=== PATIENT | female | born 1955 | race Caucasian/White ===

== ENCOUNTER 2016-10-10 22:38 | Emergency (ER) | payer MEDICAID ==
[2016-10-10] MEDS ORDERED: Albuterol/Ipratropium 3.0-0.5 MG/3 ML Neb Soln ONE (23:03)
[2016-10-10 23:34] VITALS: BP 139/112
--- NOTE | 2016-10-10 23:59 | EDM.PDOC ---
ED HPI GENERAL MEDICAL PROBLEM - General Stated Complaint: CHEST PAIN Time Seen by Provider: 10/10/16 22:40 Source of Information: Reports: Patient, EMS History Limitations: Reports: Altered mental status - History of Present Illness INITIAL COMMENTS - FREE TEXT/NARRATIVE: 61 years old w f. called ems because she could not sleep.Pt has H/O Bipolar disorder with multiple complains. Her main complain was sob. No family is present. Onset: unknown/unsure Onset Date: 10/10/16 Onset Time: 07:00 Duration: Improving Location: Reports: chest Quality: Reports: Ache, Burning, Dull, Pressure, Same as previous episode Severity: mild Improves with: Reports: None Worsens with: Reports: None Frontal Headache Pain Score (Numeric/FACES): 2 - Related Data Allergies Allergy/AdvReac Type Severity Reaction Status Date / Time ciprofloxacin Allergy Cannot Verified 10/11/16 01:54 Remember metronidazole [From Flagyl] Allergy Itching Verified 10/11/16 01:54 quetiapine fumarate Allergy Dizziness Verified 10/11/16 01:54 [From Seroquel] Home Meds: Home Meds Albuterol Sulfate [Proair Hfa] 2 puff IH Q4HR PRN 08/12/13 [History] Lisdexamfetamine [Vyvanse] 70 mg PO DAILY 08/12/13 [History] rOPINIRole HCl [Requip] 1 mg PO TID 11/28/13 [History] Furosemide [Lasix] 80 mg PO DAILY 01/12/14 [History] Amitriptyline HCl 100 mg PO BEDTIME 04/03/14 [History] Bismuth Subsalicylate [Pepto-Bismol] 15 ml PO ASDIRECTED PRN 04/03/14 [History] Pantoprazole [ProTONIX] 40 mg PO DAILY 04/03/14 [History] Sennosides/Docusate Sodium [Senna S Tablet] 2 tab PO BID 04/03/14 [History] Zolpidem [Ambien] 10 mg PO BEDTIME 04/03/14 [History] Metolazone [Zaroxolyn] 2.5 mg PO DAILY 04/27/14 [History] Doxepin [SINEquan] 100 mg PO BEDTIME 10/11/14 [History] Ferrous Gluconate 324 mg PO DAILY 10/11/14 [History] Carvedilol 3.125 mg PO BID 07/04/16 [History] Polyethylene Glycol 3350 [MiraLAX] 17 gm PO DAILY #30 packet 07/05/16 [Rx] Past Medical History HEENT History: Reports: Impaired vision Other HEENT History: wear glasses Cardiovascular History: Reports: Angina, [place], Other (see below) Other Cardiovascular History: heart dse Respiratory History: Reports: COPD, Sleep apnea Gastrointestinal History: Reports: Diverticulosis Other Genitourinary History: CYST ON KIDNEY 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 Generalized weakness. Neurological History: Reports: Other (see below) Other Neuro History: Pt. was in a coma for 5 months, fibromyalgia, neuropathy Psychiatric History: Reports: Anxiety, Bipolar, Depression, Hallucinations, Psych Hospitalization(s), PTSD, Suicide attempt Other Psychiatric History: Insomnia. Endocrine/Metabolic History: Reports: Diabetes, type II Social & Family History - Family History Family Medical History: Unobtainable Oncologic: Reports: Liver - Tobacco Use Smoking Status *Q: Former Smoker Years of Tobacco use: 40 Packs/Tins Daily: 0.4 Used Tobacco, but Quit: Yes Month Tobacco Last Used: 10 years ago Second Hand Smoke Exposure: No - Caffeine Use Caffeine Use: Reports: Soda Caffeine Use Comment: unable to tolerate caffiene per patient - Alcohol Use Days Per Week of Alcohol Use: 0 - Recreational Drug Use Recreational Drug Use: No Drug Use in Last 12 Months: No - Living Situation & Occupation Living situation: Occupation: unemployed ED ROS GENERAL - Review of Systems Review Of Systems: Unable To Obtain (poor historian.) ED EXAM, GENERAL - Physical Exam Exam: See Below Exam Limited By: Physical impairment General Appearance: alert, WD/WN, obese Eye Exam: bilateral eye: normal inspection Ears: normal external exam, normal canal Ear Exam: bilateral ear: auricle normal Nose: normal inspection, normal mucosa, no blood Throat/Mouth: Normal inspection, Normal lips Head: atraumatic, normocephalic Neck: normal inspection, supple, non-tender Respiratory/Chest: wheezing (mild) Cardiovascular: normal peripheral pulses, regular rate, rhythm, no edema, no JVD Peripheral Pulses: 3+: femoral (L), femoral (R) GI/Abdominal: normal bowel sounds, no distention (Female) Exam: Deferred Rectal (Female) Exam: Deferred Back Exam: normal inspection, full range of motion Extremities: normal inspection, normal range of motion, non-tender Neurological: alert, oriented, CN II-XII intact, normal cognition Psychiatric: depressed mood Skin Exam: Warm, Dry, Intact, Normal color Lymphatic: no adenopathy Course - Vital Signs Text/Narrative:: 61 years old w f. called ems because she could not sleep.Pt has H/O Bipolar disorder with multiple complains. Her main complain was sob. No family is present. PE: Minor exp wheezes Impression: Asthma Tx: Duoneb Reexam: Improved Plan: D/C hopme with instructions Last Recorded V/S: Last Vital Signs Temp 37.1 C 10/10/16 22:40 Pulse 96 10/10/16 22:40 Resp 21 H 10/10/16 22:40 BP 139/112 H 10/10/16 22:40 Pulse Ox 94 L 10/10/16 22:40 - Orders/Labs/Meds Orders: Active Orders 24 hr Category Date Time Status RT Aerosol Therapy [RC] ASDIRECTED Care 10/10/16 22:50 Active Meds: Medications Discontinued Medications Generic Name Dose Route Start Last Admin Trade Name Bobo PRN Reason Stop Dose Admin Albuterol/Ipratropium 3 ml 10/11/16 07:00 Duoneb 3.0-0.5 Mg/3 Ml NEB QIDRT NIA Albuterol/Ipratropium 3 ml 10/11/16 22:59 10/10/16 23:15 Duoneb 3.0-0.5 Mg/3 Ml NEB 10/11/16 23:00 3 ml ONETIME ONE Administration Albuterol/Ipratropium Confirm 10/10/16 23:03 10/10/16 23:16 Duoneb 3.0-0.5 Mg/3 Ml Administered 10/10/16 23:04 Not Given Dose 3 ml .ROUTE .STK-MED ONE Departure - Departure Time of Disposition: 23:59 Disposition: Home, Self-Care 01 Condition: good Clinical Impression: Asthma Qualifiers: Asthma severity: unspecified severity Asthma complication type: uncomplicated Qualified Code(s): J45.909 - Unspecified asthma, uncomplicated Obesity Qualifiers: Obesity type: due to excess calories Obesity severity: morbid Qualified Code(s) : E66.01 - Morbid (severe) obesity due to excess calories Referrals: Jada Lowe NP [Primary Care Provider] - Forms: ED Department Discharge Additional Instructions: Please f/u with your Doctor, please come back if your symptoms get worse acutely. - My Orders Last 24 Hours: My Active Orders 10/10/16 22:50 RT Aerosol Therapy [RC] ASDIRECTED - Assessment/Plan Last 24 Hours: My Active Orders 10/10/16 22:50 RT Aerosol Therapy [RC] ASDIRECTED
[2016-10-11] MEDS ORDERED: Albuterol/Ipratropium 3.0-0.5 MG/3 ML Neb Soln NEB SCH (07:00)
[2016-10-11] MEDS ORDERED: Albuterol/Ipratropium 3.0-0.5 MG/3 ML Neb Soln NEB ONE (22:59)
== END 2016-10-11 00:25 | disposition home or self-care (01) ==
LOC: FB.ED 22:38
DX: J45.909 Unspecified asthma, uncomplicated (principal); E66.01 Morbid (severe) obesity due to excess calories; I25.2 Old myocardial infarction; M06.9 Rheumatoid arthritis, unspecified; F41.9 Anxiety disorder, unspecified; F32.9 Major depressive disorder, single episode, unspecified; E11.9 Type 2 diabetes mellitus without complications; Z79.899 Other long term (current) drug therapy; Z88.1 Allergy status to other antibiotic agents; Z88.8 Allergy status to other drugs, medicaments and biological substances; Z87.891 Personal history of nicotine dependence
CPT/HCPCS: 94640; 99282; J7620

== ENCOUNTER 2016-12-01 17:03 | Observation (INO) | payer MEDICAID ==
[~2016-12-01 17:03] MED LIST: Pregabalin 50 MG Cap PO SCH
[2016-12-01] MEDS ORDERED: LORazepam 1 MG Tab PO ONE (17:27)
--- NOTE | 2016-12-01 17:38 | EDM.PDOC ---
ED HPI GENERAL MEDICAL PROBLEM - General Chief Complaint: Behavioral/Psych Stated Complaint: SOB Time Seen by Provider: 12/01/16 17:25 Source of Information: Reports: Patient, EMS, Old Records History Limitations: Reports: No Limitations - History of Present Illness INITIAL COMMENTS - FREE TEXT/NARRATIVE: Onset 2 hrs ago of rapid heart rate and mild central chest pain. Has not taken her anxiety med, but has taken her BP meds. Here via EMS because she lives alone. No nausea, diaphoresis, but does report SOB. Is on Mucinex for a "lung infection". Says she only takes her Coreg in the morning, not twice a day, apparently never reads her labels. Onset: Today Onset Date: 12/01/16 Onset Time: 15:00 Duration: Hour(s):, Constant Location: Reports: Chest Quality: Reports: Ache Severity: Mild Improves with: Reports: None Worsens with: Reports: None Context: Reports: Other (Coughing a lot lately, not taking her Ativan. Has a hx of "tachycardia". 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) - Related Data Allergies Allergy/AdvReac Type Severity Reaction Status Date / Time ciprofloxacin Allergy Cannot Verified 12/01/16 17:14 Remember metronidazole [From Flagyl] Allergy Itching Verified 12/01/16 17:14 quetiapine fumarate Allergy Dizziness Verified 12/01/16 17:14 [From Seroquel] Home Meds: Home Meds Albuterol Sulfate [Proair Hfa] 2 puff IH Q4HR PRN 08/12/13 [History] Lisdexamfetamine [Vyvanse] 70 mg PO DAILY 08/12/13 [History] rOPINIRole HCl [Requip] 1 mg PO TID 11/28/13 [History] Furosemide [Lasix] 80 mg PO DAILY 01/12/14 [History] Amitriptyline HCl 100 mg PO BEDTIME 04/03/14 [History] Bismuth Subsalicylate [Pepto-Bismol] 15 ml PO ASDIRECTED PRN 04/03/14 [History] Pantoprazole [ProTONIX] 40 mg PO DAILY 04/03/14 [History] Sennosides/Docusate Sodium [Senna S Tablet] 2 tab PO BID 04/03/14 [History] Zolpidem [Ambien] 10 mg PO BEDTIME 04/03/14 [History] Metolazone [Zaroxolyn] 2.5 mg PO DAILY 04/27/14 [History] Doxepin [SINEquan] 100 mg PO BEDTIME 10/11/14 [History] Ferrous Gluconate 324 mg PO DAILY 10/11/14 [History] Carvedilol 3.125 mg PO BID 07/04/16 [History] Polyethylene Glycol 3350 [MiraLAX] 17 gm PO DAILY #30 packet 07/05/16 [Rx] Past Medical History HEENT History: Reports: Impaired Vision Other HEENT History: wear glasses Cardiovascular History: Reports: Angina, [place], Other (See Below) Other Cardiovascular History: heart dse Respiratory History: Reports: COPD, Pneumonia, Recurrent, Sleep Apnea Gastrointestinal History: Reports: Diverticulosis Other Genitourinary History: CYST ON 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 Generalized weakness. Neurological History: Reports: Neuropathy, Diabetic Other Neuro History: Pt. was in a coma for 5 months, fibromyalgia, neuropathy Psychiatric History: Reports: Anxiety, Bipolar, Depression, Hallucinations, Psych Hospitalization(s), PTSD, Suicide Attempt Other Psychiatric History: Insomnia. Endocrine/Metabolic History: Reports: Diabetes, Type II Social & Family History - Family History Family Medical History: Unobtainable Oncologic: Reports: Liver - Tobacco Use Smoking Status *Q: Never Smoker Years of Tobacco use: 40 Packs/Tins Daily: 0.4 Used Tobacco, but Quit: Yes Month Tobacco Last Used: 10 years ago Second Hand Smoke Exposure: No - Caffeine Use Caffeine Use: Reports: None Caffeine Use Comment: unable to tolerate caffiene per patient - Alcohol Use Days Per Week of Alcohol Use: 0 - Recreational Drug Use Recreational Drug Use: Yes Drug Use in Last 12 Months: No - Living Situation & Occupation Living situation: Occupation: Unemployed ED ROS GENERAL - Review of Systems Review Of Systems: See Below Constitutional: Reports: Fever (Not measured.) HEENT: Reports: Other (Has chronic sinusitis) Respiratory: Reports: Shortness of Breath, Cough. Denies: Pleuritic Chest Pain , Hemoptysis Cardiovascular: Reports: Chest Pain, Dyspnea on Exertion, Lightheadedness Endocrine: Reports: No Symptoms GI/Abdominal: Reports: Constipation (alternates diarrhea and constipation), Diarrhea : Reports: Incontinence (not new) Musculoskeletal: Reports: No Symptoms Skin: Reports: No Symptoms Neurological: Reports: No Symptoms Psychiatric: Reports: Anxiety Hematologic/Lymphatic: Reports: No Symptoms Immunologic: Reports: No Symptoms ED EXAM, GENERAL - Physical Exam Exam: See Below Exam Limited By: No Limitations General Appearance: Alert, WD/WN, No Apparent Distress, Obese Eye Exam: Bilateral Eye: EOMI, Normal Inspection, PERRL Ears: Normal External Exam, Normal Canal, Hearing Grossly Normal Ear Exam: Bilateral Ear: Auricle Normal, Canal Normal Nose: Normal Inspection, Normal Mucosa, No Blood Throat/Mouth: Normal Inspection, Normal Lips, Normal Teeth, Normal Oropharynx, Normal Voice, No Airway Compromise Head: Atraumatic, Normocephalic Neck: Normal Inspection, Supple Respiratory/Chest: No Respiratory Distress, Lungs Clear, Normal Breath Sounds, No Accessory Muscle Use, Other (cough wet sounding) Cardiovascular: Tachycardia, Other (regular) GI/Abdominal: Normal Bowel Sounds, Soft, Non-Tender, No Distention Back Exam: Normal Inspection Extremities: Normal Inspection, Normal Range of Motion, Non-Tender, No Pedal Edema Neurological: Alert, Oriented, CN II-XII Intact, No Motor/Sensory Deficits Psychiatric: Anxious Skin Exam: Warm, Dry, Intact, Normal Color, No Rash Lymphatic: No Adenopathy EKG INTERPRETATION EKG Date: 12/01/16 Time: 17:45 Rhythm: NSR Rate (beats/min): 119 [place]: normal P-wave: present QRS: normal ST-T: normal QT: normal Comparison: other: (Rate has increased by 13/min, otherwise no change.) Course - Vital Signs Text/Narrative:: Ativan 1 mg po, KCL 40 meq po, magnesium oxide 800 mg po, Dulcolax 10 mg supp AL , LR 1000 ml IV, Coreg 6.25 mg po Orthostats-unable to perform CT chest with IV contrast(PE study)-negative for PE Afraid to go home, will bring in as OBS patient for social work specialist and PT consults. Last Recorded V/S: Last Vital Signs Temp 36.9 C 12/01/16 18:51 Pulse 118 H 12/01/16 21:11 Resp 20 12/01/16 21:11 BP 152/77 H 12/01/16 21:32 Pulse Ox 100 12/01/16 21:11 - Orders/Labs/Meds Orders: Active Orders 24 hr Category Date Time Status EKG Documentation Completion [RC] ASDIRECTED Care 12/01/16 17:28 Active Orthostatic Vital Signs [RC] ASDIRECTED Care 12/01/16 18:53 Inactive Ang Chest [CT] Stat Exams 12/01/16 18:52 Taken Sodium Chloride 0.9% [Saline Flush] Med 12/01/16 19:10 Active 10 ml FLUSH ASDIRECTED PRN Saline Lock Insert [OM.PC] Routine Oth 12/01/16 19:10 Ordered EKG 12 Lead [EK] Routine Ther 12/01/16 17:28 Ordered Medication Orders Sodium Chloride (Saline Flush) 10 ml FLUSH ASDIRECTED PRN PRN Reason: Keep Vein Open Last Admin: 12/01/16 19:11 Dose: 10 ml Labs: Laboratory Tests 12/01/16 12/01/16 12/01/16 Range/Units 17:40 17:40 17:40 WBC 12.8 H (4.5-12.0) X10-3/uL RBC 5.05 (3.23-5.20) x10(6)uL Hgb 15.1 (11.5-15.5) g/dL Hct 45.9 (30.0-51.3) % MCV 90.8 (80-96) fL MCH 29.9 (27.7-33.6) pg MCHC 32.9 (32.2-35.4) g/dL RDW 14.2 (11.5-15.5) % Plt Count 460 H (125-369) X10(3)uL D-Dimer, Quantitative (100-400) ng/mL Sodium 138 (135-145) mmol/L Potassium 3.4 L (3.5-5.3) mmol/L Chloride 96 L (100-110) mmol/L Carbon Dioxide 28 (23-29) mmol/L BUN 12 D (5-20) mg/dL Creatinine 1.0 (0.6-1.3) mg/dL Est Cr Clr Drug Dosing 63.30 mL/min Estimated GFR (MDRD) 57 L (>60) BUN/Creatinine Ratio 12.0 (9-20) Glucose 147 H (80-116) mg/dL Calcium 11.0 H (8.6-10.2) mg/dL Magnesium (1.8-2.5) mg/dL Troponin I < 0.01 L (0.02-0.06) NG/ML 12/01/16 12/01/16 Range/Units 17:40 17:40 WBC (4.5-12.0) X10-3/uL RBC (3.23-5.20) x10(6)uL Hgb (11.5-15.5) g/dL Hct (30.0-51.3) % MCV (80-96) fL MCH (27.7-33.6) pg MCHC (32.2-35.4) g/dL RDW (11.5-15.5) % Plt Count (125-369) X10(3)uL D-Dimer, Quantitative 1140 H (100-400) ng/mL Sodium (135-145) mmol/L Potassium (3.5-5.3) mmol/L Chloride (100-110) mmol/L Carbon Dioxide (23-29) mmol/L BUN (5-20) mg/dL Creatinine (0.6-1.3) mg/dL Est Cr Clr Drug Dosing mL/min Estimated GFR (MDRD) (>60) BUN/Creatinine Ratio (9-20) Glucose (80-116) mg/dL Calcium (8.6-10.2) mg/dL Magnesium 1.7 L (1.8-2.5) mg/dL Troponin I (0.02-0.06) NG/ML Meds: Medications Generic Name Dose Route Start Last Admin Trade Name Freq PRN Reason Stop Dose Admin Sodium Chloride 10 ml 12/01/16 19:10 12/01/16 19:11 Saline Flush FLUSH 10 ml ASDIRECTED PRN Administration Keep Vein Open Discontinued Medications Generic Name Dose Route Start Last Admin Trade Name Freq PRN Reason Stop Dose Admin Bisacodyl 10 mg 12/01/16 18:38 12/01/16 18:45 Dulcolax RECTAL 12/01/16 18:39 10 mg ONETIME ONE Administration Carvedilol 6.25 mg 12/01/16 21:17 12/01/16 21:32 Coreg PO 12/01/16 21:18 6.25 mg ONETIME ONE Administration Lactated Ringer's 1,000 mls @ 1,000 mls/hr 12/01/16 18:52 12/01/16 19:28 Ringers, Lactated IV 12/01/16 19:51 1,000 mls/hr BOLUS ONE Administration Iopamidol 100 ml 12/01/16 18:57 12/01/16 20:30 Isovue-370 (76%) IV 12/01/16 18:58 80 ml . DIRECTED ONE Administration Lorazepam 1 mg 12/01/16 17:27 12/01/16 17:41 Ativan PO 12/01/16 17:28 1 mg ONETIME ONE Administration Magnesium Oxide 800 mg 12/01/16 18:37 12/01/16 18:44 Magnesium Oxide PO 12/01/16 18:38 800 mg ONETIME ONE Administration Potassium Chloride 40 meq 12/01/16 18:04 12/01/16 18:11 Klor-Con 10 PO 12/01/16 18:05 40 meq ONETIME ONE Administration Departure - Departure Time of Disposition: 22:38 Disposition: Refer to Observation Condition: good Clinical Impression: At risk for falls HTN (hypertension) Qualifiers: Hypertension type: essential hypertension Qualified Code(s): I10 - Essential ( primary) hypertension Morbid obesity Qualifiers: Obesity type: due to excess calories Qualified Code(s): E66.01 - Morbid (severe ) obesity due to excess calories Forms: ED Department Discharge - My Orders Last 24 Hours: My Active Orders 12/01/16 17:28 EKG Documentation Completion [RC] ASDIRECTED EKG 12 Lead [EK] Routine 12/01/16 18:52 Ang Chest [CT] Stat 12/01/16 18:53 Orthostatic Vital Signs [RC] ASDIRECTED 12/01/16 19:10 Sodium Chloride 0.9% [Saline Flush] 10 ml FLUSH ASDIRECTED PRN Saline Lock Insert [OM.PC] Routine - Assessment/Plan Last 24 Hours: My Active Orders 12/01/16 17:28 EKG Documentation Completion [RC] ASDIRECTED EKG 12 Lead [EK] Routine 12/01/16 18:52 Ang Chest [CT] Stat 12/01/16 18:53 Orthostatic Vital Signs [RC] ASDIRECTED 12/01/16 19:10 Sodium Chloride 0.9% [Saline Flush] 10 ml FLUSH ASDIRECTED PRN Saline Lock Insert [OM.PC] Routine
[2016-12-01] MEDS ORDERED: Potassium Chloride 10 MEQ Tab.ER PO ONE (18:04)
[2016-12-01] MEDS ORDERED: Magnesium Oxide 400 MG Tab PO ONE (18:37)
[2016-12-01] MEDS ORDERED: Bisacodyl 10 MG Supp RECTAL ONE (18:38)
[2016-12-01] MEDS ORDERED: Lactated Ringers 1,000 ML IV ONE (18:52)
[2016-12-01] MEDS ORDERED: Iopamidol 755 Mg/ML 100 ML Bottle IV ONE (18:57)
[2016-12-01] MEDS ORDERED: Sodium Chloride 0.9% 10 ML Syringe FLUSH PRN (19:10)
[2016-12-01] MEDS ORDERED: Carvedilol 6.25 MG Tab PO ONE (21:17)
[2016-12-01] MEDS ORDERED: Carvedilol 6.25 MG Tab ONE (21:31)
[2016-12-01] MEDS ORDERED: Acetaminophen 325 MG Tab PO PRN (22:40)
[2016-12-01] MEDS ORDERED: BISMUTH SUBSALICYLATE PO PRN (22:46)
[2016-12-01] MEDS ORDERED: Albuterol 8 GM Inhaler INH PRN (22:57)
[2016-12-02] MEDS ORDERED: Pregabalin 50 MG Cap PO SCH (00:17)
[2016-12-02] MEDS ORDERED: LORazepam 1 MG Tab PO PRN (00:18)
[2016-12-02] MEDS ORDERED: diphenhydrAMINE 25 MG Cap PO SCH (00:23)
[2016-12-02 02:17] VITALS: BP 150/90
[2016-12-02] MEDS ORDERED: Pantoprazole 40 MG Tab.CR PO SCH (09:00)
[2016-12-02] MEDS ORDERED: Polyethylene Glycol 3350 Powder 17 GM Packet PO SCH (09:00)
[2016-12-02] MEDS ORDERED: Metolazone 2.5 MG Tab PO SCH (09:00)
[2016-12-02] MEDS ORDERED: Acetaminophen/Codeine 300-30 MG Tab PO SCH (09:00)
[2016-12-02] MEDS ORDERED: Non-Formulary Medication 1 Each (Ropinirole Hcl [Requip] 1 MG) PO SCH (09:00)
[2016-12-02] MEDS ORDERED: Ferrous Gluconate 324 MG Tab PO SCH (09:00)
[2016-12-02] MEDS ORDERED: LISDEXAMFETAMINE 70 MG PO SCH (09:00)
[2016-12-02] MEDS ORDERED: Carvedilol 3.125 MG Tab PO SCH (09:00)
[2016-12-02] MEDS ORDERED: Enoxaparin 40 MG/0.4 ML Syringe SUBCUT SCH (09:00)
[2016-12-02] MEDS ORDERED: AMITRIPTYLINE HCL 100 MG PO SCH (21:00)
[2016-12-02] MEDS ORDERED: Zolpidem 10 MG Tab PO SCH (21:00)
== END 2016-12-02 01:05 | disposition left against medical advice (07) ==
LOC: FB.ED 17:03 → FB.MS 22:40
PROVIDERS: ADMIT Emergency Medicine; ATTEND Family Medicine
DX: I10 Essential (primary) hypertension (principal); E66.01 Morbid (severe) obesity due to excess calories; J44.9 Chronic obstructive pulmonary disease, unspecified; G47.30 Sleep apnea, unspecified; E11.40 Type 2 diabetes mellitus with diabetic neuropathy, unspecified; F41.9 Anxiety disorder, unspecified; F32.9 Major depressive disorder, single episode, unspecified; Z88.1 Allergy status to other antibiotic agents; Z88.8 Allergy status to other drugs, medicaments and biological substances; Z79.899 Other long term (current) drug therapy
CPT/HCPCS: 36415; 71275; 80048; 83735; 84484; 85027; 85379; 93005; 96360; 99285; A9270; G0378; J7050; J7120; Q9967

== ENCOUNTER 2017-01-05 15:53 | Emergency (ER) | payer MEDICAID ==
[2017-01-05] MEDS ORDERED: Ondansetron 8 MG Tab.DIS PO ONE (16:01)
--- NOTE | 2017-01-05 16:34 | EDM.PDOC ---
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 bloating. Onset: Unknown/Unsure Onset Date: 12/11/16 Onset Time: 07:00 Duration: Week(s):, Intermittent Location: Reports: Chest, Generalized whole body Pain Score (Numeric/FACES): 9 - Related Data Allergies Allergy/AdvReac Type Severity Reaction Status Date / Time ciprofloxacin Allergy Cannot Verified 01/07/17 18:56 Remember metronidazole [From Flagyl] Allergy Itching Verified 01/07/17 18:56 Home Meds: Home Meds rOPINIRole HCl [Requip] 1 mg PO TID 11/28/13 [History] Furosemide [Lasix] 80 mg PO DAILY PRN 01/12/14 [History] Pantoprazole [ProTONIX] 40 mg PO DAILY 04/03/14 [History] Sennosides/Docusate Sodium [Senna S Tablet] 1 tab PO DAILY 04/03/14 [History] Zolpidem [Ambien] 10 mg PO BEDTIME 04/03/14 [History] Doxepin [SINEquan] 100 mg PO BEDTIME 10/11/14 [History] Carvedilol 3.125 mg PO BID 07/04/16 [History] Acetaminophen with Codeine [Tylenol with Codeine #3 Tablet] 1 tab PO TID PRN [History] Cranberry Extract/Vit C [Azo Cranberry Softgel] 1 tab PO DAILY 01/05/17 [History ] Cyclobenzaprine [Flexeril] 10 mg PO TID 01/05/17 [History] Ferrous Sulfate 325 mg PO DAILY 01/05/17 [History] Folic Acid 1 mg PO DAILY 01/05/17 [History] Magnesium 250 mg PO DAILY 01/05/17 [History] Metoclopramide HCl 10 mg PO BID PRN 01/05/17 [History] Pregabalin [Lyrica] 50 mg PO TID 01/05/17 [History] QUEtiapine [SEROquel] 100 mg PO BEDTIME 01/05/17 [History] Spironolactone [Aldactone] 25 mg PO DAILY 01/05/17 [History] Cyanocobalamin (Vitamin B-12) [B-12] 1,000 mcg PO DAILY 01/07/17 [History] LORazepam 1 mg PO BID PRN 01/07/17 [History] Metoclopramide HCl 10 mg PO BID PRN 01/07/17 [History] atorvaSTATin [Lipitor] 20 mg PO BEDTIME 01/07/17 [History] Fluticasone Propionate [Flonase] 1 spray NASBOTH DAILY 01/08/17 [History] Sulfamethoxazole/Trimethoprim [IJD: Sulfamethoxazole/Trimethoprim DS] 1 tab PO BID #10 tablet 01/08/17 [Rx] Past Medical History HEENT History: Reports: Impaired Vision Other HEENT History: wear glasses Cardiovascular History: Reports: Angina, [place], Other (See Below) Other Cardiovascular History: heart dse Respiratory History: Reports: COPD, Pneumonia, Recurrent, Sleep Apnea Gastrointestinal History: Reports: Diverticulosis Other Genitourinary History: 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 Generalized weakness. Neurological History: Reports: Neuropathy, Diabetic Other Neuro History: Pt. was in a coma for 5 months, fibromyalgia, neuropathy Psychiatric History: Reports: Anxiety, Bipolar, Depression, Hallucinations, Psych Hospitalization(s), PTSD, Suicide Attempt Other Psychiatric History: Insomnia. Endocrine/Metabolic History: Reports: Diabetes, Type II Social & Family History - Family History Family Medical History: Unobtainable Oncologic: Reports: Liver - Tobacco Use Smoking Status *Q: Never Smoker Years of Tobacco use: 40 Packs/Tins Daily: 0.4 Used Tobacco, but Quit: Yes Month Tobacco Last Used: 10 years ago Second Hand Smoke Exposure: No - Caffeine Use Caffeine Use: Reports: None Caffeine Use Comment: unable to tolerate caffiene per patient - Alcohol Use Days Per Week of Alcohol Use: 0 - Recreational Drug Use Recreational Drug Use: Yes Drug Use in Last 12 Months: No - Living Situation & Occupation Living situation: Occupation: Unemployed ED ROS GENERAL - Review of Systems Review Of Systems: See Below Constitutional: Reports: Weakness HEENT: Reports: Other (H/A) Respiratory: Reports: Cough Cardiovascular: Reports: No Symptoms Endocrine: Reports: No Symptoms GI/Abdominal: Reports: No Symptoms ED EXAM, GENERAL - Physical Exam Exam: See Below Exam Limited By: Uncooperative General Appearance: Alert, WD/WN, Mild Distress Eye Exam: Bilateral Eye: Normal Inspection Ears: Normal External Exam Ear Exam: Bilateral Ear: Auricle Normal Nose: Normal Inspection, Normal Mucosa Throat/Mouth: Normal Inspection, Normal Lips Head: Atraumatic, Normocephalic Neck: Normal Inspection, Supple, Non-Tender Respiratory/Chest: Wheezing Cardiovascular: Normal Peripheral Pulses, Regular Rate, Rhythm, No Edema GI/Abdominal: Normal Bowel Sounds, Soft (Female) Exam: Deferred Rectal (Female) Exam: Deferred Back Exam: Normal Inspection, Full Range of Motion Extremities: Normal Inspection, Normal Range of Motion Neurological: Alert, Oriented, CN II-XII Intact, Normal Cognition, Normal Gait Psychiatric: Anxious Skin Exam: Warm, Dry, Intact, Normal Color, No Rash Lymphatic: No Adenopathy Course - Vital Signs Text/Narrative:: 61 y.o.w.f with multiple medical issues, well known in this ed due to here frequent ED visits, came to the ed by EMS due to nausea for 1 year, unable to eat for 3 days and abd. bloating. C/O migraine H/A PE: Morbid obese, refusing w/u initially, c/o nausea H/O pneumonia Imaging: Atelectasis Labs: NAD Impression: Obese, Migraine H/A, atelectasis Tx: Duineb, Imitrex, Zofran, NS Reexam: improved Plan: D/C home with instructions addendum: Pt refused blood work, was done last week. Changed her mind later on. Last Recorded V/S: Last Vital Signs Temp 36.7 C 01/05/17 18:47 Pulse 95 01/05/17 18:47 Resp 18 01/05/17 18:47 BP 145/86 H 01/05/17 18:47 Pulse Ox 96 01/05/17 18:47 - Orders/Labs/Meds Labs: Laboratory Tests 01/05/17 01/05/17 01/05/17 Range/Units 16:50 16:50 16:50 WBC 11.8 (4.5-12.0) X10-3/uL RBC 4.64 (3.23-5.20) x10(6)uL Hgb 13.8 (11.5-15.5) g/dL Hct 41.3 (30.0-51.3) % MCV 89.1 (80-96) fL MCH 29.6 (27.7-33.6) pg MCHC 33.3 (32.2-35.4) g/dL RDW 14.1 (11.5-15.5) % Plt Count 426 H (125-369) X10(3)uL MPV 7.8 (7.4-10.4) fL Neut % (Auto) 80.3 (46-82) % Lymph % (Auto) 14.5 (13-37) % [place] % (Auto) 3.6 L (4-12) % Eos % (Auto) 1 (1.0-5.0) % Baso % (Auto) 1 (0-2) % Neut # (Auto) 9.5 H (1.6-8.3) # Lymph # (Auto) 1.7 (0.6-5.0) # [place] # (Auto) 0.4 (0.0-1.3) # Eos # (Auto) 0.1 (0.0-0.8) # Baso # (Auto) 0.1 (0.0-0.2) # PT 10.6 (8.7-11.1) INR 1.05 (0.89-1.13) Sodium 133 L (135-145) mmol/L Potassium 3.6 (3.5-5.3) mmol/L Chloride 93 L (100-110) mmol/L Carbon Dioxide 28 (23-29) mmol/L BUN 17 (5-20) mg/dL Creatinine 1.1 (0.6-1.3) mg/dL Est Cr Clr Drug Dosing 57.55 mL/min Estimated GFR (MDRD) 51 L (>60) BUN/Creatinine Ratio 15.5 (9-20) Glucose 147 H (80-116) mg/dL Calcium 10.6 H (8.6-10.2) mg/dL B-Natriuretic Peptide (0-100) pg/mL Urine Color (YELLOW) Urine Appearance (CLEAR) Urine pH (5.0-6.5) Ur Specific [place] (1.010-1.025) Urine Protein (NEGATIVE) mg/dL Urine Glucose (UA) (NEGATIVE) mg/dL Urine Ketones (NEGATIVE) mg/dL Urine Occult Blood (NEGATIVE) Urine Nitrite (NEGATIVE) Urine Bilirubin (NEGATIVE) Urine Urobilinogen (NEGATIVE) mg/dL Ur Leukocyte Esterase (NEGATIVE) Urine RBC (0) Urine WBC (0) Ur Squamous Epith Cells (NS,R,O) Amorphous Sediment Urine Bacteria (NS) 01/05/17 01/05/17 Range/Units 16:50 17:50 WBC (4.5-12.0) X10-3/uL RBC (3.23-5.20) x10(6)uL Hgb (11.5-15.5) g/dL Hct (30.0-51.3) % MCV (80-96) fL MCH (27.7-33.6) pg MCHC (32.2-35.4) g/dL RDW (11.5-15.5) % Plt Count (125-369) X10(3)uL MPV (7.4-10.4) fL Neut % (Auto) (46-82) % Lymph % (Auto) (13-37) % [place] % (Auto) (4-12) % Eos % (Auto) (1.0-5.0) % Baso % (Auto) (0-2) % Neut # (Auto) (1.6-8.3) # Lymph # (Auto) (0.6-5.0) # [place] # (Auto) (0.0-1.3) # Eos # (Auto) (0.0-0.8) # Baso # (Auto) (0.0-0.2) # PT (8.7-11.1) INR (0.89-1.13) Sodium (135-145) mmol/L Potassium (3.5-5.3) mmol/L Chloride (100-110) mmol/L Carbon Dioxide (23-29) mmol/L BUN (5-20) mg/dL Creatinine (0.6-1.3) mg/dL Est Cr Clr Drug Dosing mL/min Estimated GFR (MDRD) (>60) BUN/Creatinine Ratio (9-20) Glucose (80-116) mg/dL Calcium (8.6-10.2) mg/dL B-Natriuretic Peptide 36 (0-100) pg/mL Urine Color Yellow (YELLOW) Urine Appearance Slightly cloudy (CLEAR) Urine pH 6.5 (5.0-6.5) Ur Specific [place] 1.015 (1.010-1.025) Urine Protein Negative (NEGATIVE) mg/dL Urine Glucose (UA) Normal (NEGATIVE) mg/dL Urine Ketones Negative (NEGATIVE) mg/dL Urine Occult Blood Trace (NEGATIVE) Urine Nitrite Negative (NEGATIVE) Urine Bilirubin Negative (NEGATIVE) Urine Urobilinogen Normal (NEGATIVE) mg/dL Ur Leukocyte Esterase Negative (NEGATIVE) Urine RBC 0-5 (0) Urine WBC 0-5 (0) Ur Squamous Epith Cells Moderate H (NS,R,O) Amorphous Sediment Moderate Urine Bacteria Few H (NS) Meds: Medications Discontinued Medications Generic Name Dose Route Start Last Admin Trade Name Freq PRN Reason Stop Dose Admin Albuterol/Ipratropium 3 ml 01/05/17 17:29 01/05/17 18:04 Duoneb 3.0-0.5 Mg/3 Ml NEB 01/05/17 17:30 3 ml ONETIME ONE Administration Ondansetron HCl 8 mg 01/05/17 16:01 01/05/17 16:34 Zofran Odt PO 01/05/17 16:02 8 mg ONETIME ONE Administration Sumatriptan Succinate 6 mg 01/05/17 17:31 01/05/17 18:00 Imitrex SUBCUT 01/05/17 17:32 6 mg ONETIME ONE Administration Departure - Departure Time of Disposition: 18:31 Disposition: Home, Self-Care 01 Condition: Good Clinical Impression: Hyponatremia, Nausea alone, Atelectasis of right lung Migraine Qualifiers: Migraine type: without aura Status migrainosus presence: without status migrainosus Intractability: not intractable Qualified Code(s): G43.009 - Migraine without aura, not intractable, without status migrainosus - Discharge Information Instructions: Shortness of Breath Referrals: PCP,Not In Area [Primary Care Provider] - Forms: ED Department Discharge Additional Instructions: Please use your inhalers as recommended, please use zofran for nausea, please follow up with your PMD, please come back to the ed if your symptoms get worse acutely.
[2017-01-05] MEDS ORDERED: Albuterol/Ipratropium 3.0-0.5 MG/3 ML Neb Soln NEB ONE (17:29)
[2017-01-05] MEDS ORDERED: SUMAtriptan 6 MG/0.5 ML SDV SUBCUT ONE (17:31)
[2017-01-05 18:48] VITALS: BP 145/86
--- NOTE | 2017-01-06 09:19 | CR ---
INDICATION: Coughing. CHEST: PA and lateral views of the chest 01/05/2017 were compared with 2016 and again revealed evidence of exogenous obesity. Allowing for relatively poor inspiration, the heart did not appear grossly enlarged, but may be slightly prominent or at the upper limits of normal in size. The aorta is tortuous with some calcification suggested in the arch of the aorta. Linear density is noted at the minor fissure, suggesting some thickening of the minor fissure, which may be on the basis of minimal pleuritis in that area. A minimal pneumonia in the right upper lobe could be present with pleuritis. However, overall the appearance is similar to the previous study and likely represents pulmonary fibrosis. No consolidating pneumonia or definite effusion was seen. The heart, although generous in size, is not grossly enlarged. The aorta is calcified in the arch area and somewhat tortuous. Dextroconcave scoliosis lower thoracic spine is noted. IMPRESSION: 1. No definite acute process, but cannot exclude some minimal fluid in the minor fissure or linear atelectasis in that area on the right. Also, it is difficult to exclude minimal patchy bronchopneumonia due to heavy markings which are partly on the basis of poor inspiration. No consolidating pneumonia, however. 2. ASHD. 3. Exogenous obesity 4. Scoliosis. Report was called to Dr. Ramirez at 1639 hours, 01/05/2017. [facility]
== END 2017-01-05 18:55 | disposition home or self-care (01) ==
LOC: FB.ED 15:53
DX: E87.1 Hypo-osmolality and hyponatremia (principal); R11.0 Nausea; J98.11 Atelectasis; G43.009 Migraine without aura, not intractable, without status migrainosus; I25.2 Old myocardial infarction; J44.9 Chronic obstructive pulmonary disease, unspecified; Z87.01 Personal history of pneumonia (recurrent); G47.30 Sleep apnea, unspecified; M79.7 Fibromyalgia; M06.9 Rheumatoid arthritis, unspecified; E11.40 Type 2 diabetes mellitus with diabetic neuropathy, unspecified; F41.9 Anxiety disorder, unspecified; F31.9 Bipolar disorder, unspecified; F43.10 Post-traumatic stress disorder, unspecified; Z91.5 Personal history of self-harm; Z79.899 Other long term (current) drug therapy; Z87.891 Personal history of nicotine dependence; I25.10 Atherosclerotic heart disease of native coronary artery without angina pectoris; E66.09 Other obesity due to excess calories; M41.9 Scoliosis, unspecified
CPT/HCPCS: 36415; 71020; 80048; 81001; 83880; 85025; 85610; 94640; 96372; 99285; A9270; J3030; J7620

== ENCOUNTER 2017-01-07 17:02 | Observation (INO) | payer MEDICAID, MEDICARE ==
[2017-01-07] MEDS ORDERED: Adenosine 6 MG/2 ML SDV IVPUSH ONE ×2 (17:14→17:54)
[2017-01-07] MEDS ORDERED: Sodium Chloride 0.9% 1,000 ML IV SCH (17:15)
[2017-01-07] MEDS ORDERED: Sodium Chloride 0.9% 1,000 ML IV ONE (17:25)
--- NOTE | 2017-01-07 17:25 | EDM.PDOC ---
ED HPI GENERAL MEDICAL PROBLEM - General Stated Complaint: TACHYCARDIA Time Seen by Provider: 01/07/17 17:02 Source of Information: Reports: Patient, EMS - History of Present Illness INITIAL COMMENTS - FREE TEXT/NARRATIVE: 61 y.o.w.f with a h/o SVT and C/p came by EMS to the ED because of palpitations all day long. No constitutional symptoms at this time. No other acute medical issues. Onset: Today, Sudden Onset Date: 01/07/17 Onset Time: 16:25 Duration: Minutes:, Intermittent Quality: Reports: Dull Severity: Mild Improves with: Reports: None Worsens with: Reports: None Associated Symptoms: Reports: No Other Symptoms - Related Data Allergies Allergy/AdvReac Type Severity Reaction Status Date / Time ciprofloxacin Allergy Cannot Verified 01/07/17 18:56 Remember metronidazole [From Flagyl] Allergy Itching Verified 01/07/17 18:56 quetiapine fumarate Allergy Dizziness Verified 01/07/17 18:56 [From Seroquel] Home Meds: Home Meds rOPINIRole HCl [Requip] 1 mg PO TID 11/28/13 [History] Furosemide [Lasix] 80 mg PO DAILY PRN 01/12/14 [History] Pantoprazole [ProTONIX] 40 mg PO DAILY 04/03/14 [History] Sennosides/Docusate Sodium [Senna S Tablet] 1 tab PO DAILY 04/03/14 [History] Zolpidem [Ambien] 10 mg PO BEDTIME 04/03/14 [History] Doxepin [SINEquan] 100 mg PO BEDTIME 10/11/14 [History] Carvedilol 3.125 mg PO BID 07/04/16 [History] Acetaminophen with Codeine [Tylenol with Codeine #3 Tablet] 1 tab PO TID PRN [History] Cranberry Extract/Vit C [Azo Cranberry Softgel] 1 tab PO DAILY 01/05/17 [History ] Cyclobenzaprine [Flexeril] 10 mg PO TID 01/05/17 [History] Ferrous Sulfate 325 mg PO DAILY 01/05/17 [History] Fluticasone Propionate [Flovent] 1 spray NASBOTH DAILY 01/05/17 [History] Folic Acid 1 mg PO DAILY 01/05/17 [History] Magnesium 250 mg PO DAILY 01/05/17 [History] Methylphenidate [Concerta] 54 mg PO DAILY 01/05/17 [History] Metoclopramide HCl 10 mg PO BID PRN 01/05/17 [History] Ondansetron [Zofran Odt] 8 mg PO Q6H PRN #20 tab.rapdis 01/05/17 [Rx] Pregabalin [Lyrica] 50 mg PO TID 01/05/17 [History] QUEtiapine [SEROquel] 100 mg PO BEDTIME 01/05/17 [History] Spironolactone [Aldactone] 25 mg PO DAILY 01/05/17 [History] diphenhydrAMINE [Benadryl] 50 mg PO BEDTIME 01/05/17 [History] Cyanocobalamin (Vitamin B-12) [B-12] 1,000 mcg PO DAILY 01/07/17 [History] LORazepam 1 mg PO BID PRN 01/07/17 [History] Metoclopramide HCl 10 mg PO BID PRN 01/07/17 [History] atorvaSTATin [Lipitor] 20 mg PO BEDTIME 01/07/17 [History] Past Medical History HEENT History: Reports: Impaired Vision Other HEENT History: wear glasses Cardiovascular History: Reports: Angina, [place], Other (See Below) Other Cardiovascular History: heart dse Respiratory History: Reports: COPD, Pneumonia, Recurrent, Sleep Apnea Gastrointestinal History: Reports: Diverticulosis Other Genitourinary History: 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 Generalized weakness. Neurological History: Reports: Neuropathy, Diabetic Other Neuro History: Pt. was in a coma for 5 months, fibromyalgia, neuropathy Psychiatric History: Reports: Anxiety, Bipolar, Depression, Hallucinations, Psych Hospitalization(s), PTSD, Suicide Attempt Other Psychiatric History: Insomnia. Endocrine/Metabolic History: Reports: Diabetes, Type II Social & Family History - Family History Family Medical History: Unobtainable Oncologic: Reports: Liver - Tobacco Use Smoking Status *Q: Never Smoker Years of Tobacco use: 40 Packs/Tins Daily: 0.4 Used Tobacco, but Quit: Yes Month Tobacco Last Used: 10 years ago Second Hand Smoke Exposure: No - Caffeine Use Caffeine Use: Reports: None Caffeine Use Comment: unable to tolerate caffiene per patient - Alcohol Use Days Per Week of Alcohol Use: 0 - Recreational Drug Use Recreational Drug Use: Yes Drug Use in Last 12 Months: No - Living Situation & Occupation Living situation: Occupation: Unemployed ED ROS GENERAL - Review of Systems Review Of Systems: See Below Constitutional: Reports: No Symptoms, Weakness HEENT: Reports: No Symptoms Respiratory: Reports: No Symptoms Cardiovascular: Reports: Palpitations Endocrine: Reports: No Symptoms GI/Abdominal: Reports: No Symptoms : Reports: No Symptoms Musculoskeletal: Reports: No Symptoms Skin: Reports: No Symptoms Neurological: Reports: No Symptoms Psychiatric: Reports: No Symptoms Hematologic/Lymphatic: Reports: No Symptoms Immunologic: Reports: No Symptoms ED EXAM, GENERAL - Physical Exam Exam: See Below Exam Limited By: No Limitations General Appearance: Alert, WD/WN, Mild Distress, Obese Eye Exam: Bilateral Eye: Normal Inspection Ears: Normal External Exam Ear Exam: Bilateral Ear: Auricle Normal Nose: Normal Inspection Throat/Mouth: Normal Inspection Head: Atraumatic, Normocephalic Neck: Normal Inspection, Supple, Non-Tender Respiratory/Chest: No Respiratory Distress, Lungs Clear, Normal Breath Sounds, Chest Non-Tender Cardiovascular: Tachycardia GI/Abdominal: Normal Bowel Sounds, Soft, Non-Tender, No Organomegaly (Female) Exam: Deferred Rectal (Female) Exam: Deferred Back Exam: Normal Inspection, Full Range of Motion Extremities: Normal Inspection, Normal Range of Motion, Non-Tender, No Pedal Edema Neurological: Alert, Oriented, CN II-XII Intact, Normal Cognition Psychiatric: Normal Affect, Normal Mood Skin Exam: Warm, Dry, Intact, Normal Color, No Rash Lymphatic: No Adenopathy EKG INTERPRETATION EKG Date: 01/07/17 Time: 17:20 Rhythm: Other (SVT) Rate (Beats/Min): 195 [place]: Normal P-Wave: Absent QRS: Normal ST-T: Normal QT: Normal Comparison: NA - No Prior EKG EKG Interpretation Comments: After the second dose of Adenosin was given, pt converted to sinus tach with a rate of [address]/T waves QTc was 420 Course - Vital Signs Text/Narrative:: 61 y.o.w.f with a h/o SVT and C/p came by EMS to the ED because of palpitations all day long. No constitutional symptoms at this time. No other acute medical issues. PE: Palpitations, SVT with a rate of 192 Labs: Cr 1.4 WBC 14.5 K 3.6 Na 140, Ca 10.9 Troponin 0.06 Imaging: CXR NAD 2 days ago. Impression: Hypercalcemia, renal insuff, Sinus Tach, Dehydration Tx: Adenosin 6 mg, no success, Adenosin 12 mg, pt converted to Sinus tach. Protronix was given for her epigastric pain Reexam: After the pt converted to Sinus tach (102), pt complained of epigastric pain. 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 Last Recorded V/S: Last Vital Signs Temp 37.4 C 01/07/17 17:05 Pulse 202 H 01/07/17 17:05 Resp 20 01/07/17 17:05 BP 135/86 01/07/17 17:05 Pulse Ox 98 01/07/17 17:05 - Orders/Labs/Meds Orders: Active Orders 24 hr Category Date Time Status EKG Documentation Completion [RC] ASDIRECTED Care 01/07/17 17:12 Active EKG Documentation Completion [RC] ASDIRECTED Care 01/07/17 18:03 Active UA W/MICROSCOPIC [URIN] Stat Lab 01/07/17 17:11 Uncollected Sodium Chloride 0.9% [Normal Saline] 1,000 ml Med 01/07/17 17:15 Active IV ASDIRECTED EKG 12 Lead [EK] Routine Ther 01/07/17 17:11 Ordered EKG 12 Lead [EK] Routine Ther 01/07/17 18:03 Ordered Medication Orders Sodium Chloride (Normal Saline) 1,000 mls @ 125 mls/hr IV ASDIRECTED NIA Lactated Ringer's (Ringers, Lactated) 1,000 mls @ 125 mls/hr IV ASDIRECTED NIA Last Admin: 01/07/17 18:25 Dose: 125 mls/hr Ondansetron HCl (Zofran) 4 mg IV Q4H PRN PRN Reason: Nausea/Vomiting Labs: Laboratory Tests 01/07/17 01/07/17 01/07/17 Range/Units 17:30 17:30 17:30 WBC 14.3 H (4.5-12.0) X10-3/uL RBC 5.09 (3.23-5.20) x10(6)uL Hgb 14.9 (11.5-15.5) g/dL Hct 46.2 (30.0-51.3) % MCV 90.7 (80-96) fL MCH 29.4 (27.7-33.6) pg MCHC 32.4 (32.2-35.4) g/dL RDW 14.7 (11.5-15.5) % Plt Count 513 H (125-369) X10(3)uL MPV 8.6 (7.4-10.4) fL Neut % (Auto) 68.4 (46-82) % Lymph % (Auto) 23.5 (13-37) % [place] % (Auto) 5.6 (4-12) % Eos % (Auto) 2 (1.0-5.0) % Baso % (Auto) 1 (0-2) % Neut # (Auto) 9.7 H (1.6-8.3) # Lymph # (Auto) 3.4 (0.6-5.0) # [place] # (Auto) 0.8 (0.0-1.3) # Eos # (Auto) 0.3 (0.0-0.8) # Baso # (Auto) 0.1 (0.0-0.2) # Sodium 139 (135-145) mmol/L Potassium 3.7 (3.5-5.3) mmol/L Chloride 101 D (100-110) mmol/L Carbon Dioxide 27 (23-29) mmol/L BUN 13 (5-20) mg/dL Creatinine 1.4 H (0.6-1.3) mg/dL Est Cr Clr Drug Dosing TNP Estimated GFR (MDRD) 38 L (>60) BUN/Creatinine Ratio 9.3 (9-20) Glucose 176 H (80-116) mg/dL Calcium 10.9 H (8.6-10.2) mg/dL Troponin I 0.06 (0.02-0.06) NG/ML B-Natriuretic Peptide (0-100) pg/mL TSH, Ultra Sensitive (0.4-5.5) nlU/mL 01/07/17 01/07/17 Range/Units 17:30 17:30 WBC (4.5-12.0) X10-3/uL RBC (3.23-5.20) x10(6)uL Hgb (11.5-15.5) g/dL Hct (30.0-51.3) % MCV (80-96) fL MCH (27.7-33.6) pg MCHC (32.2-35.4) g/dL RDW (11.5-15.5) % Plt Count (125-369) X10(3)uL MPV (7.4-10.4) fL Neut % (Auto) (46-82) % Lymph % (Auto) (13-37) % [place] % (Auto) (4-12) % Eos % (Auto) (1.0-5.0) % Baso % (Auto) (0-2) % Neut # (Auto) (1.6-8.3) # Lymph # (Auto) (0.6-5.0) # [place] # (Auto) (0.0-1.3) # Eos # (Auto) (0.0-0.8) # Baso # (Auto) (0.0-0.2) # Sodium (135-145) mmol/L Potassium (3.5-5.3) mmol/L Chloride (100-110) mmol/L Carbon Dioxide (23-29) mmol/L BUN (5-20) mg/dL Creatinine (0.6-1.3) mg/dL Est Cr Clr Drug Dosing Estimated GFR (MDRD) (>60) BUN/Creatinine Ratio (9-20) Glucose (80-116) mg/dL Calcium (8.6-10.2) mg/dL Troponin I (0.02-0.06) NG/ML B-Natriuretic Peptide 78 (0-100) pg/mL TSH, Ultra Sensitive 1.65 (0.4-5.5) nlU/mL Meds: Medications Generic Name Dose Route Start Last Admin Trade Name Freq PRN Reason Stop Dose Admin Sodium Chloride 1,000 mls @ 125 mls/hr 01/07/17 17:15 Normal Saline IV ASDIRECTED NIA Lactated Ringer's 1,000 mls @ 125 mls/hr 01/07/17 18:45 01/07/17 18:25 Ringers, Lactated IV 125 mls/hr ASDIRECTED NIA Administration Ondansetron HCl 4 mg 01/07/17 18:35 Zofran IV Q4H PRN Nausea/Vomiting Discontinued Medications Generic Name Dose Route Start Last Admin Trade Name Bobo PRN Reason Stop Dose Admin Adenosine 6 mg 01/07/17 17:14 01/07/17 17:50 Adenocard IVPUSH 01/07/17 17:15 6 mg NOW ONE Administration Adenosine Confirm 01/07/17 17:54 01/07/17 19:35 Adenocard Administered 01/07/17 17:55 Not Given Dose 6 mg .ROUTE .STK-MED ONE Adenosine 12 mg 01/07/17 17:54 01/07/17 17:55 Adenocard IVPUSH 01/07/17 17:55 12 mg NOW ONE Administration Sodium Chloride 1,000 mls @ 999 mls/hr 01/07/17 17:25 01/07/17 17:30 Normal Saline IV 01/07/17 18:25 999 mls/hr .BOLUS ONE Administration Pantoprazole Sodium 40 mg 01/07/17 18:43 01/07/17 19:36 Protonix Iv IVPUSH 01/07/17 18:44 40 mg ONETIME ONE Administration Departure - Departure Time of Disposition: 18:00 Disposition: Refer to Observation Condition: Fair Clinical Impression: Epigastric pain Chest pain Qualifiers: Chest pain type: unspecified Qualified Code(s): R07.9 - Chest pain, unspecified - My Orders Last 24 Hours: My Active Orders 01/07/17 17:11 UA W/MICROSCOPIC [URIN] Stat EKG 12 Lead [EK] Routine 01/07/17 17:12 EKG Documentation Completion [RC] ASDIRECTED 01/07/17 17:15 Sodium Chloride 0.9% [Normal Saline] 1,000 ml IV ASDIRECTED 01/07/17 18:03 EKG Documentation Completion [RC] ASDIRECTED EKG 12 Lead [EK] Routine - Assessment/Plan Last 24 Hours: My Active Orders 01/07/17 17:11 UA W/MICROSCOPIC [URIN] Stat EKG 12 Lead [EK] Routine 01/07/17 17:12 EKG Documentation Completion [RC] ASDIRECTED 01/07/17 17:15 Sodium Chloride 0.9% [Normal Saline] 1,000 ml IV ASDIRECTED 01/07/17 18:03 EKG Documentation Completion [RC] ASDIRECTED EKG 12 Lead [EK] Routine
[2017-01-07] MEDS ORDERED: Adenosine 6 MG/2 ML SDV ONE (17:54)
[2017-01-07] MEDS ORDERED: Ondansetron 4 MG/2 ML SDV IV PRN (18:35)
[2017-01-07] MEDS ORDERED: Pantoprazole 40 MG Vial IVPUSH ONE (18:43)
[2017-01-07] MEDS ORDERED: Lactated Ringers 1,000 ML IV SCH (18:45)
[2017-01-07] MEDS ORDERED: atorvaSTATin 20 MG Tab PO SCH (21:00)
[2017-01-07] MEDS ORDERED: Metoclopramide 10 MG Tab PO PRN ×2 (21:59)
[2017-01-07] MEDS ORDERED: LORazepam 1 MG Tab PO PRN (21:59)
[2017-01-07] MEDS ORDERED: Ondansetron 8 MG Tab.DIS PO PRN (21:59)
[2017-01-07] MEDS: Carvedilol 3.125 MG Tab PO SCH (23:25)
[2017-01-07] MEDS: rOPINIRole 1 MG Tab PO SCH (23:25)
[2017-01-08] MEDS: Acetaminophen/Codeine 300-30 MG Tab PO PRN ×2 (00:26→10:07)
[2017-01-08] MEDS ORDERED: Pregabalin 50 MG Cap PO ONE (01:05)
[2017-01-08] MEDS ORDERED: Zolpidem 10 MG Tab PO ONE (01:07)
[2017-01-08] MEDS ORDERED: QUEtiapine 100 MG Tab PO SCH ×2 (01:10→21:00)
[2017-01-08] MEDS ORDERED: Doxepin 25 MG Cap ONE (01:25)
[2017-01-08] MEDS ORDERED: Non-Formulary Medication 1 Each (Magnesium [Magnesium] 250 MG) PO SCH (09:00)
[2017-01-08] MEDS ORDERED: Fluticasone Propionate Nasal Spray 16 GM Bottle NASBOTH SCH (09:00)
[2017-01-08] MEDS ORDERED: Ferrous Sulfate 325 MG Tab PO SCH (09:00)
[2017-01-08] MEDS ORDERED: Pantoprazole 40 MG Tab.CR PO SCH (09:00)
[2017-01-08] MEDS ORDERED: Magnesium Oxide 400 MG Tab PO SCH (09:00)
[2017-01-08] MEDS ORDERED: Non-Formulary Medication 1 Each (Fluticasone Propionate [Flovent] 1 SPRAY) NASBOTH SCH (09:00)
[2017-01-08] MEDS ORDERED: Spironolactone 25 MG Tab PO SCH (09:00)
[2017-01-08] MEDS ORDERED: METHYLPHENIDATE 54 MG PO SCH (09:00)
[2017-01-08] MEDS ORDERED: Folic Acid 1 MG Tab PO SCH (09:00)
[2017-01-08] MEDS ORDERED: Cyanocobalamin (Vitamin B12) 1,000 MCG Tab PO SCH (09:00)
[2017-01-08] MEDS: Pregabalin 50 MG Cap PO SCH ×2 (10:06→14:37)
[2017-01-08] MEDS ORDERED: Sulfamethoxazole/Trimethoprim 800-160 MG Tab PO SCH (10:45)
[2017-01-08] MEDS: Carvedilol 3.125 MG Tab PO SCH (11:01)
[2017-01-08] MEDS: rOPINIRole 1 MG Tab PO SCH ×2 (11:03→14:37)
[2017-01-08 11:04] VITALS: BP 121/64
--- NOTE | 2017-01-08 12:18 | PCM.HP ---
H&P History of Present Illness - General Date of Service: 01/08/17 Admit Problem/Dx: Admission Diagnosis/Problem Admission Diagnosis/Problem Chest pain secondary to acute SVT. Source of Information: Patient History Limitations: Reports: No Limitations - History of Present Illness Initial Comments - Free Text/Narative: 61 female with a h/o SVT and chest pain came by EMS to the ED yesterday evening because of palpitations all day long. No other constitutional symptoms then or at this time. No precipitating factors that she is aware of. 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 no prior hx of CA or procedures. chronic medical conditions reviewed with her and denies any resent changes to medications, non adherence, or intolerance. it has been over a year since her last SVT episode. received adenosine in the ER with brought rate to within normal limits without complications and resolutions of chest pain discred as dull and intermittent during active RVR. shes had no events overnight and wishes to be discharged today. she has not been up and walking around however. she has tolerated her diet and resumed her home medications. she has a family engagement that she would like to attend today. home medications, doses, timing and indications reviewed with her in detail and accurate. no evidence of acute CA via serial EKGs or trop. labs otherwise unremarkable. generalized Pain Score (Numeric/FACES): 4 Lower back Pain Score (Numeric/FACES): 9 - Related Data Allergies/Adverse Reactions: Allergies Allergy/AdvReac Type Severity Reaction Status Date / Time ciprofloxacin Allergy Cannot Verified 02/02/17 18:39 Remember metronidazole [From Flagyl] Allergy Itching Verified 02/02/17 18:39 Home Medications: Home Meds rOPINIRole HCl [Requip] 1 mg PO TID 11/28/13 [History] Furosemide [Lasix] 80 mg PO DAILY PRN 01/12/14 [History] Pantoprazole [ProTONIX] 40 mg PO DAILY 04/03/14 [History] Sennosides/Docusate Sodium [Senna S Tablet] 1 tab PO DAILY 04/03/14 [History] Zolpidem [Ambien] 10 mg PO BEDTIME 04/03/14 [History] Doxepin [SINEquan] 100 mg PO BEDTIME 10/11/14 [History] Carvedilol 3.125 mg PO BID 07/04/16 [History] Acetaminophen with Codeine [Tylenol with Codeine #3 Tablet] 1 tab PO TID PRN [History] Cranberry Extract/Vit C [Azo Cranberry Softgel] 1 tab PO DAILY 01/05/17 [History ] Cyclobenzaprine [Flexeril] 10 mg PO TID 01/05/17 [History] Ferrous Sulfate 325 mg PO DAILY 01/05/17 [History] Folic Acid 1 mg PO DAILY 01/05/17 [History] Magnesium 250 mg PO DAILY 01/05/17 [History] Metoclopramide HCl 10 mg PO BID PRN 01/05/17 [History] Pregabalin [Lyrica] 50 mg PO TID 01/05/17 [History] QUEtiapine [SEROquel] 100 mg PO BEDTIME 01/05/17 [History] Spironolactone [Aldactone] 25 mg PO DAILY 01/05/17 [History] Cyanocobalamin (Vitamin B-12) [B-12] 1,000 mcg PO DAILY 01/07/17 [History] LORazepam 1 mg PO BID PRN 01/07/17 [History] atorvaSTATin [Lipitor] 20 mg PO BEDTIME 01/07/17 [History] Fluticasone Propionate [Flonase] 1 spray NASBOTH DAILY 01/08/17 [History] Acetaminophen/Codeine [Tylenol with Codeine No.3 300MG/30MG] 1 tab PO ASDIRECTED 02/02/17 [History] Caffeine [Awake] 1 tab PO ASDIRECTED 02/02/17 [History] Methylphenidate [Concerta] 1 tab PO DAILY 02/02/17 [History] Methylphenidate [Concerta] 1 tab PO DAILY 02/02/17 [History] Ondansetron [Zofran] 1 tab PO TID 02/02/17 [History] Past Medical History HEENT History: Reports: Impaired Vision Other HEENT History: wear glasses Cardiovascular History: Reports: Angina, High Cholesterol, Hypertension, CA, SOB on Exertion, Other (See Below) Other Cardiovascular History: heart dse Respiratory History: Reports: COPD, Pneumonia, Recurrent, Sleep Apnea Gastrointestinal History: Reports: Diverticulosis Other Genitourinary History: CYST ON KIDNEY [employer]OR [employer] History: Reports: 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, Other OB/BYN History: miscarriage x2 Musculoskeletal History: Reports: Back Pain, Chronic, Fibromyalgia, RA Other Musculoskeletal History: Sciatic nerve problem. Generalized weakness. Neurological History: Reports: Neuropathy, Diabetic, Neuropathy, Peripheral Other Neuro History: Pt. was in a coma for 5 months, fibromyalgia, neuropathy Psychiatric History: Reports: Anxiety, Bipolar, Depression, Hallucinations, Psych Hospitalization(s), PTSD, Suicide Attempt Other Psychiatric History: Insomnia. Endocrine/Metabolic History: Reports: Diabetes, Type II - Infectious Disease History Infectious Disease History: Reports: Chicken Pox, Mononucleosis - Past Surgical History GI Surgical History: Reports: Colonoscopy Social & Family History - Family History Family Medical History: Noncontributory Oncologic: Reports: Liver - Tobacco Use Smoking Status *Q: Former Smoker Years of Tobacco use: 25 Packs/Tins Daily: 0.5 Used Tobacco, but Quit: Yes Month Tobacco Last Used: Guillermo Tobacco Use Comment: quit 25 years ago Second Hand Smoke Exposure: No - Caffeine Use Caffeine Use: Reports: None Caffeine Use Comment: unable to tolerate caffiene per patient - Alcohol Use Days Per Week of Alcohol Use: 0 - Recreational Drug Use Recreational Drug Use: Yes Drug Use in Last 12 Months: No - Living Situation & Occupation Living situation: Occupation: Unemployed H&P Review of Systems - Review of Systems: Review Of Systems: ROS reveals no pertinent complaints other than HPI. Exam - Exam Exam: See Below - Vital Signs Vital Signs: Last Vital Signs Temp 97.7 F 01/08/17 11:07 Pulse 77 01/08/17 11:01 Resp 18 01/08/17 11:07 BP 121/64 01/08/17 11:07 Pulse Ox 91 L 01/08/17 11:07 Weight: 122.289 kg - Exam Quality Assessment: DVT Prophylaxis General: Alert, Cooperative. No: Mild Distress HEENT: PERRLA, Mucosa Moist & [place], Posterior Pharynx Clear Neck: Trachea Midline. No: Lymphadenopathy, JVD, Thyromegaly Lungs: Clear to Auscultation, Normal Respiratory Effort Cardiovascular: Regular Rate, Regular Rhythm, Normal S1, Normal S2. No: Systolic Murmur GI/Abdominal Exam: Normal Bowel Sounds, Soft, Non-Tender Back Exam: Normal Inspection Extremities: Normal Inspection Skin: Warm, Dry, Intact Neuro Extensive - Mental Status: Normal Mood/Affect, Normal Cognition - Patient Data Lab Results Last 24 hrs: Laboratory Results - last 24 hr Laboratory Tests 01/07/17 01/07/17 01/07/17 Range/Units 17:30 17:30 17:30 WBC 14.3 H (4.5-12.0) X10-3/uL RBC 5.09 (3.23-5.20) x10(6)uL Hgb 14.9 (11.5-15.5) g/dL Hct 46.2 (30.0-51.3) % MCV 90.7 (80-96) fL MCH 29.4 (27.7-33.6) pg MCHC 32.4 (32.2-35.4) g/dL RDW 14.7 (11.5-15.5) % Plt Count 513 H (125-369) X10(3)uL MPV 8.6 (7.4-10.4) fL Neut % (Auto) 68.4 (46-82) % Lymph % (Auto) 23.5 (13-37) % Sunflower % (Auto) 5.6 (4-12) % Eos % (Auto) 2 (1.0-5.0) % Baso % (Auto) 1 (0-2) % Neut # (Auto) 9.7 H (1.6-8.3) # Lymph # (Auto) 3.4 (0.6-5.0) # Sunflower # (Auto) 0.8 (0.0-1.3) # Eos # (Auto) 0.3 (0.0-0.8) # Baso # (Auto) 0.1 (0.0-0.2) # Sodium 139 (135-145) mmol/L Potassium 3.7 (3.5-5.3) mmol/L Chloride 101 D (100-110) mmol/L Carbon Dioxide 27 (23-29) mmol/L BUN 13 (5-20) mg/dL Creatinine 1.4 H (0.6-1.3) mg/dL Est Cr Clr Drug Dosing TNP Estimated GFR (MDRD) 38 L (>60) BUN/Creatinine Ratio 9.3 (9-20) Glucose 176 H (80-116) mg/dL Calcium 10.9 H (8.6-10.2) mg/dL Troponin I 0.06 (0.02-0.06) NG/ML B-Natriuretic Peptide (0-100) pg/mL TSH, Ultra Sensitive (0.4-5.5) nlU/mL Urine Color (YELLOW) Urine Appearance (CLEAR) Urine pH (5.0-6.5) Ur Specific [place] (1.010-1.025) Urine Protein (NEGATIVE) mg/dL Urine Glucose (UA) (NEGATIVE) mg/dL Urine Ketones (NEGATIVE) mg/dL Urine Occult Blood (NEGATIVE) Urine Nitrite (NEGATIVE) Urine Bilirubin (NEGATIVE) Urine Urobilinogen (NEGATIVE) mg/dL Ur Leukocyte Esterase (NEGATIVE) Urine RBC (0) Urine WBC (0) Ur Squamous Epith Cells (NS,R,O) Urine Bacteria (NS) 01/07/17 01/07/17 01/07/17 Range/Units 17:30 17:30 21:35 WBC (4.5-12.0) X10-3/uL RBC (3.23-5.20) x10(6)uL Hgb (11.5-15.5) g/dL Hct (30.0-51.3) % MCV (80-96) fL MCH (27.7-33.6) pg MCHC (32.2-35.4) g/dL RDW (11.5-15.5) % Plt Count (125-369) X10(3)uL MPV (7.4-10.4) fL Neut % (Auto) (46-82) % Lymph % (Auto) (13-37) % Sunflower % (Auto) (4-12) % Eos % (Auto) (1.0-5.0) % Baso % (Auto) (0-2) % Neut # (Auto) (1.6-8.3) # Lymph # (Auto) (0.6-5.0) # Sunflower # (Auto) (0.0-1.3) # Eos # (Auto) (0.0-0.8) # Baso # (Auto) (0.0-0.2) # Sodium (135-145) mmol/L Potassium (3.5-5.3) mmol/L Chloride (100-110) mmol/L Carbon Dioxide (23-29) mmol/L BUN (5-20) mg/dL Creatinine (0.6-1.3) mg/dL Est Cr Clr Drug Dosing Estimated GFR (MDRD) (>60) BUN/Creatinine Ratio (9-20) Glucose (80-116) mg/dL Calcium (8.6-10.2) mg/dL Troponin I (0.02-0.06) NG/ML B-Natriuretic Peptide 78 (0-100) pg/mL TSH, Ultra Sensitive 1.65 (0.4-5.5) nlU/mL Urine Color Yellow (YELLOW) Urine Appearance Slightly cloudy (CLEAR) Urine pH 6.0 (5.0-6.5) Ur Specific [place] 1.015 (1.010-1.025) Urine Protein Negative (NEGATIVE) mg/dL Urine Glucose (UA) Normal (NEGATIVE) mg/dL Urine Ketones Negative (NEGATIVE) mg/dL Urine Occult Blood Negative (NEGATIVE) Urine Nitrite Negative (NEGATIVE) Urine Bilirubin Small H (NEGATIVE) Urine Urobilinogen Normal (NEGATIVE) mg/dL Ur Leukocyte Esterase Moderate H (NEGATIVE) Urine RBC 5-10 (0) Urine WBC 20-30 H (0) Ur Squamous Epith Cells Many H (NS,R,O) Urine Bacteria Moderate H (NS) 01/08/17 Range/Units 02:08 WBC (4.5-12.0) X10-3/uL RBC (3.23-5.20) x10(6)uL Hgb (11.5-15.5) g/dL Hct (30.0-51.3) % MCV (80-96) fL MCH (27.7-33.6) pg MCHC (32.2-35.4) g/dL RDW (11.5-15.5) % Plt Count (125-369) X10(3)uL MPV (7.4-10.4) fL Neut % (Auto) (46-82) % Lymph % (Auto) (13-37) % Sunflower % (Auto) (4-12) % Eos % (Auto) (1.0-5.0) % Baso % (Auto) (0-2) % Neut # (Auto) (1.6-8.3) # Lymph # (Auto) (0.6-5.0) # Sunflower # (Auto) (0.0-1.3) # Eos # (Auto) (0.0-0.8) # Baso # (Auto) (0.0-0.2) # Sodium (135-145) mmol/L Potassium (3.5-5.3) mmol/L Chloride (100-110) mmol/L Carbon Dioxide (23-29) mmol/L BUN (5-20) mg/dL Creatinine (0.6-1.3) mg/dL Est Cr Clr Drug Dosing Estimated GFR (MDRD) (>60) BUN/Creatinine Ratio (9-20) Glucose (80-116) mg/dL Calcium (8.6-10.2) mg/dL Troponin I 0.17 H (0.02-0.06) NG/ML B-Natriuretic Peptide (0-100) pg/mL TSH, Ultra Sensitive (0.4-5.5) nlU/mL Urine Color (YELLOW) Urine Appearance (CLEAR) Urine pH (5.0-6.5) Ur Specific [place] (1.010-1.025) Urine Protein (NEGATIVE) mg/dL Urine Glucose (UA) (NEGATIVE) mg/dL Urine Ketones (NEGATIVE) mg/dL Urine Occult Blood (NEGATIVE) Urine Nitrite (NEGATIVE) Urine Bilirubin (NEGATIVE) Urine Urobilinogen (NEGATIVE) mg/dL Ur Leukocyte Esterase (NEGATIVE) Urine RBC (0) Urine WBC (0) Ur Squamous Epith Cells (NS,R,O) Urine Bacteria (NS) Result Diagrams: 01/07/17 17:30 01/07/17 17:30 Jay Results Last 24 hrs: urine culture pending due to acute uti. EKG INTERPRETATION Rhythm: NSR P-Wave: Present QRS: Normal ST-T: Normal QT: Normal Comparison: No Change *Q Meaningful Use (ADM) - VTE *Q VTE Criteria *Q: - Stroke *Q Stroke Criteria *Q: - AMI *Q AMI Criteria *Q: - Problem List (1) SVT (supraventricular tachycardia) SNOMED Code(s): 8093438 ICD Code: I47.1 - SUPRAVENTRICULAR TACHYCARDIA Status: Acute Priority: High (2) Chest pain SNOMED Code(s): 37536942 ICD Code: R07.9 - CHEST PAIN, UNSPECIFIED Status: Resolved Priority: High Qualifiers: Chest pain type: chest pain due to myocardial ischemia Ischemic chest pain type: stable angina pectoris Qualified Code(s): I20.8 - Other forms of angina pectoris (3) UTI (urinary tract infection) SNOMED Code(s): 44238343 ICD Code: N39.0 - URINARY TRACT INFECTION, SITE NOT SPECIFIED Status: Acute Priority: High Qualifiers: Urinary tract infection type: acute cystitis Hematuria presence: with hematuria Qualified Code(s): N30.01 - Acute cystitis with hematuria (4) Dehydration SNOMED Code(s): 57780523 ICD Code: E86.0 - DEHYDRATION Status: Acute Priority: High (5) Hyponatremia SNOMED Code(s): 65552758 ICD Code: E87.1 - HYPO-OSMOLALITY AND HYPONATREMIA Status: Acute (6) Atelectasis of right lung SNOMED Code(s): 25039310 ICD Code: J98.11 - ATELECTASIS Status: Chronic (7) Epigastric pain SNOMED Code(s): 18236850 ICD Code: R10.13 - EPIGASTRIC PAIN Status: Acute (8) Nausea alone SNOMED Code(s): 610699669 ICD Code: R11.0 - NAUSEA Status: Acute (9) HTN (hypertension) SNOMED Code(s): 13596453 ICD Code: I10 - ESSENTIAL (PRIMARY) HYPERTENSION Status: Chronic Qualifiers: Hypertension type: essential hypertension Qualified Code(s): I10 - Essential (primary) hypertension (10) Bipolar disorder SNOMED Code(s): 72854554 ICD Code: F31.9 - BIPOLAR DISORDER, UNSPECIFIED Status: Chronic (11) Anxiety SNOMED Code(s): 77280322 ICD Code: F41.9 - ANXIETY DISORDER, UNSPECIFIED Status: Chronic (12) Migraine SNOMED Code(s): 78452093 ICD Code: G43.909 - MIGRAINE, UNSP, NOT INTRACTABLE, WITHOUT STATUS MIGRAINOSUS Status: Chronic (13) Chronic pain SNOMED Code(s): 74080385 ICD Code: G89.29 - OTHER CHRONIC PAIN Status: Chronic (14) Polypharmacy SNOMED Code(s): 755997540 ICD Code: Z79.899 - OTHER USP (CURRENT) DRUG THERAPY Status: Chronic Priority: High (15) Morbid obesity SNOMED Code(s): 364258571, 03357585022849 ICD Code: E66.01 - MORBID (SEVERE) OBESITY DUE TO EXCESS CALORIES Status: Chronic (16) Asthma SNOMED Code(s): 662186896 ICD Code: J45.909 - UNSPECIFIED ASTHMA, UNCOMPLICATED Status: Chronic Qualifiers: Asthma severity: moderate persistent Asthma complication type: uncomplicated Qualified Code(s): J45.40 - Moderate persistent asthma, uncomplicated (17) Anxiety SNOMED Code(s): 31279691 ICD Code: F41.9 - ANXIETY DISORDER, UNSPECIFIED Status: Chronic Problem List Initiated/Reviewed/Updated: Yes Orders Last 24hrs: Active Orders 24 hr Category Date Time Status CULTURE URINE [RM] Routine Lab 01/07/17 21:30 Received Acetaminophen/Codeine [Tylenol with Codeine No.3 300MG/ Med 01/07/17 21:59 Active 30MG] 1 tab PO TID PRN Carvedilol [Coreg] Med 01/07/17 23:00 Active 3.125 mg PO BID Cyanocobalamin (Vitamin B12) [Vitamin B12] Med 01/08/17 09:00 Active 1,000 mcg PO DAILY Docusate Sodium/Sennosides [Senna Plus] Med 01/08/17 09:00 Active 1 tab PO DAILY Doxepin [SINEquan] Med 01/07/17 21:00 Active 100 mg PO BEDTIME Ferrous Sulfate Med 01/08/17 09:00 Active 325 mg PO DAILY Fluticasone Propionate [Flonase] Med 01/08/17 10:04 Active 0 gm NASBOTH DAILY Folic Acid Med 01/08/17 09:00 Active 1 mg PO DAILY LORazepam [Ativan] Med 01/07/17 21:59 Active 1 mg PO BID PRN Magnesium [Magnesium] Med 01/08/17 09:00 Active 250 mg PO DAILY Methylphenidate [Concerta] Med 01/08/17 09:00 Active 54 mg PO DAILY Metoclopramide [Reglan] Med 01/07/17 21:59 Active 10 mg PO BID PRN Ondansetron [Zofran ODT] Med 01/07/17 21:59 Active 8 mg PO Q6H PRN Pantoprazole [ProTONIX] Med 01/08/17 09:00 Active 40 mg PO DAILY@0600 Pregabalin [Lyrica] Med 01/08/17 09:00 Active 50 mg PO TID QUEtiapine [SEROquel] Med 01/08/17 01:10 Active 100 mg PO BEDTIME Spironolactone [Aldactone] Med 01/08/17 09:00 Active 25 mg PO DAILY Sulfamethoxazole/Trimethoprim [Septra DS] Med 01/08/17 10:45 Active 1 tab PO BID Zolpidem [Ambien] Med 01/08/17 21:00 Active 10 mg PO BEDTIME atorvaSTATin [Lipitor] Med 01/07/17 21:00 Active 20 mg PO BEDTIME diphenhydrAMINE [Benadryl] Med 01/08/17 21:00 Active 50 mg PO BEDTIME rOPINIRole [Requip] Med 01/07/17 23:00 Active 1 mg PO TID EKG 12 Lead [EK] Routine Ther 01/08/17 02:00 Ordered EKG 12 Lead [EK] Routine Ther 01/08/17 10:42 Ordered Medication Orders Acetaminophen/Codeine Phosphate (Tylenol With Codeine No.3 300mg/30mg) 1 tab PO TID PRN PRN Reason: Pain Last Admin: 01/08/17 10:07 Dose: 1 tab Admin: 01/08/17 00:26 Dose: 1 tab Atorvastatin Calcium (Lipitor) 20 mg PO BEDTIME [facility] Last Admin: 01/07/17 23:25 Dose: 20 mg Carvedilol (Coreg) 3.125 mg PO BID [facility] Last Admin: 01/08/17 11:01 Dose: 3.125 mg Admin: 01/07/17 23:25 Dose: 3.125 mg Cyanocobalamin (Vitamin B12) 1,000 mcg PO DAILY [facility] Last Admin: 01/08/17 11:03 Dose: 1,000 mcg Diphenhydramine HCl (Benadryl) 50 mg PO BEDTIME NIA Doxepin HCl (Sinequan) 100 mg PO BEDTIME [facility] Last Admin: 01/07/17 23:25 Dose: 100 mg Ferrous Sulfate (Ferrous Sulfate) 325 mg PO DAILY [facility] Last Admin: 01/08/17 11:02 Dose: 325 mg Fluticasone Propionate (Flonase) 0 gm NASBOTH DAILY [facility] Folic Acid (Folic Acid) 1 mg PO DAILY [facility] Last Admin: 01/08/17 11:02 Dose: 1 mg Sodium Chloride (Normal Saline) 1,000 mls @ 125 mls/hr IV ASDIRECTED [facility] Last Admin: 01/08/17 02:50 Dose: 125 mls/hr Lactated Ringer's (Ringers, Lactated) 1,000 mls @ 125 mls/hr IV ASDIRECTED [facility] Last Admin: 01/07/17 18:25 Dose: 125 mls/hr Lorazepam (Ativan) 1 mg PO BID PRN PRN Reason: Anxiety Last Admin: 01/08/17 10:07 Dose: 1 mg Metoclopramide HCl (Reglan) 10 mg PO BID PRN PRN Reason: Vomiting/NAUSEA Last Admin: 01/08/17 11:04 Dose: 10 mg Non-Formulary Medication (Magnesium [Magnesium]) 250 mg PO DAILY [facility] Last Admin: 01/08/17 11:18 Dose: 250 mg Non-Formulary Medication (Methylphenidate [Concerta]) 54 mg PO DAILY [facility] Last Admin: 01/08/17 11:02 Dose: Ondansetron HCl (Zofran) 4 mg IV Q4H PRN PRN Reason: Nausea/Vomiting Ondansetron HCl (Zofran Odt) 8 mg PO Q6H PRN PRN Reason: Nausea Last Admin: 01/08/17 00:27 Dose: 8 mg Pantoprazole Sodium (Protonix) 40 mg PO DAILY@0600 [facility] Last Admin: 01/08/17 11:02 Dose: 40 mg Pregabalin (Lyrica) 50 mg PO TID [facility] Last Admin: 01/08/17 10:06 Dose: 50 mg Quetiapine Fumarate (Seroquel) 100 mg PO BEDTIME [facility] Last Admin: 01/08/17 01:19 Dose: 100 mg Ropinirole HCl (Requip) 1 mg PO TID [facility] Last Admin: 01/08/17 11:03 Dose: 1 mg Admin: 01/07/17 23:25 Dose: 1 mg Senna/Docusate Sodium (Senna Plus) 1 tab PO DAILY [facility] Last Admin: 01/08/17 11:03 Dose: 1 tab Spironolactone (Aldactone) 25 mg PO DAILY [facility] Last Admin: 01/08/17 11:16 Dose: 25 mg Trimethoprim/Sulfamethoxazole (Septra Ds) 1 tab PO BID [facility] Last Admin: 01/08/17 11:04 Dose: 1 tab Zolpidem Tartrate (Ambien) 10 mg PO BEDTIME NIA Assessment/Plan Comment:: back on her cardiac meds. no resumption of chest pain. slight trend up in trops as expected but serial ekgs unremarkable. labs look good after rehydration. UTI asymptomatic. will get another trop to ensure not continuing to trend up and start her on home abx for UTI. confirmed outpt cardiology follow up and set up with PCP appointment for medication reviewed, lifestyle modification plan and coordination of cares. if trops look good, she gets up and around without symptoms, then with discharge her to home. she is comfortable with plan.
--- NOTE | 2017-01-08 12:31 | PCM.DCSUM1 ---
Discharge Summary - Hospital Course HPI Initial Comments: 61 y female presenting with recurrence of paroxsimal SVT and chest pain in setting of mild dehydration and UTI. treated in ER with adenosine and fluid correction. monitored on tele overnight and trops/serial ekg consistent with no onset or resolving CT. she otherwise has done well over night and wishes to be discharged to home. follow up care and medications have been coordinated and reviewed. - Discharge Data Discharge Date: 01/08/17 Discharge Disposition: Home, Self-Care 01 Condition: Stable - Patient Summary/Data Recommended Follow-up Testing/Procedures: Cardiology referral for echocardiogram, stress testing, EP for recurrent SVT. - Patient Instructions Diet: Heart Healthy Diet, No Alcoholic Beverages Activity: As Tolerated, Cough & Deep Breathe (Incentive Spirometer sent with her home with teaching on proper use and indication.) Showering/Bathing: May Shower Notify Provider of: Fever, Increased Pain, Nausea and/or Vomiting - Discharge Plan Home Medications: Home Meds rOPINIRole HCl [Requip] 1 mg PO TID 11/28/13 [History] Furosemide [Lasix] 80 mg PO DAILY PRN 01/12/14 [History] Pantoprazole [ProTONIX] 40 mg PO DAILY 04/03/14 [History] Sennosides/Docusate Sodium [Senna S Tablet] 1 tab PO DAILY 04/03/14 [History] Zolpidem [Ambien] 10 mg PO BEDTIME 04/03/14 [History] Doxepin [SINEquan] 100 mg PO BEDTIME 10/11/14 [History] Carvedilol 3.125 mg PO BID 07/04/16 [History] Acetaminophen with Codeine [Tylenol with Codeine #3 Tablet] 1 tab PO TID PRN [History] Cranberry Extract/Vit C [Azo Cranberry Softgel] 1 tab PO DAILY 01/05/17 [History ] Cyclobenzaprine [Flexeril] 10 mg PO TID 01/05/17 [History] Ferrous Sulfate 325 mg PO DAILY 01/05/17 [History] Folic Acid 1 mg PO DAILY 01/05/17 [History] Magnesium 250 mg PO DAILY 01/05/17 [History] Metoclopramide HCl 10 mg PO BID PRN 01/05/17 [History] Pregabalin [Lyrica] 50 mg PO TID 01/05/17 [History] QUEtiapine [SEROquel] 100 mg PO BEDTIME 01/05/17 [History] Spironolactone [Aldactone] 25 mg PO DAILY 01/05/17 [History] Cyanocobalamin (Vitamin B-12) [B-12] 1,000 mcg PO DAILY 01/07/17 [History] LORazepam 1 mg PO BID PRN 01/07/17 [History] atorvaSTATin [Lipitor] 20 mg PO BEDTIME 01/07/17 [History] Fluticasone Propionate [Flonase] 1 spray NASBOTH DAILY 01/08/17 [History] Acetaminophen/Codeine [Tylenol with Codeine No.3 300MG/30MG] 1 tab PO ASDIRECTED 02/02/17 [History] Caffeine [Awake] 1 tab PO ASDIRECTED 02/02/17 [History] Methylphenidate [Concerta] 1 tab PO DAILY 02/02/17 [History] Methylphenidate [Concerta] 1 tab PO DAILY 02/02/17 [History] Ondansetron [Zofran] 1 tab PO TID 02/02/17 [History] Patient Handouts: Paroxysmal Supraventricular Tachycardia, [id number], Urinary Tract Infection, Adult, [id number] Referrals: Sharon Rojas [facility] [Primary Care Provider] - (7-10 s/p SVT need for cardiology work-up. also repeat UA 2 wks. ) - Discharge Summary/Plan Comment DC Time >30 min.: Yes Discharge Summary/Plan Comment: - Problem List (1) SVT (supraventricular tachycardia) SNOMED Code(s): 3154615 ICD Code: I47.1 - SUPRAVENTRICULAR TACHYCARDIA Status: Acute Priority: High (2) Chest pain SNOMED Code(s): 29094364 ICD Code: R07.9 - CHEST PAIN, UNSPECIFIED Status: Resolved Priority: High Qualifiers: Chest pain type: chest pain due to myocardial ischemia Ischemic chest pain type: stable angina pectoris Qualified Code(s): I20.8 - Other forms of angina pectoris (3) UTI (urinary tract infection) SNOMED Code(s): 68479091 ICD Code: N39.0 - URINARY TRACT INFECTION, SITE NOT SPECIFIED Status: Acute Priority: High Qualifiers: Urinary tract infection type: acute cystitis Hematuria presence: with hematuria Qualified Code(s): N30.01 - Acute cystitis with hematuria (4) Dehydration SNOMED Code(s): 94783998 ICD Code: E86.0 - DEHYDRATION Status: Acute Priority: High (5) Hyponatremia SNOMED Code(s): 64655840 ICD Code: E87.1 - HYPO-OSMOLALITY AND HYPONATREMIA Status: Acute (6) Atelectasis of right lung SNOMED Code(s): 11685829 ICD Code: J98.11 - ATELECTASIS Status: Chronic (7) Epigastric pain SNOMED Code(s): 30689450 ICD Code: R10.13 - EPIGASTRIC PAIN Status: Acute (8) Nausea alone SNOMED Code(s): 180285898 ICD Code: R11.0 - NAUSEA Status: Acute (9) HTN (hypertension) SNOMED Code(s): 62884546 ICD Code: I10 - ESSENTIAL (PRIMARY) HYPERTENSION Status: Chronic Qualifiers: Hypertension type: essential hypertension Qualified Code(s): I10 - Essential (primary) hypertension (10) Bipolar disorder SNOMED Code(s): 48717861 ICD Code: F31.9 - BIPOLAR DISORDER, UNSPECIFIED Status: Chronic (11) Anxiety SNOMED Code(s): 50885487 ICD Code: F41.9 - ANXIETY DISORDER, UNSPECIFIED Status: Chronic (12) Migraine SNOMED Code(s): 04193789 ICD Code: G43.909 - MIGRAINE, UNSP, NOT INTRACTABLE, WITHOUT STATUS MIGRAINOSUS Status: Chronic (13) Chronic pain SNOMED Code(s): 51410517 ICD Code: G89.29 - OTHER CHRONIC PAIN Status: Chronic (14) Polypharmacy SNOMED Code(s): 901253483 ICD Code: Z79.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 tolerating ambulation without symptoms. will discharge to home with the above recommendations and follow up. meds reviewed along with indications and timing and repeat back correct. she knows to return if she experiences any recurrent or new symptoms. she is not to drive today. agrees. all questions answered and she agrees with above assessments and plan including abx for UTI. 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 - Review of Systems General: Reports: No Symptoms Pulmonary: Reports: No Symptoms Cardiovascular: Reports: No Symptoms Gastrointestinal: Reports: No Symptoms Genitourinary: Reports: No Symptoms Musculoskeletal: Reports: No Symptoms Neurological: Reports: No Symptoms Psychiatric: Reports: No Symptoms - Patient Data Vitals - Most Recent: Last Vital Signs Temp 97.7 F 01/08/17 11:07 Pulse 77 01/08/17 11:01 Resp 18 01/08/17 11:07 BP 121/64 01/08/17 11:07 Pulse Ox 91 L 01/08/17 11:07 Weight - Most Recent: 122.289 kg I&O - Last 24 hours: Intake & Output 01/07/17 01/08/17 01/08/17 22:59 06:59 14:59 Intake Total 1200 Output Total 250 Balance -250 1200 Lab Results - Last 24 hrs: Laboratory Results - last 24 hr 01/07/17 01/08/17 01/08/17 Range/Units 21:35 02:08 10:25 Troponin I 0.17 H 0.08 H (0.02-0.06) NG/ML Urine Color Yellow (YELLOW) Urine Appearance Slightly cloudy (CLEAR) Urine pH 6.0 (5.0-6.5) Ur Specific [place] 1.015 (1.010-1.025) Urine Protein Negative (NEGATIVE) mg/dL Urine Glucose (UA) Normal (NEGATIVE) mg/dL Urine Ketones Negative (NEGATIVE) mg/dL Urine Occult Blood Negative (NEGATIVE) Urine Nitrite Negative (NEGATIVE) Urine Bilirubin Small H (NEGATIVE) Urine Urobilinogen Normal (NEGATIVE) mg/dL Ur Leukocyte Esterase Moderate H (NEGATIVE) Urine RBC 5-10 (0) Urine WBC 20-30 H (0) Ur Squamous Epith Cells Many H (NS,R,O) Urine Bacteria Moderate H (NS) Med Orders - Current: Current Medications Acetaminophen/Codeine Phosphate (Tylenol With Codeine No.3 300mg/30mg) 1 tab PO TID PRN PRN Reason: Pain Last Admin: 01/08/17 10:07 Dose: 1 tab Atorvastatin Calcium (Lipitor) 20 mg PO BEDTIME [facility] Last Admin: 01/07/17 23:25 Dose: 20 mg Carvedilol (Coreg) 3.125 mg PO BID [facility] Last Admin: 01/08/17 11:01 Dose: 3.125 mg Cyanocobalamin (Vitamin B12) 1,000 mcg PO DAILY [facility] Last Admin: 01/08/17 11:03 Dose: 1,000 mcg Diphenhydramine HCl (Benadryl) 50 mg PO BEDTIME [facility] Doxepin HCl (Sinequan) 100 mg PO BEDTIME [facility] Last Admin: 01/07/17 23:25 Dose: 100 mg Ferrous Sulfate (Ferrous Sulfate) 325 mg PO DAILY [facility] Last Admin: 01/08/17 11:02 Dose: 325 mg Fluticasone Propionate (Flonase) 0 gm NASBOTH DAILY [facility] Folic Acid (Folic Acid) 1 mg PO DAILY [facility] Last Admin: 01/08/17 11:02 Dose: 1 mg Sodium Chloride (Normal Saline) 1,000 mls @ 125 mls/hr IV ASDIRECTED [facility] Last Admin: 01/08/17 02:50 Dose: 125 mls/hr Lactated Ringer's (Ringers, Lactated) 1,000 mls @ 125 mls/hr IV ASDIRECTED [facility] Last Admin: 01/07/17 18:25 Dose: 125 mls/hr Lorazepam (Ativan) 1 mg PO BID PRN PRN Reason: Anxiety Last Admin: 01/08/17 10:07 Dose: 1 mg Metoclopramide HCl (Reglan) 10 mg PO BID PRN PRN Reason: Vomiting/NAUSEA Last Admin: 01/08/17 11:04 Dose: 10 mg Non-Formulary Medication (Magnesium [Magnesium]) 250 mg PO DAILY [facility] Last Admin: 01/08/17 11:18 Dose: 250 mg Non-Formulary Medication (Methylphenidate [Concerta]) 54 mg PO DAILY [facility] Last Admin: 01/08/17 11:02 Dose: Not Given Ondansetron HCl (Zofran) 4 mg IV Q4H PRN PRN Reason: Nausea/Vomiting Ondansetron HCl (Zofran Odt) 8 mg PO Q6H PRN PRN Reason: Nausea Last Admin: 01/08/17 00:27 Dose: 8 mg Pantoprazole Sodium (Protonix) 40 mg PO DAILY@0600 [facility] Last Admin: 01/08/17 11:02 Dose: 40 mg Pregabalin (Lyrica) 50 mg PO TID [facility] Last Admin: 01/08/17 10:06 Dose: 50 mg Quetiapine Fumarate (Seroquel) 100 mg PO BEDTIME [facility] Last Admin: 01/08/17 01:19 Dose: 100 mg Ropinirole HCl (Requip) 1 mg PO TID [facility] Last Admin: 01/08/17 11:03 Dose: 1 mg Senna/Docusate Sodium (Senna Plus) 1 tab PO DAILY [facility] Last Admin: 01/08/17 11:03 Dose: 1 tab Spironolactone (Aldactone) 25 mg PO DAILY [facility] Last Admin: 01/08/17 11:16 Dose: 25 mg Trimethoprim/Sulfamethoxazole (Septra Ds) 1 tab PO BID [facility] Last Admin: 01/08/17 11:04 Dose: 1 tab Zolpidem Tartrate (Ambien) 10 mg PO BEDTIME [facility] Discontinued Medications Adenosine (Adenocard) 6 mg IVPUSH NOW ONE Stop: 01/07/17 17:15 Last Admin: 01/07/17 17:50 Dose: 6 mg Adenosine (Adenocard) Confirm Administered Dose 6 mg .ROUTE .STK-MED ONE Stop: 01/07/17 17:55 Last Admin: 01/07/17 19:35 Dose: Not Given Adenosine (Adenocard) 12 mg IVPUSH NOW ONE Stop: 01/07/17 17:55 Last Admin: 01/07/17 17:55 Dose: 12 mg Diphenhydramine HCl (Benadryl) 50 mg PO BEDTIME [facility] Doxepin HCl (Sinequan) 100 mg PO ONETIME ONE Stop: 01/08/17 01:04 Last Admin: 01/08/17 03:12 Dose: Not Given Doxepin HCl (Sinequan) Confirm Administered Dose 100 mg .ROUTE .STK-MED ONE Stop: 01/08/17 01:26 Last Admin: 01/08/17 03:12 Dose: Not Given Fluticasone Propionate (Flonase) 0 gm NASBOTH DAILY [facility] Last Admin: 01/08/17 11:18 Dose: Not Given Sodium Chloride (Normal Saline) 1,000 mls @ 999 mls/hr IV .BOLUS ONE Stop: 01/07/17 18:25 Last Admin: 01/07/17 17:30 Dose: 999 mls/hr Non-Formulary Medication (Fluticasone Propionate [Flovent]) 1 spray NASBOTH DAILY [facility] Pantoprazole Sodium (Protonix Iv) 40 mg IVPUSH ONETIME ONE Stop: 01/07/17 18:44 Last Admin: 01/07/17 19:36 Dose: 40 mg Pregabalin (Lyrica) 50 mg PO ONETIME ONE Stop: 01/08/17 01:06 Last Admin: 01/08/17 01:20 Dose: 50 mg Quetiapine Fumarate (Seroquel) 100 mg PO BEDTIME [facility] Zolpidem Tartrate (Ambien) 10 mg PO ONETIME ONE Stop: 01/08/17 01:08 Last Admin: 01/08/17 01:21 Dose: 10 mg - Exam Physical Findings Comments:: Quality Assessment: DVT Prophylaxis General: Alert, Cooperative. No: Mild Distress HEENT: PERRLA, Mucosa Moist & [place], Posterior Pharynx Clear Neck: Trachea Midline. No: Lymphadenopathy, JVD, Thyromegaly Lungs: Clear to Auscultation, Normal Respiratory Effort Cardiovascular: Regular Rate, Regular Rhythm, Normal S1, Normal S2. No: Systolic Murmur GI/Abdominal Exam: Normal Bowel Sounds, Soft, Non-Tender Back Exam: Normal Inspection Extremities: Normal Inspection Skin: Warm, Dry, Intact Neuro Extensive - Mental Status: Normal Mood/Affect, Normal Cognition, ambulating in halls without orthostatic symptoms sob or cp. *Q Meaningful Use (DIS) - VTE *Q VTE Criteria *Q: - Stroke *Q Stroke Criteria *Q: - AMI *Q AMI Criteria *Q:
[2017-01-08] MEDS ORDERED: Zolpidem 10 MG Tab PO SCH (21:00)
[2017-01-08] MEDS ORDERED: diphenhydrAMINE 50 MG Cap PO SCH (21:00)
[2017-01-08] MEDS ORDERED: DIPHENHYDRAMINE 25 MG PO SCH (21:00)
== END 2017-01-08 14:05 | disposition home or self-care (01) ==
LOC: FB.ED 17:02 → FB.MS 18:35
PROVIDERS: ADMIT Family Medicine; ATTEND Family Medicine
DX: I47.1 Supraventricular tachycardia (principal); R07.9 Chest pain, unspecified; N30.01 Acute cystitis with hematuria; I10 Essential (primary) hypertension; E78.00 Pure hypercholesterolemia, unspecified; J44.9 Chronic obstructive pulmonary disease, unspecified; G47.30 Sleep apnea, unspecified; E11.42 Type 2 diabetes mellitus with diabetic polyneuropathy; Z88.1 Allergy status to other antibiotic agents; Z88.8 Allergy status to other drugs, medicaments and biological substances; Z79.899 Other long term (current) drug therapy; F41.9 Anxiety disorder, unspecified; F32.9 Major depressive disorder, single episode, unspecified; Z98.890 Other specified postprocedural states; Z87.891 Personal history of nicotine dependence
CPT/HCPCS: 36415; 80048; 81001; 83880; 84443; 84484; 85025; 87086; 93005; 94150; 96361; 96374; 96375; 99285; A9270; C9113; G0378; J0153; J7040; J7120

== ENCOUNTER 2017-02-02 18:27 | Emergency (ER) | payer MEDICAID ==
--- NOTE | 2017-02-02 18:37 | EDM.PDOC ---
ED HPI GENERAL MEDICAL PROBLEM - General Chief Complaint: Cardiovascular Problem Stated Complaint: SOB CHESTPAIN Time Seen by Provider: 02/02/17 18:30 Source of Information: Reports: Patient, EMS, Old Records History Limitations: Reports: No Limitations - History of Present Illness INITIAL COMMENTS - FREE TEXT/NARRATIVE: 62 yo female presents with onset shortly before arrival of chest pain and mild SOB. Lives alone. Here via EMS. Vitals stable en route. Has a hx of CAD and says this feels like when she had an [place]. Onset of sx's today while sitting. Onset: Today Onset Date: 02/02/17 Onset Time: 17:50 Duration: Minutes: Location: Reports: Chest Quality: Reports: Dull Severity: Mild Improves with: Reports: None Worsens with: Reports: Other (pressing on chest) Context: Reports: Other (Hx of both anxiety and CAD) Associated Symptoms: Reports: Chest Pain, Nausea/Vomiting (no vomiting), Shortness of Breath (chronic). Denies: Fever/Chills Treatments CONSTRUCTION GRIP: Reports: Other (see below) (none) - Related Data Allergies Allergy/AdvReac Type Severity Reaction Status Date / Time ciprofloxacin Allergy Cannot Verified 02/02/17 18:39 Remember metronidazole [From Flagyl] Allergy Itching Verified 02/02/17 18:39 Home Meds: Home Meds rOPINIRole HCl [Requip] 1 mg PO TID 11/28/13 [History] Furosemide [Lasix] 80 mg PO DAILY PRN 01/12/14 [History] Pantoprazole [ProTONIX] 40 mg PO DAILY 04/03/14 [History] Sennosides/Docusate Sodium [Senna S Tablet] 1 tab PO DAILY 04/03/14 [History] Zolpidem [Ambien] 10 mg PO BEDTIME 04/03/14 [History] Doxepin [SINEquan] 100 mg PO BEDTIME 10/11/14 [History] Carvedilol 3.125 mg PO BID 07/04/16 [History] Acetaminophen with Codeine [Tylenol with Codeine #3 Tablet] 1 tab PO TID PRN [History] Cranberry Extract/Vit C [Azo Cranberry Softgel] 1 tab PO DAILY 01/05/17 [History ] Cyclobenzaprine [Flexeril] 10 mg PO TID 01/05/17 [History] Ferrous Sulfate 325 mg PO DAILY 01/05/17 [History] Folic Acid 1 mg PO DAILY 01/05/17 [History] Magnesium 250 mg PO DAILY 01/05/17 [History] Metoclopramide HCl 10 mg PO BID PRN 01/05/17 [History] Pregabalin [Lyrica] 50 mg PO TID 01/05/17 [History] QUEtiapine [SEROquel] 100 mg PO BEDTIME 01/05/17 [History] Spironolactone [Aldactone] 25 mg PO DAILY 01/05/17 [History] Cyanocobalamin (Vitamin B-12) [B-12] 1,000 mcg PO DAILY 01/07/17 [History] LORazepam 1 mg PO BID PRN 01/07/17 [History] atorvaSTATin [Lipitor] 20 mg PO BEDTIME 01/07/17 [History] Fluticasone Propionate [Flonase] 1 spray NASBOTH DAILY 01/08/17 [History] Acetaminophen/Codeine [Tylenol with Codeine No.3 300MG/30MG] 1 tab PO ASDIRECTED 02/02/17 [History] Caffeine [Awake] 1 tab PO ASDIRECTED 02/02/17 [History] Methylphenidate [Concerta] 1 tab PO DAILY 02/02/17 [History] Methylphenidate [Concerta] 1 tab PO DAILY 02/02/17 [History] Ondansetron [Zofran] 1 tab PO TID 02/02/17 [History] Past Medical History HEENT History: Reports: Impaired Vision Other HEENT History: wear glasses Cardiovascular History: Reports: Angina, High Cholesterol, Hypertension, [place], SOB on Exertion, Other (See Below) Other Cardiovascular History: heart dse Respiratory History: Reports: COPD, Pneumonia, Recurrent, Sleep Apnea Gastrointestinal History: Reports: Diverticulosis Other Genitourinary History: CYST ON KIDNEY 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 Generalized weakness. Neurological History: Reports: Neuropathy, Diabetic, Neuropathy, Peripheral Other Neuro History: Pt. was in a coma for 5 months, fibromyalgia, neuropathy Psychiatric History: Reports: Anxiety, Bipolar, Depression, Hallucinations, Psych Hospitalization(s), PTSD, Suicide Attempt Other Psychiatric History: Insomnia. Endocrine/Metabolic History: Reports: Diabetes, Type II - Infectious Disease History Infectious Disease History: Reports: Chicken Pox, Mononucleosis - Past Surgical History GI Surgical History: Reports: Colonoscopy Social & Family History - Family History Family Medical History: Noncontributory Oncologic: Reports: Liver - Tobacco Use Smoking Status *Q: Former Smoker Years of Tobacco use: 25 Packs/Tins Daily: 0.5 Used Tobacco, but Quit: Yes Month Tobacco Last Used: Jul Second Hand Smoke Exposure: No - Caffeine Use Caffeine Use: Reports: None Caffeine Use Comment: unable to tolerate caffiene per patient - Alcohol Use Days Per Week of Alcohol Use: 0 - Recreational Drug Use Recreational Drug Use: Yes Drug Use in Last 12 Months: No - Living Situation & Occupation Living situation: Occupation: Unemployed ED ROS GENERAL - Review of Systems Review Of Systems: See Below Constitutional: Denies: Fever, Chills, Malaise, Diaphoresis, Decreased Appetite HEENT: Reports: No Symptoms Respiratory: Reports: Shortness of Breath. Denies: Wheezing, Pleuritic Chest Pain, Cough, Sputum, Hemoptysis Cardiovascular: Reports: Chest Pain, Dyspnea on Exertion. Denies: Claudication , Orthopnea GI/Abdominal: Reports: Nausea. Denies: Abdominal Pain, Black Stool, Bloody Stool, Hematemesis, Hematochezia, Vomiting : Reports: No Symptoms Musculoskeletal: Reports: Other (anterior chest wall pain) Skin: Reports: No Symptoms Neurological: Reports: No Symptoms Psychiatric: Reports: Anxiety (chronic) Hematologic/Lymphatic: Reports: No Symptoms ED EXAM, GENERAL - Physical Exam Exam: See Below Exam Limited By: No Limitations General Appearance: Alert, WD/WN, No Apparent Distress, Obese Eye Exam: Bilateral Eye: EOMI, Normal Inspection, PERRL Ears: Normal External Exam, Normal Canal, Hearing Grossly Normal Ear Exam: Bilateral Ear: Auricle Normal, Canal Normal Nose: Normal Inspection, Normal Mucosa, No Blood Throat/Mouth: Normal Inspection, Normal Lips, Normal Teeth, Normal Oropharynx, Normal Voice, No Airway Compromise Head: Atraumatic, Normocephalic Neck: Normal Inspection, Supple, Non-Tender Respiratory/Chest: No Respiratory Distress, Lungs Clear, Normal Breath Sounds, No Accessory Muscle Use, Other (anterior chest wall tenderness.). No: Chest Non -Tender Cardiovascular: Regular Rate, Rhythm, No Edema GI/Abdominal: Normal Bowel Sounds, Soft, Non-Tender, No Distention Back Exam: Normal Inspection, Full Range of Motion. No: CVA Tenderness (R), CVA Tenderness (L) Extremities: Normal Inspection, Normal Range of Motion, Non-Tender, No Pedal Edema Neurological: Alert, Oriented, CN II-XII Intact, Normal Cognition Psychiatric: Normal Affect, Anxious Skin Exam: Warm, Dry, Intact, Normal Color, No Rash Lymphatic: No Adenopathy EKG INTERPRETATION EKG Date: 02/02/17 Time: 18:30 Rhythm: NSR Rate (Beats/Min): 99 [place]: Normal P-Wave: Present QRS: Normal ST-T: Normal QT: Normal Comparison: No Change Course - Vital Signs Text/Narrative:: ASA 324 mg po, acetaminophen 1000 mg po, lorazepam 0.5 mg po Last Recorded V/S: Last Vital Signs Temp 36.8 C 02/02/17 18:40 Pulse 101 H 02/02/17 18:40 Resp 24 H 02/02/17 19:22 BP 124/59 L 02/02/17 19:22 Pulse Ox 97 02/02/17 19:22 - Orders/Labs/Meds Orders: Active Orders 24 hr Category Date Time Status EKG Documentation Completion [RC] ASDIRECTED Care 02/02/17 18:32 Active EKG 12 Lead [EK] Routine Ther 02/02/17 18:32 Ordered Labs: Laboratory Tests 02/02/17 02/02/17 Range/Units 18:55 18:55 D-Dimer, Quantitative 384 (100-400) ng/mL Troponin I < 0.01 L (0.02-0.06) NG/ML Meds: Medications Discontinued Medications Generic Name Dose Route Start Last Admin Trade Name Freq PRN Reason Stop Dose Admin Acetaminophen 1,000 mg 02/02/17 18:43 02/02/17 18:57 Tylenol Extra Strength PO 02/02/17 18:44 1,000 mg ONETIME ONE Administration Aspirin 324 mg 02/02/17 18:43 02/02/17 18:56 Aspirin PO 02/02/17 18:44 324 mg ONETIME ONE Administration Lorazepam 0.5 mg 02/02/17 18:45 02/02/17 18:57 Ativan PO 02/02/17 18:46 0.5 mg ONETIME ONE Administration Departure - Departure Time of Disposition: 19:40 Disposition: Home, Self-Care 01 Condition: Good Clinical Impression: Chest wall pain, Anxiety - My Orders Last 24 Hours: My Active Orders 02/02/17 18:32 EKG Documentation Completion [RC] ASDIRECTED EKG 12 Lead [EK] Routine - Assessment/Plan Last 24 Hours: My Active Orders 02/02/17 18:32 EKG Documentation Completion [RC] ASDIRECTED EKG 12 Lead [EK] Routine
[2017-02-02] MEDS ORDERED: Acetaminophen 500 MG Tab PO ONE (18:43)
[2017-02-02] MEDS ORDERED: Aspirin 81 MG Tab.Chew PO ONE (18:43)
[2017-02-02] MEDS ORDERED: LORazepam 0.5 MG Tab PO ONE (18:45)
[2017-02-02 19:51] VITALS: BP 128/74
== END 2017-02-02 19:45 | disposition home or self-care (01) ==
LOC: FB.ED 18:27
DX: R07.89 Other chest pain (principal); F41.9 Anxiety disorder, unspecified; I25.2 Old myocardial infarction; I25.10 Atherosclerotic heart disease of native coronary artery without angina pectoris; E78.00 Pure hypercholesterolemia, unspecified; I10 Essential (primary) hypertension; J44.9 Chronic obstructive pulmonary disease, unspecified; G89.29 Other chronic pain; F31.9 Bipolar disorder, unspecified; E11.42 Type 2 diabetes mellitus with diabetic polyneuropathy; Z88.1 Allergy status to other antibiotic agents; Z79.899 Other long term (current) drug therapy; Z87.891 Personal history of nicotine dependence
CPT/HCPCS: 36415; 84484; 85379; 93005; 99283; A9270

== ENCOUNTER 2017-03-27 23:02 | Emergency (ER) | payer MEDICAID ==
[2017-03-28] MEDS ORDERED: Ondansetron 4 MG/2 ML SDV IVPUSH ONE (01:40)
[2017-03-28] MEDS ORDERED: HYDROmorphone 2 MG/ML SDV IVPUSH ONE (01:41)
[2017-03-28] MEDS ORDERED: Iopamidol 755 Mg/ML 100 ML Bottle IV ONE (01:51)
[2017-03-28] MEDS ORDERED: diphenhydrAMINE 50 MG Cap PO ONE (04:53)
[2017-03-28 06:45] VITALS: BP 154/82
--- NOTE | 2017-03-28 07:55 | EDM.PDOC ---
ED HPI GENERAL MEDICAL PROBLEM - General Chief Complaint: General Stated Complaint: FATIGUE Time Seen by Provider: 03/27/17 23:15 Source of Information: Reports: Patient History Limitations: Reports: No Limitations - History of Present Illness INITIAL COMMENTS - FREE TEXT/NARRATIVE: Patient is a 62 year old woman who has had a 5 year history of productive cough that is getting worse. She called the mental crisis line since she wants to drink and they told her to come into the ED, so she did. She has a history of drug and alcohol addictions and COPD. She also has bipolar disorder and she gets very upset and agitated at times. Her new physician has been decreasing her diuretic and she feels worse. All of these problems caused her to call the ambulance to bring her into the ED. 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: Acetaminophen, Other Medication(s) (Inhalers.), Oxygen - Related Data Allergies Allergy/AdvReac Type Severity Reaction Status Date / Time ciprofloxacin Allergy Cannot Verified 03/27/17 23:09 Remember metronidazole [From Flagyl] Allergy Itching Verified 03/27/17 23:09 Home Meds: Home Meds rOPINIRole HCl [Requip] 1 mg PO TID 11/28/13 [History] Furosemide [Lasix] 80 mg PO DAILY PRN 01/12/14 [History] Pantoprazole [ProTONIX] 40 mg PO DAILY 04/03/14 [History] Sennosides/Docusate Sodium [Senna S Tablet] 1 tab PO DAILY 04/03/14 [History] Zolpidem [Ambien] 10 mg PO BEDTIME 04/03/14 [History] Doxepin [SINEquan] 100 mg PO BEDTIME 10/11/14 [History] Carvedilol 3.125 mg PO BID 07/04/16 [History] Acetaminophen with Codeine [Tylenol with Codeine #3 Tablet] 1 tab PO TID PRN [History] Cranberry Extract/Vit C [Azo Cranberry Softgel] 1 tab PO DAILY 01/05/17 [History ] Cyclobenzaprine [Flexeril] 10 mg PO TID 01/05/17 [History] Ferrous Sulfate 325 mg PO DAILY 01/05/17 [History] Folic Acid 1 mg PO DAILY 01/05/17 [History] Magnesium 250 mg PO DAILY 01/05/17 [History] Metoclopramide HCl 10 mg PO BID PRN 01/05/17 [History] Pregabalin [Lyrica] 50 mg PO TID 01/05/17 [History] QUEtiapine [SEROquel] 100 mg PO BEDTIME 01/05/17 [History] Spironolactone [Aldactone] 25 mg PO DAILY 01/05/17 [History] Cyanocobalamin (Vitamin B-12) [B-12] 1,000 mcg PO DAILY 01/07/17 [History] LORazepam 1 mg PO BID PRN 01/07/17 [History] atorvaSTATin [Lipitor] 20 mg PO BEDTIME 01/07/17 [History] Fluticasone Propionate [Flonase] 1 spray NASBOTH DAILY 01/08/17 [History] Acetaminophen/Codeine [Tylenol with Codeine No.3 300MG/30MG] 1 tab PO ASDIRECTED 02/02/17 [History] Caffeine [Awake] 1 tab PO ASDIRECTED 02/02/17 [History] Methylphenidate [Concerta] 1 tab PO DAILY 02/02/17 [History] Methylphenidate [Concerta] 1 tab PO DAILY 02/02/17 [History] Ondansetron [Zofran] 1 tab PO TID 02/02/17 [History] Past Medical History HEENT History: Reports: Impaired Vision Other HEENT History: wear glasses Cardiovascular History: Reports: Angina, High Cholesterol, Hypertension, ID, SOB on Exertion, Other (See Below) Other Cardiovascular History: heart dse Respiratory History: Reports: COPD, Pneumonia, Recurrent, Sleep Apnea Gastrointestinal History: Reports: Diverticulosis Other Genitourinary History: CYST ON KIDNEY 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 Generalized weakness. Neurological History: Reports: Neuropathy, Diabetic, Neuropathy, Peripheral Other Neuro History: Pt. was in a coma for 5 months, fibromyalgia, neuropathy Psychiatric History: Reports: Anxiety, Bipolar, Depression, Hallucinations, Psych Hospitalization(s), PTSD, Suicide Attempt Other Psychiatric History: Insomnia. Endocrine/Metabolic History: Reports: Diabetes, Type II - Infectious Disease History Infectious Disease History: Reports: Chicken Pox, Mononucleosis - Past Surgical History GI Surgical History: Reports: Colonoscopy Social & Family History - Family History Family Medical History: Noncontributory Oncologic: Reports: Liver - Tobacco Use Smoking Status *Q: Never Smoker Years of Tobacco use: 25 Packs/Tins Daily: 0.5 Used Tobacco, but Quit: Yes Month Tobacco Last Used: Jul Second Hand Smoke Exposure: No - Caffeine Use Caffeine Use: Reports: None Caffeine Use Comment: unable to tolerate caffiene per patient - Alcohol Use Days Per Week of Alcohol Use: 0 - Recreational Drug Use Recreational Drug Use: No Drug Use in Last 12 Months: No - Living Situation & Occupation Living situation: Occupation: Unemployed ED ROS GENERAL - Review of Systems Review Of Systems: See Below Constitutional: Reports: Malaise, Weakness, Fatigue, Decreased Appetite, Weight Gain HEENT: Reports: No Symptoms Respiratory: Reports: Shortness of Breath, Cough, Sputum Cardiovascular: Reports: Chest Pain (Chronic for 5 years.) Endocrine: Reports: No Symptoms GI/Abdominal: Reports: No Symptoms : Reports: No Symptoms Musculoskeletal: Reports: Muscle Pain Skin: Reports: No Symptoms Neurological: Reports: No Symptoms Psychiatric: Reports: Agitation, Anxiety, Cravings, Depression, Mood Lability Hematologic/Lymphatic: Reports: No Symptoms Immunologic: Reports: No Symptoms ED EXAM, GENERAL - Physical Exam Exam: See Below Exam Limited By: No Limitations General Appearance: Alert, WD/WN, No Apparent Distress Eye Exam: Bilateral Eye: EOMI, Normal Fundi, Normal Inspection, PERRL Ears: Normal External Exam, Normal Canal, Hearing Grossly Normal, Normal TMs Ear Exam: Bilateral Ear: Auricle Normal, Canal Normal, TM normal Nose: Normal Inspection, Normal Mucosa, No Blood Throat/Mouth: Normal Inspection, Normal Lips, Normal Teeth, Normal Gums, Normal Oropharynx, Normal Voice, No Airway Compromise Head: Atraumatic, Normocephalic Neck: Normal Inspection, Supple, Non-Tender, Full Range of Motion Respiratory/Chest: No Accessory Muscle Use, Rhonchi Cardiovascular: Normal Peripheral Pulses, Regular Rate, Rhythm, No Edema, No Gallop, No JVD, No Murmur, No Rub GI/Abdominal: Normal Bowel Sounds, Soft, Non-Tender, No Organomegaly, No Distention, No Abnormal Bruit, No Mass Back Exam: Normal Inspection, Full Range of Motion, NT Extremities: Normal Inspection, Normal Range of Motion, Non-Tender, Normal Capillary Refill, No Pedal Edema Neurological: Alert, Oriented, CN II-XII Intact, Normal Cognition, Normal Gait, Normal Reflexes, No Motor/Sensory Deficits Psychiatric: Anxious, Depressed Mood, Flat Affect Skin Exam: Warm Lymphatic: No Adenopathy EKG INTERPRETATION EKG Date: 03/27/17 Rhythm: NSR Aspers: Normal P-Wave: Present QRS: Normal ST-T: Normal QT: Normal Course - Vital Signs Text/Narrative:: Patient was agitated at times during the hospitalization. Her WBC was elevated and her D-dimer was elevated likely from her bronchitis since the CT lung angiogram was negative for PE. No evidence of pneumonia. She did calm down and fell asleep and her oxygen saturation stayed above 90%. When all the labs were back and results were explained to her she wanted to go home with follow up early next week with her own PCP. Last Recorded V/S: Last Vital Signs Temp 36.3 C 03/28/17 06:40 Pulse 95 03/28/17 06:40 Resp 16 03/28/17 06:40 BP 154/82 H 03/28/17 06:40 Pulse Ox 94 L 03/28/17 06:40 - Orders/Labs/Meds Orders: Active Orders 24 hr Category Date Time Status EKG Documentation Completion [RC] ASDIRECTED Care 03/27/17 23:17 Active EKG Documentation Completion [RC] ASDIRECTED Care 03/28/17 06:00 Active Ang Chest [CT] Stat Exams 03/28/17 01:35 Taken CXR [Chest 1V Frontal] [CR] Stat Exams 03/27/17 23:16 Taken EKG 12 Lead [EK] Routine Ther 03/27/17 23:17 Ordered EKG 12 Lead [EK] Routine Ther 03/28/17 06:00 Ordered Labs: Laboratory Tests 03/27/17 03/27/17 03/27/17 Range/Units 00:00 00:00 00:00 WBC 14.9 H (4.5-12.0) X10-3/uL RBC 4.32 (3.23-5.20) x10(6)uL Hgb 12.5 (11.5-15.5) g/dL Hct 38.0 (30.0-51.3) % MCV 88.0 (80-96) fL MCH 29.0 (27.7-33.6) pg MCHC 32.9 (32.2-35.4) g/dL RDW 14.1 (11.5-15.5) % Plt Count 356 (125-369) X10(3)uL MPV 7.9 (7.4-10.4) fL Add Manual Diff Yes Neutrophils % (Manual) 78 (46-82) % Band Neutrophils % 3 (0-6) % Lymphocytes % (Manual) 13 (13-37) % Monocytes % (Manual) 5 (4-12) % Eosinophils % (Manual) 1 (0-5) % D-Dimer, Quantitative 1410 H (100-400) ng/mL Sodium 137 (135-145) mmol/L Potassium 4.2 (3.5-5.3) mmol/L Chloride 99 L (100-110) mmol/L Carbon Dioxide 27 (23-29) mmol/L BUN 15 (8-23) mg/dL Creatinine 0.8 (0.6-1.3) mg/dL Est Cr Clr Drug Dosing TNP Estimated GFR (MDRD) > 60 (>60) BUN/Creatinine Ratio 18.8 (9-20) Glucose 116 (80-116) mg/dL Calcium 10.0 (8.6-10.2) mg/dL Total Bilirubin 0.5 (0.1-1.3) mg/dL AST 12 D (5-27) IU/L ALT 11 L (14-26) IU/L Alkaline Phosphatase 68 (56-112) IU/L Troponin I (0.02-0.06) NG/ML B-Natriuretic Peptide (0-100) pg/mL Total Protein 8.0 (6.0-8.0) g/dL Albumin 3.7 (3.2-4.6) g/dL Globulin 4.3 g/dL Albumin/Globulin Ratio 0.9 03/27/17 03/27/17 03/28/17 Range/Units 00:00 00:00 06:00 WBC (4.5-12.0) X10-3/uL RBC (3.23-5.20) x10(6)uL Hgb (11.5-15.5) g/dL Hct (30.0-51.3) % MCV (80-96) fL MCH (27.7-33.6) pg MCHC (32.2-35.4) g/dL RDW (11.5-15.5) % Plt Count (125-369) X10(3)uL MPV (7.4-10.4) fL Add Manual Diff Neutrophils % (Manual) (46-82) % Band Neutrophils % (0-6) % Lymphocytes % (Manual) (13-37) % Monocytes % (Manual) (4-12) % Eosinophils % (Manual) (0-5) % D-Dimer, Quantitative (100-400) ng/mL Sodium (135-145) mmol/L Potassium (3.5-5.3) mmol/L Chloride (100-110) mmol/L Carbon Dioxide (23-29) mmol/L BUN (8-23) mg/dL Creatinine (0.6-1.3) mg/dL Est Cr Clr Drug Dosing Estimated GFR (MDRD) (>60) BUN/Creatinine Ratio (9-20) Glucose (80-116) mg/dL Calcium (8.6-10.2) mg/dL Total Bilirubin (0.1-1.3) mg/dL AST (5-27) IU/L ALT (14-26) IU/L Alkaline Phosphatase (56-112) IU/L Troponin I < 0.01 L < 0.01 L (0.02-0.06) NG/ML B-Natriuretic Peptide 16 (0-100) pg/mL Total Protein (6.0-8.0) g/dL Albumin (3.2-4.6) g/dL Globulin g/dL Albumin/Globulin Ratio Meds: Medications Discontinued Medications Generic Name Dose Route Start Last Admin Trade Name Freq PRN Reason Stop Dose Admin Diphenhydramine HCl 50 mg 03/28/17 04:53 03/28/17 04:57 Benadryl PO 03/28/17 04:54 50 mg ONETIME ONE Administration Hydromorphone HCl 1 mg 03/28/17 01:41 03/28/17 02:06 Dilaudid IVPUSH 03/28/17 01:42 1 mg ONETIME ONE Administration Iopamidol 100 ml 03/28/17 01:51 03/28/17 02:23 Isovue-370 (76%) IV 03/28/17 01:52 80 ml . DIRECTED ONE Administration Ondansetron HCl 4 mg 03/28/17 01:40 03/28/17 02:02 Zofran IVPUSH 03/28/17 01:41 4 mg ONETIME ONE Administration Departure - Departure Time of Disposition: 08:05 Disposition: Home, Self-Care 01 Condition: Good Clinical Impression: Chronic bronchitis with COPD (chronic obstructive pulmonary disease) - Discharge Information Referrals: Shannan Peng, EMERGENCY SERVICE RESTORER [Primary Care Provider] - - My Orders Last 24 Hours: My Active Orders 03/27/17 23:16 CXR [Chest 1V Frontal] [CR] Stat 03/27/17 23:17 EKG Documentation Completion [RC] ASDIRECTED EKG 12 Lead [EK] Routine 03/28/17 01:35 Ang Chest [CT] Stat 03/28/17 06:00 EKG Documentation Completion [RC] ASDIRECTED EKG 12 Lead [EK] Routine - Assessment/Plan Last 24 Hours: My Active Orders 03/27/17 23:16 CXR [Chest 1V Frontal] [CR] Stat 03/27/17 23:17 EKG Documentation Completion [RC] ASDIRECTED EKG 12 Lead [EK] Routine 03/28/17 01:35 Ang Chest [CT] Stat 03/28/17 06:00 EKG Documentation Completion [RC] ASDIRECTED EKG 12 Lead [EK] Routine
[2017-03-28] MEDS ORDERED: Azithromycin 250 MG Tab PO ONE (08:10)
--- NOTE | 2017-03-30 13:37 | CR ---
INDICATION: Chest pain. CHEST: Two AP portable upright views of the chest, 03/27/2017, were compared with 01/05/2017 and 08/08/2016, again revealing evidence of exogenous obesity. The aorta is tortuous with calcification in the arch. The heart did not appear grossly enlarged, but did appear somewhat prominent. A definite active infiltrate or effusion was not identified. Multiple densities are scattered about the chest, which likely represent artifact from clothing. IMPRESSION: Fairly stable appearance of the chest with the exception of clearing of a linear atelectatic area in the right lower lung field - no definite acute process is suggested - findings are as noted above. MTDD
== END 2017-03-28 08:30 | disposition home or self-care (01) ==
LOC: FB.ED 23:02
DX: J44.9 Chronic obstructive pulmonary disease, unspecified (principal); E78.00 Pure hypercholesterolemia, unspecified; I10 Essential (primary) hypertension; I25.2 Old myocardial infarction; E11.40 Type 2 diabetes mellitus with diabetic neuropathy, unspecified; F32.9 Major depressive disorder, single episode, unspecified; E11.9 Type 2 diabetes mellitus without complications; Z88.8 Allergy status to other drugs, medicaments and biological substances; Z88.1 Allergy status to other antibiotic agents; Z79.899 Other long term (current) drug therapy; Z87.01 Personal history of pneumonia (recurrent)
CPT/HCPCS: 36415; 71010; 71275; 80053; 83880; 84484; 85025; 85379; 93005; 99284; A9270; J1170; J2405; Q9967; 96374; 96375

== ENCOUNTER 2017-04-07 15:20 | Observation (INO) | payer MEDICAID ==
[2017-04-07] MEDS ORDERED: Ondansetron 8 MG Tab.DIS PO ONE (16:27)
--- NOTE | 2017-04-07 17:35 | EDM.PDOC ---
ED HPI GENERAL MEDICAL PROBLEM - General Chief Complaint: Cardiovascular Problem Stated Complaint: HIGH BP Time Seen by Provider: 04/07/17 15:20 Source of Information: Reports: Patient History Limitations: Reports: Physical Impairment (morbid obese) - History of Present Illness INITIAL COMMENTS - FREE TEXT/NARRATIVE: 62 y.o.w.f. 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 Pt could not specify the reason, why she came to the ed. Her HR was 115, her BP was 135/85 RR was 20 her pulse ox was 94% on RA. Pt is a poor historian, her "freind" went home immediately after she dropped her off. The patent was able to get onto the commode by herself, with minor help. No C/P No N/V/D Onset: Unknown/Unsure Onset Date: 03/26/17 Onset Time: 09:00 Duration: Week(s):, Getting Worse Location: Reports: Generalized Quality: Reports: Same as Previous Episode Severity: Moderate Improves with: Reports: Rest Worsens with: Reports: Movement Associated Symptoms: Reports: Weakness, Other (morbid obese due to inactivity) - Related Data Allergies Allergy/AdvReac Type Severity Reaction Status Date / Time ciprofloxacin Allergy Cannot Verified 04/07/17 15:44 Remember metronidazole [From Flagyl] Allergy Itching Verified 04/07/17 15:44 Home Meds: Home Meds rOPINIRole HCl [Requip] 1 mg PO TID 11/28/13 [History] Furosemide [Lasix] 80 mg PO DAILY PRN 01/12/14 [History] Sennosides/Docusate Sodium [Senna S Tablet] 1 tab PO DAILY 04/03/14 [History] Zolpidem [Ambien] 10 mg PO BEDTIME 04/03/14 [History] Doxepin [SINEquan] 100 mg PO BEDTIME 10/11/14 [History] Carvedilol 3.125 mg PO BID 07/04/16 [History] Cranberry Extract/Vit C [Azo Cranberry Softgel] 1 tab PO DAILY 01/05/17 [History ] Cyclobenzaprine [Flexeril] 10 mg PO TID 01/05/17 [History] Ferrous Sulfate 325 mg PO DAILY 01/05/17 [History] Folic Acid 1 mg PO DAILY 01/05/17 [History] Magnesium 250 mg PO DAILY 01/05/17 [History] Pregabalin [Lyrica] 50 mg PO TID 01/05/17 [History] QUEtiapine [SEROquel] 100 mg PO BEDTIME 01/05/17 [History] Spironolactone [Aldactone] 25 mg PO DAILY 01/05/17 [History] Cyanocobalamin (Vitamin B-12) [B-12] 1,000 mcg PO DAILY 01/07/17 [History] LORazepam 1 mg PO BID PRN 01/07/17 [History] atorvaSTATin [Lipitor] 20 mg PO BEDTIME 01/07/17 [History] Fluticasone Propionate [Flonase] 1 spray NASBOTH DAILY 01/08/17 [History] Acetaminophen/Codeine [Tylenol with Codeine No.3 300MG/30MG] 1 tab PO TID PRN [History] Methylphenidate [Concerta] 36 mg PO DAILY 02/02/17 [History] Methylphenidate [Concerta] 54 mg PO DAILY 02/02/17 [History] Ondansetron [Zofran] 1 tab PO TID 02/02/17 [History] Past Medical History HEENT History: Reports: Impaired Vision Other HEENT History: wear glasses Cardiovascular History: Reports: Angina, High Cholesterol, Hypertension, [place], SOB on Exertion, Other (See Below) Other Cardiovascular History: heart dse Respiratory History: Reports: COPD, Pneumonia, Recurrent, Sleep Apnea Gastrointestinal History: Reports: Diverticulosis Other Genitourinary History: 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 Generalized weakness. Neurological History: Reports: Neuropathy, Diabetic, Neuropathy, Peripheral Other Neuro History: Pt. was in a coma for 5 months, fibromyalgia, neuropathy Psychiatric History: Reports: Anxiety, Bipolar, Depression, Hallucinations, Psych Hospitalization(s), PTSD, Suicide Attempt Other Psychiatric History: Insomnia. Endocrine/Metabolic History: Reports: Diabetes, Type II - Infectious Disease History Infectious Disease History: Reports: Chicken Pox, Mononucleosis - Past Surgical History GI Surgical History: Reports: Colonoscopy Social & Family History - Family History Family Medical History: Noncontributory Oncologic: Reports: Liver - Tobacco Use Smoking Status *Q: Never Smoker Years of Tobacco use: 25 Packs/Tins Daily: 0.5 Used Tobacco, but Quit: Yes Month Tobacco Last Used: Jul Second Hand Smoke Exposure: No - Caffeine Use Caffeine Use: Reports: None Caffeine Use Comment: unable to tolerate caffiene per patient - Alcohol Use Days Per Week of Alcohol Use: 0 - Recreational Drug Use Recreational Drug Use: No Drug Use in Last 12 Months: No - Living Situation & Occupation Living situation: Occupation: Unemployed ED ROS GENERAL - Review of Systems Review Of Systems: See Below Constitutional: Reports: No Symptoms, Weight Gain HEENT: Reports: No Symptoms Respiratory: Reports: No Symptoms Cardiovascular: Reports: No Symptoms Endocrine: Reports: No Symptoms GI/Abdominal: Reports: No Symptoms : Reports: Incontinence Musculoskeletal: Reports: Other (weakness) Skin: Reports: No Symptoms Neurological: Reports: Weakness Psychiatric: Reports: Depression Hematologic/Lymphatic: Reports: No Symptoms Immunologic: Reports: No Symptoms ED EXAM, GENERAL - Physical Exam Exam: See Below Exam Limited By: Physical Impairment General Appearance: Alert, Obese (morbid obese) Eye Exam: Bilateral Eye: Normal Inspection Ears: Normal External Exam Ear Exam: Bilateral Ear: Auricle Normal Nose: Normal Inspection Throat/Mouth: Normal Inspection, Normal Lips Head: Atraumatic, Normocephalic Neck: Normal Inspection, Supple, Non-Tender Respiratory/Chest: No Respiratory Distress, Lungs Clear, Normal Breath Sounds ( poor insp effort) Cardiovascular: Normal Peripheral Pulses, Tachycardia (115) Peripheral Pulses: 1+: Radial (L), Radial (R) GI/Abdominal: Normal Bowel Sounds, Soft, Non-Tender, No Organomegaly, No Distention, No Abnormal Bruit, No Mass (Female) Exam: Deferred Rectal (Female) Exam: Deferred Back Exam: Normal Inspection, Full Range of Motion Extremities: Normal Inspection, Normal Range of Motion, Non-Tender, No Pedal Edema Neurological: Alert, Oriented, CN II-XII Intact, Abnormal Gait Psychiatric: Depressed Mood, Tearful Skin Exam: Warm, Dry, Intact, Normal Color, No Rash Lymphatic: No Adenopathy EKG INTERPRETATION EKG Date: 04/07/17 Time: 19:15 Rhythm: NSR Rate (Beats/Min): 109 [place]: Normal P-Wave: Present QRS: Normal ST-T: Normal QT: Normal Comparison: NA - No Prior EKG Course - Vital Signs Text/Narrative:: 62 y.o.w.f. 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 Pt could not specify the reason, why she came to the ed. Her HR was 115, her BP was 135/85 RR was 20 her pulse ox was 94% on RA. Pt is a poor historian, her "friend" went home immediately after she dropped her off. The patent was able to get onto the commode by herself, with minor help. No C/P No N/V/D PE: Morbid obese, not interested to help herself up to stand. needed help from 3 people. No focal weaknesses, lungs clear, heart RR, abd. soft no pedal edema. Imaging: Not indicated Labs: pending Imaging: depressed, morbid obese, sedentary live style, bedridden, incontinent. Tx: suporting help Reexam: pt was initially set for discharge. Pt was crying. 3 people were needed to bring her on her wheel chair, because she "let her go", not interest to help. Afte the nurse told her we may have to admit her, she got more active and brought herself into the bed, without help. Plan: Admit for observation - Orders/Labs/Meds Orders: Active Orders 24 hr Category Date Time Status Patient Status [ADT] Routine ADT 04/07/17 18:23 Active Blood Glucose Check, Bedside [RC] BIDMEALS Care 04/07/17 18:23 Active EKG Documentation Completion [RC] ASDIRECTED Care 04/07/17 18:33 Active Oxygen Therapy [RC] PRN Care 04/07/17 18:23 Active Up With Assistance [RC] ASDIRECTED Care 04/07/17 18:23 Active VTE/DVT Education [RC] Per Unit Routine Care 04/07/17 18:23 Active Vital Signs [RC] Q4H Care 04/07/17 18:23 Active Consistent Carbohydrate Diet [DIET] Diet 04/07/17 Breakfast Ordered B-TYPE NATRIURETIC PEPTIDE,BNP [CHEM] Stat Lab 04/07/17 19:05 Received BASIC METABOLIC PANEL,BMP [CHEM] Routine Lab 04/07/17 19:05 Received CBC W/O DIFF,HEMOGRAM [HEME] Routine Lab 04/07/17 19:05 Received CREATINE KINASE,CK [CHEM] Routine Lab 04/07/17 19:05 Received UA W/MICROSCOPIC [URIN] Routine Lab 04/07/17 18:23 Uncollected Docusate Sodium [Colace] Med 04/07/17 18:23 Active 100 mg PO BID PRN Ondansetron [Zofran ODT] Med 04/07/17 18:23 Active 4 mg PO Q4H PRN Resuscitation Status Routine Resus Stat 04/07/17 18:23 Ordered EKG 12 Lead [EK] Routine Ther 04/07/17 18:32 Ordered Medication Orders Acetaminophen/Codeine Phosphate (Tylenol With Codeine No.3 300mg/30mg) 1 tab PO TID PRN PRN Reason: Pain Atorvastatin Calcium (Lipitor) 20 mg PO BEDTIME NIA Carvedilol (Coreg) 3.125 mg PO BID NIA Cyanocobalamin (Vitamin B12) 1,000 mcg PO DAILY NIA Docusate Sodium (Colace) 100 mg PO BID PRN PRN Reason: Constipation Doxepin HCl (Sinequan) 100 mg PO BEDTIME NIA Ferrous Sulfate (Ferrous Sulfate) 325 mg PO DAILY NIA Fluticasone Propionate (Flonase) 0 gm NASBOTH DAILY NIA Folic Acid (Folic Acid) 1 mg PO DAILY NIA Furosemide (Lasix) 80 mg PO DAILY PRN PRN Reason: swelling Lorazepam (Ativan) 1 mg PO BID PRN PRN Reason: Anxiety Non-Formulary Medication (Cranberry Extract/Vit C [Azo Cranberry Softgel]) 1 tab PO DAILY NIA Non-Formulary Medication (Magnesium [Magnesium]) 250 mg PO DAILY NIA Non-Formulary Medication (Methylphenidate [Concerta]) 36 mg PO DAILY NIA Non-Formulary Medication (Methylphenidate [Concerta]) 54 mg PO DAILY NIA Non-Formulary Medication (Ondansetron [Zofran]) 1 tab PO TID NIA Non-Formulary Medication (Ropinirole Hcl [Requip]) 1 mg PO TID NIA Ondansetron HCl (Zofran Odt) 4 mg PO Q4H PRN PRN Reason: nausea, able to take PO Pregabalin (Lyrica) 50 mg PO TID [facility] Quetiapine Fumarate (Seroquel) 100 mg PO BEDTIME [facility] Senna/Docusate Sodium (Senna Plus) 1 tab PO DAILY [facility] Spironolactone (Aldactone) 25 mg PO DAILY [facility] Zolpidem Tartrate (Ambien) 10 mg PO BEDTIME [facility] Labs: Laboratory Tests 04/07/17 Range/Units 16:37 POC Glucose 129 H (80-116) mg/dL Meds: Medications Generic Name Dose Route Start Last Admin Trade Name Freq PRN Reason Stop Dose Admin Acetaminophen/Codeine Phosphate 1 tab 04/07/17 18:39 Tylenol With Codeine No.3 300mg/30mg PO TID PRN Pain Atorvastatin Calcium 20 mg 04/07/17 21:00 Lipitor PO BEDTIME [facility] Carvedilol 3.125 mg 04/07/17 21:00 Coreg PO BID [facility] Cyanocobalamin 1,000 mcg 04/08/17 09:00 Vitamin B12 PO DAILY [facility] Docusate Sodium 100 mg 04/07/17 18:23 Colace PO BID PRN Constipation Doxepin HCl 100 mg 04/07/17 21:00 Sinequan PO BEDTIME [facility] Ferrous Sulfate 325 mg 04/08/17 09:00 Ferrous Sulfate PO DAILY [facility] Fluticasone Propionate 0 gm 04/08/17 09:00 Flonase NASBOTH DAILY [facility] Folic Acid 1 mg 04/08/17 09:00 Folic Acid PO DAILY [facility] Furosemide 80 mg 04/07/17 18:39 Lasix PO DAILY PRN swelling Lorazepam 1 mg 04/07/17 18:39 Ativan PO BID PRN Anxiety Non-Formulary Medication 1 tab 04/08/17 09:00 Cranberry Extract/Vit C [Azo Cranberry Softgel] PO DAILY [facility] Non-Formulary Medication 250 mg 04/08/17 09:00 Magnesium [Magnesium] PO DAILY [facility] Non-Formulary Medication 36 mg 04/08/17 09:00 Methylphenidate [Concerta] PO DAILY [facility] Non-Formulary Medication 54 mg 04/08/17 09:00 Methylphenidate [Concerta] PO DAILY [facility] Non-Formulary Medication 1 tab 04/07/17 21:00 Ondansetron [Zofran] PO TID NIA Non-Formulary Medication 1 mg 04/07/17 21:00 Ropinirole Hcl [Requip] PO TID NIA Ondansetron HCl 4 mg 04/07/17 18:23 Zofran Odt PO Q4H PRN nausea, able to take PO Pregabalin 50 mg 04/07/17 21:00 Lyrica PO TID [facility] Quetiapine Fumarate 100 mg 04/07/17 21:00 Seroquel PO BEDTIME [facility] Senna/Docusate Sodium 1 tab 04/08/17 09:00 Senna Plus PO DAILY [facility] Spironolactone 25 mg 04/08/17 09:00 Aldactone PO DAILY [facility] Zolpidem Tartrate 10 mg 04/07/17 21:00 Ambien PO BEDTIME NIA Discontinued Medications Generic Name Dose Route Start Last Admin Trade Name Freq PRN Reason Stop Dose Admin Ondansetron HCl 8 mg 04/07/17 16:27 04/07/17 16:32 Zofran Odt PO 04/07/17 16:28 8 mg ONETIME ONE Administration Temazepam 7.5 mg 04/07/17 18:23 Restoril PO BEDTIME PRN Sleep Departure - Departure Time of Disposition: 18:35 Disposition: Refer to Observation Condition: Good Clinical Impression: Morbid obesity, Sedentary lifestyle, Sinus tachycardia, Dehydration, mild - My Orders Last 24 Hours: My Active Orders 04/07/17 18:23 Patient Status [ADT] Routine Blood Glucose Check, Bedside [RC] BIDMEALS Oxygen Therapy [RC] PRN Up With Assistance [RC] ASDIRECTED VTE/DVT Education [RC] Per Unit Routine Vital Signs [RC] Q4H UA W/MICROSCOPIC [URIN] Routine Docusate Sodium [Colace] 100 mg PO BID PRN Ondansetron [Zofran ODT] 4 mg PO Q4H PRN Resuscitation Status Routine 04/07/17 18:32 EKG 12 Lead [EK] Routine 04/07/17 18:33 EKG Documentation Completion [RC] ASDIRECTED 04/07/17 19:05 B-TYPE NATRIURETIC PEPTIDE,BNP [CHEM] Stat BASIC METABOLIC PANEL,BMP [CHEM] Routine CBC W/O DIFF,HEMOGRAM [HEME] Routine CREATINE KINASE,CK [CHEM] Routine 04/07/17 Breakfast Consistent Carbohydrate Diet [DIET] - Assessment/Plan Last 24 Hours: My Active Orders 04/07/17 18:23 Patient Status [ADT] Routine Blood Glucose Check, Bedside [RC] BIDMEALS Oxygen Therapy [RC] PRN Up With Assistance [RC] ASDIRECTED VTE/DVT Education [RC] Per Unit Routine Vital Signs [RC] Q4H UA W/MICROSCOPIC [URIN] Routine Docusate Sodium [Colace] 100 mg PO BID PRN Ondansetron [Zofran ODT] 4 mg PO Q4H PRN Resuscitation Status Routine 04/07/17 18:32 EKG 12 Lead [EK] Routine 04/07/17 18:33 EKG Documentation Completion [RC] ASDIRECTED 04/07/17 19:05 B-TYPE NATRIURETIC PEPTIDE,BNP [CHEM] Stat BASIC METABOLIC PANEL,BMP [CHEM] Routine CBC W/O DIFF,HEMOGRAM [HEME] Routine CREATINE KINASE,CK [CHEM] Routine 04/07/17 Breakfast Consistent Carbohydrate Diet [DIET]
[2017-04-07] MEDS ORDERED: Docusate Sodium 100 MG Cap PO PRN (18:23)
[2017-04-07] MEDS ORDERED: Ondansetron 4 MG Tab.DIS PO PRN (18:23)
[2017-04-07] MEDS ORDERED: Temazepam 7.5 MG Cap PO PRN (18:23)
[2017-04-07] MEDS ORDERED: Acetaminophen/Codeine 300-30 MG Tab PO PRN (18:39)
[2017-04-07] MEDS ORDERED: LORazepam 1 MG Tab PO PRN (18:39)
[2017-04-07] MEDS ORDERED: Furosemide 80 MG Tab PO PRN (18:39)
[2017-04-07] MEDS ORDERED: QUEtiapine 100 MG Tab PO SCH (21:00)
[2017-04-07] MEDS ORDERED: Non-Formulary Medication 1 Each (Ropinirole Hcl [Requip] 1 MG) PO SCH (21:00)
[2017-04-07] MEDS ORDERED: Zolpidem 10 MG Tab PO SCH (21:00)
[2017-04-07] MEDS ORDERED: atorvaSTATin 20 MG Tab PO SCH (21:00)
[2017-04-07] MEDS ORDERED: ONDANSETRON PO SCH (21:00)
[2017-04-07] MEDS ORDERED: Pneumococcal Polyvalent-23 Vaccine 0.5 ML SDV IM ONE (21:02)
[2017-04-07] MEDS ORDERED: FLU Vacc QS 2017-18 (36mos UP)/PF 60 MCG/0.5 ML Syringe IM ONE (21:15)
[2017-04-07] MEDS: Pregabalin 50 MG Cap PO SCH (21:57)
[2017-04-07] MEDS: Carvedilol 3.125 MG Tab PO SCH (21:59)
[2017-04-07] MEDS: rOPINIRole 1 MG Tab PO SCH (22:57)
[2017-04-07] MEDS: Ondansetron 8 MG Tab.DIS PO SCH (22:57)
--- NOTE | 2017-04-08 07:59 | PCM.HP ---
H&P History of Present Illness - General Date of Service: 04/08/17 Admit Problem/Dx: Admission Diagnosis/Problem Admission Diagnosis/Problem Weakness Source of Information: Patient History Limitations: Reports: No Limitations - History of Present Illness Initial Comments - Free Text/Narative: This is a 62-year-old female patient multiple medical problems came to the ER because she was feeling anxious and bad. She states she has poor living conditions and does not have help at home and wanted to be assisted living. She states she was having some heart palpitations and her blood pressures elevated. When she is at the ER she was unable to walk and she is very heavy. So I consented him so she was better for observation. She denies fevers, chills, dysuria, pyuria, hematuria, cough, wheezing. She states she feels depressed and anxious. No suicidal thoughts. She has problems sleeping. Generalized Pain Score (Numeric/FACES): 9 - Related Data Allergies/Adverse Reactions: Allergies Allergy/AdvReac Type Severity Reaction Status Date / Time ciprofloxacin Allergy Cannot Verified 04/07/17 15:44 Remember metronidazole [From Flagyl] Allergy Itching Verified 04/07/17 15:44 Home Medications: Home Meds rOPINIRole HCl [Requip] 1 mg PO TID 11/28/13 [History] Furosemide [Lasix] 80 mg PO DAILY PRN 01/12/14 [History] Sennosides/Docusate Sodium [Senna S Tablet] 1 tab PO DAILY 04/03/14 [History] Zolpidem [Ambien] 10 mg PO BEDTIME 04/03/14 [History] Doxepin [SINEquan] 100 mg PO BEDTIME 10/11/14 [History] Carvedilol 3.125 mg PO BID 07/04/16 [History] Cranberry Extract/Vit C [Azo Cranberry Softgel] 1 tab PO DAILY 01/05/17 [History ] Cyclobenzaprine [Flexeril] 10 mg PO TID 01/05/17 [History] Ferrous Sulfate 325 mg PO DAILY 01/05/17 [History] Folic Acid 1 mg PO DAILY 01/05/17 [History] Magnesium 250 mg PO DAILY 01/05/17 [History] Pregabalin [Lyrica] 50 mg PO TID 01/05/17 [History] QUEtiapine [SEROquel] 100 mg PO BEDTIME 01/05/17 [History] Spironolactone [Aldactone] 25 mg PO DAILY 01/05/17 [History] Cyanocobalamin (Vitamin B-12) [B-12] 1,000 mcg PO DAILY 01/07/17 [History] LORazepam 1 mg PO BID PRN 01/07/17 [History] atorvaSTATin [Lipitor] 20 mg PO BEDTIME 01/07/17 [History] Fluticasone Propionate [Flonase] 1 spray NASBOTH DAILY 01/08/17 [History] Acetaminophen/Codeine [Tylenol with Codeine No.3 300MG/30MG] 1 tab PO TID PRN [History] Methylphenidate [Concerta] 36 mg PO DAILY 02/02/17 [History] Methylphenidate [Concerta] 54 mg PO DAILY 02/02/17 [History] Ondansetron [Zofran] 1 tab PO TID 02/02/17 [History] Past Medical History HEENT History: Reports: Impaired Vision Other HEENT History: wear glasses Cardiovascular History: Reports: Angina, High Cholesterol, Hypertension, IA, SOB on Exertion, Other (See Below) Other Cardiovascular History: cardiovascular disease Respiratory History: Reports: COPD, Pneumonia, Recurrent, Sleep Apnea, Other ( See Below) Other Respiratory History: recently on ventilator --Klebisella pneumoniae Gastrointestinal History: Reports: Diverticulosis Other Genitourinary History: cyst on kidney 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: Reports: 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, Other OB/BYN History: miscarriage x2 Musculoskeletal History: Reports: Back Pain, Chronic, Fibromyalgia, RA Other Musculoskeletal History: sciatic nerve problem, generalized weakness, chronic pain Neurological History: Reports: Neuropathy, Diabetic, Neuropathy, Peripheral Other Neuro History: was in a coma for 5 months, fibromyalgia, neuropathy Psychiatric History: Reports: Anxiety, Bipolar, Depression, Hallucinations, Psych Hospitalization(s), PTSD, Suicide Attempt Other Psychiatric History: insomnia Endocrine/Metabolic History: Reports: Diabetes, Type II, Hypothyroidism, Other ( See Below) Other Endocrine/Metabolic History: borderline diabetic - Infectious Disease History Infectious Disease History: Reports: Chicken Pox, Mononucleosis - Past Surgical History GI Surgical History: Reports: Colonoscopy Social & Family History - Family History Family Medical History: Noncontributory Oncologic: Reports: Liver - Tobacco Use Smoking Status *Q: Never Smoker Years of Tobacco use: 25 Packs/Tins Daily: 0.5 Used Tobacco, but Quit: Yes Month Tobacco Last Used: Jul Second Hand Smoke Exposure: No - Caffeine Use Caffeine Use: Reports: None Caffeine Use Comment: unable to tolerate caffiene per patient - Alcohol Use Days Per Week of Alcohol Use: 0 - Recreational Drug Use Recreational Drug Use: No Drug Use in Last 12 Months: No Other Recreational Drug Type: Is a recovered drug addict, quit around 1994. - Living Situation & Occupation Living situation: Occupation: Unemployed H&P Review of Systems - Review of Systems: Review Of Systems: See Below General: Reports: No Symptoms HEENT: Reports: No Symptoms Pulmonary: Reports: No Symptoms Cardiovascular: Reports: Palpitations. 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 Denies: Hallucinations, Suicidal Ideation Neurological: Reports: Other (Neuropathy secondary to diabetes) Hematologic/Lymphatic: Reports: No Symptoms Immunologic: Reports: No Symptoms Exam - Exam Exam: See Below - Vital Signs Vital Signs: Last Vital Signs Temp 97.5 F 04/08/17 06:20 Pulse 75 04/08/17 06:20 Resp 16 04/08/17 06:20 BP 119/65 04/08/17 06:20 Pulse Ox 97 04/08/17 06:20 Weight: 261 lb 4.8 oz - Exam General: Alert, Oriented, Cooperative HEENT: Conjunctiva Clear, Hearing Intact, Posterior Pharynx Clear, TMs Clear Neck: Supple, Trachea Midline, 2 Lungs: Clear to Auscultation, Normal Respiratory Effort Cardiovascular: Regular Rate, Regular Rhythm. No: Systolic Murmur, Diastolic Murmur GI/Abdominal Exam: Normal Bowel Sounds, Soft, Non-Tender, No Organomegaly, No Distention, No Abnormal Bruit, No Mass Back Exam: Normal Inspection, Full Range of Motion Extremities: Normal Inspection, Normal Range of Motion, No Pedal Edema Skin: Warm, Dry, Intact Neurological: Normal Speech, Normal Tone Neuro Extensive - Mental Status: Alert, Oriented x3, Normal Mood/Affect, Normal Cognition Psychiatric: Alert, Normal Affect, Normal Mood - Patient Data Lab Results Last 24 hrs: Laboratory Results - last 24 hr 04/07/17 04/07/1717 Range/Units 19:05 19:05 19:05 WBC 16.6 H (4.5-12.0) X10-3/uL RBC 5.06 (3.23-5.20) x10(6)uL Hgb 14.2 (11.5-15.5) g/dL Hct 44.3 (30.0-51.3) % MCV 87.6 (80-96) fL MCH 28.1 (27.7-33.6) pg MCHC 32.0 L (32.2-35.4) g/dL RDW 14.4 (11.5-15.5) % Plt Count 516 H (125-369) X10(3)uL Sodium 137 (135-145) mmol/L Potassium 4.0 (3.5-5.3) mmol/L Chloride 96 L (100-110) mmol/L Carbon Dioxide 29 (23-29) mmol/L BUN 15 (8-23) mg/dL Creatinine 1.0 (0.6-1.3) mg/dL Est Cr Clr Drug Dosing TNP Estimated GFR (MDRD) 57 L (>60) BUN/Creatinine Ratio 15.0 (9-20) Glucose 148 H (80-116) mg/dL POC Glucose (80-116) mg/dL Calcium 10.7 H (8.6-10.2) mg/dL Creatine Kinase 23 L (60-160) IU/L B-Natriuretic Peptide 16 (0-100) pg/mL 04/08/17 Range/Units 06:12 WBC (4.5-12.0) X10-3/uL RBC (3.23-5.20) x10(6)uL Hgb (11.5-15.5) g/dL Hct (30.0-51.3) % MCV (80-96) fL MCH (27.7-33.6) pg MCHC (32.2-35.4) g/dL RDW (11.5-15.5) % Plt Count (125-369) X10(3)uL Sodium (135-145) mmol/L Potassium (3.5-5.3) mmol/L Chloride (100-110) mmol/L Carbon Dioxide (23-29) mmol/L BUN (8-23) mg/dL Creatinine (0.6-1.3) mg/dL Est Cr Clr Drug Dosing Estimated GFR (MDRD) (>60) BUN/Creatinine Ratio (9-20) Glucose (80-116) mg/dL POC Glucose 121 H (80-116) mg/dL Calcium (8.6-10.2) mg/dL Creatine Kinase (60-160) IU/L B-Natriuretic Peptide (0-100) pg/mL Result Diagrams: 04/07/17 19:05 04/07/17 19:05 *Q Meaningful Use (ADM) - VTE *Q VTE Criteria *Q: - Stroke *Q Stroke Criteria *Q: - AMI *Q AMI Criteria *Q: - Problem List (1) Weakness SNOMED Code(s): 37974796 ICD Code: R53.1 - WEAKNESS Status: Acute Current Visit: Yes (2) Depression SNOMED Code(s): 21390795 ICD Code: F32.9 - MAJOR DEPRESSIVE DISORDER, SINGLE EPISODE, UNSPECIFIED Status: Acute Current Visit: Yes (3) Sedentary lifestyle SNOMED Code(s): 266246067 ICD Code: Z91.89 - OTH PERSONAL RISK FACTORS, NOT ELSEWHERE CLASSIFIED Status: Acute Current Visit: Yes (4) Morbid obesity SNOMED Code(s): 516031791, 08961387811039 ICD Code: E66.01 - MORBID (SEVERE) OBESITY DUE TO EXCESS CALORIES Status: Chronic Current Visit: Yes Problem List Initiated/Reviewed/Updated: Yes Orders Last 24hrs: Active Orders 24 hr Category Date Time Status Consult to Physical Therapy [PT Evaluation and Cons 04/07/17 19:41 Active Treatment] [CONS] Routine OT Evaluation and Treatment [CONS] Routine Cons 04/07/17 19:41 Active Acetaminophen/Codeine [Tylenol with Codeine No.3 300MG/ Med 04/07/17 18:39 Active 30MG] 1 tab PO TID PRN Carvedilol [Coreg] Med 04/07/17 21:00 Active 3.125 mg PO BID Cranberry Extract/Vit C [Azo Cranberry Softgel] Med 04/08/17 09:00 Active 1 tab PO DAILY Cyanocobalamin (Vitamin B12) [Vitamin B12] Med 04/08/17 09:00 Active 1,000 mcg PO DAILY Docusate Sodium/Sennosides [Senna Plus] Med 04/08/17 09:00 Active 1 tab PO DAILY Doxepin [SINEquan] Med 04/07/17 23:00 Active 100 mg PO BEDTIME Ferrous Sulfate Med 04/08/17 09:00 Active 325 mg PO DAILY Fluticasone Propionate [Flonase] Med 04/08/17 09:00 Active 0 gm NASBOTH DAILY Folic Acid Med 04/08/17 09:00 Active 1 mg PO DAILY Furosemide [Lasix] Med 04/07/17 18:39 Active 80 mg PO DAILY PRN LORazepam [Ativan] Med 04/07/17 18:39 Active 1 mg PO BID PRN Magnesium Oxide Med 04/08/17 09:00 Active 400 mg PO DAILY Methylphenidate [Concerta] Med 04/08/17 09:00 Active 36 mg PO DAILY Methylphenidate [Concerta] Med 04/08/17 09:00 Active 54 mg PO DAILY Ondansetron [Zofran ODT] Med 04/07/17 22:30 Active 8 mg PO TID Pregabalin [Lyrica] Med 04/07/17 21:00 Active 50 mg PO TID QUEtiapine [SEROquel] Med 04/07/17 21:00 Active 100 mg PO BEDTIME Spironolactone [Aldactone] Med 04/08/17 09:00 Active 25 mg PO DAILY Zolpidem [Ambien] Med 04/07/17 21:00 Active 10 mg PO BEDTIME atorvaSTATin [Lipitor] Med 04/07/17 21:00 Active 20 mg PO BEDTIME rOPINIRole [Requip] Med 04/07/17 22:30 Active 1 mg PO TID Medication Orders Acetaminophen/Codeine Phosphate (Tylenol With Codeine No.3 300mg/30mg) 1 tab PO TID PRN PRN Reason: Pain Last Admin: 04/07/17 21:57 Dose: 1 tab Atorvastatin Calcium (Lipitor) 20 mg PO BEDTIME NIA Last Admin: 04/07/17 21:59 Dose: 20 mg Carvedilol (Coreg) 3.125 mg PO BID NIA Last Admin: 04/07/17 21:59 Dose: 3.125 mg Cyanocobalamin (Vitamin B12) 1,000 mcg PO DAILY NIA Docusate Sodium (Colace) 100 mg PO BID PRN PRN Reason: Constipation Last Admin: 04/07/17 21:59 Dose: 100 mg Doxepin HCl (Sinequan) 100 mg PO BEDTIME [facility] Last Admin: 04/07/17 23:52 Dose: 100 mg Ferrous Sulfate (Ferrous Sulfate) 325 mg PO DAILY [facility] Fluticasone Propionate (Flonase) 0 gm NASBOTH DAILY [facility] Folic Acid (Folic Acid) 1 mg PO DAILY [facility] Furosemide (Lasix) 80 mg PO DAILY PRN PRN Reason: swelling Last Admin: 04/07/17 21:57 Dose: 80 mg Lorazepam (Ativan) 1 mg PO BID PRN PRN Reason: Anxiety Last Admin: 04/07/17 22:04 Dose: 1 mg Magnesium Oxide (Magnesium Oxide) 400 mg PO DAILY [facility] Non-Formulary Medication (Cranberry Extract/Vit C [Azo Cranberry Softgel]) 1 tab PO DAILY [facility] Non-Formulary Medication (Methylphenidate [Concerta]) 36 mg PO DAILY [facility] Non-Formulary Medication (Methylphenidate [Concerta]) 54 mg PO DAILY [facility] Ondansetron HCl (Zofran Odt) 4 mg PO Q4H PRN PRN Reason: nausea, able to take PO Ondansetron HCl (Zofran Odt) 8 mg PO TID [facility] Last Admin: 04/07/17 22:57 Dose: 8 mg Pregabalin (Lyrica) 50 mg PO TID [facility] Last Admin: 04/07/17 21:57 Dose: 50 mg Quetiapine Fumarate (Seroquel) 100 mg PO BEDTIME [facility] Last Admin: 04/07/17 22:04 Dose: 100 mg Ropinirole HCl (Requip) 1 mg PO TID [facility] Last Admin: 04/07/17 22:57 Dose: 1 mg Senna/Docusate Sodium (Senna Plus) 1 tab PO DAILY [facility] Spironolactone (Aldactone) 25 mg PO DAILY [facility] Zolpidem Tartrate (Ambien) 10 mg PO BEDTIME [facility] Last Admin: 04/07/17 22:00 Dose: 10 mg Assessment/Plan Comment:: 1. Admit the patient for observation. 2. Patient is not able to walk. This can because of weakness or she's not cooperating. 3. Diabetic diet, regular medicines, 4. Meds and labs reviewed. 5. Social service consult.
--- NOTE | 2017-04-08 08:00 | PCM.SN ---
- Free Text/Narrative Note: Patient feels way better psychologically. She denies depression or sadness today. She wants to go home. She was able to walk to the bathroom and is back to her normal strength. She wants to find assisted living would like to hospice social worker. We'll discharge to home after social worker talks to her.
[2017-04-08 08:03] VITALS: BP 107/70
--- NOTE | 2017-04-08 08:04 | PCM.DCSUM1 ---
Discharge Summary - Hospital Course Free Text/Narrative:: Hospital course-her white count was slightly elevated but other that her labs are normal. Urine was pending because had not been drawn. Patient slept through the night and did well. By the morning she says she felt good. She wasn't depressed, sad. She states she did do some about her living conditions because your manners not wheelchair assessable. We will have a long term care social worker see her today and work on assisted living arrangements. Work on getting more services from [facility]. Brief History: This is a 62-year-old female patient multiple medical problems came to the ER because she was feeling anxious and bad. She states she has poor living conditions and does not have help at home and wanted to be assisted living. She states she was having some heart palpitations and her blood pressures elevated. When she is at the ER she was unable to walk and she is very heavy. So I consented him so she was better for observation. She denies fevers, chills, dysuria, pyuria, hematuria, cough, wheezing. She states she feels depressed and anxious. No suicidal thoughts. She has problems sleeping. - Discharge Data Discharge Date: 04/08/17 Discharge Disposition: Home, Self-Care 01 Condition: Good - Discharge Diagnosis/Problem(s) (1) Weakness SNOMED Code(s): 70625968 ICD Code: R53.1 - WEAKNESS Status: Acute Current Visit: Yes (2) Depression SNOMED Code(s): 94423357 ICD Code: F32.9 - MAJOR DEPRESSIVE DISORDER, SINGLE EPISODE, UNSPECIFIED Status: Acute Current Visit: Yes (3) Sedentary lifestyle SNOMED Code(s): 313353350 ICD Code: Z91.89 - OT PERSONAL RISK FACTORS, NOT ELSEWHERE CLASSIFIED Status: Acute Current Visit: Yes (4) Morbid obesity SNOMED Code(s): 666012279, 76567562337632 ICD Code: E66.01 - MORBID (SEVERE) OBESITY DUE TO EXCESS CALORIES Status: Chronic Current Visit: Yes - Patient Summary/Data Consults: Consultations 04/07/17 19:41 Consult to Physical Therapy [PT Evaluation and Treatment] [CONS] Routine Please Evaluate and Treat. PT Reason for Consult: Strengthening This query below is only for informational purposes and is not editable. Admission Diagnosis/Problem: Weakness OT Evaluation and Treatment [CONS] Routine Please Evaluate and Treat. OT Reason for Consult: Strengthening This query below is only for informational purposes and is not editable. Admission Diagnosis/Problem: Weakness - Patient Instructions Diet: Diabetic Diet Activity: As Tolerated Driving: May Drive Today Showering/Bathing: May Shower Other/Special Instructions: 1. Recheck with her primary provider in 7-10 days. - Discharge Plan Home Medications: Home Meds rOPINIRole HCl [Requip] 1 mg PO TID 11/28/13 [History] Furosemide [Lasix] 80 mg PO DAILY PRN 01/12/14 [History] Sennosides/Docusate Sodium [Senna S Tablet] 1 tab PO DAILY 04/03/14 [History] Zolpidem [Ambien] 10 mg PO BEDTIME 04/03/14 [History] Doxepin [SINEquan] 100 mg PO BEDTIME 10/11/14 [History] Carvedilol 3.125 mg PO BID 07/04/16 [History] Cranberry Extract/Vit C [Azo Cranberry Softgel] 1 tab PO DAILY 01/05/17 [History ] Cyclobenzaprine [Flexeril] 10 mg PO TID 01/05/17 [History] Ferrous Sulfate 325 mg PO DAILY 01/05/17 [History] Folic Acid 1 mg PO DAILY 01/05/17 [History] Magnesium 250 mg PO DAILY 01/05/17 [History] Pregabalin [Lyrica] 50 mg PO TID 01/05/17 [History] QUEtiapine [SEROquel] 100 mg PO BEDTIME 01/05/17 [History] Spironolactone [Aldactone] 25 mg PO DAILY 01/05/17 [History] Cyanocobalamin (Vitamin B-12) [B-12] 1,000 mcg PO DAILY 01/07/17 [History] LORazepam 1 mg PO BID PRN 01/07/17 [History] atorvaSTATin [Lipitor] 20 mg PO BEDTIME 01/07/17 [History] Fluticasone Propionate [Flonase] 1 spray NASBOTH DAILY 01/08/17 [History] Acetaminophen/Codeine [Tylenol with Codeine No.3 300MG/30MG] 1 tab PO TID PRN [History] Methylphenidate [Concerta] 36 mg PO DAILY 02/02/17 [History] Methylphenidate [Concerta] 54 mg PO DAILY 02/02/17 [History] Ondansetron [Zofran] 1 tab PO TID 02/02/17 [History] Forms: ED Department Discharge Referrals: Shannan Peng, [employer]ARM[employer] [Primary Care Provider] - - Discharge Summary/Plan Comment DC Time >30 min.: No - Patient Data Vitals - Most Recent: Last Vital Signs Temp 97.5 F 04/08/17 06:20 Pulse 75 04/08/17 06:20 Resp 16 04/08/17 06:20 BP 119/65 04/08/17 06:20 Pulse Ox 97 04/08/17 06:20 Weight - Most Recent: 261 lb 4.8 oz I&O - Last 24 hours: Intake & Output 04/07/17 04/08/17 04/08/17 22:59 06:59 14:59 Intake Total 250 250 Output Total 0 Balance 250 250 Lab Results - Last 24 hrs: Laboratory Results - last 24 hr 04/07/17 04/07/17 04/07/17 Range/Units 19:05 19:05 19:05 WBC 16.6 H (4.5-12.0) X10-3/uL RBC 5.06 (3.23-5.20) x10(6)uL Hgb 14.2 (11.5-15.5) g/dL Hct 44.3 (30.0-51.3) % MCV 87.6 (80-96) fL MCH 28.1 (27.7-33.6) pg MCHC 32.0 L (32.2-35.4) g/dL RDW 14.4 (11.5-15.5) % Plt Count 516 H (125-369) X10(3)uL Sodium 137 (135-145) mmol/L Potassium 4.0 (3.5-5.3) mmol/L Chloride 96 L (100-110) mmol/L Carbon Dioxide 29 (23-29) mmol/L BUN 15 (8-23) mg/dL Creatinine 1.0 (0.6-1.3) mg/dL Est Cr Clr Drug Dosing TNP Estimated GFR (MDRD) 57 L (>60) BUN/Creatinine Ratio 15.0 (9-20) Glucose 148 H (80-116) mg/dL POC Glucose (80-116) mg/dL Calcium 10.7 H (8.6-10.2) mg/dL Creatine Kinase 23 L (60-160) IU/L B-Natriuretic Peptide 16 (0-100) pg/mL 04/08/17 Range/Units 06:12 WBC (4.5-12.0) X10-3/uL RBC (3.23-5.20) x10(6)uL Hgb (11.5-15.5) g/dL Hct (30.0-51.3) % MCV (80-96) fL MCH (27.7-33.6) pg MCHC (32.2-35.4) g/dL RDW (11.5-15.5) % Plt Count (125-369) X10(3)uL Sodium (135-145) mmol/L Potassium (3.5-5.3) mmol/L Chloride (100-110) mmol/L Carbon Dioxide (23-29) mmol/L BUN (8-23) mg/dL Creatinine (0.6-1.3) mg/dL Est Cr Clr Drug Dosing Estimated GFR (MDRD) (>60) BUN/Creatinine Ratio (9-20) Glucose (80-116) mg/dL POC Glucose 121 H (80-116) mg/dL Calcium (8.6-10.2) mg/dL Creatine Kinase (60-160) IU/L B-Natriuretic Peptide (0-100) pg/mL Med Orders - Current: Current Medications Acetaminophen/Codeine Phosphate (Tylenol With Codeine No.3 300mg/30mg) 1 tab PO TID PRN PRN Reason: Pain Last Admin: 04/07/17 21:57 Dose: 1 tab Atorvastatin Calcium (Lipitor) 20 mg PO BEDTIME NIA Last Admin: 04/07/17 21:59 Dose: 20 mg Carvedilol (Coreg) 3.125 mg PO BID NIA Last Admin: 04/07/17 21:59 Dose: 3.125 mg Cyanocobalamin (Vitamin B12) 1,000 mcg PO DAILY [facility] Docusate Sodium (Colace) 100 mg PO BID PRN PRN Reason: Constipation Last Admin: 04/07/17 21:59 Dose: 100 mg Doxepin HCl (Sinequan) 100 mg PO BEDTIME NIA Last Admin: 04/07/17 23:52 Dose: 100 mg Ferrous Sulfate (Ferrous Sulfate) 325 mg PO DAILY [facility] Fluticasone Propionate (Flonase) 0 gm NASBOTH DAILY [facility] Folic Acid (Folic Acid) 1 mg PO DAILY [facility] Furosemide (Lasix) 80 mg PO DAILY PRN PRN Reason: swelling Last Admin: 04/07/17 21:57 Dose: 80 mg Lorazepam (Ativan) 1 mg PO BID PRN PRN Reason: Anxiety Last Admin: 04/07/17 22:04 Dose: 1 mg Magnesium Oxide (Magnesium Oxide) 400 mg PO DAILY [facility] Non-Formulary Medication (Cranberry Extract/Vit C [Azo Cranberry Softgel]) 1 tab PO DAILY [facility] Non-Formulary Medication (Methylphenidate [Concerta]) 36 mg PO DAILY [facility] Non-Formulary Medication (Methylphenidate [Concerta]) 54 mg PO DAILY [facility] Ondansetron HCl (Zofran Odt) 4 mg PO Q4H PRN PRN Reason: nausea, able to take PO Ondansetron HCl (Zofran Odt) 8 mg PO TID [facility] Last Admin: 04/07/17 22:57 Dose: 8 mg Pregabalin (Lyrica) 50 mg PO TID [facility] Last Admin: 04/07/17 21:57 Dose: 50 mg Quetiapine Fumarate (Seroquel) 100 mg PO BEDTIME [facility] Last Admin: 04/07/17 22:04 Dose: 100 mg Ropinirole HCl (Requip) 1 mg PO TID [facility] Last Admin: 04/07/17 22:57 Dose: 1 mg Senna/Docusate Sodium (Senna Plus) 1 tab PO DAILY [facility] Spironolactone (Aldactone) 25 mg PO DAILY [facility] Zolpidem Tartrate (Ambien) 10 mg PO BEDTIME [facility] Last Admin: 04/07/17 22:00 Dose: 10 mg Discontinued Medications Doxepin HCl (Sinequan) 100 mg PO BEDTIME [facility] Last Admin: 04/08/17 07:26 Dose: Not Given Doxepin HCl (Sinequan) 100 mg PO BEDTIME [facility] Non-Formulary Medication (Ondansetron [Zofran]) 1 tab PO TID [facility] Last Admin: 04/08/17 00:47 Dose: Not Given Non-Formulary Medication (Ropinirole Hcl [Requip]) 1 mg PO TID NIA Last Admin: 04/08/17 00:48 Dose: Not Given Ondansetron HCl (Zofran Odt) 8 mg PO ONETIME ONE Stop: 04/07/17 16:28 Last Admin: 04/07/17 16:32 Dose: 8 mg Pneumococcal Polyvalent Vaccine (Pneumovax 23) 0.5 ml IM .ONCE ONE Stop: 04/07/17 21:03 Temazepam (Restoril) 7.5 mg PO BEDTIME PRN PRN Reason: Sleep *Q Meaningful Use (DIS) - VTE *Q VTE Criteria *Q: - Stroke *Q Stroke Criteria *Q: - AMI *Q AMI Criteria *Q:
[2017-04-08] MEDS ORDERED: Ferrous Sulfate 325 MG Tab PO SCH (09:00)
[2017-04-08] MEDS ORDERED: METHYLPHENIDATE 54 MG PO SCH (09:00)
[2017-04-08] MEDS ORDERED: VIT C PO SCH (09:00)
[2017-04-08] MEDS ORDERED: Folic Acid 1 MG Tab PO SCH (09:00)
[2017-04-08] MEDS ORDERED: Cyanocobalamin (Vitamin B12) 1,000 MCG Tab PO SCH (09:00)
[2017-04-08] MEDS ORDERED: Spironolactone 25 MG Tab PO SCH (09:00)
[2017-04-08] MEDS ORDERED: Magnesium Oxide 400 MG Tab PO SCH (09:00)
[2017-04-08] MEDS ORDERED: Fluticasone Propionate Nasal Spray 16 GM Bottle NASBOTH SCH (09:00)
[2017-04-08] MEDS ORDERED: CRANBERRY EXTRACT PO SCH (09:00)
[2017-04-08] MEDS ORDERED: METHYLPHENIDATE 36 MG PO SCH (09:00)
[2017-04-08] MEDS: Carvedilol 3.125 MG Tab PO SCH (09:06)
[2017-04-08] MEDS: rOPINIRole 1 MG Tab PO SCH (09:07)
[2017-04-08] MEDS: Ondansetron 8 MG Tab.DIS PO SCH (09:07)
[2017-04-08] MEDS: Pregabalin 50 MG Cap PO SCH (09:10)
== END 2017-04-08 10:50 | disposition home or self-care (01) ==
LOC: FB.ED 15:20 → FB.MS 18:35
PROVIDERS: ADMIT Family Medicine; ATTEND Family Medicine
DX: R53.1 Weakness (principal); F32.9 Major depressive disorder, single episode, unspecified; E66.01 Morbid (severe) obesity due to excess calories; I10 Essential (primary) hypertension; E11.42 Type 2 diabetes mellitus with diabetic polyneuropathy; F41.9 Anxiety disorder, unspecified; E03.9 Hypothyroidism, unspecified; J44.9 Chronic obstructive pulmonary disease, unspecified; G47.30 Sleep apnea, unspecified; J18.9 Pneumonia, unspecified organism; E78.00 Pure hypercholesterolemia, unspecified; Z91.89 Other specified personal risk factors, not elsewhere classified; Z79.899 Other long term (current) drug therapy; Z88.1 Allergy status to other antibiotic agents; Z88.8 Allergy status to other drugs, medicaments and biological substances
CPT/HCPCS: 36415; 80048; 81001; 82550; 82962; 83880; 85027; 93005; 99285; A9270; G0378; 90732; G0009

== ENCOUNTER 2017-04-10 23:08 | Emergency (ER) | payer MEDICAID ==
[2017-04-11 02:29] VITALS: BP 146/88
--- NOTE | 2017-04-13 11:37 | CR ---
INDICATION: Chest pain. CHEST: An AP upright view of the chest was obtained 04/10/2017 and revealed poor inspiration, emphasizing markings and heart size. The AP position also emphasized the heart size. The heart may be slightly enlarged. The aorta is tortuous. Overlying EKG leads are noted. Multiple small densities are scattered overlying the shoulders and chest and are unchanged essentially from the previous examination. These likely represent skin lesions but should be correlated clinically. A definite active infiltrate or effusion was not identified. Allowing for the poor inspiration, no definite change is seen. IMPRESSION: 1. No definite acute process. Difficult to exclude infiltrate at the left lower lung field, however, due to the poor inspiration. 2. Probable ASHD but difficult to evaluate heart size. 3. Exogenous obesity. 4. Question multiple small skin lesions scattered about the upper chest and shoulders. MTDD
--- NOTE | 2017-04-16 08:02 | ER ---
DATE SEEN: 04/10/2017 TIME SEEN: 2325 hours. HISTORY OF PRESENT ILLNESS: This 62-year-old woman, who comes to the ER frequently, was just seen 2 days ago with complaints of chest discomfort, increased heart rate, weakness, and tiredness. The patient states she tries to take care of herself but has difficulty. "I tried to come to the hospital twice, but I missed my cab twice." She felt shaky and slightly dizzy. She has no neuropathy. Has multiplicity of complaints. She is 271 pounds. "Cannot get the fluid off her ankles." She has had chest pain on and off 3 hours today. Recently, was at the clinic, had blood work. She "had low white blood cells", type 2 diabetes, had "4 myocardial infarctions" but has never seen a track man. With this, it makes me skeptical of the discussion. The patient takes a diabetic pill. She has multiple allergies. FAMILY HISOTRY: Father has diabetes, coronary artery disease, hypertension. "My mother is okay." PAST HISTORY: On review of her chart, she has 24 diagnoses, of which more pertinent are: Morbid obesity, asthma, migraines, anxiety, bipolar disorder, hypertension, midepigastric abdominal discomfort, urinary tract infections, SVT, depression, chronic bronchitis with COPD, and chest wall pain. Diverticulitis, psychological conversion disorder, acute anxiety reaction to stress. CURRENT MEDICATIONS: 1. Meloxicam. 2. Magnesium. 3. Lorazepam. 4. Loperamide. 5. Lasix. 6. Folic acid. 7. Fluticasone/Flonase (allergic rhinitis new). 8. Ferrous sulfate. 9. Excedrin Migraine. 10.Doxepin. 11.Flexeril. 12.Cyanocobalamin/vitamin B12. 13.Carvedilol. 14.Codeine. 15.Ropinirole - restless legs. 16.Metformin - diabetes. 17.Atorvastatin - dyslipidemia. 18.Zolpidem - sleep disorder. 19.Tetrahydrozoline. 20.Spironolactone. 21.[place]-Colace. 22.Quetiapine. 23.Pregabalin. 24.Zofran. 25.Nystatin. 26.Methylphenidate (ADHD). REVIEW OF SYSTEMS: The patient denies headache presently, compromised vision, irregular heartbeat, fast heart rate, diaphoresis, nausea, vomiting, lightheadedness, or near syncope. No abdominal pain, pain in her legs, having gareth in bed for several days, or having traveled long distances. Denies frequency, urgency, or difficulty passing urine. Denies leg pain. She notes she is anxious and nervous about many things. PHYSICAL EXAMINATION: VITAL SIGNS: Nurse took several sets. On arrival, blood pressure 176/89 and on departure 146/88, 139/99; heart rate 103 and on departure was 97; respiratory rate 22, did not change; and oxygen saturation between 92% and 93%. The patient is 108.38 kg. BMI 38.5. GENERAL: The patient arrived by ambulance. She is anxious. HEENT: PERRLA intact. Pharynx without abnormality. No nystagmus. Hearing is appropriate. NECK: No bruits. LUNGS: Clear to auscultation. HEART: S1, S2. No murmur. ABDOMEN: The patient is markedly obese. No abdominal discomfort. Nontender. No guarding. No rebound. EXTREMITIES: Trace edema. No pain in legs. LABORATORY DATA: EKG: Sinus rhythm. She has decreased voltage. Lead I and lead II, trace ST depression. She has a trace elevation in aVR and V1, less than 1 mm. She has markedly decreased voltage. Sinus rhythm. Troponin x2 is less than 0.01. White count borderline elevated at 12,900, PMNs normal at 69, lymphs 21, monos 7, and platelets 47,000 (mild thrombocythemia). Electrolytes: Normal except for chloride 96, bicarb is 31 (with the elevated bicarb presenting, the kidneys can have increased loss of potassium), potassium is low normal at 3.7. Hemoglobin A1c is 6.1. Diabetes is quite good at 4.0 to 6.0. Glucose is trace elevated at 121. Total protein slightly elevated at 8.1. Trace elevated TSH of 3.25. Urine toxicology: Tricyclics positive, benzos positive. Surprised, methamphetamines were not positive. Her Concerta is taken but did not show up on the urine, nor did the Tylenol with Codeine show up on the urine drug toxicology. Her lorazepam showed up as a benzo positive. She is prescribed lorazepam. Tricyclics were positive; however, that could be positive with ibuprofen. DIAGNOSES: 1. Histor for myocardial infarction. 2. Morbid obesity. 3. Migraine history. 4. Urinary tract infection history. 5. Supraventricular tachycardia, chest pain. 6. Conversion disorder. 7. Anxiety attacks. 8. Chronic bronchitis with COPD. 9. Depression. 10. Restless leg syndrome. 11. Congestive heart failure. 12. Mild thrombocytopenia, question etiology. /[id number] ROSALIA/ALEXA VÁSQUEZ
== END 2017-04-11 02:50 | disposition home or self-care (01) ==
LOC: FB.ED 23:08
DX: I47.1 Supraventricular tachycardia (principal); R07.9 Chest pain, unspecified; I11.0 Hypertensive heart disease with heart failure; I50.9 Heart failure, unspecified; I25.10 Atherosclerotic heart disease of native coronary artery without angina pectoris; I25.2 Old myocardial infarction; E11.9 Type 2 diabetes mellitus without complications; E66.01 Morbid (severe) obesity due to excess calories; F41.0 Panic disorder [episodic paroxysmal anxiety]; F32.9 Major depressive disorder, single episode, unspecified; G25.81 Restless legs syndrome; D69.6 Thrombocytopenia, unspecified; J44.9 Chronic obstructive pulmonary disease, unspecified; Z87.440 Personal history of urinary (tract) infections; Z79.84 Long term (current) use of oral hypoglycemic drugs
CPT/HCPCS: 36415; 71010; 80053; 80305; 82150; 83036; 84443; 84484; 85025; 85610; 93005; 99285

== ENCOUNTER 2017-05-20 14:23 | Inpatient (IN) | payer MEDICAID ==
[2017-05-20] MEDS ORDERED: Lactated Ringers 1,000 ML IV ONE (14:51)
[2017-05-20] MEDS ORDERED: Bisacodyl 10 MG Supp RECTAL ONE (14:52)
[2017-05-20] MEDS ORDERED: Metoclopramide 10 MG/2 ML SDV IVPUSH ONE (14:56)
--- NOTE | 2017-05-20 14:58 | EDM.PDOC ---
ED HPI GENERAL MEDICAL PROBLEM - General Chief Complaint: Abdominal Pain Stated Complaint: STOMACH PAIN Time Seen by Provider: 05/20/17 14:45 Source of Information: Reports: Patient, Old Records History Limitations: Reports: No Limitations - History of Present Illness INITIAL COMMENTS - FREE TEXT/NARRATIVE: 62 yo female presents with constipation and abdominal pain. Is on day #8 of 10 presumably for diverticulitis which she has had in the past. Was started on this tx for one of the [employer]'s at the [facility]. They reportedly told her that if she was not getting better to go to the ER. Linda says he temp was 100F. She has not had a stool for several days and the last one was hard. No vomiting, but has had nausea. Abdominal Pain Score (Numeric/FACES): 8 - Related Data Allergies Allergy/AdvReac Type Severity Reaction Status Date / Time ciprofloxacin Allergy Cannot Verified 05/20/17 14:56 Remember metronidazole [From Flagyl] Allergy Itching Verified 05/20/17 14:56 Home Meds: Home Meds rOPINIRole HCl [Requip] 1 mg PO TID 11/28/13 [History] Furosemide [Lasix] 80 mg PO DAILY PRN 01/12/14 [History] Sennosides/Docusate Sodium [Senna S Tablet] 1 tab PO DAILY 04/03/14 [History] Zolpidem [Ambien] 10 mg PO BEDTIME 04/03/14 [History] Doxepin [SINEquan] 100 mg PO BEDTIME 10/11/14 [History] Carvedilol 3.125 mg PO BID 07/04/16 [History] Cyclobenzaprine [Flexeril] 10 mg PO TID PRN 01/05/17 [History] Ferrous Sulfate 325 mg PO DAILY 01/05/17 [History] Folic Acid 1 mg PO DAILY 01/05/17 [History] Magnesium 250 mg PO DAILY PRN 01/05/17 [History] Pregabalin [Lyrica] 50 mg PO TID 01/05/17 [History] QUEtiapine [SEROquel] 100 mg PO BEDTIME 01/05/17 [History] Spironolactone [Aldactone] 25 mg PO DAILY 01/05/17 [History] Cyanocobalamin (Vitamin B-12) [B-12] 1,000 mcg PO DAILY 01/07/17 [History] LORazepam 1 mg PO BID PRN 01/07/17 [History] atorvaSTATin [Lipitor] 20 mg PO DAILY 01/07/17 [History] Fluticasone Propionate [Flonase] 1 spray NASBOTH DAILY 01/08/17 [History] Acetaminophen/Codeine [Tylenol with Codeine No.3 300MG/30MG] 1 tab PO TID PRN [History] Methylphenidate [Concerta] 36 mg PO DAILY 02/02/17 [History] Methylphenidate [Concerta] 54 mg PO DAILY 02/02/17 [History] Ondansetron [Zofran] 1 tab PO TID 02/02/17 [History] Acetaminophen/Diphenhydramine [Tylenol Pm Ex-Strength Caplet] 1 each PO BID [History] Caffeine [Vivarin] 200 mg PO DAILY PRN 04/08/17 [History] Excedrin Migraine 1 tab PO ASDIRECTED PRN 04/08/17 [History] Loperamide [Imodium AD] 2 mg PO ASDIRECTED PRN 04/08/17 [History] Meloxicam 15 mg PO WITHBREAKFAST 04/08/17 [History] Nystatin 1 applic TOP DAILY 04/08/17 [History] Pantoprazole Sodium [Protonix] 40 mg PO DAILY 04/08/17 [History] Tetrahydrozoline HCl [Visine] 1 drop EYEBOTH DAILY 04/08/17 [History] metFORMIN [Glucophage] 500 mg PO BIDMEALS 04/08/17 [History] Past Medical History HEENT History: Reports: Impaired Vision Other HEENT History: wear glasses Cardiovascular History: Reports: Angina, High Cholesterol, Hypertension, CA, SOB on Exertion, Other (See Below) Other Cardiovascular History: cardiovascular disease Respiratory History: Reports: COPD, Pneumonia, Recurrent, Sleep Apnea, Other ( See Below) Other Respiratory History: recently on ventilator --Klebisella pneumoniae Gastrointestinal History: Reports: Diverticulosis Other Genitourinary History: cyst on kidney 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 NURSING ASSISTANT History: Reports: 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, Other OB/BYN History: miscarriage x2 Musculoskeletal History: Reports: Back Pain, Chronic, Fibromyalgia, RA Other Musculoskeletal History: sciatic nerve problem, generalized weakness, chronic pain Neurological History: Reports: Neuropathy, Diabetic, Neuropathy, Peripheral Other Neuro History: was in a coma for 5 months, fibromyalgia, neuropathy Psychiatric History: Reports: Anxiety, Bipolar, Depression, Hallucinations, Psych Hospitalization(s), PTSD, Suicide Attempt Other Psychiatric History: insomnia Endocrine/Metabolic History: Reports: Diabetes, Type II, Hypothyroidism, Other ( See Below) Other Endocrine/Metabolic History: borderline diabetic - Infectious Disease History Infectious Disease History: Reports: Chicken Pox, Mononucleosis - Past Surgical History GI Surgical History: Reports: Colonoscopy Social & Family History - Family History Family Medical History: Noncontributory Oncologic: Reports: Liver - Tobacco Use Smoking Status *Q: Never Smoker Years of Tobacco use: 25 Packs/Tins Daily: 0.5 Used Tobacco, but Quit: Yes Month Tobacco Last Used: Jul Second Hand Smoke Exposure: No - Caffeine Use Caffeine Use: Reports: None Caffeine Use Comment: unable to tolerate caffiene per patient - Alcohol Use Days Per Week of Alcohol Use: 0 - Recreational Drug Use Recreational Drug Use: No Drug Use in Last 12 Months: No Other Recreational Drug Type: Is a recovered drug addict, quit around 1994. - Living Situation & Occupation Living situation: Occupation: Unemployed ED ROS GENERAL - Review of Systems Review Of Systems: See Below Constitutional: Reports: No Symptoms HEENT: Reports: No Symptoms Respiratory: Reports: Cough Cardiovascular: Reports: No Symptoms Endocrine: Reports: No Symptoms GI/Abdominal: Reports: Abdominal Pain, Constipation, Distension, Nausea. Denies : Black Stool, Bloody Stool, Diarrhea, Flatus, Hematemesis, Hematochezia, Vomiting : Reports: No Symptoms Musculoskeletal: Reports: No Symptoms Skin: Reports: No Symptoms Neurological: Reports: No Symptoms Psychiatric: Reports: No Symptoms ED EXAM, GI/ABD - Physical Exam Exam: See Below Exam Limited By: No Limitations General Appearance: Alert, WD/WN, No Apparent Distress, Obese Eyes: Bilateral: Normal Appearance Ears: Normal External Exam, Normal Canal, Hearing Grossly Normal Nose: Normal Inspection, Normal Mucosa Throat/Mouth: Normal Inspection, Normal Lips, Normal Oropharynx, Normal Voice, No Airway Compromise Head: Atraumatic, Normocephalic Neck: Normal Inspection, Supple Respiratory/Chest: No Respiratory Distress, Lungs Clear, Normal Breath Sounds, No Accessory Muscle Use Cardiovascular: Regular Rate, Rhythm, No Edema GI/Abdominal Exam: Soft, Distended, Tender, Abnormal Bowel Sounds (decreased). No: No Distention Back Exam: Normal Inspection. No: CVA Tenderness (R), CVA Tenderness (L) Extremities: Normal Inspection, Normal Range of Motion, Non-Tender, No Pedal Edema Neurological: Alert, Oriented, CN II-XII Intact, Normal Cognition, No Motor/ Sensory Deficits Psychiatric: Normal Affect, Normal Mood Skin Exam: Warm, Dry, Intact, Normal Color, No Rash Lymphatic: No Adenopathy Course - Vital Signs Last Recorded V/S: Last Vital Signs Temp 37.1 C 05/20/17 14:59 Pulse 89 05/20/17 14:59 Resp 18 05/20/17 14:59 BP 153/75 H 05/20/17 14:59 Pulse Ox 93 L 05/20/17 14:59 - Orders/Labs/Meds Orders: Active Orders 24 hr Category Date Time Status Abdomen 2V AP Flat Upright [CR] Stat Exams 05/20/17 14:53 Taken Abdomen Pelvis w Cont [CT] Stat Exams 05/20/17 16:24 Taken UA W/MICROSCOPIC [URIN] Stat Lab 05/20/17 14:52 Uncollected Diatrizoate Lulu/Diatrizoate Na [Gastrografin 37%] Med 05/20/17 16:30 Active 30 ml PO . DIRECTED Piperacillin/Tazobactam [Zosyn] 4.5 gm Med 05/20/17 18:15 Ordered Sodium Chloride 0.9% [Normal Saline] 100 ml IV Q6H Sodium Chloride 0.9% [Saline Flush] Med 05/20/17 16:43 Active 10 ml FLUSH ASDIRECTED PRN Saline Lock Insert [OM.PC] Routine Oth 05/20/17 16:43 Ordered Medication Orders Diatrizoate Meglum/Diatrizoate Sod (Gastrografin 37%) 30 ml PO . DIRECTED NIA Last Admin: 05/20/17 17:19 Dose: 30 ml Sodium Chloride (Saline Flush) 10 ml FLUSH ASDIRECTED PRN PRN Reason: Keep Vein Open Last Admin: 05/20/17 16:44 Dose: 10 ml Labs: Laboratory Tests 05/20/17 05/20/17 Range/Units 15:15 15:15 WBC 16.4 H (4.5-12.0) X10-3/uL RBC 4.57 (3.23-5.20) x10(6)uL Hgb 12.5 (11.5-15.5) g/dL Hct 38.8 (30.0-51.3) % MCV 84.9 (80-96) fL MCH 27.5 L (27.7-33.6) pg MCHC 32.3 (32.2-35.4) g/dL RDW 14.6 (11.5-15.5) % Plt Count 511 H (125-369) X10(3)uL Sodium 134 L (135-145) mmol/L Potassium 4.3 (3.5-5.3) mmol/L Chloride 96 L (100-110) mmol/L Carbon Dioxide 29 (23-29) mmol/L BUN 16 (8-23) mg/dL Creatinine 0.9 (0.6-1.3) mg/dL Est Cr Clr Drug Dosing 71.88 mL/min Estimated GFR (MDRD) > 60 (>60) BUN/Creatinine Ratio 17.8 (9-20) Glucose 128 H (80-116) mg/dL Calcium 10.4 H (8.6-10.2) mg/dL C-Reactive Protein 4.9 H* (0.0-1.0) mg/dL Meds: Medications Generic Name Dose Route Start Last Admin Trade Name Freq PRN Reason Stop Dose Admin Diatrizoate Meglum/Diatrizoate Sod 30 ml 05/20/17 16:30 05/20/17 17:19 Gastrografin 37% PO 30 ml . DIRECTED NIA Administration Sodium Chloride 10 ml 05/20/17 16:43 05/20/17 16:44 Saline Flush FLUSH 10 ml ASDIRECTED PRN Administration Keep Vein Open Discontinued Medications Generic Name Dose Route Start Last Admin Trade Name Freq PRN Reason Stop Dose Admin Bisacodyl 10 mg 05/20/17 14:52 05/20/17 16:49 Dulcolax RECTAL 05/20/17 14:53 10 mg ONETIME ONE Administration Lactated Ringer's 1,000 mls @ 1,000 mls/hr 05/20/17 14:51 05/20/17 16:42 Ringers, Lactated IV 05/20/17 15:50 1,000 mls/hr BOLUS ONE Administration Iopamidol 150 ml 05/20/17 16:31 05/20/17 17:19 Isovue-370 (76%) IV 05/20/17 16:32 138 ml ONETIME ONE Administration Metoclopramide HCl 10 mg 05/20/17 14:56 05/20/17 16:48 Reglan IVPUSH 05/20/17 14:57 10 mg ONETIME ONE Administration - Radiology Interpretation Free Text/Narrative:: Flat/upright abdominal J-lcd-evp-specific gas pattern. CT abd/pelvis-sigmoid diverticulitis with possible 2.4 cm focus of extraluminal air. Surgical consult Dr. Dykes to see in ER, called @ 1804h CT Results Date: 05/20/17 Departure - Departure Time of Disposition: 18:20 Disposition: Admitted As Inpatient 68 Condition: Fair Clinical Impression: Diverticulitis of sigmoid colon - Discharge Information Referrals: PCP,None [Primary Care Provider] - Forms: ED Department Discharge - My Orders Last 24 Hours: My Active Orders 05/20/17 14:52 UA W/MICROSCOPIC [URIN] Stat 05/20/17 14:53 Abdomen 2V AP Flat Upright [CR] Stat 05/20/17 16:24 Abdomen Pelvis w Cont [CT] Stat 05/20/17 16:30 Diatrizoate Lulu/Diatrizoate Na [Gastrografin 37%] 30 ml PO . DIRECTED 05/20/17 16:43 Sodium Chloride 0.9% [Saline Flush] 10 ml FLUSH ASDIRECTED PRN Saline Lock Insert [OM.PC] Routine 05/20/17 18:15 Piperacillin/Tazobactam [Zosyn] 4.5 gm Sodium Chloride 0.9% [Normal Saline] 100 ml IV Q6H - Assessment/Plan Last 24 Hours: My Active Orders 05/20/17 14:52 UA W/MICROSCOPIC [URIN] Stat 05/20/17 14:53 Abdomen 2V AP Flat Upright [CR] Stat 05/20/17 16:24 Abdomen Pelvis w Cont [CT] Stat 05/20/17 16:30 Diatrizoate Lulu/Diatrizoate Na [Gastrografin 37%] 30 ml PO . DIRECTED 05/20/17 16:43 Sodium Chloride 0.9% [Saline Flush] 10 ml FLUSH ASDIRECTED PRN Saline Lock Insert [OM.PC] Routine 05/20/17 18:15 Piperacillin/Tazobactam [Zosyn] 4.5 gm Sodium Chloride 0.9% [Normal Saline] 100 ml IV Q6H
[2017-05-20] MEDS ORDERED: Diatrizoate Meglumine/Diatrizoate Sodium 37% 30 ML Bottle PO SCH (16:30)
[2017-05-20] MEDS ORDERED: Iopamidol 755 MG/ML 150 ML Bottle IV ONE (16:31)
[2017-05-20] MEDS ORDERED: Sodium Chloride 0.9% 10 ML Syringe FLUSH PRN (16:43)
[2017-05-20] MEDS ORDERED: HYDROmorphone 2 MG/ML SDV IVPUSH ONE (18:08)
[2017-05-20] MEDS ORDERED: Piperacillin/Tazobactam 4.5 GM in Sodium Chloride 0.9% 100 ML IV SCH ×2 (18:15→19:00)
[2017-05-20] MEDS ORDERED: Furosemide 80 MG Tab PO PRN (19:12)
[2017-05-20] MEDS: Sodium Chloride 0.9% 1,000 ML IV SCH (19:20)
[2017-05-20] MEDS: Piperacillin/Tazobactam 3.375 GM in Sodium Chloride 0.9% 50 ML IV SCH (20:55)
[2017-05-20] MEDS ORDERED: Doxepin 25 MG Cap PO SCH (21:05)
[2017-05-20] MEDS: Carvedilol 3.125 MG Tab PO SCH (22:04)
[2017-05-20] MEDS: Acetaminophen/Diphenhydramine 500-25 MG Tab PO SCH (22:04)
[2017-05-20] MEDS: rOPINIRole 1 MG Tab PO SCH (22:04)
[2017-05-20] MEDS: Zolpidem 10 MG Tab PO SCH (22:33)
[2017-05-20] MEDS: QUEtiapine 100 MG Tab PO SCH (22:33)
[2017-05-21] MEDS: Piperacillin/Tazobactam 3.375 GM in Sodium Chloride 0.9% 50 ML IV SCH ×4 (01:42→20:07)
[2017-05-21] MEDS: Sodium Chloride 0.9% 1,000 ML IV SCH ×3 (01:43→22:20)
[2017-05-21] MEDS: Cyclobenzaprine 10 MG Tab PO PRN (04:28)
[2017-05-21] MEDS: LORazepam 1 MG Tab PO PRN ×2 (04:28→18:30)
[2017-05-21] MEDS: Carvedilol 3.125 MG Tab PO SCH ×2 (08:35→20:08)
[2017-05-21] MEDS: rOPINIRole 1 MG Tab PO SCH ×3 (08:35→20:08)
[2017-05-21] MEDS: Spironolactone 25 MG Tab PO SCH (08:35)
[2017-05-21] MEDS: Acetaminophen/Diphenhydramine 500-25 MG Tab PO SCH ×2 (08:35→20:08)
[2017-05-21] MEDS: Acetaminophen/Codeine 300-30 MG Tab PO PRN ×2 (08:40→18:30)
--- NOTE | 2017-05-21 09:39 | CONS ---
DATE OF CONSULT: 05/20/2017 HISTORY OF PRESENT ILLNESS: This 62-year-old female was seen in the emergency room for evaluation of abdominal pain. History is hard to obtain from her, but as near as I can tell, she has been having approximately six weeks of lower abdominal pain. She was seen by a nurse practitioner at [facility] on April 10 for this and prescribed Augmentin. She tells me that she is still taking Augmentin, and she really has been using a pill intermittently over the last six weeks, including two pills in the last two days. She has had many previous episodes of diverticulitis, she tells me. She did have an attempted colonoscopy four years ago, but was unable to advance through a tortuous colon. She has never had any abdominal surgeries. PAST MEDICAL HISTORY: 1. Supraventricular tachycardia. 2. Obesity. 3. Hyperlipidemia. 4. Hypothyroidism. 5. Hypertension. 6. GERD. 7. Type 2 diabetes. 8. COPD. 9. Diverticulitis. 10.Generalized anxiety disorder. PAST SURGICAL HISTORY: Past surgeries include left oophorectomy. MEDICATIONS: Reviewed. ALLERGIES: Medical allergies are Cipro and Flagyl. REVIEW OF SYSTEMS: CONSTITUTIONAL: The patient denies fever, sweats, or chills. Appetite has been diminished. GENITOURINARY: She denies urinary symptoms. GASTROINTESTINAL: She has had problems with chronic constipation, but no blood in the stool. HEMATOLOGIC: She denies problems with bruising or bleeding. PHYSICAL EXAMINATION: GENERAL: Revealed a pleasant lady, who appears to be in very mild distress. VITAL SIGNS: Her vitals are reviewed, and she is afebrile. PULMONARY: Her lungs are clear. Respirations are unlabored. HEART: Regular rate and rhythm without murmur. GASTROINTESTINAL: Her abdomen is soft with focal left lower quadrant tenderness. I do not feel any masses or hernias. LABORATORY EVALUATION: Reveals a WBC elevated at 16.4. Blood sugar is elevated at 128. Electrolytes are within normal limits. DIAGNOSTIC STUDIES: CT scan is reviewed. This does show significant inflammation in the sigmoid colon. There is also a collection of extraluminal air, possibly indicating microperforation. ASSESSMENT: Diverticulitis. PLAN: Findings were reviewed with the patient, and she will be admitted for IV antibiotics. This will need to be followed closely, and if symptoms worsen, sigmoid colectomy with end colostomy would be necessary. White blood cell count will be re-checked in the morning. Sixty minutes were spent with the patient, including 30 minutes reviewing her records. /[id number] RAVINDRA/ALEXA
--- NOTE | 2017-05-21 09:46 | PCM.PN ---
- General Info Date of Service: 05/21/17 Functional Status: Reports: Pain Controlled, Tolerating Diet (liquids) - Review of Systems General: Reports: No Symptoms Pulmonary: Reports: No Symptoms Cardiovascular: Reports: No Symptoms Gastrointestinal: Reports: Abdominal Pain (in LLQ improved) Genitourinary: Reports: No Symptoms - Patient Data Vitals - Most Recent: Last Vital Signs Temp 97.7 F 05/21/17 01:45 Pulse 92 05/21/17 08:35 Resp 16 05/21/17 01:45 BP 136/78 05/21/17 08:35 Pulse Ox 92 L 05/21/17 01:45 Weight - Most Recent: 124.239 kg Lab Results Last 24 Hours: Laboratory Results - last 24 hr 05/21/17 Range/Units 06:53 WBC 9.9 (4.5-12.0) X10-3/uL RBC 4.00 (3.23-5.20) x10(6)uL Hgb 11.3 L (11.5-15.5) g/dL Hct 34.1 (30.0-51.3) % MCV 85.2 (80-96) fL MCH 28.2 (27.7-33.6) pg MCHC 33.1 (32.2-35.4) g/dL RDW 14.8 (11.5-15.5) % Plt Count 365 (125-369) X10(3)uL MPV 7.6 (7.4-10.4) fL Neut % (Auto) 68.6 (46-82) % Lymph % (Auto) 17.5 (13-37) % Dewey % (Auto) 7.8 (4-12) % Eos % (Auto) 6 H (1.0-5.0) % Baso % (Auto) 1 (0-2) % Neut # (Auto) 6.8 (1.6-8.3) # Lymph # (Auto) 1.7 (0.6-5.0) # Dewey # (Auto) 0.8 (0.0-1.3) # Eos # (Auto) 0.6 (0.0-0.8) # Baso # (Auto) 0.0 (0.0-0.2) # Med Orders - Current: Current Medications Acetaminophen/Codeine Phosphate (Tylenol With Codeine No.3 300mg/30mg) 1 tab PO TID PRN PRN Reason: Pain Last Admin: 05/21/17 08:40 Dose: 1 tab Acetaminophen/Diphenhydramine HCl (Tylenol Pm Extra Strength) 1 tab PO BID [facility] Last Admin: 05/21/17 08:35 Dose: 1 tab Carvedilol (Coreg) 3.125 mg PO BID [facility] Last Admin: 05/21/17 08:35 Dose: 3.125 mg Cyclobenzaprine HCl (Flexeril) 10 mg PO TID PRN PRN Reason: Spasms Last Admin: 05/21/17 04:28 Dose: 10 mg Diatrizoate Meglum/Diatrizoate Sod (Gastrografin 37%) 30 ml PO . DIRECTED [facility] Last Admin: 05/20/17 17:19 Dose: 30 ml Doxepin HCl (Sinequan) 100 mg PO BEDTIME [facility] Last Admin: 05/20/17 22:33 Dose: 100 mg Furosemide (Lasix) 80 mg PO DAILY PRN PRN Reason: swelling Piperacillin Sod/Tazobactam (Sod 3.375 gm/ Sodium Chloride) 50 mls @ 100 mls/ hr IV Q6H [facility] Last Admin: 05/21/17 08:33 Dose: 100 mls/hr Sodium Chloride (Normal Saline) 1,000 mls @ 125 mls/hr IV ASDIRECTED [facility] Last Admin: 05/21/17 01:43 Dose: 125 mls/hr Lorazepam (Ativan) 1 mg PO BID PRN PRN Reason: Anxiety Last Admin: 05/21/17 04:28 Dose: 1 mg Meloxicam (Mobic) 15 mg PO WITHBREAKFAST [facility] Last Admin: 05/21/17 08:35 Dose: 15 mg Quetiapine Fumarate (Seroquel) 100 mg PO BEDTIME [facility] Last Admin: 05/20/17 22:33 Dose: 100 mg Ropinirole HCl (Requip) 1 mg PO TID [facility] Last Admin: 05/21/17 08:35 Dose: 1 mg Sodium Chloride (Saline Flush) 10 ml FLUSH ASDIRECTED PRN PRN Reason: Keep Vein Open Last Admin: 05/20/17 16:44 Dose: 10 ml Spironolactone (Aldactone) 25 mg PO DAILY [facility] Last Admin: 05/21/17 08:35 Dose: 25 mg Zolpidem Tartrate (Ambien) 10 mg PO BEDTIME [facility] Last Admin: 05/20/17 22:33 Dose: 10 mg Discontinued Medications Bisacodyl (Dulcolax) 10 mg RECTAL ONETIME ONE Stop: 05/20/17 14:53 Last Admin: 05/20/17 16:49 Dose: 10 mg Doxepin HCl (Sinequan) 100 mg PO BEDTIME [facility] Last Admin: 05/21/17 00:43 Dose: Not Given Doxepin HCl (Sinequan) 100 mg PO BEDTIME [facility] Last Admin: 05/20/17 22:01 Dose: Not Given Hydromorphone HCl (Dilaudid) 0.5 mg IVPUSH ONETIME ONE Stop: 05/20/17 18:09 Last Admin: 05/20/17 18:19 Dose: 0.5 mg Lactated Ringer's (Ringers, Lactated) 1,000 mls @ 1,000 mls/hr IV BOLUS ONE Stop: 05/20/17 15:50 Last Admin: 05/20/17 16:42 Dose: 1,000 mls/hr Piperacillin Sod/Tazobactam (Sod 4.5 gm/ Sodium Chloride) 100 mls @ 200 mls/hr IV Q6H [facility] Last Admin: 05/21/17 00:44 Dose: Not Given Piperacillin Sod/Tazobactam (Sod 4.5 gm/ Sodium Chloride) 100 mls @ 200 mls/hr IV Q6H [facility] Last Admin: 05/20/17 19:18 Dose: 200 mls/hr Iopamidol (Isovue-370 (76%)) 150 ml IV ONETIME ONE Stop: 05/20/17 16:32 Last Admin: 05/20/17 17:19 Dose: 138 ml Metoclopramide HCl (Reglan) 10 mg IVPUSH ONETIME ONE Stop: 05/20/17 14:57 Last Admin: 05/20/17 16:48 Dose: 10 mg - Exam General: Alert, Oriented Lungs: Clear to Auscultation, Normal Respiratory Effort Cardiovascular: Regular Rate, Regular Rhythm GI/Abdominal Exam: Soft, Tender (in LLQ improved) - Problem List Review Problem List Initiated/Reviewed/Updated: Yes - My Orders Last 24 Hours: My Active Orders 05/20/17 19:12 Acetaminophen/Codeine [Tylenol with Codeine No.3 300MG/30MG] 1 tab PO TID PRN Cyclobenzaprine [Flexeril] 10 mg PO TID PRN Furosemide [Lasix] 80 mg PO DAILY PRN LORazepam [Ativan] 1 mg PO BID PRN 05/20/17 19:30 Sodium Chloride 0.9% [Normal Saline] 1,000 ml IV ASDIRECTED 05/20/17 20:00 Piperacillin/Tazobactam [Zosyn] 3.375 gm Sodium Chloride 0.9% [Normal Saline] 50 ml IV Q6H 05/20/17 21:00 Acetaminophen/Diphenhydramine [Tylenol PM Extra Strength] 1 tab PO BID Carvedilol [Coreg] 3.125 mg PO BID rOPINIRole [Requip] 1 mg PO TID 05/20/17 22:00 Doxepin [SINEquan] 100 mg PO BEDTIME 05/21/17 08:00 Meloxicam [Mobic] 15 mg PO WITHBREAKFAST 05/21/17 09:00 Spironolactone [Aldactone] 25 mg PO DAILY - Assessment Assessment:: Diverticulitis - Plan Plan:: Cont IV Antibiotics
[2017-05-21] MEDS: Promethazine 25 MG in Sodium Chloride 0.9% 50 ML IV PRN (11:11)
--- NOTE | 2017-05-21 15:14 | CR ---
INDICATION: Abdominal pain and distention. ABDOMEN: Seven images of the abdomen were obtained 05/20/2017 in supine and upright projections and compared with 08/08/2016 supine images. There is evidence of exogenous obesity. There are multiple small air-fluid levels in the right abdomen - flank, which appear to be in the colon and a few in the small bowel. Findings could be on the basis of a paralytic ileus such as secondary to appendicitis, diverticulitis , pancreatitis, or cholecystitis, and should be correlated clinically in that regard. A mechanically obstructive process is felt to be less likely. There is gas and stool in the area of the rectum. Follow-up studies may be warranted , depending upon clinical course. No definite mass lesions or significant organomegaly was identified. No non-vascular pathologic calcifications were seen. 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 IMPRESSION: 1. Findings are felt to be most compatible with a paralytic ileus or possibly gastroenteritis. Findings should be correlated clinically, however, and follow- up studies obtained as necessary, depending upon clinical course, as an early mechanically obstructive process is difficult to entirely exclude. 2. Rotoscoliosis lumbar spine. MTDD
[2017-05-21] MEDS ORDERED: Pregabalin 50 MG Cap PO ONE (18:06)
[2017-05-21] MEDS: DIPHENHYDRAMINE PO PRN (18:25)
[2017-05-21] MEDS: ACETAMINOPHEN PO PRN (18:25)
[2017-05-21] MEDS: Zolpidem 10 MG Tab PO SCH (20:07)
[2017-05-21] MEDS: QUEtiapine 100 MG Tab PO SCH (20:08)
[2017-05-21] MEDS: Pregabalin 50 MG Cap PO SCH (22:20)
[2017-05-22] MEDS: Piperacillin/Tazobactam 3.375 GM in Sodium Chloride 0.9% 50 ML IV SCH ×4 (02:17→22:00)
[2017-05-22] MEDS: Acetaminophen/Codeine 300-30 MG Tab PO PRN ×2 (02:33→12:14)
[2017-05-22] MEDS: LORazepam 1 MG Tab PO PRN (02:34)
[2017-05-22] MEDS: Sodium Chloride 0.9% 1,000 ML IV SCH ×2 (06:06→15:04)
[2017-05-22] MEDS: Carvedilol 3.125 MG Tab PO SCH ×2 (08:21→22:06)
[2017-05-22] MEDS: Spironolactone 25 MG Tab PO SCH (08:21)
[2017-05-22] MEDS: rOPINIRole 1 MG Tab PO SCH ×3 (08:21→22:04)
[2017-05-22] MEDS: Acetaminophen/Diphenhydramine 500-25 MG Tab PO SCH ×2 (08:23→22:05)
[2017-05-22] MEDS: Pregabalin 50 MG Cap PO SCH ×3 (08:25→22:15)
--- NOTE | 2017-05-22 12:54 | PCM.PN ---
- General Info Date of Service: 05/22/17 Functional Status: Reports: Pain Controlled, Tolerating Diet, Ambulating - Review of Systems General: Reports: No Symptoms. Denies: Fever, Chills Gastrointestinal: Reports: No Symptoms, Abdominal Pain (still in LLQ but improving), Diarrhea - Patient Data Vitals - Most Recent: Last Vital Signs Temp 98.0 F 05/22/17 08:00 Pulse 95 05/22/17 08:21 Resp 18 05/22/17 08:00 BP 127/75 05/22/17 08:21 Pulse Ox 93 L 05/22/17 10:44 Weight - Most Recent: 124.239 kg I&O - Last 24 Hours: Intake & Output 05/21/17 05/22/17 05/22/17 22:59 06:59 14:59 Intake Total 1946 980 Balance 1946 980 Med Orders - Current: Current Medications Acetaminophen/Codeine Phosphate (Tylenol With Codeine No.3 300mg/30mg) 1 tab PO TID PRN PRN Reason: Pain Last Admin: 05/22/17 12:14 Dose: 1 tab Acetaminophen/Diphenhydramine HCl (Tylenol Pm Extra Strength) 1 tab PO BID [facility] Last Admin: 05/22/17 08:23 Dose: 1 tab Carvedilol (Coreg) 3.125 mg PO BID [facility] Last Admin: 05/22/17 08:21 Dose: 3.125 mg Cyclobenzaprine HCl (Flexeril) 10 mg PO TID PRN PRN Reason: Spasms Last Admin: 05/21/17 04:28 Dose: 10 mg Doxepin HCl (Sinequan) 100 mg PO BEDTIME [facility] Last Admin: 05/21/17 20:08 Dose: 100 mg Furosemide (Lasix) 80 mg PO DAILY PRN PRN Reason: swelling Piperacillin Sod/Tazobactam (Sod 3.375 gm/ Sodium Chloride) 50 mls @ 100 mls/ hr IV Q6H [facility] Last Admin: 05/22/17 08:18 Dose: 100 mls/hr Sodium Chloride (Normal Saline) 1,000 mls @ 125 mls/hr IV ASDIRECTED [facility] Last Admin: 05/22/17 06:06 Dose: 125 mls/hr Promethazine HCl 25 mg/ Sodium (Chloride) 51 mls @ 200 mls/hr IV Q6H PRN PRN Reason: Nausea/Vomiting Last Admin: 05/21/17 11:11 Dose: 200 mls/hr Lorazepam (Ativan) 1 mg PO BID PRN PRN Reason: Anxiety Last Admin: 05/22/17 02:34 Dose: 1 mg Meloxicam (Mobic) 15 mg PO WITHBREAKFAST NIA Last Admin: 05/22/17 08:22 Dose: 15 mg Lagatrin Pm ( Acetaminophen/Diphenhydramine 500/50) *Pt Own Med* 2 each PO TID PRN PRN Reason: RESTLESS LEGS Last Admin: 05/21/17 18:25 Dose: 2 each Pregabalin (Lyrica) 50 mg PO TID [facility] Last Admin: 05/22/17 08:25 Dose: 50 mg Quetiapine Fumarate (Seroquel) 100 mg PO BEDTIME [facility] Last Admin: 05/21/17 20:08 Dose: 100 mg Ropinirole HCl (Requip) 1 mg PO TID [facility] Last Admin: 05/22/17 08:21 Dose: 1 mg Sodium Chloride (Saline Flush) 10 ml FLUSH ASDIRECTED PRN PRN Reason: Keep Vein Open Last Admin: 05/20/17 16:44 Dose: 10 ml Spironolactone (Aldactone) 25 mg PO DAILY [facility] Last Admin: 05/22/17 08:21 Dose: 25 mg Zolpidem Tartrate (Ambien) 10 mg PO BEDTIME [facility] Last Admin: 05/21/17 20:07 Dose: 10 mg Discontinued Medications Bisacodyl (Dulcolax) 10 mg RECTAL ONETIME ONE Stop: 05/20/17 14:53 Last Admin: 05/20/17 16:49 Dose: 10 mg Diatrizoate Meglum/Diatrizoate Sod (Gastrografin 37%) 30 ml PO . DIRECTED [facility] Last Admin: 05/20/17 17:19 Dose: 30 ml Doxepin HCl (Sinequan) 100 mg PO BEDTIME [facility] Last Admin: 05/21/17 00:43 Dose: Not Given Doxepin HCl (Sinequan) 100 mg PO BEDTIME [facility] Last Admin: 05/20/17 22:01 Dose: Not Given Hydromorphone HCl (Dilaudid) 0.5 mg IVPUSH ONETIME ONE Stop: 05/20/17 18:09 Last Admin: 05/20/17 18:19 Dose: 0.5 mg Lactated Ringer's (Ringers, Lactated) 1,000 mls @ 1,000 mls/hr IV BOLUS ONE Stop: 05/20/17 15:50 Last Admin: 05/20/17 16:42 Dose: 1,000 mls/hr Piperacillin Sod/Tazobactam (Sod 4.5 gm/ Sodium Chloride) 100 mls @ 200 mls/hr IV Q6H NIA Last Admin: 05/21/17 00:44 Dose: Not Given Piperacillin Sod/Tazobactam (Sod 4.5 gm/ Sodium Chloride) 100 mls @ 200 mls/hr IV Q6H NIA Last Admin: 05/20/17 19:18 Dose: 200 mls/hr Iopamidol (Isovue-370 (76%)) 150 ml IV ONETIME ONE Stop: 05/20/17 16:32 Last Admin: 05/20/17 17:19 Dose: 138 ml Metoclopramide HCl (Reglan) 10 mg IVPUSH ONETIME ONE Stop: 05/20/17 14:57 Last Admin: 05/20/17 16:48 Dose: 10 mg Pregabalin (Lyrica) 50 mg PO ONETIME ONE Stop: 05/21/17 18:07 Last Admin: 05/21/17 18:25 Dose: 50 mg - Exam General: Alert, Oriented GI/Abdominal Exam: Soft, Tender (less than yesterday). No: Guarding - Problem List Review Problem List Initiated/Reviewed/Updated: Yes - My Orders Last 24 Hours: My Active Orders 05/21/17 18:19 Patient's Own Medication [Ptom] 2 each PO TID PRN 05/21/17 21:00 Pregabalin [Lyrica] 50 mg PO TID 05/22/17 Dinner Full Liquid Diet [DIET] - Assessment Assessment:: Diverticulitis - Plan Plan:: Cont IV Antibiotics
[2017-05-22] MEDS: Cyclobenzaprine 10 MG Tab PO PRN (13:04)
[2017-05-22] MEDS: DIPHENHYDRAMINE PO PRN ×2 (15:38→22:09)
[2017-05-22] MEDS: Furosemide 40 MG Tab PO SCH ×2 (15:38→19:18)
[2017-05-22] MEDS: ACETAMINOPHEN PO PRN ×2 (15:38→22:09)
[2017-05-22] MEDS: Zolpidem 10 MG Tab PO SCH (22:01)
[2017-05-22] MEDS: QUEtiapine 100 MG Tab PO SCH (22:05)
[2017-05-23] MEDS: Piperacillin/Tazobactam 3.375 GM in Sodium Chloride 0.9% 50 ML IV SCH ×5 (02:53→19:44)
[2017-05-23] MEDS: Carvedilol 3.125 MG Tab PO SCH ×2 (08:13→21:52)
[2017-05-23] MEDS: Pregabalin 50 MG Cap PO SCH ×3 (08:13→21:51)
[2017-05-23] MEDS: Furosemide 40 MG Tab PO SCH ×2 (08:13→13:46)
[2017-05-23] MEDS: Spironolactone 25 MG Tab PO SCH (08:13)
[2017-05-23] MEDS: Acetaminophen/Diphenhydramine 500-25 MG Tab PO SCH ×2 (08:14→21:52)
[2017-05-23] MEDS: rOPINIRole 1 MG Tab PO SCH ×3 (08:14→21:51)
[2017-05-23] MEDS: Acetaminophen/Codeine 300-30 MG Tab PO PRN ×2 (08:17→15:04)
[2017-05-23] MEDS ORDERED: Ketorolac 30 MG/ML SDV IVPUSH PRN (08:57)
--- NOTE | 2017-05-23 09:00 | PCM.PN ---
- General Info Date of Service: 05/23/17 Functional Status: Reports: Tolerating Diet, Ambulating. Denies: Pain Controlled (States pain is worse today) - Review of Systems General: Reports: No Symptoms. Denies: Fever, Chills Pulmonary: Reports: Sputum Cardiovascular: Reports: No Symptoms Gastrointestinal: Reports: Abdominal Pain (crampy in LLQ with some diarrhea) - Patient Data Vitals - Most Recent: Last Vital Signs Temp 98.3 F 05/23/17 00:30 Pulse 83 05/23/17 08:13 Resp 20 05/23/17 00:30 BP 147/73 H 05/23/17 08:13 Pulse Ox 92 L 05/23/17 00:30 Weight - Most Recent: 124.239 kg I&O - Last 24 Hours: Intake & Output 05/22/17 05/23/17 05/23/17 22:59 06:59 14:59 Intake Total 238 245 Balance 238 245 Med Orders - Current: Current Medications Acetaminophen/Codeine Phosphate (Tylenol With Codeine No.3 300mg/30mg) 1 tab PO TID PRN PRN Reason: Pain Last Admin: 05/23/17 08:17 Dose: 1 tab Acetaminophen/Diphenhydramine HCl (Tylenol Pm Extra Strength) 1 tab PO BID [facility] Last Admin: 05/23/17 08:14 Dose: Not Given Carvedilol (Coreg) 3.125 mg PO BID [facility] Last Admin: 05/23/17 08:13 Dose: 3.125 mg Cyclobenzaprine HCl (Flexeril) 10 mg PO TID PRN PRN Reason: Spasms Last Admin: 05/22/17 13:04 Dose: 10 mg Doxepin HCl (Sinequan) 100 mg PO BEDTIME [facility] Last Admin: 05/22/17 22:03 Dose: 100 mg Furosemide (Lasix) 40 mg PO BIDDIURETIC [facility] Last Admin: 05/23/17 08:13 Dose: 40 mg Piperacillin Sod/Tazobactam (Sod 3.375 gm/ Sodium Chloride) 50 mls @ 100 mls/ hr IV Q6H [facility] Last Admin: 05/23/17 08:14 Dose: Not Given Sodium Chloride (Normal Saline) 1,000 mls @ 20 mls/hr IV ASDIRECTED [facility] Last Admin: 05/22/17 15:04 Dose: 20 mls/hr Promethazine HCl 25 mg/ Sodium (Chloride) 51 mls @ 200 mls/hr IV Q6H PRN PRN Reason: Nausea/Vomiting Last Admin: 05/21/17 11:11 Dose: 200 mls/hr Ketorolac Tromethamine (Toradol) 30 mg IVPUSH Q6H PRN PRN Reason: Pain (moderate 4-6) Stop: 05/28/17 08:57 Lorazepam (Ativan) 1 mg PO BID PRN PRN Reason: Anxiety Last Admin: 05/22/17 02:34 Dose: 1 mg Meloxicam (Mobic) 15 mg PO WITHBREAKFAST [facility] Last Admin: 05/23/17 08:13 Dose: 15 mg Lagatrin Pm ( Acetaminophen/Diphenhydramine 500/50) *Pt Own Med* 2 each PO TID PRN PRN Reason: RESTLESS LEGS Last Admin: 05/22/17 22:09 Dose: 2 each Pregabalin (Lyrica) 50 mg PO TID [facility] Last Admin: 05/23/17 08:13 Dose: 50 mg Quetiapine Fumarate (Seroquel) 100 mg PO BEDTIME [facility] Last Admin: 05/22/17 22:05 Dose: 100 mg Ropinirole HCl (Requip) 1 mg PO TID [facility] Last Admin: 05/23/17 08:14 Dose: 1 mg Sodium Chloride (Saline Flush) 10 ml FLUSH ASDIRECTED PRN PRN Reason: Keep Vein Open Last Admin: 05/20/17 16:44 Dose: 10 ml Spironolactone (Aldactone) 25 mg PO DAILY [facility] Last Admin: 05/23/17 08:13 Dose: 25 mg Zolpidem Tartrate (Ambien) 10 mg PO BEDTIME [facility] Last Admin: 05/22/17 22:01 Dose: 10 mg Discontinued Medications Bisacodyl (Dulcolax) 10 mg RECTAL ONETIME ONE Stop: 05/20/17 14:53 Last Admin: 05/20/17 16:49 Dose: 10 mg Diatrizoate Meglum/Diatrizoate Sod (Gastrografin 37%) 30 ml PO . DIRECTED [facility] Last Admin: 05/20/17 17:19 Dose: 30 ml Doxepin HCl (Sinequan) 100 mg PO BEDTIME [facility] Last Admin: 05/21/17 00:43 Dose: Not Given Doxepin HCl (Sinequan) 100 mg PO BEDTIME [facility] Last Admin: 05/20/17 22:01 Dose: Not Given Furosemide (Lasix) 80 mg PO DAILY PRN PRN Reason: swelling Furosemide (Lasix) 40 mg PO 1500,1900 NIA Stop: 05/22/17 19:01 Last Admin: 05/22/17 19:18 Dose: 40 mg Hydromorphone HCl (Dilaudid) 0.5 mg IVPUSH ONETIME ONE Stop: 05/20/17 18:09 Last Admin: 05/20/17 18:19 Dose: 0.5 mg Lactated Ringer's (Ringers, Lactated) 1,000 mls @ 1,000 mls/hr IV BOLUS ONE Stop: 05/20/17 15:50 Last Admin: 05/20/17 16:42 Dose: 1,000 mls/hr Piperacillin Sod/Tazobactam (Sod 4.5 gm/ Sodium Chloride) 100 mls @ 200 mls/hr IV Q6H NIA Last Admin: 05/21/17 00:44 Dose: Not Given Piperacillin Sod/Tazobactam (Sod 4.5 gm/ Sodium Chloride) 100 mls @ 200 mls/hr IV Q6H NIA Last Admin: 05/20/17 19:18 Dose: 200 mls/hr Iopamidol (Isovue-370 (76%)) 150 ml IV ONETIME ONE Stop: 05/20/17 16:32 Last Admin: 05/20/17 17:19 Dose: 138 ml Metoclopramide HCl (Reglan) 10 mg IVPUSH ONETIME ONE Stop: 05/20/17 14:57 Last Admin: 05/20/17 16:48 Dose: 10 mg Pregabalin (Lyrica) 50 mg PO ONETIME ONE Stop: 05/21/17 18:07 Last Admin: 05/21/17 18:25 Dose: 50 mg - Exam General: Alert, Oriented GI/Abdominal Exam: Soft, Tender (still mild in LLQ) - Problem List Review Problem List Initiated/Reviewed/Updated: Yes - My Orders Last 24 Hours: My Active Orders 05/22/17 Dinner Full Liquid Diet [DIET] 05/23/17 08:00 Furosemide [Lasix] 40 mg PO BIDDIURETIC 05/23/17 08:57 Ketorolac [Toradol] 30 mg IVPUSH Q6H PRN 05/24/17 07:00 BASIC METABOLIC PANEL,BMP [CHEM] Routine CBC WITH AUTO DIFF [HEME] Routine - Assessment Assessment:: Diverticulitis - Plan Plan:: Cont IV Antibiotics Recheck labs in am
[2017-05-23] MEDS: LORazepam 1 MG Tab PO PRN (13:48)
[2017-05-23] MEDS: DIPHENHYDRAMINE PO PRN (15:01)
[2017-05-23] MEDS: ACETAMINOPHEN PO PRN (15:01)
[2017-05-23] MEDS: Promethazine 25 MG in Sodium Chloride 0.9% 50 ML IV PRN (16:50)
[2017-05-23] MEDS: Zolpidem 10 MG Tab PO SCH (21:51)
[2017-05-23] MEDS: QUEtiapine 100 MG Tab PO SCH (21:51)
[2017-05-24] MEDS: Piperacillin/Tazobactam 3.375 GM in Sodium Chloride 0.9% 50 ML IV SCH ×2 (02:30→08:28)
[2017-05-24] MEDS: Furosemide 40 MG Tab PO SCH (08:13)
[2017-05-24] MEDS: Spironolactone 25 MG Tab PO SCH (08:14)
[2017-05-24] MEDS: Carvedilol 3.125 MG Tab PO SCH (08:14)
[2017-05-24] MEDS: DIPHENHYDRAMINE PO PRN (08:15)
[2017-05-24] MEDS: rOPINIRole 1 MG Tab PO SCH (08:15)
[2017-05-24] MEDS: ACETAMINOPHEN PO PRN (08:15)
[2017-05-24] MEDS: Acetaminophen/Diphenhydramine 500-25 MG Tab PO SCH (08:18)
[2017-05-24] MEDS: Acetaminophen/Codeine 300-30 MG Tab PO PRN (08:26)
[2017-05-24 08:27] VITALS: BP 126/74
[2017-05-24] MEDS: LORazepam 1 MG Tab PO PRN (08:27)
[2017-05-24] MEDS: Pregabalin 50 MG Cap PO SCH (08:36)
--- NOTE | 2017-05-24 10:28 | PCM.PN ---
- General Info Date of Service: 05/24/17 Functional Status: Reports: Pain Controlled, Tolerating Diet, Ambulating - Review of Systems General: Reports: No Symptoms. Denies: Fever, Chills Pulmonary: Reports: No Symptoms Cardiovascular: Reports: No Symptoms Gastrointestinal: Reports: No Symptoms, Abdominal Pain (cont to improve) Neurological: Reports: Headache - Patient Data Vitals - Most Recent: Last Vital Signs Temp 97.7 F 05/24/17 04:30 Pulse 82 05/24/17 08:14 Resp 20 05/24/17 04:30 BP 126/74 05/24/17 08:14 Pulse Ox 99 05/24/17 04:30 Weight - Most Recent: 124.239 kg I&O - Last 24 Hours: Intake & Output 05/23/17 05/24/17 05/24/17 22:59 06:59 14:59 Intake Total 211 144 50 Balance 211 144 50 Lab Results Last 24 Hours: Laboratory Results - last 24 hr 05/24/17 05/24/17 Range/Units 06:50 06:50 WBC 7.2 (4.5-12.0) X10-3/uL RBC 4.03 (3.23-5.20) x10(6)uL Hgb 11.2 L (11.5-15.5) g/dL Hct 34.5 (30.0-51.3) % MCV 85.6 (80-96) fL MCH 27.7 (27.7-33.6) pg MCHC 32.3 (32.2-35.4) g/dL RDW 14.8 (11.5-15.5) % Plt Count 363 (125-369) X10(3)uL MPV 7.8 (7.4-10.4) fL Neut % (Auto) 63.1 (46-82) % Lymph % (Auto) 24.0 (13-37) % [place] % (Auto) 6.9 (4-12) % Eos % (Auto) 5 (1.0-5.0) % Baso % (Auto) 1 (0-2) % Neut # (Auto) 4.6 (1.6-8.3) # Lymph # (Auto) 1.7 (0.6-5.0) # [place] # (Auto) 0.5 (0.0-1.3) # Eos # (Auto) 0.4 (0.0-0.8) # Baso # (Auto) 0.0 (0.0-0.2) # Sodium 140 (135-145) mmol/L Potassium 4.2 (3.5-5.3) mmol/L Chloride 102 D (100-110) mmol/L Carbon Dioxide 28 (23-29) mmol/L BUN 8 (8-23) mg/dL Creatinine 0.9 (0.6-1.3) mg/dL Est Cr Clr Drug Dosing 69.47 mL/min Estimated GFR (MDRD) > 60 (>60) BUN/Creatinine Ratio 8.9 L (9-20) Glucose 104 (80-116) mg/dL Calcium 9.8 (8.6-10.2) mg/dL Med Orders - Current: Current Medications Acetaminophen/Codeine Phosphate (Tylenol With Codeine No.3 300mg/30mg) 1 tab PO TID PRN PRN Reason: Pain Last Admin: 05/24/17 08:26 Dose: 1 tab Acetaminophen/Diphenhydramine HCl (Tylenol Pm Extra Strength) 1 tab PO BID [facility] Last Admin: 05/24/17 08:18 Dose: Not Given Carvedilol (Coreg) 3.125 mg PO BID [facility] Last Admin: 05/24/17 08:14 Dose: 3.125 mg Cyclobenzaprine HCl (Flexeril) 10 mg PO TID PRN PRN Reason: Spasms Last Admin: 05/22/17 13:04 Dose: 10 mg Doxepin HCl (Sinequan) 100 mg PO BEDTIME [facility] Last Admin: 05/23/17 21:51 Dose: 100 mg Furosemide (Lasix) 40 mg PO BIDDIURETIC [facility] Last Admin: 05/24/17 08:13 Dose: 40 mg Piperacillin Sod/Tazobactam (Sod 3.375 gm/ Sodium Chloride) 50 mls @ 100 mls/ hr IV Q6H [facility] Last Admin: 05/24/17 08:28 Dose: 100 mls/hr Sodium Chloride (Normal Saline) 1,000 mls @ 20 mls/hr IV ASDIRECTED [facility] Last Admin: 05/22/17 15:04 Dose: 20 mls/hr Promethazine HCl 25 mg/ Sodium (Chloride) 51 mls @ 200 mls/hr IV Q6H PRN PRN Reason: Nausea/Vomiting Last Admin: 05/23/17 16:50 Dose: 200 mls/hr Ketorolac Tromethamine (Toradol) 30 mg IVPUSH Q6H PRN PRN Reason: Pain (moderate 4-6) Stop: 05/28/17 08:57 Last Admin: 05/23/17 09:58 Dose: 30 mg Lorazepam (Ativan) 1 mg PO BID PRN PRN Reason: Anxiety Last Admin: 05/24/17 08:27 Dose: 1 mg Lagatrin Pm ( Acetaminophen/Diphenhydramine 500/50) *Pt Own Med* 2 each PO TID PRN PRN Reason: RESTLESS LEGS Last Admin: 05/24/17 08:15 Dose: 2 each Pregabalin (Lyrica) 50 mg PO TID [facility] Last Admin: 05/24/17 08:36 Dose: 50 mg Quetiapine Fumarate (Seroquel) 100 mg PO BEDTIME [facility] Last Admin: 05/23/17 21:51 Dose: 100 mg Ropinirole HCl (Requip) 1 mg PO TID [facility] Last Admin: 05/24/17 08:15 Dose: 1 mg Sodium Chloride (Saline Flush) 10 ml FLUSH ASDIRECTED PRN PRN Reason: Keep Vein Open Last Admin: 05/20/17 16:44 Dose: 10 ml Spironolactone (Aldactone) 25 mg PO DAILY [facility] Last Admin: 05/24/17 08:14 Dose: 25 mg Zolpidem Tartrate (Ambien) 10 mg PO BEDTIME [facility] Last Admin: 05/23/17 21:51 Dose: 10 mg Discontinued Medications Bisacodyl (Dulcolax) 10 mg RECTAL ONETIME ONE Stop: 05/20/17 14:53 Last Admin: 05/20/17 16:49 Dose: 10 mg Diatrizoate Meglum/Diatrizoate Sod (Gastrografin 37%) 30 ml PO . DIRECTED [facility] Last Admin: 05/20/17 17:19 Dose: 30 ml Doxepin HCl (Sinequan) 100 mg PO BEDTIME [facility] Last Admin: 05/21/17 00:43 Dose: Not Given Doxepin HCl (Sinequan) 100 mg PO BEDTIME [facility] Last Admin: 05/20/17 22:01 Dose: Not Given Furosemide (Lasix) 80 mg PO DAILY PRN PRN Reason: swelling Furosemide (Lasix) 40 mg PO 1500,1900 [facility] Stop: 05/22/17 19:01 Last Admin: 05/22/17 19:18 Dose: 40 mg Hydromorphone HCl (Dilaudid) 0.5 mg IVPUSH ONETIME ONE Stop: 05/20/17 18:09 Last Admin: 05/20/17 18:19 Dose: 0.5 mg Lactated Ringer's (Ringers, Lactated) 1,000 mls @ 1,000 mls/hr IV BOLUS ONE Stop: 05/20/17 15:50 Last Admin: 05/20/17 16:42 Dose: 1,000 mls/hr Piperacillin Sod/Tazobactam (Sod 4.5 gm/ Sodium Chloride) 100 mls @ 200 mls/hr IV Q6H [facility] Last Admin: 05/21/17 00:44 Dose: Not Given Piperacillin Sod/Tazobactam (Sod 4.5 gm/ Sodium Chloride) 100 mls @ 200 mls/hr IV Q6H [facility] Last Admin: 05/20/17 19:18 Dose: 200 mls/hr Iopamidol (Isovue-370 (76%)) 150 ml IV ONETIME ONE Stop: 05/20/17 16:32 Last Admin: 05/20/17 17:19 Dose: 138 ml Meloxicam (Mobic) 15 mg PO WITHBREAKFAST [facility] Last Admin: 05/23/17 08:13 Dose: 15 mg Metoclopramide HCl (Reglan) 10 mg IVPUSH ONETIME ONE Stop: 05/20/17 14:57 Last Admin: 05/20/17 16:48 Dose: 10 mg Pregabalin (Lyrica) 50 mg PO ONETIME ONE Stop: 05/21/17 18:07 Last Admin: 05/21/17 18:25 Dose: 50 mg - Exam General: Alert, Oriented Lungs: Clear to Auscultation GI/Abdominal Exam: Soft, Tender (very minimal LLQ tenderness) - Problem List Review Problem List Initiated/Reviewed/Updated: Yes - Assessment Assessment:: Diverticulitis, improved - Plan Plan:: Cont IV Antibiotics Recheck labs in am dischearge to home on Bactrim and Clindamycin
--- NOTE | 2017-05-24 10:34 | PCM.DCSUM1 ---
Discharge Summary - Hospital Course Free Text/Narrative:: Admitted 05/22 with LLQ abd apin elevated WBC and CT showing diverticulitis with abscess/microperforation - Discharge Data Discharge Date: 05/24/17 Discharge Disposition: Home, Self-Care 01 Condition: Good - Patient Instructions Diet: Usual Diet as Tolerated Activity: As Tolerated - Discharge Plan Home Medications: Home Meds rOPINIRole HCl [Requip] 1 mg PO TID 11/28/13 [History] Furosemide [Lasix] 80 mg PO DAILY PRN 01/12/14 [History] Sennosides/Docusate Sodium [Senna S Tablet] 1 tab PO DAILY 04/03/14 [History] Zolpidem [Ambien] 10 mg PO BEDTIME 04/03/14 [History] Doxepin [SINEquan] 100 mg PO BEDTIME 10/11/14 [History] Carvedilol 3.125 mg PO BID 07/04/16 [History] Cyclobenzaprine [Flexeril] 10 mg PO TID PRN 01/05/17 [History] Ferrous Sulfate 325 mg PO DAILY 01/05/17 [History] Folic Acid 1 mg PO DAILY 01/05/17 [History] Magnesium 250 mg PO DAILY PRN 01/05/17 [History] Pregabalin [Lyrica] 50 mg PO TID 01/05/17 [History] QUEtiapine [SEROquel] 100 mg PO BEDTIME 01/05/17 [History] Spironolactone [Aldactone] 25 mg PO DAILY 01/05/17 [History] Cyanocobalamin (Vitamin B-12) [B-12] 1,000 mcg PO DAILY 01/07/17 [History] LORazepam 1 mg PO BID PRN 01/07/17 [History] atorvaSTATin [Lipitor] 20 mg PO DAILY 01/07/17 [History] Fluticasone Propionate [Flonase] 1 spray NASBOTH DAILY 01/08/17 [History] Acetaminophen/Codeine [Tylenol with Codeine No.3 300MG/30MG] 1 tab PO TID PRN [History] Methylphenidate [Concerta] 36 mg PO DAILY 02/02/17 [History] Methylphenidate [Concerta] 54 mg PO DAILY 02/02/17 [History] Ondansetron [Zofran] 1 tab PO TID 02/02/17 [History] Acetaminophen/Diphenhydramine [Tylenol Pm Ex-Strength Caplet] 1 each PO BID [History] Caffeine [Vivarin] 200 mg PO DAILY PRN 04/08/17 [History] Excedrin Migraine 1 tab PO ASDIRECTED PRN 04/08/17 [History] Loperamide [Imodium AD] 2 mg PO ASDIRECTED PRN 04/08/17 [History] Meloxicam 15 mg PO WITHBREAKFAST 04/08/17 [History] Nystatin 1 applic TOP DAILY 04/08/17 [History] Pantoprazole Sodium [Protonix] 40 mg PO DAILY 04/08/17 [History] Tetrahydrozoline HCl [Visine] 1 drop EYEBOTH DAILY 04/08/17 [History] metFORMIN [Glucophage] 500 mg PO BIDMEALS 04/08/17 [History] Legatrinpm 2 tab PO TID PRN 05/21/17 [History] Forms: ED Department Discharge Referrals: PCP,None [Primary Care Provider] - - Discharge Summary/Plan Comment DC Time >30 min.: No - Patient Data Vitals - Most Recent: Last Vital Signs Temp 97.7 F 05/24/17 04:30 Pulse 82 05/24/17 08:14 Resp 20 05/24/17 04:30 BP 126/74 05/24/17 08:14 Pulse Ox 99 05/24/17 04:30 Weight - Most Recent: 124.239 kg I&O - Last 24 hours: Intake & Output 05/23/17 05/24/17 05/24/17 22:59 06:59 14:59 Intake Total 211 144 50 Balance 211 144 50 Lab Results - Last 24 hrs: Laboratory Results - last 24 hr 05/24/17 05/24/17 Range/Units 06:50 06:50 WBC 7.2 (4.5-12.0) X10-3/uL RBC 4.03 (3.23-5.20) x10(6)uL Hgb 11.2 L (11.5-15.5) g/dL Hct 34.5 (30.0-51.3) % MCV 85.6 (80-96) fL MCH 27.7 (27.7-33.6) pg MCHC 32.3 (32.2-35.4) g/dL RDW 14.8 (11.5-15.5) % Plt Count 363 (125-369) X10(3)uL MPV 7.8 (7.4-10.4) fL Neut % (Auto) 63.1 (46-82) % Lymph % (Auto) 24.0 (13-37) % [place] % (Auto) 6.9 (4-12) % Eos % (Auto) 5 (1.0-5.0) % Baso % (Auto) 1 (0-2) % Neut # (Auto) 4.6 (1.6-8.3) # Lymph # (Auto) 1.7 (0.6-5.0) # [place] # (Auto) 0.5 (0.0-1.3) # Eos # (Auto) 0.4 (0.0-0.8) # Baso # (Auto) 0.0 (0.0-0.2) # Sodium 140 (135-145) mmol/L Potassium 4.2 (3.5-5.3) mmol/L Chloride 102 D (100-110) mmol/L Carbon Dioxide 28 (23-29) mmol/L BUN 8 (8-23) mg/dL Creatinine 0.9 (0.6-1.3) mg/dL Est Cr Clr Drug Dosing 69.47 mL/min Estimated GFR (MDRD) > 60 (>60) BUN/Creatinine Ratio 8.9 L (9-20) Glucose 104 (80-116) mg/dL Calcium 9.8 (8.6-10.2) mg/dL Med Orders - Current: Current Medications Acetaminophen/Codeine Phosphate (Tylenol With Codeine No.3 300mg/30mg) 1 tab PO TID PRN PRN Reason: Pain Last Admin: 05/24/17 08:26 Dose: 1 tab Acetaminophen/Diphenhydramine HCl (Tylenol Pm Extra Strength) 1 tab PO BID NIA Last Admin: 05/24/17 08:18 Dose: Not Given Carvedilol (Coreg) 3.125 mg PO BID [facility] Last Admin: 05/24/17 08:14 Dose: 3.125 mg Cyclobenzaprine HCl (Flexeril) 10 mg PO TID PRN PRN Reason: Spasms Last Admin: 05/22/17 13:04 Dose: 10 mg Doxepin HCl (Sinequan) 100 mg PO BEDTIME [facility] Last Admin: 05/23/17 21:51 Dose: 100 mg Furosemide (Lasix) 40 mg PO BIDDIURETIC [facility] Last Admin: 05/24/17 08:13 Dose: 40 mg Piperacillin Sod/Tazobactam (Sod 3.375 gm/ Sodium Chloride) 50 mls @ 100 mls/ hr IV Q6H NIA Last Admin: 05/24/17 08:28 Dose: 100 mls/hr Sodium Chloride (Normal Saline) 1,000 mls @ 20 mls/hr IV ASDIRECTED [facility] Last Admin: 05/22/17 15:04 Dose: 20 mls/hr Promethazine HCl 25 mg/ Sodium (Chloride) 51 mls @ 200 mls/hr IV Q6H PRN PRN Reason: Nausea/Vomiting Last Admin: 05/23/17 16:50 Dose: 200 mls/hr Ketorolac Tromethamine (Toradol) 30 mg IVPUSH Q6H PRN PRN Reason: Pain (moderate 4-6) Stop: 05/28/17 08:57 Last Admin: 05/23/17 09:58 Dose: 30 mg Lorazepam (Ativan) 1 mg PO BID PRN PRN Reason: Anxiety Last Admin: 05/24/17 08:27 Dose: 1 mg Lagatrin Pm ( Acetaminophen/Diphenhydramine 500/50) *Pt Own Med* 2 each PO TID PRN PRN Reason: RESTLESS LEGS Last Admin: 05/24/17 08:15 Dose: 2 each Pregabalin (Lyrica) 50 mg PO TID [facility] Last Admin: 05/24/17 08:36 Dose: 50 mg Quetiapine Fumarate (Seroquel) 100 mg PO BEDTIME [facility] Last Admin: 05/23/17 21:51 Dose: 100 mg Ropinirole HCl (Requip) 1 mg PO TID [facility] Last Admin: 05/24/17 08:15 Dose: 1 mg Sodium Chloride (Saline Flush) 10 ml FLUSH ASDIRECTED PRN PRN Reason: Keep Vein Open Last Admin: 05/20/17 16:44 Dose: 10 ml Spironolactone (Aldactone) 25 mg PO DAILY [facility] Last Admin: 05/24/17 08:14 Dose: 25 mg Zolpidem Tartrate (Ambien) 10 mg PO BEDTIME [facility] Last Admin: 05/23/17 21:51 Dose: 10 mg Discontinued Medications Bisacodyl (Dulcolax) 10 mg RECTAL ONETIME ONE Stop: 05/20/17 14:53 Last Admin: 05/20/17 16:49 Dose: 10 mg Diatrizoate Meglum/Diatrizoate Sod (Gastrografin 37%) 30 ml PO . DIRECTED [facility] Last Admin: 05/20/17 17:19 Dose: 30 ml Doxepin HCl (Sinequan) 100 mg PO BEDTIME [facility] Last Admin: 05/21/17 00:43 Dose: Not Given Doxepin HCl (Sinequan) 100 mg PO BEDTIME [facility] Last Admin: 05/20/17 22:01 Dose: Not Given Furosemide (Lasix) 80 mg PO DAILY PRN PRN Reason: swelling Furosemide (Lasix) 40 mg PO 1500,1900 NIA Stop: 05/22/17 19:01 Last Admin: 05/22/17 19:18 Dose: 40 mg Hydromorphone HCl (Dilaudid) 0.5 mg IVPUSH ONETIME ONE Stop: 05/20/17 18:09 Last Admin: 05/20/17 18:19 Dose: 0.5 mg Lactated Ringer's (Ringers, Lactated) 1,000 mls @ 1,000 mls/hr IV BOLUS ONE Stop: 05/20/17 15:50 Last Admin: 05/20/17 16:42 Dose: 1,000 mls/hr Piperacillin Sod/Tazobactam (Sod 4.5 gm/ Sodium Chloride) 100 mls @ 200 mls/hr IV Q6H [facility] Last Admin: 05/21/17 00:44 Dose: Not Given Piperacillin Sod/Tazobactam (Sod 4.5 gm/ Sodium Chloride) 100 mls @ 200 mls/hr IV Q6H [facility] Last Admin: 05/20/17 19:18 Dose: 200 mls/hr Iopamidol (Isovue-370 (76%)) 150 ml IV ONETIME ONE Stop: 05/20/17 16:32 Last Admin: 05/20/17 17:19 Dose: 138 ml Meloxicam (Mobic) 15 mg PO WITHBREAKFAST [facility] Last Admin: 05/23/17 08:13 Dose: 15 mg Metoclopramide HCl (Reglan) 10 mg IVPUSH ONETIME ONE Stop: 05/20/17 14:57 Last Admin: 05/20/17 16:48 Dose: 10 mg Pregabalin (Lyrica) 50 mg PO ONETIME ONE Stop: 05/21/17 18:07 Last Admin: 05/21/17 18:25 Dose: 50 mg *Q Meaningful Use (DIS) - VTE *Q VTE Criteria *Q: - Stroke *Q Stroke Criteria *Q: - AMI *Q AMI Criteria *Q:
== END 2017-05-24 11:20 | disposition home or self-care (01) | DRG 392 ==
LOC: FB.ED 14:23 → FB.MS 19:09
PROVIDERS: ADMIT Surgery; ATTEND Surgery
DX: K57.32 Diverticulitis of large intestine without perforation or abscess without bleeding (principal); I25.10 Atherosclerotic heart disease of native coronary artery without angina pectoris; I10 Essential (primary) hypertension; Z87.891 Personal history of nicotine dependence; I25.2 Old myocardial infarction; J44.9 Chronic obstructive pulmonary disease, unspecified; G47.30 Sleep apnea, unspecified; M06.9 Rheumatoid arthritis, unspecified; M79.7 Fibromyalgia; G89.29 Other chronic pain; N28.9 Disorder of kidney and ureter, unspecified; F32.9 Major depressive disorder, single episode, unspecified; F41.9 Anxiety disorder, unspecified; Z88.1 Allergy status to other antibiotic agents; Z79.899 Other long term (current) drug therapy; E11.42 Type 2 diabetes mellitus with diabetic polyneuropathy; Z79.84 Long term (current) use of oral hypoglycemic drugs; E03.9 Hypothyroidism, unspecified; E66.9 Obesity, unspecified; E78.5 Hyperlipidemia, unspecified; K21.9 Gastro-esophageal reflux disease without esophagitis
CPT/HCPCS: 36415; 74020; 74177; 80048; 81001; 85025; 85027; 86140; 94150; 96361; 96374; 96375; 99285; A9270-GY; J1170; J1885; J2543; J2550; J2765; J7030; J7040; J7050; J7120; Q9967

== ENCOUNTER 2017-05-25 23:38 | Emergency (ER) | payer MEDICAID ==
[2017-05-25] MEDS ORDERED: Aspirin 81 MG Tab.Chew PO ONE (23:45)
--- NOTE | 2017-05-26 01:03 | EDM.PDOC ---
ED HPI GENERAL MEDICAL PROBLEM - General Stated Complaint: CHEST PAIN Time Seen by Provider: 05/26/17 00:01 Source of Information: Reports: Patient History Limitations: Reports: No Limitations - History of Present Illness INITIAL COMMENTS - FREE TEXT/NARRATIVE: c/o SVT pt with SVT last night for a few minutes that went away on its own, pt with SVT ~15 min and called EMS who gave adenosine, she converted to sinus tach, no CP, no SOB h/o SVT states she fell twice today, has been weak, was at [facility] where she lives altho she says that she is supposed to be in [place] has remained in here at 115, EKG shows no acute ST changes and unchanged form previous was in hospital 05/20 to 05/24 for acute diverticulitis with microperforation, CPR 5.0 now and unchanged from 4.9 5d ago, CBC wnl, no abd pain med list includes Strattera altho pt not sure she is taking it, denies caffeine , than vaguely says she takes a caffeine pill on occasion, then denies have a caffeine pill at home altho it is on her med list pt agrees to admit for telemetry, r/o NV and review of her meds - Related Data Allergies Allergy/AdvReac Type Severity Reaction Status Date / Time ciprofloxacin Allergy Cannot Verified 05/20/17 14:56 Remember metronidazole [From Flagyl] Allergy Itching Verified 05/20/17 14:56 Home Meds: Home Meds rOPINIRole HCl [Requip] 1 mg PO TID 11/28/13 [History] Furosemide [Lasix] 80 mg PO DAILY PRN 01/12/14 [History] Sennosides/Docusate Sodium [Senna S Tablet] 1 tab PO DAILY 04/03/14 [History] Zolpidem [Ambien] 10 mg PO BEDTIME 04/03/14 [History] Doxepin [SINEquan] 100 mg PO BEDTIME 10/11/14 [History] Carvedilol 3.125 mg PO BID 07/04/16 [History] Cyclobenzaprine [Flexeril] 10 mg PO TID PRN 01/05/17 [History] Ferrous Sulfate 325 mg PO DAILY 01/05/17 [History] Folic Acid 1 mg PO DAILY 01/05/17 [History] Magnesium 250 mg PO DAILY PRN 01/05/17 [History] Pregabalin [Lyrica] 50 mg PO TID 01/05/17 [History] QUEtiapine [SEROquel] 100 mg PO BEDTIME 01/05/17 [History] Spironolactone [Aldactone] 25 mg PO DAILY 01/05/17 [History] Cyanocobalamin (Vitamin B-12) [B-12] 1,000 mcg PO DAILY 01/07/17 [History] LORazepam 1 mg PO BID PRN 01/07/17 [History] atorvaSTATin [Lipitor] 20 mg PO DAILY 01/07/17 [History] Fluticasone Propionate [Flonase] 1 spray NASBOTH DAILY 01/08/17 [History] Acetaminophen/Codeine [Tylenol with Codeine No.3 300MG/30MG] 1 tab PO TID PRN [History] Methylphenidate [Concerta] 36 mg PO DAILY 02/02/17 [History] Methylphenidate [Concerta] 54 mg PO DAILY 02/02/17 [History] Ondansetron [Zofran] 1 tab PO TID 02/02/17 [History] Acetaminophen/Diphenhydramine [Tylenol Pm Ex-Strength Caplet] 1 each PO BID [History] Caffeine [Vivarin] 200 mg PO DAILY PRN 04/08/17 [History] Excedrin Migraine 1 tab PO ASDIRECTED PRN 04/08/17 [History] Loperamide [Imodium AD] 2 mg PO ASDIRECTED PRN 04/08/17 [History] Meloxicam 15 mg PO WITHBREAKFAST 04/08/17 [History] Nystatin 1 applic TOP DAILY 04/08/17 [History] Pantoprazole Sodium [Protonix] 40 mg PO DAILY 04/08/17 [History] Tetrahydrozoline HCl [Visine] 1 drop EYEBOTH DAILY 04/08/17 [History] metFORMIN [Glucophage] 500 mg PO BIDMEALS 04/08/17 [History] Legatrinpm 2 tab PO TID PRN 05/21/17 [History] Past Medical History HEENT History: Reports: Impaired Vision Other HEENT History: wear glasses Cardiovascular History: Reports: Angina, High Cholesterol, Hypertension, NV, SOB on Exertion, Other (See Below) Other Cardiovascular History: cardiovascular disease Respiratory History: Reports: COPD, Pneumonia, Recurrent, Sleep Apnea, Other ( See Below) Other Respiratory History: recently on ventilator --Klebisella pneumoniae Gastrointestinal History: Reports: Diverticulosis Other Genitourinary History: cyst on kidney [employer] History: Reports: 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, Other OB/BYN History: miscarriage x2 Musculoskeletal History: Reports: Back Pain, Chronic, Fibromyalgia, RA Other Musculoskeletal History: sciatic nerve problem, generalized weakness, chronic pain Neurological History: Reports: Neuropathy, Diabetic, Neuropathy, Peripheral Other Neuro History: was in a coma for 5 months, fibromyalgia, neuropathy Psychiatric History: Reports: Anxiety, Bipolar, Depression, Hallucinations, Psych Hospitalization(s), PTSD, Suicide Attempt Other Psychiatric History: insomnia Endocrine/Metabolic History: Reports: Diabetes, Type II, Hypothyroidism, Other ( See Below) Other Endocrine/Metabolic History: borderline diabetic - Infectious Disease History Infectious Disease History: Reports: Chicken Pox, Mononucleosis - Past Surgical History GI Surgical History: Reports: Colonoscopy Social & Family History - Family History Family Medical History: Noncontributory Oncologic: Reports: Liver - Tobacco Use Smoking Status *Q: Former Smoker Years of Tobacco use: 25 Packs/Tins Daily: 0.5 Used Tobacco, but Quit: Yes Month Tobacco Last Used: 10 Second Hand Smoke Exposure: No - Caffeine Use Caffeine Use: Reports: None Caffeine Use Comment: unable to tolerate caffiene per patient - Alcohol Use Days Per Week of Alcohol Use: 0 - Recreational Drug Use Recreational Drug Use: No Drug Use in Last 12 Months: No Other Recreational Drug Type: Is a recovered drug addict, quit around 1994. - Living Situation & Occupation Living situation: Occupation: Unemployed ED ROS GENERAL - Review of Systems Review Of Systems: See Below Constitutional: Reports: No Symptoms HEENT: Reports: No Symptoms Respiratory: Reports: No Symptoms. Denies: Shortness of Breath Cardiovascular: Reports: Palpitations. Denies: Chest Pain Endocrine: Reports: No Symptoms GI/Abdominal: Reports: No Symptoms. Denies: Abdominal Pain, Constipation, Diarrhea : Reports: No Symptoms Musculoskeletal: Reports: No Symptoms Skin: Reports: No Symptoms Neurological: Reports: No Symptoms Psychiatric: Reports: No Symptoms Hematologic/Lymphatic: Reports: No Symptoms Immunologic: Reports: No Symptoms ED EXAM, GENERAL - Physical Exam Exam: See Below Exam Limited By: No Limitations General Appearance: Alert, WD/WN, No Apparent Distress, Other (alert, conversant , nontoxic) Eye Exam: Bilateral Eye: Normal Inspection Nose: Normal Inspection, Normal Mucosa, No Blood Throat/Mouth: Normal Inspection, Normal Voice, No Airway Compromise Head: Atraumatic, Normocephalic Neck: Normal Inspection, Supple, Non-Tender, Full Range of Motion Respiratory/Chest: No Respiratory Distress, Lungs Clear, Normal Breath Sounds, No Accessory Muscle Use, Chest Non-Tender Cardiovascular: No Edema, No Gallop, No JVD, No Rub, Tachycardia, Other (2/6 MARIA GUADALUPE at [facility], quiet precordium) GI/Abdominal: Normal Bowel Sounds, Soft, Non-Tender, No Distention, No Mass Back Exam: Normal Inspection, Full Range of Motion, NT Extremities: Normal Inspection, Normal Range of Motion, Non-Tender, No Pedal Edema Neurological: Alert, Oriented, CN II-XII Intact, Normal Cognition, No Motor/ Sensory Deficits Psychiatric: Normal Affect, Normal Mood Skin Exam: Warm, Dry, Intact, Normal Color, No Rash Lymphatic: No Adenopathy Course - Orders/Labs/Meds Orders: Active Orders 24 hr Category Date Time Status EKG Documentation Completion [RC] ASDIRECTED Care 05/26/17 00:06 Active EKG 12 Lead [EK] Routine Ther 05/26/17 00:04 Ordered Labs: Laboratory Tests 05/25/17 05/25/17 05/25/17 Range/Units 23:55 23:55 23:55 WBC 9.8 (4.5-12.0) X10-3/uL RBC 4.17 (3.23-5.20) x10(6)uL Hgb 11.3 L (11.5-15.5) g/dL Hct 35.6 (30.0-51.3) % MCV 85.2 (80-96) fL MCH 27.1 L (27.7-33.6) pg MCHC 31.7 L (32.2-35.4) g/dL RDW 15.0 (11.5-15.5) % Plt Count 463 H (125-369) X10(3)uL MPV 8.0 (7.4-10.4) fL Neut % (Auto) 72.4 (46-82) % Lymph % (Auto) 18.8 (13-37) % [place] % (Auto) 6.2 (4-12) % Eos % (Auto) 2 (1.0-5.0) % Baso % (Auto) 1 (0-2) % Neut # (Auto) 7.1 (1.6-8.3) # Lymph # (Auto) 1.8 (0.6-5.0) # [place] # (Auto) 0.6 (0.0-1.3) # Eos # (Auto) 0.2 (0.0-0.8) # Baso # (Auto) 0.1 (0.0-0.2) # Sodium 139 (135-145) mmol/L Potassium 3.6 (3.5-5.3) mmol/L Chloride 102 (100-110) mmol/L Carbon Dioxide 28 (23-29) mmol/L BUN 10 (8-23) mg/dL Creatinine 1.1 (0.6-1.3) mg/dL Est Cr Clr Drug Dosing TNP Estimated GFR (MDRD) 51 L (>60) BUN/Creatinine Ratio 9.1 (9-20) Glucose 173 H (80-116) mg/dL Calcium 9.8 (8.6-10.2) mg/dL Magnesium 1.8 (1.8-2.5) mg/dL Total Bilirubin 0.3 (0.1-1.3) mg/dL AST 14 (5-27) IU/L ALT 13 L (14-26) IU/L Alkaline Phosphatase 60 (56-112) IU/L Troponin I < 0.01 L (0.02-0.06) NG/ML C-Reactive Protein 5.0 H* (0.0-1.0) mg/dL Total Protein 7.5 (6.0-8.0) g/dL Albumin 3.2 (3.2-4.6) g/dL Globulin 4.3 g/dL Albumin/Globulin Ratio 0.7 Departure - Departure Time of Disposition: 01:05 Disposition: Refer to Observation Condition: Good Clinical Impression: SVT (supraventricular tachycardia), Sinus tachycardia Referrals: PCP,None [Primary Care Provider] - - My Orders Last 24 Hours: My Active Orders 05/26/17 00:04 EKG 12 Lead [EK] Routine 05/26/17 00:06 EKG Documentation Completion [RC] ASDIRECTED - Assessment/Plan Last 24 Hours: My Active Orders 05/26/17 00:04 EKG 12 Lead [EK] Routine 05/26/17 00:06 EKG Documentation Completion [RC] ASDIRECTED
[2017-05-26 01:04] VITALS: BP 122/57
== END 2017-05-26 02:15 | disposition admitted as inpatient to this hospital (09) ==
LOC: FB.ED 23:38 → UNDOADMOB 05-26 01:06 → FB.MS 05-26 01:06 → FB.ED 05-26 02:15
DX: I47.1 Supraventricular tachycardia (principal); I10 Essential (primary) hypertension; E78.00 Pure hypercholesterolemia, unspecified; I25.2 Old myocardial infarction; E11.42 Type 2 diabetes mellitus with diabetic polyneuropathy; F31.9 Bipolar disorder, unspecified; E03.9 Hypothyroidism, unspecified; Z87.891 Personal history of nicotine dependence; Z79.84 Long term (current) use of oral hypoglycemic drugs; Z79.899 Other long term (current) drug therapy; Z88.1 Allergy status to other antibiotic agents
CPT/HCPCS: 36415; 80053; 83735; 84484; 85025; 86140; 93005; 99285; A9270

== ENCOUNTER 2017-06-12 19:46 | Emergency (ER) | payer MEDICAID ==
--- NOTE | 2017-06-12 20:09 | EDM.PDOC ---
ED HPI GENERAL MEDICAL PROBLEM - General Chief Complaint: Abdominal Pain Stated Complaint: ABD PAIN Time Seen by Provider: 06/12/17 19:56 Source of Information: Reports: Patient, Family - History of Present Illness INITIAL COMMENTS - FREE TEXT/NARRATIVE: 62 years old morbid obese w f came to the ed with her caregiver due to left lower abd. pain, same as before. Pt had a CT abd. 05/20/2017 which showed diverticulitis of her sigmoid. Pt was on Abx and pain meds of which she ran out 3 days ago. No trauma, dysuria. No F/C/N/V or any other acute medical issues. BP 123/91 pulse 95 RR 18 Pulse ox 98 temp 36.4 Onset: Today Onset Date: 06/12/17 Onset Time: 05:00 Duration: Hour(s): Location: Reports: Abdomen Quality: Reports: Ache, Dull, Same as Previous Episode Improves with: Reports: Rest Worsens with: Reports: Movement Context: Reports: Other (no bm fro 2 weeks) Associated Symptoms: Reports: No Other Symptoms Left Lower Abdomen Pain Score (Numeric/FACES): 9 - Related Data Allergies Allergy/AdvReac Type Severity Reaction Status Date / Time ciprofloxacin Allergy Cannot Verified 06/12/17 19:55 Remember metronidazole [From Flagyl] Allergy Itching Verified 06/12/17 19:55 Home Meds: Home Meds rOPINIRole HCl [Requip] 1 mg PO TID 11/28/13 [History] Furosemide [Lasix] 80 mg PO DAILY PRN 01/12/14 [History] Sennosides/Docusate Sodium [Senna S Tablet] 1 tab PO DAILY 04/03/14 [History] Zolpidem [Ambien] 10 mg PO BEDTIME 04/03/14 [History] Doxepin [SINEquan] 100 mg PO BEDTIME 10/11/14 [History] Carvedilol 3.125 mg PO BID 07/04/16 [History] Cyclobenzaprine [Flexeril] 10 mg PO TID PRN 01/05/17 [History] Ferrous Sulfate 325 mg PO DAILY 01/05/17 [History] Folic Acid 1 mg PO DAILY 01/05/17 [History] Magnesium 250 mg PO DAILY PRN 01/05/17 [History] Pregabalin [Lyrica] 50 mg PO TID 01/05/17 [History] QUEtiapine [SEROquel] 100 mg PO BEDTIME 01/05/17 [History] Spironolactone [Aldactone] 25 mg PO DAILY 01/05/17 [History] Cyanocobalamin (Vitamin B-12) [B-12] 1,000 mcg PO DAILY 01/07/17 [History] LORazepam 1 mg PO BID PRN 01/07/17 [History] atorvaSTATin [Lipitor] 20 mg PO DAILY 01/07/17 [History] Fluticasone Propionate [Flonase] 1 spray NASBOTH DAILY 01/08/17 [History] Acetaminophen/Codeine [Tylenol with Codeine No.3 300MG/30MG] 1 tab PO TID PRN [History] Methylphenidate [Concerta] 36 mg PO DAILY 02/02/17 [History] Methylphenidate [Concerta] 54 mg PO DAILY 02/02/17 [History] Ondansetron [Zofran] 1 tab PO TID 02/02/17 [History] Acetaminophen/Diphenhydramine [Tylenol Pm Ex-Strength Caplet] 1 each PO BID [History] Caffeine [Vivarin] 200 mg PO DAILY PRN 04/08/17 [History] Excedrin Migraine 1 tab PO ASDIRECTED PRN 04/08/17 [History] Loperamide [Imodium AD] 2 mg PO ASDIRECTED PRN 04/08/17 [History] Meloxicam 15 mg PO WITHBREAKFAST 04/08/17 [History] Nystatin 1 applic TOP DAILY 04/08/17 [History] Pantoprazole Sodium [Protonix] 40 mg PO DAILY 04/08/17 [History] Tetrahydrozoline HCl [Visine] 1 drop EYEBOTH DAILY 04/08/17 [History] metFORMIN [Glucophage] 500 mg PO BIDMEALS 04/08/17 [History] Legatrinpm 2 tab PO TID PRN 05/21/17 [History] Past Medical History HEENT History: Reports: Impaired Vision Other HEENT History: wear glasses Cardiovascular History: Reports: Angina, High Cholesterol, Hypertension, [place], SOB on Exertion, Other (See Below) Other Cardiovascular History: cardiovascular disease Respiratory History: Reports: COPD, Pneumonia, Recurrent, Sleep Apnea, Other ( See Below) Other Respiratory History: recently on ventilator --Klebisella pneumoniae Gastrointestinal History: Reports: Diverticulosis Other Genitourinary History: cyst on kidney 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: Reports: 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, Other OB/BYN History: miscarriage x2 Musculoskeletal History: Reports: Back Pain, Chronic, Fibromyalgia, RA Other Musculoskeletal History: sciatic nerve problem, generalized weakness, chronic pain Neurological History: Reports: Neuropathy, Diabetic, Neuropathy, Peripheral Other Neuro History: was in a coma for 5 months, fibromyalgia, neuropathy Psychiatric History: Reports: Anxiety, Bipolar, Depression, Hallucinations, Psych Hospitalization(s), PTSD, Suicide Attempt Other Psychiatric History: insomnia Endocrine/Metabolic History: Reports: Diabetes, Type II, Hypothyroidism, Other ( See Below) Other Endocrine/Metabolic History: borderline diabetic - Infectious Disease History Infectious Disease History: Reports: Chicken Pox, Mononucleosis - Past Surgical History GI Surgical History: Reports: Colonoscopy Social & Family History - Family History Family Medical History: Noncontributory Oncologic: Reports: Liver - Tobacco Use Smoking Status *Q: Former Smoker Years of Tobacco use: 25 Packs/Tins Daily: 0.5 Used Tobacco, but Quit: Yes Month Tobacco Last Used: 10 Second Hand Smoke Exposure: No - Caffeine Use Caffeine Use: Reports: None Caffeine Use Comment: unable to tolerate caffiene per patient - Alcohol Use Days Per Week of Alcohol Use: 0 - Recreational Drug Use Recreational Drug Use: No Drug Use in Last 12 Months: No Other Recreational Drug Type: Is a recovered drug addict, quit around 1994. - Living Situation & Occupation Living situation: Occupation: Unemployed ED ROS GENERAL - Review of Systems Review Of Systems: See Below Constitutional: Reports: No Symptoms HEENT: Reports: No Symptoms Respiratory: Reports: No Symptoms Cardiovascular: Reports: No Symptoms Endocrine: Reports: No Symptoms GI/Abdominal: Reports: Abdominal Pain : Reports: No Symptoms Musculoskeletal: Reports: No Symptoms Skin: Reports: No Symptoms Neurological: Reports: No Symptoms Psychiatric: Reports: No Symptoms Hematologic/Lymphatic: Reports: No Symptoms Immunologic: Reports: No Symptoms ED EXAM, GI/ABD - Physical Exam Exam: See Below Exam Limited By: No Limitations General Appearance: Obese (morbid) Eyes: Bilateral: Normal Appearance Ears: Normal External Exam Nose: Normal Inspection Throat/Mouth: Normal Inspection Head: Atraumatic, Normocephalic Neck: Normal Inspection, Supple, Non-Tender Respiratory/Chest: No Respiratory Distress, Lungs Clear, Normal Breath Sounds Cardiovascular: Normal Peripheral Pulses GI/Abdominal Exam: Normal Bowel Sounds, Soft, Non-Tender, No Organomegaly (Female) Exam: Deferred Rectal (Female) Exam: Deferred Back Exam: Normal Inspection, Full Range of Motion Extremities: Normal Inspection, Normal Range of Motion, Non-Tender Neurological: Alert, Oriented, CN II-XII Intact, Normal Cognition, Normal Gait, No Motor/Sensory Deficits Psychiatric: Normal Affect, Normal Mood Skin Exam: Warm, Dry, Intact, Normal Color, No Rash Lymphatic: No Adenopathy Course - Vital Signs Text/Narrative:: 62 years old morbid obese w f came to the ed with her caregiver due to left lower abd. pain, same as before. Pt had a CT abd. 05/20/2017 which showed diverticulitis of her sigmoid. Pt was on Abx and pain meds of which she ran out 3 days ago. Pt was asked to get a colonoscopy or surgery. Pt did not follow up. No trauma, dysuria. No F/C/N/V or any other acute medical issues. BP 123/91 pulse 95 RR 18 Pulse ox 98 temp 36.4 PE: Morbid obese WF NAD, C/O LLQ abd. discomfort Imaging: CT abd. done on 05/20/2017: Diverticulitis Abd. Flat/upright doen today : NAD Impression: H/O sigmoid diverticulitis, morbid obesity Reexam: Improved Plan: D/C with instructions Last Recorded V/S: Last Vital Signs Temp 36.4 C 06/12/17 19:56 Pulse 89 06/12/17 21:35 Resp 16 06/12/17 19:56 BP 142/71 H 06/12/17 21:35 Pulse Ox 95 06/12/17 21:35 - Orders/Labs/Meds Orders: Active Orders 24 hr Category Date Time Status Roach Catheter Insertion [Insert Urinary Catheter] [OM. Care 06/12/17 20:45 Ordered PC] Q24H Urinary Catheter Assessment [RC] QSHIFT Care 06/12/17 20:37 Active Abdomen 2V AP Flat Upright [CR] Stat Exams 06/12/17 21:05 Taken Labs: Laboratory Tests 06/12/17 Range/Units 20:32 Urine Color Yellow (YELLOW) Urine Appearance Clear (CLEAR) Urine pH 5.0 (5.0-6.5) Ur Specific [place] 1.020 (1.010-1.025) Urine Protein Negative (NEGATIVE) mg/dL Urine Glucose (UA) Normal (NEGATIVE) mg/dL Urine Ketones Negative (NEGATIVE) mg/dL Urine Occult Blood Negative (NEGATIVE) Urine Nitrite Negative (NEGATIVE) Urine Bilirubin Negative (NEGATIVE) Urine Urobilinogen Normal (NEGATIVE) mg/dL Ur Leukocyte Esterase Small H (NEGATIVE) Urine RBC 0-5 (0) Urine WBC 0-5 (0) Ur Squamous Epith Cells Not seen (NS,R,O) Urine Bacteria Not seen (NS) Hyaline Casts (NS) Departure - Departure Time of Disposition: 21:35 Disposition: Home, Self-Care 01 Condition: Good Clinical Impression: Abdominal pain decreased with position change - Discharge Information Referrals: PCP,None [Primary Care Provider] - Jose Francisco Dykes MD [Physician] - Forms: ED Department Discharge Additional Instructions: Please f/u with Dr. Dykes this Thursday, cont your meds, came back if your symptoms get worse acutely - My Orders Last 24 Hours: My Active Orders 06/12/17 20:37 Urinary Catheter Assessment [RC] QSHIFT 06/12/17 20:45 Roach Catheter Insertion [Insert Urinary Catheter] [OM.PC] Q24H 06/12/17 21:05 Abdomen 2V AP Flat Upright [CR] Stat - Assessment/Plan Last 24 Hours: My Active Orders 06/12/17 20:37 Urinary Catheter Assessment [RC] QSHIFT 06/12/17 20:45 Roach Catheter Insertion [Insert Urinary Catheter] [OM.PC] Q24H 06/12/17 21:05 Abdomen 2V AP Flat Upright [CR] Stat
[2017-06-12 21:36] VITALS: BP 142/71
--- NOTE | 2017-06-15 11:14 | CR ---
INDICATION: No BM x2 weeks. ABDOMEN: Four images of the abdomen were obtained 06/12/2017 in supine and upright projections and compared with 05/20/2017, revealing a nonspecific pattern of gas and feces. Relatively minimal stool is noted in the colon with no colonic distention or small bowel distention identified. No evidence of free air was identified. A moderate dextroconvex rotoscoliosis is now seen, appearing to be somewhat increased in prominence compared with the previous study. No definite organomegaly, mass lesions, or nonvascular pathologic calcifications were identified. There appears to be some minimal aortic calcification. IMPRESSION: 1. No findings to suggest distention of the bowel/obstruction could be identified. 2. Increasing severity of dextroconvex rotoscoliosis of the lumbar spine. 3. Exogenous obesity. MTDD
== END 2017-06-12 21:37 | disposition home or self-care (01) ==
LOC: FB.ED 19:46
DX: R10.32 Left lower quadrant pain (principal); E66.01 Morbid (severe) obesity due to excess calories; Z87.891 Personal history of nicotine dependence; I10 Essential (primary) hypertension; E78.00 Pure hypercholesterolemia, unspecified; J44.9 Chronic obstructive pulmonary disease, unspecified; Z79.899 Other long term (current) drug therapy; Z79.84 Long term (current) use of oral hypoglycemic drugs; Z88.1 Allergy status to other antibiotic agents; Z88.8 Allergy status to other drugs, medicaments and biological substances
CPT/HCPCS: 51702; 74020; 81001; 99284

== ENCOUNTER 2017-06-24 10:21 | Inpatient (IN) | payer MEDICAID ==
--- NOTE | 2017-06-24 12:01 | EDM.PDOC ---
ED HPI GENERAL MEDICAL PROBLEM - General Chief Complaint: Abdominal Pain Stated Complaint: STOMACH PAIN Time Seen by Provider: 06/24/17 10:56 Source of Information: Reports: Patient History Limitations: Reports: No Limitations - History of Present Illness INITIAL COMMENTS - FREE TEXT/NARRATIVE: c/o LLQ pain x 2y pt has had ongoing abd pain, 1m ago hospitalized for 5d with acute diverticulitis with inc'd WBC and CPK 5.0 (which previously was wnl) still having pain, more severe this AM, says "it just won't stop," and "I can't take it anymore," does not appear in distress had several loss BMs this AM, says she usually is constipated ate only a few slices of cheese this AM which made the pain worse no n/v no f/c/d has seen Dr Dykes several times including when she was in the hospital 1m ago, pt reports that Dr Dykes has discussed the possibility of surgry she has a f/u apt with Dr Dykes in 2d but says she could not wait that long PMH includes snxiety, chronic pain, bipolar and conversion DO Left Lower Abdominal Pain Score (Numeric/FACES): 8 - Related Data Allergies Allergy/AdvReac Type Severity Reaction Status Date / Time ciprofloxacin Allergy Cannot Verified 06/24/17 11:01 Remember metronidazole [From Flagyl] Allergy Itching Verified 06/24/17 11:01 Home Meds: Home Meds rOPINIRole HCl [Requip] 1 mg PO TID 11/28/13 [History] Furosemide [Lasix] 80 mg PO DAILY PRN 01/12/14 [History] Sennosides/Docusate Sodium [Senna S Tablet] 1 tab PO DAILY 04/03/14 [History] Zolpidem [Ambien] 10 mg PO BEDTIME 04/03/14 [History] Doxepin [SINEquan] 100 mg PO BEDTIME 10/11/14 [History] Carvedilol 3.125 mg PO BID 07/04/16 [History] Cyclobenzaprine [Flexeril] 10 mg PO TID PRN 01/05/17 [History] Ferrous Sulfate 325 mg PO DAILY 01/05/17 [History] Folic Acid 1 mg PO DAILY 01/05/17 [History] Pregabalin [Lyrica] 50 mg PO TID 01/05/17 [History] QUEtiapine [SEROquel] 100 mg PO BEDTIME 01/05/17 [History] Spironolactone [Aldactone] 25 mg PO DAILY 01/05/17 [History] LORazepam 1 mg PO BID PRN 01/07/17 [History] Fluticasone Propionate [Flonase] 1 spray NASBOTH DAILY 01/08/17 [History] Acetaminophen/Codeine [Tylenol with Codeine No.3 300MG/30MG] 1 tab PO TID PRN [History] Ondansetron [Zofran] 1 tab PO TID 02/02/17 [History] Excedrin Migraine 1 tab PO ASDIRECTED PRN 04/08/17 [History] Loperamide [Imodium AD] 2 mg PO ASDIRECTED PRN 04/08/17 [History] Pantoprazole Sodium [Protonix] 40 mg PO DAILY 04/08/17 [History] Tetrahydrozoline HCl [Visine] 1 drop EYEBOTH DAILY 04/08/17 [History] metFORMIN [Glucophage] 500 mg PO BIDMEALS 04/08/17 [History] Legatrinpm 2 tab PO TID PRN 05/21/17 [History] Albuterol Sulfate [Proair Hfa] 06/24/17 [History] Budesonide/Formoterol Fumarate [Symbicort 160-4.5 Mcg Inhaler] 06/24/17 [ History] Lisdexamfetamine [Vyvanse] 1 mg PO DAILY 06/24/17 [History] Metoclopramide HCl [Reglan] 10 mg PO Q6HR PRN 06/24/17 [History] Polyethylene Glycol 3350 [Miralax] 1 cap PO DAILY 06/24/17 [History] atorvaSTATin Calcium [Atorvastatin Calcium] 20 mg PO DAILY 06/24/17 [History] diphenhydrAMINE [Benadryl] 50 mg PO BEDTIME 06/24/17 [History] Past Medical History HEENT History: Reports: Impaired Vision Other HEENT History: wear glasses Cardiovascular History: Reports: Angina, High Cholesterol, Hypertension, [place], SOB on Exertion, Other (See Below) Other Cardiovascular History: cardiovascular disease Respiratory History: Reports: COPD, Pneumonia, Recurrent, Sleep Apnea, Other ( See Below) Other Respiratory History: recently on ventilator --Klebisella pneumoniae Gastrointestinal History: Reports: Diverticulosis Other Genitourinary History: cyst on kidney WHALE TRAINER History: Reports: 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, Other OB/BYN History: miscarriage x2 Musculoskeletal History: Reports: Back Pain, Chronic, Fibromyalgia, RA Other Musculoskeletal History: sciatic nerve problem, generalized weakness, chronic pain Neurological History: Reports: Neuropathy, Diabetic, Neuropathy, Peripheral Other Neuro History: was in a coma for 5 months, fibromyalgia, neuropathy Psychiatric History: Reports: Anxiety, Bipolar, Depression, Hallucinations, Psych Hospitalization(s), PTSD, Suicide Attempt Other Psychiatric History: insomnia Endocrine/Metabolic History: Reports: Diabetes, Type II, Hypothyroidism, Other ( See Below) Other Endocrine/Metabolic History: borderline diabetic - Infectious Disease History Infectious Disease History: Reports: Chicken Pox, Mononucleosis - Past Surgical History GI Surgical History: Reports: Colonoscopy Social & Family History - Family History Family Medical History: Noncontributory Oncologic: Reports: Liver - Tobacco Use Smoking Status *Q: Former Smoker Years of Tobacco use: 25 Packs/Tins Daily: 0.5 Used Tobacco, but Quit: Yes Month Tobacco Last Used: 120 months Second Hand Smoke Exposure: No - Caffeine Use Caffeine Use: Reports: None Caffeine Use Comment: unable to tolerate caffiene per patient - Alcohol Use Days Per Week of Alcohol Use: 0 - Recreational Drug Use Recreational Drug Use: No Drug Use in Last 12 Months: No Other Recreational Drug Type: Is a recovered drug addict, quit around 1994. - Living Situation & Occupation Living situation: Occupation: Unemployed ED ROS GENERAL - Review of Systems Review Of Systems: See Below Constitutional: Reports: No Symptoms HEENT: Reports: No Symptoms Respiratory: Reports: No Symptoms Cardiovascular: Reports: No Symptoms Endocrine: Reports: No Symptoms GI/Abdominal: Reports: Abdominal Pain, Diarrhea : Reports: No Symptoms Musculoskeletal: Reports: No Symptoms Skin: Reports: No Symptoms Neurological: Reports: No Symptoms Psychiatric: Reports: No Symptoms Hematologic/Lymphatic: Reports: No Symptoms Immunologic: Reports: No Symptoms ED EXAM, GI/ABD - Physical Exam Exam: See Below Exam Limited By: No Limitations General Appearance: Alert, WD/WN, No Apparent Distress, Other (sitting in w/c) Ears: Normal External Exam, Normal Canal, Hearing Grossly Normal Throat/Mouth: Normal Inspection, Normal Lips, Normal Teeth, Normal Gums, Normal Oropharynx, Normal Voice, No Airway Compromise Head: Atraumatic, Normocephalic Neck: Normal Inspection, Supple, Non-Tender, Full Range of Motion Respiratory/Chest: No Respiratory Distress, Lungs Clear, Normal Breath Sounds, No Accessory Muscle Use, Chest Non-Tender Cardiovascular: Regular Rate, Rhythm, No Edema, No Gallop, No Murmur, No Rub GI/Abdominal Exam: Normal Bowel Sounds, Soft, No Distention, Other (1+ nonlocalized tender at LLQ and lower 1/2 of L colon) Back Exam: Normal Inspection, Full Range of Motion, NT Extremities: Normal Inspection, Normal Range of Motion, Non-Tender Neurological: Alert, Oriented, CN II-XII Intact, Normal Cognition, No Motor/ Sensory Deficits Psychiatric: Normal Affect Skin Exam: Warm Lymphatic: No Adenopathy Course - Vital Signs Last Recorded V/S: Last Vital Signs Temp 36.3 C 06/24/17 15:03 Pulse 84 06/24/17 15:03 Resp 16 06/24/17 15:03 BP 152/80 H 06/24/17 15:03 Pulse Ox 92 L 06/24/17 15:03 - Orders/Labs/Meds Orders: Active Orders 24 hr Category Date Time Status Abdomen Pelvis w Cont [CT] Stat Exams 06/24/17 12:13 Taken Diatrizoate Lulu/Diatrizoate Na [Gastrografin 37%] Med 06/24/17 14:45 Active 30 ml PO . DIRECTED Medication Orders Diatrizoate Meglum/Diatrizoate Sod (Gastrografin 37%) 30 ml PO . DIRECTED NIA Last Admin: 06/24/17 14:34 Dose: 30 ml Labs: Laboratory Tests 06/24/17 06/24/17 06/24/17 Range/Units 11:43 11:43 11:43 WBC 12.1 H (4.5-12.0) X10-3/uL RBC 4.52 (3.23-5.20) x10(6)uL Hgb 12.3 (11.5-15.5) g/dL Hct 38.0 (30.0-51.3) % MCV 84.1 (80-96) fL MCH 27.3 L (27.7-33.6) pg MCHC 32.4 (32.2-35.4) g/dL RDW 15.9 H (11.5-15.5) % Plt Count 384 H (125-369) X10(3)uL MPV 8.0 (7.4-10.4) fL Neut % (Auto) 66.6 (46-82) % Lymph % (Auto) 20.6 (13-37) % [place] % (Auto) 7.2 (4-12) % Eos % (Auto) 5 (1.0-5.0) % Baso % (Auto) 1 (0-2) % Neut # (Auto) 8.0 (1.6-8.3) # Lymph # (Auto) 2.5 (0.6-5.0) # [place] # (Auto) 0.9 (0.0-1.3) # Eos # (Auto) 0.6 (0.0-0.8) # Baso # (Auto) 0.1 (0.0-0.2) # Sodium 136 (135-145) mmol/L Potassium 4.4 (3.5-5.3) mmol/L Chloride 98 L (100-110) mmol/L Carbon Dioxide 30 (21-32) mmol/L BUN 18 (7-18) mg/dL Creatinine 1.3 H (0.55-1.02) mg/dL Est Cr Clr Drug Dosing TNP Estimated GFR (MDRD) 42 L (>60) BUN/Creatinine Ratio 13.8 (9-20) Glucose 110 (80-116) mg/dL Calcium 10.5 H (8.6-10.2) mg/dL C-Reactive Protein 3.1 H* (0.5-0.9) mg/dL Meds: Medications Generic Name Dose Route Start Last Admin Trade Name Freq PRN Reason Stop Dose Admin Diatrizoate Meglum/Diatrizoate Sod 30 ml 06/24/17 14:45 06/24/17 14:34 Gastrografin 37% PO 30 ml . DIRECTED NIA Administration Discontinued Medications Generic Name Dose Route Start Last Admin Trade Name Freq PRN Reason Stop Dose Admin Sodium Chloride 1,000 mls @ 999 mls/hr 06/24/17 12:12 06/24/17 12:47 Normal Saline IV 06/24/17 13:12 999 mls/hr .BOLUS ONE Administration Iopamidol 100 ml 06/24/17 14:03 06/24/17 14:33 Isovue-370 (76%) IV 06/24/17 14:04 100 ml . DIRECTED ONE Administration Morphine Sulfate 4 mg 06/24/17 12:14 06/24/17 12:56 Morphine IVPUSH 06/24/17 12:15 4 mg ONETIME ONE Administration Ondansetron HCl 4 mg 06/24/17 12:14 06/24/17 12:59 Zofran IVPUSH 06/24/17 12:15 4 mg ONETIME ONE Administration - Re-Assessments/Exams Free Text/Narrative Re-Assessment/Exam: 06/24/17 15:23 CT abd/pelvis with PO and IV contrast continues to show significant inflammation of sigmoid colon that is unchanged from 1m ago, no evidence of free air or pericolonic fluid collection, does have a cyctic midpelvis mass of 40 x 40 mm unchanged in 1m and inc'd from 27 x 28 mm three yrs ago. d/w pt who repeatedly said that she wanted to have surgery done, d/w Dr Ledbetter who agreed to admit and will consult Dr Dykes, pt agrees WBC 12k, CRP 3.1, both remain elevated from baseline Departure - Departure Time of Disposition: 15:26 Disposition: Admitted As Inpatient 68 Condition: Good Clinical Impression: Acute diverticulitis - Discharge Information Referrals: Shannan Peng, BREAKFAST SERVER [Primary Care Provider] - Forms: ED Department Discharge - My Orders Last 24 Hours: My Active Orders 06/24/17 12:13 Abdomen Pelvis w Cont [CT] Stat 06/24/17 14:45 Diatrizoate Lulu/Diatrizoate Na [Gastrografin 37%] 30 ml PO . DIRECTED - Assessment/Plan Last 24 Hours: My Active Orders 06/24/17 12:13 Abdomen Pelvis w Cont [CT] Stat 06/24/17 14:45 Diatrizoate Lulu/Diatrizoate Na [Gastrografin 37%] 30 ml PO . DIRECTED
[2017-06-24] MEDS ORDERED: Sodium Chloride 0.9% 1,000 ML IV ONE (12:12)
[2017-06-24] MEDS ORDERED: Morphine 4 MG/ML Syringe IVPUSH ONE (12:14)
[2017-06-24] MEDS ORDERED: Ondansetron 4 MG/2 ML SDV IVPUSH ONE (12:14)
[2017-06-24] MEDS ORDERED: Iopamidol 755 Mg/ML 100 ML Bottle IV ONE (14:03)
[2017-06-24] MEDS ORDERED: Diatrizoate Meglumine/Diatrizoate Sodium 37% 30 ML Bottle PO SCH (14:45)
[2017-06-24] MEDS ORDERED: Loperamide 2 MG Tab PO PRN (15:55)
--- NOTE | 2017-06-24 16:06 | CT ---
INDICATION: Recurrent left lower quadrant pain with increased white blood count and CRP. Question abscess, question inflammation of sigmoid. CT ABDOMEN AND PELVIS WITH CONTRAST: Spiral 2.5-mm axial sections were obtained through the abdomen and pelvis with oral and IV contrast, (including 75 mL Isovue-370 at 1.1 mL per second), with sagittal and coronal reconstructions, 06/24/2017, and compared with 05/20/2017. Total Exam DLP = 1699.28 mGy-cm. At the middle lobe there is an area of what appears to be atelectasis in the middle lobe. However, this is identical to the previous study and may represent some fibrotic strands. Also noted were some fibrotic appearing linear densities at the right lower lobe , and minimally at the left lower lobe, these being present previously in all locations. A definite active infiltrate or effusion was not seen. The gallbladder had a slightly distended appearance, but was otherwise unremarkable, likely due to NPO status. The liver, spleen, and adrenal glands appeared normal. The pancreas is again noted to be somewhat fatty replaced. The common bile duct did not appear to be enlarged. The kidneys appear similar to the previous study also, with a tiny probable cyst near the upper pole posterolateral cortex of the left kidney, mostly exophytic, and with no evidence of obstructive uropathy or definite solid mass lesions. There is suggested some minimal renal cortical scarring especially on the right. Calcifications are noted in the abdominal aorta. The heart did not appear enlarged. There is some anterior pericardial thickening again noted and unchanged, of questionable significance. No definite retroperitoneal mass was identified. Minimal retroperitoneal lymphadenopathy is nonspecific. The appendix is normal in appearance, seen on axial images #119 through #139. There is again noted a cystic mass in the central right pelvis, measuring 40 x 44 mm, which is slightly increased in size compared with the previous study where it measured approximately 39 x 41 mm. The etiology is indeterminate. This may represent an ovarian cystic mass. In this age group it should perhaps be viewed with some suspicion. Sigmoid diverticulosis is again noted with evidence of diverticulitis, including some pericolonic fat stranding, suggesting a mild degree of peritonitis. However, no free air or definite abscess formation was identified. The appearance is overall similar to the previous examination, and except for slight increase in pericolonic fat stranding. This is a minimal change. No obstruction of the bowel was seen. The urinary bladder had a normal appearance. No other organomegaly, mass lesions, or free fluid collections were identified in the abdomen or pelvis. IMPRESSION: 1. Diverticulitis sigmoid, apparently chronic or recurrent, with localized pericolonic peritonitis. No free air seen. 2. Again slightly increased size of what may represent a right ovarian cyst. It could represent other than a benign cystic mass, as it has slightly increased in size again. 3. Tiny probable cyst at the upper pole of the left kidney, appears unchanged from the most recent comparison study, and little if any change is also seen compared with 08/12/2013 examination. 4. Areas of probable fibrotic change in the lung bases. CT PELVIS: Examination of the pelvis was obtained by CT, as noted above. Evidence of sigmoid diverticulitis is again noted. A cystic mass is noted in the right mid pelvis just to the right of midline, likely representing ovarian cystic mass. Etiology indeterminate. Only slightly increased in size compared with the most recent study, however it is more significantly increased in size compared with the 08/12/2013 study where it measured 27 x 28 mm, now measuring 40 x 44 mm. Further workup may be warranted, depending upon clinical correlation. Report was called to Dr. Ambrose at 1508 hours, 06/24/2017. [facility]
[2017-06-24] MEDS ORDERED: Albuterol 8 GM Inhaler INH PRN (16:45)
--- NOTE | 2017-06-24 17:01 | PCM.HP ---
H&P History of Present Illness - General Date of Service: 06/24/17 Admit Problem/Dx: Admission Diagnosis/Problem Admission Diagnosis/Problem Acute diverticulitis of intestine Source of Information: Patient History Limitations: Reports: No Limitations - History of Present Illness Initial Comments - Free Text/Narative: This is a 62-year-old female patient comes to the ER with left lower quadrant abdominal pain, fevers and chills. She states that abdominal pain is been going on for some time. She was hospitalized a month ago for [address] scan was done of the abdomen in the ER that showed diverticulitis. Also showed an ovarian cyst. Patient states she is in quite a bit of pain. She states she sees Dr. Dykes and they talked about doing surgery on her. She states she couldn't take the pain. She was admitted today. She is she is constipated. She has no rectal bleeding. No nausea or vomiting. She has some dysuria. Left Lower Abdominal Pain Score (Numeric/FACES): 8 - Related Data Allergies/Adverse Reactions: Allergies Allergy/AdvReac Type Severity Reaction Status Date / Time ciprofloxacin Allergy Cannot Verified 06/24/17 11:01 Remember metronidazole [From Flagyl] Allergy Itching Verified 06/24/17 11:01 Home Medications: Home Meds rOPINIRole HCl [Requip] 1 mg PO TID 11/28/13 [History] Furosemide [Lasix] 80 mg PO DAILY 01/12/14 [History] Sennosides/Docusate Sodium [Senna S Tablet] 1 tab PO DAILY 04/03/14 [History] Zolpidem [Ambien] 10 mg PO BEDTIME 04/03/14 [History] Doxepin [SINEquan] 100 mg PO BEDTIME 10/11/14 [History] Carvedilol 3.125 mg PO BID 07/04/16 [History] Cyclobenzaprine [Flexeril] 10 mg PO TID PRN 01/05/17 [History] Ferrous Sulfate 325 mg PO DAILY 01/05/17 [History] Folic Acid 1 mg PO DAILY 01/05/17 [History] Pregabalin [Lyrica] 50 mg PO TID 01/05/17 [History] QUEtiapine [SEROquel] 100 mg PO BEDTIME 01/05/17 [History] Spironolactone [Aldactone] 25 mg PO DAILY 01/05/17 [History] LORazepam 1 mg PO BID PRN 01/07/17 [History] Fluticasone Propionate [Flonase] 1 spray NASBOTH DAILY 01/08/17 [History] Acetaminophen/Codeine [Tylenol with Codeine No.3 300MG/30MG] 1 tab PO TID PRN [History] Ondansetron [Zofran] 1 tab PO TID 02/02/17 [History] Excedrin Migraine 1 tab PO ASDIRECTED PRN 04/08/17 [History] Loperamide [Imodium AD] 2 mg PO ASDIRECTED PRN 04/08/17 [History] Pantoprazole Sodium [Protonix] 40 mg PO DAILY 04/08/17 [History] Tetrahydrozoline HCl [Visine] 1 drop EYEBOTH DAILY 04/08/17 [History] metFORMIN [Glucophage] 500 mg PO BIDMEALS 04/08/17 [History] Legatrinpm 2 tab PO TID PRN 05/21/17 [History] Albuterol Sulfate [Proair Hfa] 2 puff IH Q6H PRN 06/24/17 [History] Asenapine Maleate [Saphris] 10 mg PO BEDTIME 06/24/17 [History] Budesonide/Formoterol Fumarate [Symbicort 160-4.5 Mcg Inhaler] 2 puff IH BID [History] Metoclopramide HCl [Reglan] 10 mg PO Q6HR PRN 06/24/17 [History] Polyethylene Glycol 3350 [Miralax] 1 cap PO DAILY 06/24/17 [History] atorvaSTATin Calcium [Atorvastatin Calcium] 20 mg PO DAILY 06/24/17 [History] diphenhydrAMINE [Benadryl] 50 mg PO BEDTIME 06/24/17 [History] Past Medical History HEENT History: Reports: Impaired Vision Other HEENT History: wear glasses Cardiovascular History: Reports: Angina, High Cholesterol, Hypertension, [place], SOB on Exertion, Other (See Below) Other Cardiovascular History: cardiovascular disease Respiratory History: Reports: COPD, Pneumonia, Recurrent, Sleep Apnea, Other ( See Below) Other Respiratory History: recently on ventilator --Klebisella pneumoniae Gastrointestinal History: Reports: Diverticulosis Other Genitourinary History: cyst on kidney [employer] History: Reports: 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, Other OB/BYN History: miscarriage x2 Musculoskeletal History: Reports: Back Pain, Chronic, Fibromyalgia, RA Other Musculoskeletal History: sciatic nerve problem, generalized weakness, chronic pain Neurological History: Reports: Neuropathy, Diabetic, Neuropathy, Peripheral Other Neuro History: was in a coma for 5 months, fibromyalgia, neuropathy Psychiatric History: Reports: Anxiety, Bipolar, Depression, Hallucinations, Psych Hospitalization(s), PTSD, Suicide Attempt Other Psychiatric History: insomnia Endocrine/Metabolic History: Reports: Diabetes, Type II, Hypothyroidism, Other ( See Below) Other Endocrine/Metabolic History: borderline diabetic - Infectious Disease History Infectious Disease History: Reports: Chicken Pox, Mononucleosis - Past Surgical History GI Surgical History: Reports: Colonoscopy Social & Family History - Family History Family Medical History: Noncontributory Oncologic: Reports: Liver - Tobacco Use Smoking Status *Q: Former Smoker Years of Tobacco use: 25 Packs/Tins Daily: 0.5 Used Tobacco, but Quit: Yes Month Tobacco Last Used: unknown Second Hand Smoke Exposure: No - Caffeine Use Caffeine Use: Reports: None Caffeine Use Comment: unable to tolerate caffiene per patient - Alcohol Use Days Per Week of Alcohol Use: 0 - Recreational Drug Use Recreational Drug Use: No Drug Use in Last 12 Months: No Other Recreational Drug Type: cocaine use in the - Living Situation & Occupation Living situation: Occupation: Unemployed H&P Review of Systems - Review of Systems: Review Of Systems: See Below General: Reports: Fever, Chills, Weakness HEENT: Reports: No Symptoms Pulmonary: Reports: No Symptoms Cardiovascular: Reports: No Symptoms Gastrointestinal: Reports: Abdominal Pain, Constipation. Denies: Bloody Stool, Nausea, Vomiting Genitourinary: Reports: Dysuria. Denies: Frequency, Burning, Pain Musculoskeletal: Reports: No Symptoms Skin: Reports: No Symptoms Psychiatric: Reports: No Symptoms Neurological: Reports: No Symptoms Hematologic/Lymphatic: Reports: No Symptoms Immunologic: Reports: No Symptoms Exam - Exam Exam: See Below - Vital Signs Vital Signs: Last Vital Signs Temp 97.4 F 06/24/17 15:03 Pulse 84 06/24/17 15:03 Resp 16 06/24/17 15:03 BP 152/80 H 06/24/17 15:03 Pulse Ox 92 L 06/24/17 15:03 Weight: 271 lb 6 oz - Exam General: Alert, Oriented, Cooperative HEENT: Hearing Intact, Mucosa Moist & [place], Posterior Pharynx Clear, TMs Clear Neck: Supple, Trachea Midline. No: Carotid Bruit, JVD Lungs: Clear to Auscultation, Normal Respiratory Effort. No: Crackles, Rales, Rhonchi Cardiovascular: Regular Rate, Regular Rhythm. No: Systolic Murmur, Diastolic Murmur GI/Abdominal Exam: Soft, No Distention, Tender (Right lower quadrant. No rebound or guarding.), Other (Hyperactive also) Back Exam: Normal Inspection, Full Range of Motion Extremities: Normal Inspection, Non-Tender, No Pedal Edema Skin: Warm, Dry, Intact Neurological: Normal Speech, Normal Tone Neuro Extensive - Mental Status: Alert, Oriented x3, Normal Mood/Affect, Normal Cognition Psychiatric: Alert, Normal Affect, Normal Mood - Patient Data Result Diagrams: 06/24/17 11:43 06/24/17 11:43 *Q Meaningful Use (ADM) - VTE *Q VTE Criteria *Q: - Stroke *Q Stroke Criteria *Q: - AMI *Q AMI Criteria *Q: - Problem List (1) Acute diverticulitis SNOMED Code(s): 088651615 ICD Code: K57.92 - DVTRCLI OF INTEST, PART UNSP, W/O PERF OR ABSCESS W/O BLEED Status: Acute Current Visit: Yes (2) Sedentary lifestyle SNOMED Code(s): 612798847 ICD Code: Z91.89 - OTH PERSONAL RISK FACTORS, NOT ELSEWHERE CLASSIFIED Status: Acute Current Visit: No (3) Weakness SNOMED Code(s): 66412175 ICD Code: R53.1 - WEAKNESS Status: Acute Current Visit: No (4) Bipolar disorder SNOMED Code(s): 61860521 ICD Code: F31.9 - BIPOLAR DISORDER, UNSPECIFIED Status: Chronic Current Visit: No (5) Morbid obesity SNOMED Code(s): 010271229 ICD Code: E66.01 - MORBID (SEVERE) OBESITY DUE TO EXCESS CALORIES Status: Chronic Current Visit: No (6) Palliative care status SNOMED Code(s): 250315973 ICD Code: Z51.5 - ENCOUNTER FOR PALLIATIVE CARE Status: Acute Current Visit: Yes Problem List Initiated/Reviewed/Updated: Yes Orders Last 24hrs: Active Orders 24 hr Category Date Time Status Albuterol [Ventolin HFA] Med 06/24/17 16:45 Ordered DOSE gm RTE Q6H Budesonide/Formoterol Fumarate [Symbicort 160-4.5 Mcg Med 06/24/17 21:00 Ordered Inhaler] 2 puff IH BID Carvedilol [Coreg] Med 06/24/17 21:00 Active 3.125 mg PO BID Docusate Sodium/Sennosides [Senna Plus] Med 06/25/17 09:00 Active 1 tab PO DAILY Doxepin [SINEquan] Med 06/24/17 21:00 Active 100 mg PO BEDTIME Ferrous Sulfate Med 06/25/17 09:00 Active 325 mg PO DAILY Fluticasone Propionate [Flonase] Med 06/25/17 09:00 Active 0 gm NASBOTH DAILY Folic Acid Med 06/25/17 09:00 Active 1 mg PO DAILY Furosemide [Lasix] Med 06/24/17 15:55 Ordered 80 mg PO DAILY PRN LORazepam [Ativan] Med 06/24/17 15:55 Active 1 mg PO BID PRN Legatrinpm Med 06/24/17 15:55 Ordered 2 tab PO TID PRN Lisdexamfetamine [Vyvanse] Med 06/25/17 09:00 Ordered 1 mg PO DAILY Loperamide [Imodium AD] Med 06/24/17 15:55 Ordered 2 mg PO ASDIRECTED PRN Ondansetron [Zofran] Med 06/24/17 21:00 Ordered 1 tab PO TID Pantoprazole [ProTONIX] Med 06/25/17 06:00 Active 40 mg PO DAILY@0600 Polyethylene Glycol 3350 [MiraLAX] Med 06/25/17 09:00 Active 17 gm PO DAILY Pregabalin [Lyrica] Med 06/24/17 21:00 Active 50 mg PO TID QUEtiapine [SEROquel] Med 06/24/17 21:00 Active 100 mg PO BEDTIME Spironolactone [Aldactone] Med 06/25/17 09:00 Active 25 mg PO DAILY Tetrahydrozoline HCl [Visine] Med 06/25/17 09:00 Ordered 1 drop EYEBOTH DAILY Zolpidem [Ambien] Med 06/24/17 21:00 Active 10 mg PO BEDTIME atorvaSTATin [Lipitor] Med 06/25/17 09:00 Active 20 mg PO DAILY diphenhydrAMINE [Benadryl] Med 06/24/17 21:00 Active 50 mg PO BEDTIME metFORMIN [Glucophage] Med 06/24/17 18:00 Hold 500 mg PO BIDMEALS rOPINIRole [Requip] Med 06/24/17 21:00 Active 1 mg PO TID Medication Orders Albuterol (Ventolin Hfa) gm Q6H [facility] Atorvastatin Calcium (Lipitor) 20 mg PO DAILY [facility] Carvedilol (Coreg) 3.125 mg PO BID [facility] Diatrizoate Meglum/Diatrizoate Sod (Gastrografin 37%) 30 ml PO . DIRECTED [facility] Last Admin: 06/24/17 14:34 Dose: 30 ml Diphenhydramine HCl (Benadryl) 50 mg PO BEDTIME [facility] Doxepin HCl (Sinequan) 100 mg PO BEDTIME [facility] Ferrous Sulfate (Ferrous Sulfate) 325 mg PO DAILY [facility] Fluticasone Propionate (Flonase) 0 gm NASBOTH DAILY [facility] Folic Acid (Folic Acid) 1 mg PO DAILY [facility] Furosemide (Lasix) 80 mg PO DAILY PRN PRN Reason: swelling Loperamide HCl (Imodium Ad) 2 mg PO ASDIRECTED PRN PRN Reason: Diarrhea Lorazepam (Ativan) 1 mg PO BID PRN PRN Reason: Anxiety Metformin HCl (Glucophage) 500 mg PO BIDMEALS [facility] Non-Formulary Medication (Legatrinpm) 2 tab PO TID PRN PRN Reason: Pain Non-Formulary Medication (Lisdexamfetamine [Vyvanse]) 1 mg PO DAILY [facility] Non-Formulary Medication (Ondansetron [Zofran]) 1 tab PO TID [facility] Non-Formulary Medication (Tetrahydrozoline Hcl [Visine]) 1 drop EYEBOTH DAILY [facility] Non-Formulary Medication (Budesonide/Formoterol Fumarate [Symbicort 160-4.5 Mcg Inhaler]) 2 puff IH BID [facility] Pantoprazole Sodium (Protonix) 40 mg PO DAILY@0600 [facility] Polyethylene Glycol (Miralax) 17 gm PO DAILY [facility] Pregabalin (Lyrica) 50 mg PO TID [facility] Quetiapine Fumarate (Seroquel) 100 mg PO BEDTIME [facility] Ropinirole HCl (Requip) 1 mg PO TID [facility] Senna/Docusate Sodium (Senna Plus) 1 tab PO DAILY [facility] Spironolactone (Aldactone) 25 mg PO DAILY [facility] Zolpidem Tartrate (Ambien) 10 mg PO BEDTIME [facility] Assessment/Plan Comment:: 1. Admit the patient for inpatient. Neck sign 2. IV antibiotics with Unasyn. She is allergic to Cipro and Flagyl. 3. Patient requests to be DO NOT RESUSCITATE. 4. Full liquid diet 5. Up with assist. 6. Restart regular medicines as appropriate. 7. Pain control 8. The VTE prophylaxis. 9. Consult Dr. Dykes
[2017-06-24] MEDS: Sodium Chloride 0.9% 1,000 ML IV SCH (18:00)
[2017-06-24] MEDS: Piperacillin/Tazobactam 3.375 GM in Sodium Chloride 0.9% 50 ML IV SCH ×2 (18:02→23:50)
[2017-06-24] MEDS: Morphine 2 MG/ML Syringe IVPUSH PRN (19:48)
[2017-06-24] MEDS ORDERED: rOPINIRole 1 MG Tab PO SCH (21:00)
[2017-06-24] MEDS ORDERED: ASENAPINE 10 MG PO SCH (21:00)
[2017-06-24] MEDS ORDERED: Acetaminophen/Diphenhydramine 500-25 MG Tab PO PRN ×2 (21:00)
[2017-06-24] MEDS ORDERED: ONDANSETRON PO SCH (21:00)
[2017-06-24] MEDS: Carvedilol 3.125 MG Tab PO SCH (21:11)
[2017-06-24] MEDS: diphenhydrAMINE 50 MG Cap PO SCH (21:11)
[2017-06-24] MEDS: Zolpidem 10 MG Tab PO SCH (21:11)
[2017-06-24] MEDS: Formoterol/Mometasone 200-5 MCG 8.8 GM Inhaler IH SCH (21:12)
[2017-06-24] MEDS: QUEtiapine 100 MG Tab PO SCH (21:13)
[2017-06-24] MEDS: Polyethylene Glycol 3350 Powder 17 GM Packet PO SCH (21:13)
[2017-06-24] MEDS: LORazepam 1 MG Tab PO PRN (21:17)
[2017-06-24] MEDS: Pregabalin 50 MG Cap PO SCH (21:17)
[2017-06-25] MEDS: Sodium Chloride 0.9% 1,000 ML IV SCH (03:09)
[2017-06-25] MEDS ORDERED: Pantoprazole 40 MG Tab.CR PO PRN (06:00)
[2017-06-25] MEDS: Piperacillin/Tazobactam 3.375 GM in Sodium Chloride 0.9% 50 ML IV SCH ×3 (06:17→18:30)
[2017-06-25] MEDS ORDERED: Cyclobenzaprine 10 MG Tab PO PRN (08:16)
--- NOTE | 2017-06-25 08:16 | PCM.PN ---
- General Info Date of Service: 06/25/17 Admission Dx/Problem (Free Text): Patient states she is about the same. Pains about the same. She has more of an appetite today. She denies nausea vomiting, fevers or chills, diarrhea. Pain still left lower quadrant. Morphine is helping. - Patient Data Vitals - Most Recent: Last Vital Signs Temp 97.5 F 06/25/17 04:31 Pulse 73 06/25/17 04:31 Resp 16 06/25/17 04:31 BP 108/65 06/25/17 04:31 Pulse Ox 91 L 06/25/17 04:31 Weight - Most Recent: 271 lb 6 oz I&O - Last 24 Hours: Intake & Output 06/24/17 06/25/17 06/25/17 22:59 06:59 14:59 Intake Total 475 1106 Output Total 200 0 Balance 275 1106 Lab Results Last 24 Hours: Laboratory Results - last 24 hr 06/24/17 06/25/17 06/25/17 Range/Units 21:00 06:30 06:30 WBC 8.7 (4.5-12.0) X10-3/uL RBC 3.87 (3.23-5.20) x10(6)uL Hgb 10.7 L (11.5-15.5) g/dL Hct 32.7 (30.0-51.3) % MCV 84.5 (80-96) fL MCH 27.8 (27.7-33.6) pg MCHC 32.9 (32.2-35.4) g/dL RDW 16.1 H (11.5-15.5) % Plt Count 332 (125-369) X10(3)uL MPV 7.9 (7.4-10.4) fL Neut % (Auto) 65.1 (46-82) % Lymph % (Auto) 20.0 (13-37) % Hall % (Auto) 8.3 (4-12) % Eos % (Auto) 6 H (1.0-5.0) % Baso % (Auto) 1 (0-2) % Neut # (Auto) 5.6 (1.6-8.3) # Lymph # (Auto) 1.7 (0.6-5.0) # Hall # (Auto) 0.7 (0.0-1.3) # Eos # (Auto) 0.5 (0.0-0.8) # Baso # (Auto) 0.1 (0.0-0.2) # Sodium 141 (135-145) mmol/L Potassium 4.2 (3.5-5.3) mmol/L Chloride 105 D (100-110) mmol/L Carbon Dioxide 33 H (21-32) mmol/L BUN 12 (7-18) mg/dL Creatinine 0.9 (0.55-1.02) mg/dL Est Cr Clr Drug Dosing 69.47 mL/min Estimated GFR (MDRD) > 60 (>60) BUN/Creatinine Ratio 13.3 (9-20) Glucose 105 (80-116) mg/dL Calcium 9.4 (8.6-10.2) mg/dL Total Bilirubin 0.3 (0.1-1.3) mg/dL AST 12 (5-25) IU/L ALT 17 (12-36) U/L Alkaline Phosphatase 73 (56-112) IU/L Total Protein 6.5 (6.0-8.0) g/dL Albumin 2.6 L (3.2-4.6) g/dL Globulin 3.9 g/dL Albumin/Globulin Ratio 0.7 Urine Color Yellow (YELLOW) Urine Appearance Clear (CLEAR) Urine pH 5.0 (5.0-6.5) Ur Specific [place] 1.005 L (1.010-1.025) Urine Protein Negative (NEGATIVE) mg/dL Urine Glucose (UA) Normal (NEGATIVE) mg/dL Urine Ketones Negative (NEGATIVE) mg/dL Urine Occult Blood Negative (NEGATIVE) Urine Nitrite Negative (NEGATIVE) Urine Bilirubin Negative (NEGATIVE) Urine Urobilinogen Normal (NEGATIVE) mg/dL Ur Leukocyte Esterase Negative (NEGATIVE) Urine RBC 0-5 (0) Urine WBC 0-5 (0) Ur Squamous Epith Cells Occasional (NS,R,O) Urine Bacteria Rare H (NS) Med Orders - Current: Current Medications Acetaminophen/Diphenhydramine HCl (Tylenol Pm Extra Strength) 1 tab PO BEDTIME PRN PRN Reason: LEG CRAMPS Albuterol (Ventolin Hfa) 0 gm INH Q6H PRN PRN Reason: SHORTNESS OF BREATH Artificial Tears (Liquitears 1.4% Ophth Soln) 0 ml EYEBOTH DAILY PRN PRN Reason: DRY EYES Atorvastatin Calcium (Lipitor) 20 mg PO DAILY [facility] Carvedilol (Coreg) 3.125 mg PO BID [facility] Last Admin: 06/24/17 21:11 Dose: 3.125 mg Diatrizoate Meglum/Diatrizoate Sod (Gastrografin 37%) 30 ml PO . DIRECTED [facility] Last Admin: 06/24/17 14:34 Dose: 30 ml Diphenhydramine HCl (Benadryl) 50 mg PO BEDTIME [facility] Last Admin: 06/24/17 21:11 Dose: 50 mg Doxepin HCl (Sinequan) 100 mg PO BEDTIME [facility] Last Admin: 06/24/17 21:14 Dose: 100 mg Ferrous Sulfate (Ferrous Sulfate) 325 mg PO DAILY [facility] Fluticasone Propionate (Flonase) 0 gm NASBOTH DAILY [facility] Folic Acid (Folic Acid) 1 mg PO DAILY [facility] Furosemide (Lasix) 80 mg PO DAILY [facility] Piperacillin Sod/Tazobactam (Sod 3.375 gm/ Sodium Chloride) 50 mls @ 100 mls/ hr IV Q6H [facility] Last Admin: 06/25/17 06:17 Dose: 100 mls/hr Sodium Chloride (Normal Saline) 1,000 mls @ 125 mls/hr IV ASDIRECTED [facility] Last Admin: 06/25/17 03:09 Dose: 125 mls/hr Loperamide HCl (Imodium Ad) 2 mg PO ASDIRECTED PRN PRN Reason: Diarrhea Lorazepam (Ativan) 1 mg PO BID PRN PRN Reason: Anxiety Last Admin: 06/24/17 21:17 Dose: 1 mg Metformin HCl (Glucophage) 500 mg PO BIDMEALS [facility] Metoclopramide HCl (Reglan) 10 mg PO DAILY [facility] Mometasone Furoate/Formoterol Fumar (Dulera 200-5 Mcg) 2 puff IH BID [facility] Last Admin: 06/24/17 21:12 Dose: 2 puff Morphine Sulfate (Morphine) 2 mg IVPUSH Q2H PRN PRN Reason: Pain Last Admin: 06/24/17 19:48 Dose: 2 mg Asenapine (Saphris) (10mg) 1 each PO BEDTIME [facility] Last Admin: 06/24/17 21:13 Dose: 1 each Pantoprazole Sodium (Protonix) 40 mg PO DAILY PRN PRN Reason: REFLUX Polyethylene Glycol (Miralax) 17 gm PO BID [facility] Last Admin: 06/24/17 21:13 Dose: 17 gm Pregabalin (Lyrica) 50 mg PO TID [facility] Last Admin: 06/24/17 21:17 Dose: 50 mg Quetiapine Fumarate (Seroquel) 100 mg PO BEDTIME [facility] Last Admin: 06/24/17 21:13 Dose: 100 mg Senna/Docusate Sodium (Senna Plus) 2 tab PO DAILY [facility] Spironolactone (Aldactone) 25 mg PO DAILY [facility] Zolpidem Tartrate (Ambien) 10 mg PO BEDTIME [facility] Last Admin: 06/24/17 21:11 Dose: 10 mg Discontinued Medications Acetaminophen/Diphenhydramine HCl (Tylenol Pm Extra Strength) 1 tab PO BID PRN PRN Reason: LEG CRAMPS Sodium Chloride (Normal Saline) 1,000 mls @ 999 mls/hr IV .BOLUS ONE Stop: 06/24/17 13:12 Last Admin: 06/24/17 12:47 Dose: 999 mls/hr Iopamidol (Isovue-370 (76%)) 100 ml IV . DIRECTED ONE Stop: 06/24/17 14:04 Last Admin: 06/24/17 14:33 Dose: 100 ml Morphine Sulfate (Morphine) 4 mg IVPUSH ONETIME ONE Stop: 06/24/17 12:15 Last Admin: 06/24/17 12:56 Dose: 4 mg Ondansetron HCl (Zofran) 4 mg IVPUSH ONETIME ONE Stop: 06/24/17 12:15 Last Admin: 06/24/17 12:59 Dose: 4 mg Ropinirole HCl (Requip) 1 mg PO TID [facility] - Exam General: Alert, Oriented Lungs: Clear to Auscultation, Normal Respiratory Effort Cardiovascular: Regular Rate, Regular Rhythm, No Murmurs GI/Abdominal Exam: Soft, Tender (Lower quadrant). No: Guarding, Rigid, Rebound - Problem List & Annotations (1) Acute diverticulitis SNOMED Code(s): 622254510 Code(s): K57.92 - DVTRCLI OF INTEST, PART UNSP, W/O PERF OR ABSCESS W/O BLEED Status: Acute Current Visit: Yes (2) Sedentary lifestyle SNOMED Code(s): 432295684 Code(s): Z91.89 - OTH PERSONAL RISK FACTORS, NOT ELSEWHERE CLASSIFIED Status: Acute Current Visit: No (3) Weakness SNOMED Code(s): 39011637 Code(s): R53.1 - WEAKNESS Status: Acute Current Visit: No (4) Bipolar disorder SNOMED Code(s): 77396820 Code(s): F31.9 - BIPOLAR DISORDER, UNSPECIFIED Status: Chronic Current Visit: No (5) Morbid obesity SNOMED Code(s): 308045079 Code(s): E66.01 - MORBID (SEVERE) OBESITY DUE TO EXCESS CALORIES Status: Chronic Current Visit: No (6) Palliative care status SNOMED Code(s): 135551493 Code(s): Z51.5 - ENCOUNTER FOR PALLIATIVE CARE Status: Acute Current Visit: Yes - Problem List Review Problem List Initiated/Reviewed/Updated: Yes - My Orders Last 24 Hours: My Active Orders 06/24/17 17:01 Resuscitation Status Routine 06/24/17 17:02 Activity as Tolerated [RC] .Routine 06/24/17 17:05 Notify Provider Consults [RC] ASDIRECTED Consult to Physician [CONS] Routine 06/24/17 17:15 Sodium Chloride 0.9% [Normal Saline] 1,000 ml IV ASDIRECTED 06/24/17 18:00 Piperacillin/Tazobactam [Zosyn] 3.375 gm Sodium Chloride 0.9% [Normal Saline] 50 ml IV Q6H 06/24/17 18:18 Morphine 2 mg IVPUSH Q2H PRN 06/24/17 21:00 Acetaminophen/Diphenhydramine [Tylenol PM Extra Strength] 1 tab PO BEDTIME PRN Non-Formulary Medication [NF Drug] 1 each PO BEDTIME 06/24/17 Dinner Full Liquid Diet [DIET] 06/25/17 09:00 Furosemide [Lasix] 80 mg PO DAILY Metoclopramide [Reglan] 10 mg PO DAILY - Plan Plan:: 1. Dr. Dykes contacted me and stated he is in [place] and asked if Dr. Ray with see this patient. I sent a message to Dr. Ray to be kind to see this patient. Dr. Carlton said she may need a colectomy for diverticulitis. 2. Advance diet 3. Accu-Cheks twice a day 4. continue current care.
[2017-06-25] MEDS ORDERED: Acetaminophen/Aspirin/Caffeine 250-250-65 MG Tab PO PRN (08:31)
[2017-06-25] MEDS: Spironolactone 25 MG Tab PO SCH (08:49)
[2017-06-25] MEDS: Furosemide 80 MG Tab PO SCH (08:49)
[2017-06-25] MEDS: Folic Acid 1 MG Tab PO SCH (08:49)
[2017-06-25] MEDS: Ferrous Sulfate 325 MG Tab PO SCH (08:49)
[2017-06-25] MEDS: atorvaSTATin 20 MG Tab PO SCH (08:49)
[2017-06-25] MEDS: Metoclopramide 10 MG Tab PO SCH (08:49)
[2017-06-25] MEDS: LORazepam 1 MG Tab PO PRN ×2 (08:50→20:43)
[2017-06-25] MEDS: Acetaminophen/Codeine 300-30 MG Tab PO PRN (08:50)
[2017-06-25] MEDS: Pregabalin 50 MG Cap PO SCH ×3 (08:50→20:48)
[2017-06-25] MEDS: Fluticasone Propionate Nasal Spray 16 GM Bottle NASBOTH SCH (08:51)
[2017-06-25] MEDS: Carvedilol 3.125 MG Tab PO SCH ×2 (08:51→20:34)
[2017-06-25] MEDS: Polyethylene Glycol 3350 Powder 17 GM Packet PO SCH ×2 (08:51→20:41)
[2017-06-25] MEDS: Formoterol/Mometasone 200-5 MCG 8.8 GM Inhaler IH SCH ×2 (08:51→20:40)
[2017-06-25] MEDS ORDERED: LISDEXAMFETAMINE PO SCH (09:00)
[2017-06-25] MEDS ORDERED: Polyvinyl Alcohol 1.4% Ophth Soln 15 ML Bottle EYEBOTH PRN (09:00)
[2017-06-25] MEDS ORDERED: LISDEXAMFETAMINE 70 MG PO SCH (09:00)
[2017-06-25] MEDS ORDERED: Polyethylene Glycol 3350 Powder 17 GM Packet PO SCH (09:00)
[2017-06-25] MEDS ORDERED: Metoclopramide 10 MG Tab PO SCH (09:00)
[2017-06-25] MEDS: Morphine 2 MG/ML Syringe IVPUSH PRN (09:43)
--- NOTE | 2017-06-25 10:02 | PCM.CONS ---
H&P History of Present Illness - General Date of Service: 06/25/17 Admit Problem/Dx: Patient states she is about the same. Pains about the same. She has more of an appetite today. She denies nausea vomiting, fevers or chills, diarrhea. Pain still left lower quadrant. Morphine is helping. Source of Information: Patient - History of Present Illness Initial Comments - Free Text/Narative: Pt admitted with llq abd pain. This has been a long standing issue with her for the past 2 yrs. Apparently had multiple admissions and multiple course of antibiotics. The pain has apparently persisted. Has been follow by Dr Dykes and is apparently in the process of setting up surgery for a resection. She also notes some issues with "constipation" has a bowel movements once a week. These are loose according to her. Left Lower Abdominal Pain Score (Numeric/FACES): 7 - Related Data Allergies/Adverse Reactions: Allergies Allergy/AdvReac Type Severity Reaction Status Date / Time ciprofloxacin Allergy Cannot Verified 06/24/17 11:01 Remember metronidazole [From Flagyl] Allergy Itching Verified 06/24/17 11:01 Home Medications: Home Meds Furosemide [Lasix] 80 mg PO DAILY 01/12/14 [History] Sennosides/Docusate Sodium [Senna S Tablet] 2 tab PO DAILY 04/03/14 [History] Zolpidem [Ambien] 10 mg PO BEDTIME 04/03/14 [History] Doxepin [SINEquan] 100 mg PO BEDTIME 10/11/14 [History] Carvedilol 3.125 mg PO BID 07/04/16 [History] Cyclobenzaprine [Flexeril] 10 mg PO TID PRN 01/05/17 [History] Ferrous Sulfate 325 mg PO DAILY 01/05/17 [History] Folic Acid 1 mg PO DAILY 01/05/17 [History] Pregabalin [Lyrica] 50 mg PO TID 01/05/17 [History] QUEtiapine [SEROquel] 100 mg PO BEDTIME 01/05/17 [History] Spironolactone [Aldactone] 25 mg PO DAILY 01/05/17 [History] LORazepam 1 mg PO BID PRN 01/07/17 [History] Fluticasone Propionate [Flonase] 1 spray NASBOTH DAILY 01/08/17 [History] Acetaminophen/Codeine [Tylenol with Codeine No.3 300MG/30MG] 1 tab PO TID PRN [History] Excedrin Migraine 1 tab PO DAILY PRN 04/08/17 [History] Loperamide [Imodium AD] 2 mg PO ASDIRECTED PRN 04/08/17 [History] Pantoprazole Sodium [Protonix] 40 mg PO DAILY PRN 04/08/17 [History] Tetrahydrozoline HCl [Visine] 1 drop EYEBOTH DAILY PRN 04/08/17 [History] metFORMIN [Glucophage] 500 mg PO BIDMEALS 04/08/17 [History] Legatrinpm 1 tab PO BID PRN 05/21/17 [History] Albuterol Sulfate [Proair Hfa] 2 puff IH Q6H PRN 06/24/17 [History] Asenapine Maleate [Saphris] 10 mg PO BEDTIME 06/24/17 [History] Budesonide/Formoterol Fumarate [Symbicort 160-4.5 Mcg Inhaler] 2 puff IH BID [History] Lisdexamfetamine [Vyvanse] 70 mg PO DAILY 06/24/17 [History] Metoclopramide HCl [Reglan] 10 mg PO DAILY 06/24/17 [History] Polyethylene Glycol 3350 [MiraLAX] 17 gm PO BID 06/24/17 [History] atorvaSTATin Calcium [Atorvastatin Calcium] 20 mg PO DAILY 06/24/17 [History] diphenhydrAMINE [Benadryl] 50 mg PO BEDTIME 06/24/17 [History] Past Medical History HEENT History: Reports: Impaired Vision Other HEENT History: wear glasses Cardiovascular History: Reports: Angina, High Cholesterol, Hypertension, [place], SOB on Exertion, Other (See Below) Other Cardiovascular History: cardiovascular disease Respiratory History: Reports: COPD, Pneumonia, Recurrent, Sleep Apnea, Other ( See Below) Other Respiratory History: recently on ventilator --Klebisella pneumoniae Gastrointestinal History: Reports: Diverticulosis Other Gastrointestinal History: IBS proceeded the diverticulosis Other Genitourinary History: cyst on kidney [employer]UDENT [employer] History: Reports: 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, Other OB/BYN History: miscarriage x2 Musculoskeletal History: Reports: Back Pain, Chronic, Fibromyalgia, RA Other Musculoskeletal History: sciatic nerve problem, generalized weakness, chronic pain Neurological History: Reports: Neuropathy, Diabetic, Neuropathy, Peripheral Other Neuro History: was in a coma for 5 months, fibromyalgia, neuropathy Psychiatric History: Reports: Anxiety, Bipolar, Depression, Hallucinations, Psych Hospitalization(s), PTSD, Suicide Attempt Other Psychiatric History: insomnia Endocrine/Metabolic History: Reports: Diabetes, Type II, Hypothyroidism, Other ( See Below) Other Endocrine/Metabolic History: borderline diabetic Dermatologic History: Reports: Other (See Below) Other Dermatologic History: occasional yeast infections under breast and adria area - Infectious Disease History Infectious Disease History: Reports: Chicken Pox, Mononucleosis - Past Surgical History GI Surgical History: Reports: Colonoscopy Social & Family History - Family History Family Medical History: Noncontributory Oncologic: Reports: Liver - Tobacco Use Smoking Status *Q: Former Smoker Years of Tobacco use: 25 Packs/Tins Daily: 0.5 Used Tobacco, but Quit: Yes Month Tobacco Last Used: unknown Second Hand Smoke Exposure: No - Caffeine Use Caffeine Use: Reports: None Caffeine Use Comment: unable to tolerate caffiene per patient - Alcohol Use Days Per Week of Alcohol Use: 0 - Recreational Drug Use Recreational Drug Use: No Drug Use in Last 12 Months: No Other Recreational Drug Type: cocaine use in the - Living Situation & Occupation Living situation: Occupation: Unemployed H&P Review of Systems - Review of Systems: Review Of Systems: See Below General: Denies: Fever Pulmonary: Reports: No Symptoms Cardiovascular: Reports: No Symptoms Gastrointestinal: Reports: Abdominal Pain, Other (stooling ) Exam - Exam Exam: See Below - Vital Signs Vital Signs: Last Vital Signs Temp 36.4 C 06/25/17 04:31 Pulse 73 06/25/17 04:31 Resp 16 06/25/17 04:31 BP 108/65 06/25/17 04:31 Pulse Ox 91 L 06/25/17 04:31 Weight: 123.094 kg - Exam General: Alert. No: Mild Distress Lungs: Clear to Auscultation, Normal Respiratory Effort Cardiovascular: Regular Rate, Regular Rhythm GI/Abdominal Exam: Normal Bowel Sounds, Tender (mild tenderness llq no rebound or guarding. ) - Patient Data Lab Results Last 24 hrs: Laboratory Results - last 24 hr 06/24/17 06/25/17 06/25/17 Range/Units 21:00 06:30 06:30 WBC 8.7 (4.5-12.0) X10-3/uL RBC 3.87 (3.23-5.20) x10(6)uL Hgb 10.7 L (11.5-15.5) g/dL Hct 32.7 (30.0-51.3) % MCV 84.5 (80-96) fL MCH 27.8 (27.7-33.6) pg MCHC 32.9 (32.2-35.4) g/dL RDW 16.1 H (11.5-15.5) % Plt Count 332 (125-369) X10(3)uL MPV 7.9 (7.4-10.4) fL Neut % (Auto) 65.1 (46-82) % Lymph % (Auto) 20.0 (13-37) % [place] % (Auto) 8.3 (4-12) % Eos % (Auto) 6 H (1.0-5.0) % Baso % (Auto) 1 (0-2) % Neut # (Auto) 5.6 (1.6-8.3) # Lymph # (Auto) 1.7 (0.6-5.0) # [place] # (Auto) 0.7 (0.0-1.3) # Eos # (Auto) 0.5 (0.0-0.8) # Baso # (Auto) 0.1 (0.0-0.2) # Sodium 141 (135-145) mmol/L Potassium 4.2 (3.5-5.3) mmol/L Chloride 105 D (100-110) mmol/L Carbon Dioxide 33 H (21-32) mmol/L BUN 12 (7-18) mg/dL Creatinine 0.9 (0.55-1.02) mg/dL Est Cr Clr Drug Dosing 69.47 mL/min Estimated GFR (MDRD) > 60 (>60) BUN/Creatinine Ratio 13.3 (9-20) Glucose 105 (80-116) mg/dL Calcium 9.4 (8.6-10.2) mg/dL Total Bilirubin 0.3 (0.1-1.3) mg/dL AST 12 (5-25) IU/L ALT 17 (12-36) U/L Alkaline Phosphatase 73 (56-112) IU/L Total Protein 6.5 (6.0-8.0) g/dL Albumin 2.6 L (3.2-4.6) g/dL Globulin 3.9 g/dL Albumin/Globulin Ratio 0.7 Urine Color Yellow (YELLOW) Urine Appearance Clear (CLEAR) Urine pH 5.0 (5.0-6.5) Ur Specific [place] 1.005 L (1.010-1.025) Urine Protein Negative (NEGATIVE) mg/dL Urine Glucose (UA) Normal (NEGATIVE) mg/dL Urine Ketones Negative (NEGATIVE) mg/dL Urine Occult Blood Negative (NEGATIVE) Urine Nitrite Negative (NEGATIVE) Urine Bilirubin Negative (NEGATIVE) Urine Urobilinogen Normal (NEGATIVE) mg/dL Ur Leukocyte Esterase Negative (NEGATIVE) Urine RBC 0-5 (0) Urine WBC 0-5 (0) Ur Squamous Epith Cells Occasional (NS,R,O) Urine Bacteria Rare H (NS) Result Diagrams: 06/25/17 06:30 06/25/17 06:30 Consult PN Assessment/Plan Procedures: Procedures AIRWAY INHALATION TREATMENT (01/05/17) ASSAY OF ACETAMINOPHEN (06/17/13) ASSAY OF AMYLASE (04/10/17) ASSAY OF CK (CPK) (04/07/17) ASSAY OF ETHANOL (01/12/14) ASSAY OF MAGNESIUM (05/25/17) ASSAY OF NATRIURETIC PEPTIDE (04/07/17) ASSAY OF SALICYLATE (06/17/13) ASSAY OF TROPONIN QUANT (05/25/17) ASSAY THYROID STIM HORMONE (04/10/17) BLOOD GASES ANY COMBINATION (03/23/15) C-REACTIVE PROTEIN (05/25/17) CHEST X-RAY 1 VIEW FRONTAL (04/10/17) CHEST X-RAY 2VW FRONTAL&LATL (01/05/17) CHORIONIC GONADOTROPIN ASSAY (01/12/14) COMPLETE CBC AUTOMATED (04/07/17) COMPLETE CBC W/AUTO DIFF WBC (05/25/17) COMPREHEN METABOLIC PANEL (05/25/17) CONTRAST X-RAY EXAM OF COLON (02/05/15) CREATINE MB FRACTION (11/28/13) CRITICAL CARE ADDL 30 MIN (03/23/15) CRITICAL CARE FIRST HOUR (03/23/15) CT ABD & PELV W/CONTRAST (02/20/15) CT ANGIOGRAPHY CHEST (03/27/17) CT HEAD/BRAIN W/O DYE (01/27/14) DIAGNOSTIC COLONOSCOPY (04/04/14) DRUG TEST PRSMV DIR OPT OBS (04/10/17) EGD DIAGNOSTIC BRUSH WASH (04/04/14) ELECTROCARDIOGRAM TRACING (05/25/17) EMERGENCY DEPT VISIT (06/12/17) EMERGENCY DEPT VISIT (05/25/17) EMERGENCY DEPT VISIT (03/27/17) EMERGENCY DEPT VISIT (02/02/17) EMERGENCY DEPT VISIT (01/07/17) EMERGENCY DEPT VISIT (10/10/16) EMERGENCY DEPT VISIT (08/08/16) EMERGENCY DEPT VISIT (07/29/16) EMERGENCY DEPT VISIT (07/04/16) EMERGENCY DEPT VISIT (01/10/16) EMERGENCY DEPT VISIT (09/17/15) EMERGENCY DEPT VISIT (02/21/15) EMERGENCY DEPT VISIT (02/20/15) EMERGENCY DEPT VISIT (06/02/14) EMERGENCY DEPT VISIT (05/30/14) EMERGENCY DEPT VISIT (04/27/14) EMERGENCY DEPT VISIT (03/12/14) EMERGENCY DEPT VISIT (01/25/14) EMERGENCY DEPT VISIT (01/23/14) EMERGENCY DEPT VISIT (11/28/13) EMERGENCY DEPT VISIT (10/19/13) EMERGENCY DEPT VISIT (06/17/13) FIBRIN DEGRADATION QUANT (03/27/17) GLUCOSE BLOOD TEST (04/07/17) GLYCOSYLATED HEMOGLOBIN TEST (04/10/17) HEPATIC FUNCTION PANEL (08/08/16) HYDRATE IV INFUSION ADD-ON (01/07/17) HYDRATION IV INFUSION INIT (12/01/16) METABOLIC PANEL TOTAL CA (04/07/17) PROTHROMBIN TIME (04/10/17) RBC SED RATE NONAUTOMATED (09/17/15) ROUTINE VENIPUNCTURE (05/25/17) THER/PROPH/DIAG INJ IV PUSH (01/07/17) THER/PROPH/DIAG INJ SC/IM (01/05/17) TRANSVAGINAL US NON-OB (12/13/13) TX/PRO/DX INJ NEW DRUG ADDON (01/07/17) TX/PRO/DX INJ SAME DRUG FILM REPLACEMENT ORDERER (03/23/15) URINALYSIS AUTO W/SCOPE (06/12/17) URINE CULTURE/COLONY COUNT (01/07/17) US EXAM PELVIC COMPLETE (12/13/13) VITAL CAPACITY TEST (01/07/17) WITHDRAWAL OF ARTERIAL BLOOD (03/23/15) X-RAY EXAM HIP UNI 2-3 VIEWS (07/29/16) X-RAY EXAM OF ABDOMEN (06/12/17) X-RAY EXAM OF ABDOMEN (08/08/16) X-RAY EXAM OF PELVIS (01/27/14) (1) Acute diverticulitis SNOMED Code(s): 208993402 Code(s): K57.92 - DVTRCLI OF INTEST, PART UNSP, W/O PERF OR ABSCESS W/O BLEED Current Visit: Yes Problem List Initiated/Reviewed/Updated: Yes My Orders Last 24 Hours: She has a non surgical abd and appears to have acute on chronic diverticulitis. Plan: Pt quite adamant about surgery being the only option she is interested in. Does not appear to require any intervention now. would continue antibiotics and have her follow up with Dr Dykes.
[2017-06-25] MEDS: LEGATRIN PM PO PRN (15:50)
[2017-06-25] MEDS: Acetaminophen/HYDROcodone 325-5 MG Tab PO SCH ×2 (15:50→20:32)
[2017-06-25] MEDS: rOPINIRole 1 MG Tab PO SCH ×2 (15:51→20:42)
[2017-06-25] MEDS: Sodium Chloride 0.9% 10 ML Syringe FLUSH PRN (18:30)
[2017-06-25] MEDS: Zolpidem 10 MG Tab PO SCH (20:32)
[2017-06-25] MEDS: diphenhydrAMINE 50 MG Cap PO SCH (20:34)
[2017-06-25] MEDS: ASENAPINE 10 MG SL SCH (20:41)
[2017-06-25] MEDS: QUEtiapine 100 MG Tab PO SCH (20:42)
[2017-06-25] MEDS ORDERED: ASENAPINE MALEATE 10 MG PO SCH (21:00)
[2017-06-26] MEDS: Acetaminophen/HYDROcodone 325-5 MG Tab PO SCH ×6 (00:37→20:06)
[2017-06-26] MEDS: Piperacillin/Tazobactam 3.375 GM in Sodium Chloride 0.9% 50 ML IV SCH ×4 (00:39→18:18)
[2017-06-26] MEDS: Carvedilol 3.125 MG Tab PO SCH ×2 (08:01→20:09)
[2017-06-26] MEDS: Spironolactone 25 MG Tab PO SCH (08:01)
[2017-06-26] MEDS: Formoterol/Mometasone 200-5 MCG 8.8 GM Inhaler IH SCH ×2 (08:02→20:09)
[2017-06-26] MEDS: Ferrous Sulfate 325 MG Tab PO SCH (08:02)
[2017-06-26] MEDS: Fluticasone Propionate Nasal Spray 16 GM Bottle NASBOTH SCH (08:03)
[2017-06-26] MEDS: Folic Acid 1 MG Tab PO SCH (08:03)
[2017-06-26] MEDS: Furosemide 80 MG Tab PO SCH (08:04)
[2017-06-26] MEDS: atorvaSTATin 20 MG Tab PO SCH (08:04)
[2017-06-26] MEDS: Metoclopramide 10 MG Tab PO SCH (08:07)
[2017-06-26] MEDS: Polyethylene Glycol 3350 Powder 17 GM Packet PO SCH ×2 (08:07→20:11)
[2017-06-26] MEDS: rOPINIRole 1 MG Tab PO SCH ×3 (08:07→20:07)
[2017-06-26] MEDS: Pregabalin 50 MG Cap PO SCH ×3 (08:16→20:23)
[2017-06-26] MEDS ORDERED: Loperamide 2 MG Cap PO PRN (08:22)
[2017-06-26] MEDS: Acetaminophen/Codeine 300-30 MG Tab PO PRN (10:21)
[2017-06-26] MEDS ORDERED: Sodium Chloride 0.9% 1,000 ML IV SCH (11:45)
[2017-06-26] MEDS: LEGATRIN PM PO PRN ×2 (11:56→20:17)
[2017-06-26] MEDS: Sodium Chloride 0.9% 10 ML Syringe FLUSH PRN ×2 (11:58→22:09)
--- NOTE | 2017-06-26 13:32 | PN ---
DATE SEEN: 06/26/2017 HISTORY OF PRESENT ILLNESS: Linda Cat is a 62-year-old female, admitted to the hospital. ALLERGIES: To ciprofloxacin and metronidazole. She presented with acute diverticulitis, confirmed by CT scan of 06/24/2017. Seen by Dr. Ray. Surgery not indicated. Consultation through Dr. Ledbetter, nonsurgical issue, upcoming plan with Dr. Dykes. Compliance is an issue of concern. I went over the host of issues, implications, and concerns in present therapy. LABORATORY STUDIES: White count on admission 12,100, repeat 8700, hemoglobin 12.3, down to 10.7, we will recheck. PHYSICAL EXAMINATION: VITAL SIGNS: Stable. Temperature 37.3 Fahrenheit, pulse 83, blood pressure 120/70, respirations 16, and O2 saturations 94%. GENERAL: Appears comfortable. NECK: Benign. Thyroid small. ABDOMEN: Benign. Diffusely tender. ASSESSMENT: Acute diverticulitis. PLAN: We will continue present antibiotic therapy, close observation, IV fluids, pain control on board. /[id number] 1201 /ALEXA
[2017-06-26] MEDS: metFORMIN 500 MG Tab PO SCH (18:18)
[2017-06-26] MEDS: diphenhydrAMINE 50 MG Cap PO SCH (20:08)
[2017-06-26] MEDS: ASENAPINE 10 MG SL SCH (20:11)
[2017-06-26] MEDS: QUEtiapine 100 MG Tab PO SCH (20:19)
[2017-06-26] MEDS: Zolpidem 10 MG Tab PO SCH (21:31)
[2017-06-27] MEDS: Acetaminophen/HYDROcodone 325-5 MG Tab PO SCH ×6 (00:42→20:05)
[2017-06-27] MEDS: Piperacillin/Tazobactam 3.375 GM in Sodium Chloride 0.9% 50 ML IV SCH ×2 (00:47→05:33)
[2017-06-27] MEDS: metFORMIN 500 MG Tab PO SCH ×2 (08:53→17:44)
[2017-06-27] MEDS: Spironolactone 25 MG Tab PO SCH (08:53)
[2017-06-27] MEDS: Carvedilol 3.125 MG Tab PO SCH ×2 (08:54→20:08)
[2017-06-27] MEDS: Fluticasone Propionate Nasal Spray 16 GM Bottle NASBOTH SCH (08:55)
[2017-06-27] MEDS: Formoterol/Mometasone 200-5 MCG 8.8 GM Inhaler IH SCH ×2 (08:55→20:08)
[2017-06-27] MEDS: Ferrous Sulfate 325 MG Tab PO SCH (08:55)
[2017-06-27] MEDS: Folic Acid 1 MG Tab PO SCH (08:56)
[2017-06-27] MEDS: atorvaSTATin 20 MG Tab PO SCH (08:57)
[2017-06-27] MEDS: Furosemide 80 MG Tab PO SCH (08:57)
[2017-06-27] MEDS: Polyethylene Glycol 3350 Powder 17 GM Packet PO SCH ×2 (08:58→20:05)
[2017-06-27] MEDS: Metoclopramide 10 MG Tab PO SCH (08:59)
[2017-06-27] MEDS: rOPINIRole 1 MG Tab PO SCH ×3 (08:59→20:07)
[2017-06-27] MEDS: Pregabalin 50 MG Cap PO SCH ×3 (09:03→20:05)
[2017-06-27] MEDS: Amoxicillin/Clavulanate K 500-125 MG Tab PO SCH ×2 (11:33→20:07)
[2017-06-27] MEDS ORDERED: Glycerin Adult 2.1 GM Supp RECTAL ONE (15:27)
[2017-06-27] MEDS: LORazepam 1 MG Tab PO PRN (17:44)
[2017-06-27] MEDS: Zolpidem 10 MG Tab PO SCH (20:05)
[2017-06-27] MEDS: ASENAPINE 10 MG SL SCH (20:05)
[2017-06-27] MEDS: QUEtiapine 100 MG Tab PO SCH (20:06)
[2017-06-27] MEDS: diphenhydrAMINE 50 MG Cap PO SCH (20:08)
[2017-06-27] MEDS: LEGATRIN PM PO PRN (20:09)
[2017-06-28] MEDS: Acetaminophen/HYDROcodone 325-5 MG Tab PO SCH ×6 (00:49→19:45)
[2017-06-28] MEDS: metFORMIN 500 MG Tab PO SCH ×2 (08:36→17:44)
[2017-06-28] MEDS: Carvedilol 3.125 MG Tab PO SCH ×2 (08:37→21:37)
[2017-06-28] MEDS: rOPINIRole 1 MG Tab PO SCH ×3 (08:38→21:37)
[2017-06-28] MEDS: Amoxicillin/Clavulanate K 500-125 MG Tab PO SCH ×2 (08:38→21:37)
[2017-06-28] MEDS: Metoclopramide 10 MG Tab PO SCH (08:39)
[2017-06-28] MEDS: Spironolactone 25 MG Tab PO SCH (08:39)
[2017-06-28] MEDS: Furosemide 80 MG Tab PO SCH (08:39)
[2017-06-28] MEDS: Formoterol/Mometasone 200-5 MCG 8.8 GM Inhaler IH SCH ×2 (08:40→21:37)
[2017-06-28] MEDS: Ferrous Sulfate 325 MG Tab PO SCH (08:40)
[2017-06-28] MEDS: Fluticasone Propionate Nasal Spray 16 GM Bottle NASBOTH SCH (08:40)
[2017-06-28] MEDS: Polyethylene Glycol 3350 Powder 17 GM Packet PO SCH ×2 (08:41→21:36)
[2017-06-28] MEDS: Folic Acid 1 MG Tab PO SCH (08:41)
[2017-06-28] MEDS: atorvaSTATin 20 MG Tab PO SCH (08:41)
[2017-06-28] MEDS: Pregabalin 50 MG Cap PO SCH ×3 (08:49→21:36)
[2017-06-28] MEDS: LORazepam 1 MG Tab PO PRN (17:47)
[2017-06-28] MEDS: diphenhydrAMINE 50 MG Cap PO SCH (21:37)
[2017-06-28] MEDS: Zolpidem 10 MG Tab PO SCH (21:37)
[2017-06-28] MEDS: ASENAPINE 10 MG SL SCH (21:37)
[2017-06-28] MEDS: QUEtiapine 100 MG Tab PO SCH (21:37)
[2017-06-29] MEDS: Acetaminophen/HYDROcodone 325-5 MG Tab PO SCH ×4 (00:03→12:11)
[2017-06-29] MEDS: Carvedilol 3.125 MG Tab PO SCH (09:17)
[2017-06-29] MEDS: Amoxicillin/Clavulanate K 500-125 MG Tab PO SCH (09:17)
[2017-06-29] MEDS: Formoterol/Mometasone 200-5 MCG 8.8 GM Inhaler IH SCH (09:17)
[2017-06-29] MEDS: Spironolactone 25 MG Tab PO SCH (09:17)
[2017-06-29] MEDS: metFORMIN 500 MG Tab PO SCH (09:17)
[2017-06-29] MEDS: Folic Acid 1 MG Tab PO SCH (09:18)
[2017-06-29] MEDS: Fluticasone Propionate Nasal Spray 16 GM Bottle NASBOTH SCH (09:18)
[2017-06-29] MEDS: atorvaSTATin 20 MG Tab PO SCH (09:18)
[2017-06-29] MEDS: Furosemide 80 MG Tab PO SCH (09:18)
[2017-06-29] MEDS: Ferrous Sulfate 325 MG Tab PO SCH (09:18)
[2017-06-29] MEDS: Metoclopramide 10 MG Tab PO SCH (09:19)
[2017-06-29] MEDS: Polyethylene Glycol 3350 Powder 17 GM Packet PO SCH (09:19)
[2017-06-29 09:20] VITALS: BP 151/98
[2017-06-29] MEDS: rOPINIRole 1 MG Tab PO SCH ×2 (09:20→14:15)
[2017-06-29] MEDS: Pregabalin 50 MG Cap PO SCH ×2 (09:22→14:14)
--- NOTE | 2017-06-29 10:53 | CR ---
INDICATION: Abdominal pain, question obstruction. ABDOMEN: Supine and upright views of the abdomen 06/29/2017, were compared with 06/12/2017. The upright views were limited in that the right hemidiaphragm was not fully included. No free air was seen as visualized, however. The pattern of gas and feces was essentially nonspecific. Minimal air-fluid levels on the right are of questionable significance, with no significant distention of the bowel in that area. A process such as early gastroenteritis or minimal paralytic ileus is difficult to entirely exclude. However, more likely this finding represents fluid intake. No definite mass lesions or organomegaly could be identified. No definite pathologic calcification was identified. 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 IMPRESSION: For the most part, nonspecific abdomen. There are some very minimal air-fluid levels in the right flank of questionable significance. However, no distention of the bowel or gross free air was identified. The upright view was slightly limited in that the right hemidiaphragm was not fully included. ADDENDUM: at 1145 An upright view of the abdomen was obtained, including the diaphragm leaves and revealed no evidence of free air under the hemidiaphragm leaves. MTDD
--- NOTE | 2017-06-30 09:32 | PN ---
DATE SEEN: 06/27/2017 SUBJECTIVE: Linda Cat is a 62-year-old female, seen today for a routine visit. She had a pretty good night. Loss of keys last night created some conflict. Feeling better. Pain is evolving, stools has been comfortable. PHYSICAL EXAMINATION: VITAL SIGNS: Stable. Temperature 36.8, pulse 76, blood pressure 124/77, 16 is the respiration, O2 saturations 94%. CHEST: Clear. HEART: Regular. ABDOMEN: Benign. LABORATORY STUDIES: CBC planned for today. ASSESSMENT: Acute diverticulitis. PLAN: Medications, care, and treatment appropriate. She was switched from IV to oral antibiotics. Intervention and care, close observation. Proceed accordingly. /[id number] CRYSTAL/ALEXA
--- NOTE | 2017-06-30 09:52 | PN ---
DATE SEEN: 06/28/2017 SUBJECTIVE: Linda Cat is a 62-year-old female, admitted with acute diverticulitis. Clinical response appears to be appropriate. She has had some reluctance stools. Some diarrhea when she came in, reduced appetite, little intake. Glycerin suppository provided moderate benefit. Post stool, she had an acute left lower quadrant pain. I will request ultrasound. OBJECTIVE: VITAL SIGNS: Stable. CHEST: Clear. HEART: Regular. ABDOMEN: Benign. ASSESSMENT: Peculiar left lower quadrant pain. PLAN: Does have known diverticular disease, CT on 06/24/2017 revealed chronic and recurrent DVT, no free air or abscess. Right ovarian cyst has been stable. With moderate activity, limited intake, and close observation, we will see how the day goes. /[id number] [id number] CRYSTAL/ALEXA
--- NOTE | 2017-08-10 06:31 | DISCH ---
DISCHARGE DATE: 06/29/2017 HOSPITAL COURSE: Linda Cat is a 62-year-old female, admitted with complicated abdominal pain, clinical concern of acute diverticulitis; recurrent and repetitive in nature. DIAGNOSTIC STUDIES: CT scan 06/24/2017 revealed diverticulosis with localized pericolic peritonitis, complicated right ovarian cyst, some benign kidney cysts and a sense of reduced well-being. Assisted increased in size. She was placed on appropriate antibiotics and medical treatment, was seen by Dr. Ray on 06/25/2017. Multiple admissions, recurrent antibiotics, conversation with surgery with Dr. Dykes felt not to be appropriate at this time. Dr. Dykes similarly consulted. She responded to therapy, appetite improved, stools became less problematic and she was in reasonable spirits upon discharge. Cystic mass was stable. Discharged for followup with Dr. Dykes, timing appropriate treatment. MEDICATIONS: Please see med recon list. SURGICAL PROCEDURE: Dr. Ray and Dr. Dykes. Addendum 30 minutes discharge care provided. /[id number] /ALEXA
== END 2017-06-29 15:45 | disposition home or self-care (01) | DRG 392 ==
LOC: FB.ED 10:21 → FB.MS 15:28
PROVIDERS: ADMIT Family Medicine; ATTEND Family Medicine
DX: K57.32 Diverticulitis of large intestine without perforation or abscess without bleeding (principal); Z68.41 Body mass index [BMI] 40.0-44.9, adult; N83.201 Unspecified ovarian cyst, right side; I10 Essential (primary) hypertension; Z91.89 Other specified personal risk factors, not elsewhere classified; J44.9 Chronic obstructive pulmonary disease, unspecified; F31.9 Bipolar disorder, unspecified; G89.29 Other chronic pain; F41.9 Anxiety disorder, unspecified; I25.2 Old myocardial infarction; M54.9 Dorsalgia, unspecified; M79.7 Fibromyalgia; M06.9 Rheumatoid arthritis, unspecified; E11.42 Type 2 diabetes mellitus with diabetic polyneuropathy; Z79.84 Long term (current) use of oral hypoglycemic drugs; R53.1 Weakness; F43.10 Post-traumatic stress disorder, unspecified; K59.00 Constipation, unspecified; G47.30 Sleep apnea, unspecified; E78.00 Pure hypercholesterolemia, unspecified; H54.7 Unspecified visual loss; Z87.01 Personal history of pneumonia (recurrent); Z87.891 Personal history of nicotine dependence; E66.01 Morbid (severe) obesity due to excess calories; Z66 Do not resuscitate; Z51.5 Encounter for palliative care; Z91.5 Personal history of self-harm; F14.11 Cocaine abuse, in remission; Z88.1 Allergy status to other antibiotic agents; Z88.8 Allergy status to other drugs, medicaments and biological substances
CPT/HCPCS: 36415; 74020; 74177; 80048; 80053; 81001; 82962; 85025; 86140; 96361; 96374; 96375; 99285; A9270-GY; J2270; J2405; J2543; J7040; J7050; Q9967

== ENCOUNTER 2017-06-30 20:53 | Emergency (ER) | payer MEDICAID ==
--- NOTE | 2017-06-30 21:32 | EDM.PDOCBH ---
ED HPI GENERAL MEDICAL PROBLEM - General Chief Complaint: Behavioral/Psych Stated Complaint: OVERDOSE Time Seen by Provider: 06/30/17 21:00 Source of Information: Reports: Patient, EMS, EMS Notes Reviewed, Old Records History Limitations: Reports: No Limitations - History of Present Illness INITIAL COMMENTS - FREE TEXT/NARRATIVE: Linda reports taking an unknown quantity of Doxepin 100 mg caps and Carvediol 3.125 at 6:00 pm because she wants "to see her mother in pending sale to [facility]"; "I don't want to live". She was recently discharged from [facility] for chronic diverticulitis yesterday, surgical consult per Dr Ray. She has not discussed further managment with PCP since discharge, and wants surgery. Currently, pain is present but improved. She has a PMH of BPAD w depression, anxiety, and suicidal in the past. Lower Abdominal Pain Score (Numeric/FACES): 7 - Related Data Allergies Allergy/AdvReac Type Severity Reaction Status Date / Time ciprofloxacin Allergy Cannot Verified 07/01/17 02:09 Remember metronidazole [From Flagyl] Allergy Itching Verified 07/01/17 02:09 Home Meds: Home Meds Furosemide [Lasix] 80 mg PO DAILY 01/12/14 [History] Sennosides/Docusate Sodium [Senna S Tablet] 2 tab PO DAILY 04/03/14 [History] Zolpidem [Ambien] 10 mg PO BEDTIME 04/03/14 [History] Doxepin [SINEquan] 100 mg PO BEDTIME 10/11/14 [History] Carvedilol 3.125 mg PO BID 07/04/16 [History] Cyclobenzaprine [Flexeril] 10 mg PO TID PRN 01/05/17 [History] Ferrous Sulfate 325 mg PO DAILY 01/05/17 [History] Folic Acid 1 mg PO DAILY 01/05/17 [History] Pregabalin [Lyrica] 50 mg PO TID 01/05/17 [History] QUEtiapine [SEROquel] 100 mg PO BEDTIME 01/05/17 [History] Spironolactone [Aldactone] 25 mg PO DAILY 01/05/17 [History] LORazepam 1 mg PO BID PRN 01/07/17 [History] Fluticasone Propionate [Flonase] 1 spray NASBOTH DAILY 01/08/17 [History] Acetaminophen/Codeine [Tylenol with Codeine No.3 300MG/30MG] 1 tab PO TID PRN [History] Excedrin Migraine 1 tab PO DAILY PRN 04/08/17 [History] Loperamide [Imodium AD] 2 mg PO ASDIRECTED PRN 04/08/17 [History] Pantoprazole Sodium [Protonix] 40 mg PO DAILY PRN 04/08/17 [History] Tetrahydrozoline HCl [Visine] 1 drop EYEBOTH DAILY PRN 04/08/17 [History] metFORMIN [Glucophage] 500 mg PO BIDMEALS 04/08/17 [History] Legatrinpm 1 tab PO BID PRN 05/21/17 [History] Albuterol Sulfate [Proair Hfa] 2 puff IH Q6H PRN 06/24/17 [History] Asenapine Maleate [Saphris] 10 mg PO BEDTIME 06/24/17 [History] Budesonide/Formoterol Fumarate [Symbicort 160-4.5 Mcg Inhaler] 2 puff IH BID [History] Lisdexamfetamine [Vyvanse] 70 mg PO DAILY 06/24/17 [History] Metoclopramide HCl [Reglan] 10 mg PO DAILY 06/24/17 [History] Polyethylene Glycol 3350 [MiraLAX] 17 gm PO BID 06/24/17 [History] atorvaSTATin Calcium [Atorvastatin Calcium] 20 mg PO DAILY 06/24/17 [History] diphenhydrAMINE [Benadryl] 50 mg PO BEDTIME 06/24/17 [History] Meloxicam 15 mg PO DAILY 06/25/17 [History] Acetaminophen/HYDROcodone [Reno 325-5 MG] 1 tab PO Q4H tablet 06/29/17 [Rx] Amoxicillin/Clavulanate K [Augmentin 500-125 MG] 1 tab PO BID #20 tablet [Rx] Polyethylene Glycol 3350 [MiraLAX] 17 gm PO BID packet 06/29/17 [Rx] Past Medical History HEENT History: Reports: Impaired Vision Other HEENT History: wear glasses Cardiovascular History: Reports: Angina, High Cholesterol, Hypertension, GA, SOB on Exertion, Other (See Below) Other Cardiovascular History: cardiovascular disease Respiratory History: Reports: COPD, Pneumonia, Recurrent, Sleep Apnea, Other ( See Below) Other Respiratory History: recently on ventilator --Klebisella pneumoniae Gastrointestinal History: Reports: Diverticulosis Other Gastrointestinal History: IBS proceeded the diverticulosis Other Genitourinary History: cyst on kidney 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 History: Reports: 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, Other OB/BYN History: miscarriage x2 Musculoskeletal History: Reports: Back Pain, Chronic, Fibromyalgia, RA Other Musculoskeletal History: sciatic nerve problem, generalized weakness, chronic pain Neurological History: Reports: Neuropathy, Diabetic, Neuropathy, Peripheral Other Neuro History: was in a coma for 5 months, fibromyalgia, neuropathy Psychiatric History: Reports: Anxiety, Bipolar, Depression, Hallucinations, Psych Hospitalization(s), PTSD, Suicide Attempt Other Psychiatric History: insomnia Endocrine/Metabolic History: Reports: Diabetes, Type II, Hypothyroidism, Other ( See Below) Other Endocrine/Metabolic History: borderline diabetic Dermatologic History: Reports: Other (See Below) Other Dermatologic History: occasional yeast infections under breast and adria area - Infectious Disease History Infectious Disease History: Reports: Chicken Pox, Mononucleosis - Past Surgical History GI Surgical History: Reports: Colonoscopy Social & Family History - Family History Family Medical History: Noncontributory Oncologic: Reports: Liver - Tobacco Use Smoking Status *Q: Former Smoker Years of Tobacco use: 25 Packs/Tins Daily: 0.5 Used Tobacco, but Quit: Yes Month Tobacco Last Used: unknown Second Hand Smoke Exposure: No - Caffeine Use Caffeine Use: Reports: None Caffeine Use Comment: unable to tolerate caffiene per patient - Alcohol Use Days Per Week of Alcohol Use: 0 - Recreational Drug Use Recreational Drug Use: No Drug Use in Last 12 Months: No Other Recreational Drug Type: cocaine use in the - Living Situation & Occupation Living situation: Occupation: Unemployed ED ROS GENERAL - Review of Systems Review Of Systems: See Below Constitutional: Reports: Malaise, Fatigue HEENT: Reports: No Symptoms Respiratory: Reports: No Symptoms Cardiovascular: Reports: No Symptoms Endocrine: Reports: Fatigue GI/Abdominal: Reports: Abdominal Pain, Decreased Appetite : Reports: No Symptoms Musculoskeletal: Reports: Back Pain Skin: Reports: No Symptoms Neurological: Reports: Numbness, Pre-Existing Deficit, Tingling Psychiatric: Reports: Anxiety, Depression, Mood Lability, Suicidal Ideation Hematologic/Lymphatic: Reports: No Symptoms Immunologic: Reports: No Symptoms ED EXAM, BEHAVIORAL HEALTH - Physical Exam Exam: See Below Exam Limited By: No Limitations General Appearance: Alert, WD/WN, Lethargic Eye Exam: Bilateral Eye: EOMI, Normal Inspection, PERRL Ears: Normal External Exam, Normal TMs Nose: Normal Inspection Throat/Mouth: Normal Inspection, Normal Oropharynx Head: Normocephalic Neck: Normal Inspection, Supple, Non-Tender Respiratory/Chest: No Respiratory Distress, Lungs Clear, Normal Breath Sounds, No Accessory Muscle Use Cardiovascular: Normal Peripheral Pulses, Regular Rate, Rhythm, No Murmur GI/Abdominal: Normal Bowel Sounds, Soft, No Organomegaly, No Distention, No Mass , Tender (mild LLQ) (Female) Exam: Deferred Rectal (Female) Exam: Deferred Back Exam: Normal Inspection Extremities: Normal Inspection Neurological: Alert, CN II-XII Intact, Normal Reflexes, No Motor/Sensory Deficits, Oriented x 3 Psychiatric: Depressed Mood, Flat Affect, Inattentive, Poor Eye Contact, Suicidal Thoughts, Other (lethargic) Skin Exam: Warm, Dry, Intact, Normal color COURSE, BEHAVIORAL HEALTH COMP - Course Vital Signs: Last Vital Signs Temp 36.4 C 07/01/17 11:52 Pulse 83 07/01/17 11:52 Resp 16 07/01/17 11:52 BP 110/61 07/01/17 11:52 Pulse Ox 98 07/01/17 11:52 Following assessment at the [facility] ED, I contact Poison Control regarding managment suggestions. Her baseline ekg noted QTc interval .497, and follow up QTc interval .496 at midnight. There was some initial hypotension managed with NS fluid bolus successfully, and no bradycardia. Screening labwork was satisfactory, drug screen satisfactory for ASA and Acetominophen. She received 2L of NS, sips of clear liquids, and drifted from lethargy to some agitation during ED stay. A Telemedicine Psych Consult is anticipated in the am, management turned over to Dr Heard at change of shift. Orders, Labs, Meds: Laboratory Tests 06/30/17 06/30/17 07/01/17 Range/Units 21:50 21:50 05:45 WBC 11.2 (4.5-12.0) X10-3/uL RBC 4.47 (3.23-5.20) x10(6)uL Hgb 12.2 (11.5-15.5) g/dL Hct 37.3 (30.0-51.3) % MCV 83.4 (80-96) fL MCH 27.2 L (27.7-33.6) pg MCHC 32.6 (32.2-35.4) g/dL RDW 15.9 H (11.5-15.5) % Plt Count 375 H (125-369) X10(3)uL MPV 8.0 (7.4-10.4) fL Neut % (Auto) 68.9 (46-82) % Lymph % (Auto) 18.6 (13-37) % Eaton % (Auto) 8.5 (4-12) % Eos % (Auto) 3 (1.0-5.0) % Baso % (Auto) 1 (0-2) % Neut # (Auto) 7.6 (1.6-8.3) # Lymph # (Auto) 2.1 (0.6-5.0) # Eaton # (Auto) 1.0 (0.0-1.3) # Eos # (Auto) 0.4 (0.0-0.8) # Baso # (Auto) 0.1 (0.0-0.2) # Sodium 141 (135-145) mmol/L Potassium 4.2 (3.5-5.3) mmol/L Chloride 104 (100-110) mmol/L Carbon Dioxide 29 (21-32) mmol/L BUN 11 (7-18) mg/dL Creatinine 1.3 H (0.55-1.02) mg/dL Est Cr Clr Drug Dosing TNP Estimated GFR (MDRD) 42 L (>60) BUN/Creatinine Ratio 8.5 L (9-20) Glucose 104 (80-116) mg/dL Calcium 11.0 H (8.6-10.2) mg/dL Salicylates 1.8 L (2.8-20.0) mg/dL Urine Opiates Screen (NEGATIVE) Ur Oxycodone Screen (NEGATIVE) Ur Propoxyphene Screen (NEGATIVE) Acetaminophen < 2 L (10-30) ug/mL Ur Barbituates Screen (NEGATIVE) Ur Tricyclics Screen (NEGATIVE) Ur Phencyclidine Scrn (NEGATIVE) Ur Amphetamine Screen (NEGATIVE) Urine MDMA Screen (NEGATIVE) U Benzodiazepines Scrn (NEGATIVE) U Cocaine Metab Screen (NEGATIVE) U Marijuana (THC) Screen (NEGATIVE) 07/01/17 Range/Units 06:10 WBC (4.5-12.0) X10-3/uL RBC (3.23-5.20) x10(6)uL Hgb (11.5-15.5) g/dL Hct (30.0-51.3) % MCV (80-96) fL MCH (27.7-33.6) pg MCHC (32.2-35.4) g/dL RDW (11.5-15.5) % Plt Count (125-369) X10(3)uL MPV (7.4-10.4) fL Neut % (Auto) (46-82) % Lymph % (Auto) (13-37) % Eaton % (Auto) (4-12) % Eos % (Auto) (1.0-5.0) % Baso % (Auto) (0-2) % Neut # (Auto) (1.6-8.3) # Lymph # (Auto) (0.6-5.0) # Eaton # (Auto) (0.0-1.3) # Eos # (Auto) (0.0-0.8) # Baso # (Auto) (0.0-0.2) # Sodium (135-145) mmol/L Potassium (3.5-5.3) mmol/L Chloride (100-110) mmol/L Carbon Dioxide (21-32) mmol/L BUN (7-18) mg/dL Creatinine (0.55-1.02) mg/dL Est Cr Clr Drug Dosing Estimated GFR (MDRD) (>60) BUN/Creatinine Ratio (9-20) Glucose (80-116) mg/dL Calcium (8.6-10.2) mg/dL Salicylates (2.8-20.0) mg/dL Urine Opiates Screen Positive H (NEGATIVE) Ur Oxycodone Screen Negative (NEGATIVE) Ur Propoxyphene Screen Negative (NEGATIVE) Acetaminophen (10-30) ug/mL Ur Barbituates Screen Negative (NEGATIVE) Ur Tricyclics Screen Positive H (NEGATIVE) Ur Phencyclidine Scrn Negative (NEGATIVE) Ur Amphetamine Screen Positive H (NEGATIVE) Urine MDMA Screen Negative (NEGATIVE) U Benzodiazepines Scrn Positive H (NEGATIVE) U Cocaine Metab Screen Negative (NEGATIVE) U Marijuana (THC) Screen Negative (NEGATIVE) Medications Discontinued Medications Generic Name Dose Route Start Last Admin Trade Name Sundayq PRN Reason Stop Dose Admin Sodium Chloride 2,000 mls @ 999 mls/hr 06/30/17 21:45 06/30/17 22:53 Normal Saline IV 250 mls/hr ASDIRECTED NIA Administration Sodium Chloride 2,000 mls @ 250 mls/hr 06/30/17 23:00 07/01/17 03:00 Normal Saline IV 250 mls/hr ASDIRECTED NIA Administration Sodium Chloride 10 ml 06/30/17 21:34 07/01/17 06:29 Saline Flush FLUSH 10 ml ASDIRECTED PRN Administration Keep Vein Open Departure - Departure Time of Disposition: 10:00 Disposition: Home, Self-Care 01 Condition: Fair Clinical Impression: Depressive disorder, Diverticulitis - Discharge Information Instructions: Drug Overdose Referrals: PCP,Unknown [Primary Care Provider] - Forms: ED Department Discharge Additional Instructions: FOLLOW UP WITH OUR MD 1 WEEK KEEP YOUR APPOINTMENTS WITH DR SANCHEZ - [facility] FOLLOW UP WITH YOUR DOCTOR NEXT WEEK AT CLINIC KEEP YOUR SURGERY CONSULTATION APPOINTMENT IN [place] TOMORROW NO CHANGE IN MEDICATION MELATONIN 3 MG FOR SLEEP_ CAN BE BOUGHT OVER THE COUNTER - Problem List & Annotations (1) Depressive disorder SNOMED Code(s): 31181375 Code(s): F32.9 - MAJOR DEPRESSIVE DISORDER, SINGLE EPISODE, UNSPECIFIED Status: Acute Annotation/Comment:: Following consult with [facility] psychologist, patient was discharged home per ED provider. (2) Diverticulitis SNOMED Code(s): 611188016 Code(s): K57.92 - DVTRCLI OF INTEST, PART UNSP, W/O PERF OR ABSCESS W/O BLEED Status: Acute Annotation/Comment:: Patient was discharged to follow up with surgical consult in [place], [place] later today. - Problem List Review Problem List Initiated/Reviewed/Updated: Yes - Assessment/Plan Plan: Follow up with PCP and consultants as required.
[2017-06-30] MEDS: Sodium Chloride 0.9% 2,000 ML IV SCH ×2 (21:51→22:53)
[2017-06-30] MEDS: Sodium Chloride 0.9% 10 ML Syringe FLUSH PRN (21:52)
[2017-06-30] MEDS ORDERED: Sodium Chloride 0.9% 2,000 ML IV SCH (23:00)
[2017-07-01 05:59] LABS: ACETAMINOPHEN < 2 ug/mL (10-30)
[2017-07-01] MEDS: Sodium Chloride 0.9% 10 ML Syringe FLUSH PRN (06:29)
[2017-07-01 12:28] VITALS: BP 110/61
--- NOTE | 2017-07-02 12:47 | ER ---
DATE SEEN: 06/30/2017 HISTORY OF PRESENT ILLNESS: This 62-year-old, woman, who has had chronic intermittent abdominal discomfort, diverticulosis, diverticulitis, is going to see a surgeon tomorrow because she has chronic severe pain in the lower abdomen that she is unable to manage. Also, has a left ovarian cyst which she is planning to have taken out; was hospitalized 06/24/2017 to 06/29/2017 for abdominal pain and had been hopitalized for a previous episode of this diverticulitis approximately a month ago. She has other significant illnesses of angina, dyslipidemia, hypertension, dyspnea on exertion, COPD, pneumonias in the past, sleep apnea, cyst on her kidney, endometriosis, previous pregnancies, sciatic nerve, peripheral neuropathy secondary to diabetes, fibromyalgia, anxiety, bipolar with depression, hallucinations, previous psychiatric hospitalizations, PTSD, suicide attempts, insomnia, and has been followed by Dr. Murcia every three months, psychiatrist in [facility] in [place]. She has twice a week "[employer]" workers who come in and help her with housekeeping and errands when she needs to get out of the house and they perform other minor chores and also a psychiatric worker, Terence, who sees her every other week, but he has not been there for 2 weeks since he has been sick. On evaluation of the patient's psychiatric status: SIGECAPS, national mnemonic for depression, is negative for the first letter SIG; she feels slightly sad, but is not suicidal. E: Energy level is low, but she deals with that. She says, "Sometimes I deal with my energy by fidgeting and that increases my energy." C: Concentration is "hard" on different occasions. A: Anxiety is moderate. She has diarrhea with her diverticulosis. P: Psychomotor energy is decreased. S: Sad but not suicidal, not homicidal, nor does she have delusions, although as noted on the chart, she has had those in the past. No hallucinations. The patient was seen by Dr. Santillan over the evening. Arrangements to have [place] consultation this morning. The patient's care was transferred to [place] at this point, early in the morning, and on consultation with [facility]. I read their note. I disagree with one of the Oks[facility] comments. I not that she is not suicidal. But; they pointed out that, they thought she was suicidal on her summary that was submitted to us. Her PHQ-9 score on the basis of the depression was 9 on a PHQ-9. She did not feel she would be better off or hurting herself. They gave her a high score of feeling tired and feeling down, depressed, and hopeless,and helpless. I noted from my history She does not feel she was hopeless, nor did she she feel she had decreased interest in doing things. PHYSICAL EXAMINATION: GENERAL: Overweight woman who is anxious to go home. LUNGS: Clear to auscultation. HEART: S1, S2. No murmur. ABDOMEN: Soft, increased abdominal girth. EXTREMITIES: Without edema. Deep tendon reflexes hypoactive in upper and lower extremities. ASSESSMENT: The patient is depressed, bipolar. She did not overdose. She did not take carvedilol. She is on doxepin and the doxepin made her sleepy, but she is feeling that she wants to go home. She wanted to attend to her surgical consultation which would be tomorrow in [place] regarding diverticulitis and also left ovarian cysts. Other diagnosis, diabetic peripheral neuropathy, rheumatoid arthritis, diabetes, coronary artery disease, fibromyalgia, intermittent episodes of tachycardia, does not have a pacemaker. No history of atrial fibrillation. No anemia. Platelet count is slightly elevated, minimally - mild thrombocythemia, 375,000. She has chronic kidney disease, stage 3. GFR 42. Creatinine 1.3. BUN 11. Urine was positive for opiates, tricyclics, amphetamine, benzodiazepines, which is consistent with her medication list. The patient will be following up with the doctor in a week and will be seeing a surgeon tomorrow. She is to retun to ED if she feels markedly depressed or feels suicidal. /[id number] LS/MODL ADDENDUM: TIME SEEN: The patient was seen at 1030 hours. /[id number] LS/MODL [id number]
== END 2017-07-01 12:15 | disposition home or self-care (01) ==
LOC: FB.ED 20:53
DX: F32.9 Major depressive disorder, single episode, unspecified (principal); E11.40 Type 2 diabetes mellitus with diabetic neuropathy, unspecified; I25.10 Atherosclerotic heart disease of native coronary artery without angina pectoris; D69.6 Thrombocytopenia, unspecified
CPT/HCPCS: 36415; 80048; 80305; 85025; 93005; 99283; G0480; J7040; J7050

== ENCOUNTER 2017-07-23 15:16 | Emergency (ER) | payer MEDICAID ==
[2017-07-23] MEDS ORDERED: Sodium Chloride 0.9% 1,000 ML IV ONE (16:38)
--- NOTE | 2017-07-23 16:47 | EDM.PDOC ---
ED HPI GENERAL MEDICAL PROBLEM - General Chief Complaint: Abdominal Pain Stated Complaint: WEAK Time Seen by Provider: 07/23/17 16:00 Source of Information: Reports: Patient History Limitations: Reports: No Limitations - History of Present Illness INITIAL COMMENTS - FREE TEXT/NARRATIVE: c/o LLQ abd pain x 4y multiple and various complaints that do not appear to be physiologic had a barium enema scheduled yesterday, however she had not done the prep, which apparently is the reason that she comes in today says she is dehydrated when that does appear to be the case had CT of abd/pelvis 1m ago that shoed sigmoid diverticulitis that was chronic or recurrent with localized pericolonic peritonitis seen by Flor in hospital as consult 1m ago who said that pt was insisting on surgery although he had dx acute on chronic diverticulitis that was nonsurgical pt later saw Dr Dykes who referred her to a [place] surgeon who apparently is planning on doing surgery lives alone L lower abdominal pain radiating into back Pain Score (Numeric/FACES): 9 - Related Data Allergies Allergy/AdvReac Type Severity Reaction Status Date / Time ciprofloxacin Allergy Cannot Verified 07/23/17 15:46 Remember metronidazole [From Flagyl] Allergy Itching Verified 07/23/17 15:46 Home Meds: Home Meds Furosemide [Lasix] 80 mg PO DAILY 01/12/14 [History] Sennosides/Docusate Sodium [Senna S Tablet] 2 tab PO DAILY 04/03/14 [History] Zolpidem [Ambien] 10 mg PO BEDTIME 04/03/14 [History] Doxepin [SINEquan] 100 mg PO BEDTIME 10/11/14 [History] Carvedilol 3.125 mg PO BID 07/04/16 [History] Cyclobenzaprine [Flexeril] 10 mg PO TID PRN 01/05/17 [History] Ferrous Sulfate 325 mg PO DAILY 01/05/17 [History] Folic Acid 1 mg PO DAILY 01/05/17 [History] Pregabalin [Lyrica] 50 mg PO TID 01/05/17 [History] QUEtiapine [SEROquel] 100 mg PO BEDTIME 01/05/17 [History] Spironolactone [Aldactone] 25 mg PO DAILY 01/05/17 [History] LORazepam 1 mg PO BID PRN 01/07/17 [History] Fluticasone Propionate [Flonase] 1 spray NASBOTH DAILY 01/08/17 [History] Acetaminophen/Codeine [Tylenol with Codeine No.3 300MG/30MG] 1 tab PO TID PRN [History] Excedrin Migraine 1 tab PO DAILY PRN 04/08/17 [History] Loperamide [Imodium AD] 2 mg PO ASDIRECTED PRN 04/08/17 [History] Pantoprazole Sodium [Protonix] 40 mg PO DAILY PRN 04/08/17 [History] Tetrahydrozoline HCl [Visine] 1 drop EYEBOTH DAILY PRN 04/08/17 [History] metFORMIN [Glucophage] 500 mg PO BIDMEALS 04/08/17 [History] Legatrinpm 1 tab PO BID PRN 05/21/17 [History] Albuterol Sulfate [Proair Hfa] 2 puff IH Q6H PRN 06/24/17 [History] Asenapine Maleate [Saphris] 10 mg PO BEDTIME 06/24/17 [History] Budesonide/Formoterol Fumarate [Symbicort 160-4.5 Mcg Inhaler] 2 puff IH BID [History] Lisdexamfetamine [Vyvanse] 70 mg PO DAILY 06/24/17 [History] atorvaSTATin Calcium [Atorvastatin Calcium] 20 mg PO DAILY 06/24/17 [History] diphenhydrAMINE [Benadryl] 50 mg PO BEDTIME 06/24/17 [History] Meloxicam 15 mg PO DAILY 06/25/17 [History] Polyethylene Glycol 3350 [MiraLAX] 17 gm PO BID packet 06/29/17 [Rx] Doxycycline [Vibra-Tabs] 100 mg PO BID #14 tablet 07/23/17 [Rx] Sulfamethoxazole/Trimethoprim [Bactrim Ds Tablet] 1 each PO BID #14 tablet 07/23 [Rx] Past Medical History HEENT History: Reports: Impaired Vision Other HEENT History: wear glasses Cardiovascular History: Reports: Angina, High Cholesterol, Hypertension, [place], SOB on Exertion, Other (See Below) Other Cardiovascular History: cardiovascular disease Respiratory History: Reports: COPD, Pneumonia, Recurrent, Sleep Apnea, Other ( See Below) Other Respiratory History: recently on ventilator --Klebisella pneumoniae Gastrointestinal History: Reports: Diverticulosis Other Gastrointestinal History: IBS proceeded the diverticulosis Other Genitourinary History: cyst on kidney 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: Reports: 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, Other OB/BYN History: miscarriage x2 Musculoskeletal History: Reports: Back Pain, Chronic, Fibromyalgia, RA Other Musculoskeletal History: sciatic nerve problem, generalized weakness, chronic pain Neurological History: Reports: Neuropathy, Diabetic, Neuropathy, Peripheral Other Neuro History: was in a coma for 5 months, fibromyalgia, neuropathy Psychiatric History: Reports: Anxiety, Bipolar, Depression, Hallucinations, Psych Hospitalization(s), PTSD, Suicide Attempt Other Psychiatric History: insomnia Endocrine/Metabolic History: Reports: Diabetes, Type II, Hypothyroidism, Other ( See Below) Other Endocrine/Metabolic History: borderline diabetic Dermatologic History: Reports: Other (See Below) Other Dermatologic History: occasional yeast infections under breast and adria area - Infectious Disease History Infectious Disease History: Reports: Chicken Pox, Mononucleosis - Past Surgical History GI Surgical History: Reports: Colonoscopy Social & Family History - Family History Family Medical History: Noncontributory Oncologic: Reports: Liver - Tobacco Use Smoking Status *Q: Former Smoker Years of Tobacco use: 25 Packs/Tins Daily: 0.5 Used Tobacco, but Quit: Yes Month Tobacco Last Used: unknown Second Hand Smoke Exposure: No - Caffeine Use Caffeine Use: Reports: None Caffeine Use Comment: unable to tolerate caffiene per patient - Alcohol Use Days Per Week of Alcohol Use: 0 - Recreational Drug Use Recreational Drug Use: No Drug Use in Last 12 Months: No Other Recreational Drug Type: cocaine use in the - Living Situation & Occupation Living situation: Occupation: Unemployed ED ROS GENERAL - Review of Systems Review Of Systems: See Below Constitutional: Reports: Weakness HEENT: Reports: No Symptoms Respiratory: Reports: No Symptoms Cardiovascular: Reports: No Symptoms Endocrine: Reports: No Symptoms GI/Abdominal: Reports: Abdominal Pain : Reports: No Symptoms Musculoskeletal: Reports: No Symptoms Skin: Reports: No Symptoms Neurological: Reports: No Symptoms Psychiatric: Reports: No Symptoms Hematologic/Lymphatic: Reports: No Symptoms Immunologic: Reports: No Symptoms ED EXAM, GI/ABD - Physical Exam Exam: See Below Exam Limited By: No Limitations Nose: Normal Inspection, Normal Mucosa, No Blood Throat/Mouth: Normal Inspection, Normal Lips, Normal Teeth, Normal Gums, Normal Oropharynx, Normal Voice, No Airway Compromise Head: Atraumatic, Normocephalic Neck: Normal Inspection, Supple, Non-Tender, Full Range of Motion Respiratory/Chest: No Respiratory Distress, Lungs Clear, Normal Breath Sounds Cardiovascular: Regular Rate, Rhythm, No Edema, Other (2/6 MARIA GUADALUPE at LSB) GI/Abdominal Exam: Normal Bowel Sounds, Soft, Non-Tender, No Distention, No Mass , Other (obese, no PT, NT at LLQ, NT at L flank) Back Exam: Normal Inspection, Full Range of Motion, NT Extremities: Normal Inspection, Normal Range of Motion, Non-Tender, No Pedal Edema Neurological: Alert, Oriented, CN II-XII Intact, Normal Cognition, No Motor/ Sensory Deficits Psychiatric: Normal Affect, Normal Mood Skin Exam: Warm, Dry, Intact, Normal Color, No Rash Lymphatic: No Adenopathy Course - Vital Signs Last Recorded V/S: Last Vital Signs Temp 37.0 C 07/23/17 15:39 Pulse 100 07/23/17 15:39 Resp 18 07/23/17 15:39 BP 123/76 07/23/17 15:39 Pulse Ox 100 07/23/17 15:39 - Orders/Labs/Meds Orders: Active Orders 24 hr Category Date Time Status Doxycycline [Vibra-Tabs] Med 07/23/17 18:36 Once 100 mg PO ONETIME ONE Ketorolac [Toradol] Med 07/23/17 18:36 Once 15 mg IVPUSH ONETIME ONE Sodium Chloride 0.9% [Saline Flush] Med 07/23/17 17:52 Active 10 ml FLUSH ASDIRECTED PRN Sulfamethoxazole/Trimethoprim [Septra DS] Med 07/23/17 18:37 Once 1 tab PO ONETIME ONE Saline Lock Insert [OM.PC] Routine Oth 07/23/17 17:52 Ordered Medication Orders Sodium Chloride (Saline Flush) 10 ml FLUSH ASDIRECTED PRN PRN Reason: Keep Vein Open Labs: Laboratory Tests 07/23/17 07/23/17 07/23/17 Range/Units 15:55 15:55 15:55 WBC 13.6 H (4.5-12.0) X10-3/uL RBC 4.59 (3.23-5.20) x10(6)uL Hgb 12.6 (11.5-15.5) g/dL Hct 38.6 (30.0-51.3) % MCV 84.0 (80-96) fL MCH 27.4 L (27.7-33.6) pg MCHC 32.7 (32.2-35.4) g/dL RDW 15.8 H (11.5-15.5) % Plt Count 411 H (125-369) X10(3)uL MPV 8.3 (7.4-10.4) fL Neut % (Auto) 79.5 (46-82) % Lymph % (Auto) 12.0 L (13-37) % Ogle % (Auto) 4.7 (4-12) % Eos % (Auto) 3 (1.0-5.0) % Baso % (Auto) 1 (0-2) % Neut # (Auto) 10.9 H (1.6-8.3) # Lymph # (Auto) 1.6 (0.6-5.0) # Ogle # (Auto) 0.6 (0.0-1.3) # Eos # (Auto) 0.4 (0.0-0.8) # Baso # (Auto) 0.1 (0.0-0.2) # ESR 53 H (0-20) mm/hr Sodium 139 (135-145) mmol/L Potassium 4.5 (3.5-5.3) mmol/L Chloride 101 (100-110) mmol/L Carbon Dioxide 26 (21-32) mmol/L BUN 13 (7-18) mg/dL Creatinine 0.9 (0.55-1.02) mg/dL Est Cr Clr Drug Dosing 69.47 mL/min Estimated GFR (MDRD) > 60 (>60) BUN/Creatinine Ratio 14.4 (9-20) Glucose 107 (80-116) mg/dL Calcium 10.2 (8.6-10.2) mg/dL Total Bilirubin 0.3 (0.1-1.3) mg/dL AST 12 (5-25) IU/L ALT 18 (12-36) U/L Alkaline Phosphatase 74 (56-112) IU/L C-Reactive Protein 1.8 H (0.5-0.9) mg/dL Total Protein 7.6 (6.0-8.0) g/dL Albumin 3.3 (3.2-4.6) g/dL Globulin 4.3 g/dL Albumin/Globulin Ratio 0.8 Amylase 20 L (25-115) U/L Urine Color (YELLOW) Urine Appearance (CLEAR) Urine pH (5.0-6.5) Ur Specific [place] (1.010-1.025) Urine Protein (NEGATIVE) mg/dL Urine Glucose (UA) (NEGATIVE) mg/dL Urine Ketones (NEGATIVE) mg/dL Urine Occult Blood (NEGATIVE) Urine Nitrite (NEGATIVE) Urine Bilirubin (NEGATIVE) Urine Urobilinogen (NEGATIVE) mg/dL Ur Leukocyte Esterase (NEGATIVE) Urine RBC (0) Urine WBC (0) Ur Squamous Epith Cells (NS,R,O) Amorphous Sediment Urine Bacteria (NS) 07/23/17 Range/Units 17:10 WBC (4.5-12.0) X10-3/uL RBC (3.23-5.20) x10(6)uL Hgb (11.5-15.5) g/dL Hct (30.0-51.3) % MCV (80-96) fL MCH (27.7-33.6) pg MCHC (32.2-35.4) g/dL RDW (11.5-15.5) % Plt Count (125-369) X10(3)uL MPV (7.4-10.4) fL Neut % (Auto) (46-82) % Lymph % (Auto) (13-37) % Ogle % (Auto) (4-12) % Eos % (Auto) (1.0-5.0) % Baso % (Auto) (0-2) % Neut # (Auto) (1.6-8.3) # Lymph # (Auto) (0.6-5.0) # Ogle # (Auto) (0.0-1.3) # Eos # (Auto) (0.0-0.8) # Baso # (Auto) (0.0-0.2) # ESR (0-20) mm/hr Sodium (135-145) mmol/L Potassium (3.5-5.3) mmol/L Chloride (100-110) mmol/L Carbon Dioxide (21-32) mmol/L BUN (7-18) mg/dL Creatinine (0.55-1.02) mg/dL Est Cr Clr Drug Dosing mL/min Estimated GFR (MDRD) (>60) BUN/Creatinine Ratio (9-20) Glucose (80-116) mg/dL Calcium (8.6-10.2) mg/dL Total Bilirubin (0.1-1.3) mg/dL AST (5-25) IU/L ALT (12-36) U/L Alkaline Phosphatase (56-112) IU/L C-Reactive Protein (0.5-0.9) mg/dL Total Protein (6.0-8.0) g/dL Albumin (3.2-4.6) g/dL Globulin g/dL Albumin/Globulin Ratio Amylase (25-115) U/L Urine Color Yellow (YELLOW) Urine Appearance Clear (CLEAR) Urine pH 7.0 H (5.0-6.5) Ur Specific [place] 1.010 (1.010-1.025) Urine Protein Negative (NEGATIVE) mg/dL Urine Glucose (UA) Normal (NEGATIVE) mg/dL Urine Ketones Negative (NEGATIVE) mg/dL Urine Occult Blood Negative (NEGATIVE) Urine Nitrite Negative (NEGATIVE) Urine Bilirubin Negative (NEGATIVE) Urine Urobilinogen Normal (NEGATIVE) mg/dL Ur Leukocyte Esterase Small H (NEGATIVE) Urine RBC 0-5 (0) Urine WBC 0-5 (0) Ur Squamous Epith Cells Moderate H (NS,R,O) Amorphous Sediment Moderate Urine Bacteria Moderate H (NS) Meds: Medications Generic Name Dose Route Start Last Admin Trade Name Freq PRN Reason Stop Dose Admin Sodium Chloride 10 ml 07/23/17 17:52 Saline Flush FLUSH ASDIRECTED PRN Keep Vein Open Discontinued Medications Generic Name Dose Route Start Last Admin Trade Name Freq PRN Reason Stop Dose Admin Sodium Chloride 1,000 mls @ 999 mls/hr 07/23/17 16:38 07/23/17 17:46 Normal Saline IV 07/23/17 17:38 999 mls/hr .BOLUS ONE Administration - Re-Assessments/Exams Free Text/Narrative Re-Assessment/Exam: 07/23/17 18:38 labs reviewed with pt, not showing evidence of dehydration on u/a, pt with inc' d CRP & WBC & ESR c/w ongoing low-grade chronic diverticulitis will tx with antbx, pt in agreement as per iSTOP, pt picked up 60 tabs of Tyl #3 9d ago Departure - Departure Time of Disposition: 18:38 Disposition: Home, Self-Care 01 Condition: Good Clinical Impression: Diverticulitis - Discharge Information Prescriptions: Doxycycline [Vibra-Tabs] 100 mg PO BID #14 tablet Sulfamethoxazole/Trimethoprim [Bactrim Ds Tablet] 1 each PO BID #14 tablet Referrals: Shannan Peng, BILINGUAL SPEECH THERAPIST [Primary Care Provider] - Forms: ED Department Discharge Additional Instructions: For infection, take doxycyline 100 mg 1 capsule 2 times a day for 7 days. For infection, take Bactrim DS 1 tab 2 times a day for 7 days. Maintain fluids. For pain, continue your current meds including the Tylenol #3 as prescribed. See your surgeon as scheduled. - My Orders Last 24 Hours: My Active Orders 07/23/17 17:52 Sodium Chloride 0.9% [Saline Flush] 10 ml FLUSH ASDIRECTED PRN Saline Lock Insert [OM.PC] Routine 07/23/17 18:36 Doxycycline [Vibra-Tabs] 100 mg PO ONETIME ONE Ketorolac [Toradol] 15 mg IVPUSH ONETIME ONE 07/23/17 18:37 Sulfamethoxazole/Trimethoprim [Septra DS] 1 tab PO ONETIME ONE - Assessment/Plan Last 24 Hours: My Active Orders 07/23/17 17:52 Sodium Chloride 0.9% [Saline Flush] 10 ml FLUSH ASDIRECTED PRN Saline Lock Insert [OM.PC] Routine 07/23/17 18:36 Doxycycline [Vibra-Tabs] 100 mg PO ONETIME ONE Ketorolac [Toradol] 15 mg IVPUSH ONETIME ONE 07/23/17 18:37 Sulfamethoxazole/Trimethoprim [Septra DS] 1 tab PO ONETIME ONE
[2017-07-23] MEDS ORDERED: Sodium Chloride 0.9% 10 ML Syringe FLUSH PRN (17:52)
[2017-07-23] MEDS ORDERED: Doxycycline 100 MG Tab PO ONE (18:36)
[2017-07-23] MEDS ORDERED: Ketorolac 30 MG/ML SDV IVPUSH ONE (18:36)
[2017-07-23] MEDS ORDERED: Sulfamethoxazole/Trimethoprim 800-160 MG Tab PO ONE (18:37)
[2017-07-23] MEDS ORDERED: Doxycycline 100 MG Tab ONE (18:43)
[2017-07-23 19:09] VITALS: BP 142/80
== END 2017-07-23 19:15 | disposition home or self-care (01) ==
LOC: FB.ED 15:16
DX: K57.92 Diverticulitis of intestine, part unspecified, without perforation or abscess without bleeding (principal); I10 Essential (primary) hypertension; E11.40 Type 2 diabetes mellitus with diabetic neuropathy, unspecified; E78.00 Pure hypercholesterolemia, unspecified; E03.9 Hypothyroidism, unspecified; J44.9 Chronic obstructive pulmonary disease, unspecified; Z79.899 Other long term (current) drug therapy; Z79.84 Long term (current) use of oral hypoglycemic drugs; Z87.891 Personal history of nicotine dependence; Z88.1 Allergy status to other antibiotic agents
CPT/HCPCS: 36415; 80053; 81001; 82150; 85025; 85651; 86140; 96361; 96374; 99283; A9270; J1885; J7040; J7050; J7030

== ENCOUNTER 2017-07-28 08:35 | Emergency (ER) | payer MEDICAID ==
[2017-07-28] MEDS ORDERED: Lactated Ringers 1,000 ML IV ONE (08:40)
[2017-07-28] MEDS ORDERED: Acetaminophen 500 MG Tab PO ONE (08:45)
--- NOTE | 2017-07-28 08:51 | EDM.PDOC ---
ED HPI GENERAL MEDICAL PROBLEM - General Chief Complaint: General Stated Complaint: FALLS Time Seen by Provider: 07/28/17 08:35 Source of Information: Reports: Patient, EMS, Old Records, RN History Limitations: Reports: No Limitations - History of Present Illness INITIAL COMMENTS - FREE TEXT/NARRATIVE: 62 yo female presents from her home via EMS unable to get up off the floor. Lives alone. Has been crawling around on her floor since sometime ? yesterday. Has a pHx of chronic lung dz(quit smoking about 10 yrs ago), AODM, and psych dz. Has not taken any of her regular medicines today or yesterday. Apparently doing some hallucinating today, thought a irrigation specialist was hanging around her place watching TV. Linda was unaware of having a fever. Does report coughing and dysuria. Was seen in the ER here on 07/23/17 and placed on doxycycline and Bactrim for diverticulitis. Her pulse oximeter was normal at 100% on 07/23/17. Onset: Unknown/Unsure Duration: Day(s):, Constant Location: Reports: Generalized Quality: Reports: Burning (knees/elbows from crawling around on floor.) Severity: Mild Improves with: Reports: None Worsens with: Reports: None Context: Reports: Other (fell at home without injury, but then unable to get herself up again. 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 (see below) (none) back Pain Score (Numeric/FACES): 6 - Related Data Allergies Allergy/AdvReac Type Severity Reaction Status Date / Time ciprofloxacin Allergy Cannot Verified 07/28/17 11:08 Remember metronidazole [From Flagyl] Allergy Itching Verified 07/28/17 11:08 Home Meds: Home Meds Sennosides/Docusate Sodium [Senna S Tablet] 1 tab PO DAILY 04/03/14 [History] Zolpidem [Ambien] 10 mg PO BEDTIME 04/03/14 [History] Doxepin [SINEquan] 100 mg PO BEDTIME 10/11/14 [History] Carvedilol 3.125 mg PO BID 07/04/16 [History] Cyclobenzaprine [Flexeril] 10 mg PO TID PRN 01/05/17 [History] Ferrous Sulfate 325 mg PO DAILY 01/05/17 [History] Folic Acid 1 mg PO DAILY 01/05/17 [History] Pregabalin [Lyrica] 50 mg PO TID 01/05/17 [History] QUEtiapine [SEROquel] 100 mg PO BEDTIME 01/05/17 [History] Spironolactone [Aldactone] 25 mg PO DAILY 01/05/17 [History] LORazepam 1 mg PO BID 01/07/17 [History] Fluticasone Propionate [Flonase] 1 spray NASBOTH DAILY 01/08/17 [History] Acetaminophen/Codeine [Tylenol with Codeine No.3 300MG/30MG] 1 tab PO DAILY [History] Excedrin Migraine 1 tab PO DAILY PRN 04/08/17 [History] Loperamide [Imodium AD] 2 mg PO ASDIRECTED PRN 04/08/17 [History] Pantoprazole Sodium [Protonix] 40 mg PO DAILY 04/08/17 [History] Tetrahydrozoline HCl [Visine] 1 drop EYEBOTH DAILY PRN 04/08/17 [History] metFORMIN [Glucophage] 500 mg PO DAILY 04/08/17 [History] Legatrinpm 2 tab PO DAILY 05/21/17 [History] Albuterol Sulfate [Proair Hfa] 2 puff IH Q6H PRN 06/24/17 [History] Asenapine Maleate [Saphris] 10 mg PO BID 06/24/17 [History] Budesonide/Formoterol Fumarate [Symbicort 160-4.5 Mcg Inhaler] 2 puff IH BID [History] Lisdexamfetamine [Vyvanse] 70 mg PO DAILY 06/24/17 [History] atorvaSTATin Calcium [Atorvastatin Calcium] 20 mg PO DAILY 06/24/17 [History] diphenhydrAMINE [Benadryl] 50 mg PO DAILY PRN 06/24/17 [History] Meloxicam 15 mg PO DAILY 06/25/17 [History] Doxycycline [Vibra-Tabs] 100 mg PO BID #14 tablet 07/23/17 [Rx] Sulfamethoxazole/Trimethoprim [Bactrim Ds Tablet] 1 each PO BID #14 tablet 07/23 [Rx] Furosemide [Lasix] 40 mg PO BID@08,14 07/28/17 [History] Polyethylene Glycol 3350 [MiraLAX] 17 gm PO DAILY 07/28/17 [History] Past Medical History HEENT History: Reports: Impaired Vision Other HEENT History: wear glasses Cardiovascular History: Reports: Angina, High Cholesterol, Hypertension, ND, SOB on Exertion, Other (See Below) Other Cardiovascular History: cardiovascular disease Respiratory History: Reports: COPD, Pneumonia, Recurrent, Sleep Apnea, Other ( See Below) Other Respiratory History: recently on ventilator --Klebisella pneumoniae Gastrointestinal History: Reports: Diverticulosis Other Gastrointestinal History: IBS proceeded the diverticulosis Other Genitourinary History: cyst on kidney 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: 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, Other OB/BYN History: miscarriage x2 Musculoskeletal History: Reports: Back Pain, Chronic, Fibromyalgia, RA Other Musculoskeletal History: sciatic nerve problem, generalized weakness, chronic pain Neurological History: Reports: Neuropathy, Diabetic, Neuropathy, Peripheral Other Neuro History: was in a coma for 5 months, fibromyalgia, neuropathy Psychiatric History: Reports: Anxiety, Bipolar, Depression, Hallucinations, Psych Hospitalization(s), PTSD, Suicide Attempt Other Psychiatric History: insomnia Endocrine/Metabolic History: Reports: Diabetes, Type II, Hypothyroidism, Other ( See Below) Other Endocrine/Metabolic History: borderline diabetic Dermatologic History: Reports: Other (See Below) Other Dermatologic History: occasional yeast infections under breast and adria area - Infectious Disease History Infectious Disease History: Reports: Chicken Pox, Mononucleosis - Past Surgical History GI Surgical History: Reports: Colonoscopy Social & Family History - Family History Family Medical History: Noncontributory Oncologic: Reports: Liver - Tobacco Use Smoking Status *Q: Former Smoker Years of Tobacco use: 25 Packs/Tins Daily: 0.5 Used Tobacco, but Quit: Yes Month Tobacco Last Used: unknown Second Hand Smoke Exposure: No - Caffeine Use Caffeine Use: Reports: None Caffeine Use Comment: unable to tolerate caffiene per patient - Alcohol Use Days Per Week of Alcohol Use: 0 - Recreational Drug Use Recreational Drug Use: No Drug Use in Last 12 Months: No Recreational Drug Type: Reports: Amphetamines (Speed), Cocaine, LSD (Acid), Marijuana/Hashish Other Recreational Drug Type: cocaine use in the - Living Situation & Occupation Living situation: Occupation: Unemployed ED ROS GENERAL - Review of Systems Review Of Systems: See Below Constitutional: Reports: Weakness HEENT: Reports: No Symptoms Respiratory: Reports: Cough Cardiovascular: Reports: No Symptoms GI/Abdominal: Reports: No Symptoms : Reports: Dysuria Musculoskeletal: Reports: No Symptoms Skin: Reports: Erythema, Wound (abrasions ) Neurological: Reports: Confusion, Numbness (neuropathy, chronic) Psychiatric: Reports: Hallucinations (visual, thought a irrigation specialist was hanging around her home watching [employer] TV stations.) ED EXAM, GENERAL - Physical Exam Exam: See Below Exam Limited By: No Limitations General Appearance: Alert, WD/WN, Mild Distress, Obese Eye Exam: Bilateral Eye: Normal Inspection Ears: Normal External Exam, Normal Canal, Hearing Grossly Normal, Normal TMs Ear Exam: Bilateral Ear: Auricle Normal, Canal Normal, TM normal Nose: Normal Inspection, No Blood. No: Nasal Tenderness, Nasal Deformity, Nasal Swelling, Nasal Drainage, Clear Rhinorrhea Throat/Mouth: Normal Lips, Normal Oropharynx, Normal Voice, No Airway Compromise , Other (dry oral mucosa) Head: Atraumatic, Normocephalic Neck: Normal Inspection, Supple, Non-Tender Respiratory/Chest: No Respiratory Distress, No Accessory Muscle Use, Rhonchi ( on right). No: Wheezing Cardiovascular: Regular Rate, Rhythm, No Edema GI/Abdominal: Normal Bowel Sounds, Soft, Non-Tender, No Distention Back Exam: Normal Inspection Extremities: Redness (on knees and elbows) Neurological: Alert, Oriented, CN II-XII Intact, Normal Cognition, No Motor/ Sensory Deficits Psychiatric: Normal Affect, Normal Mood Skin Exam: Warm, Erythema, Increased Warmth, Wound/Incision (abrasions of elbows /knees with ? early cellulitis) Lymphatic: No Adenopathy EKG INTERPRETATION EKG Date: 07/28/17 Time: 11:30 Rhythm: NSR Rate (Beats/Min): 86 Scammon: Normal P-Wave: Present QRS: Normal ST-T: Normal QT: Normal Comparison: NA - No Prior EKG EKG Interpretation Comments: Minimal change from 07/01/17. Course - Vital Signs Text/Narrative:: LR 1000 ml IV, Acetaminophen 1000 mg po, ASA 324 mg po, NS IV @ 100/h, oxygen per NC @ 3 liters/min. Last Recorded V/S: Last Vital Signs Temp 37.5 C 07/28/17 09:20 Pulse 75 07/28/17 10:54 Resp 18 07/28/17 10:54 BP 95/54 L 07/28/17 10:54 Pulse Ox 94 L 07/28/17 10:54 - Orders/Labs/Meds Orders: Active Orders 24 hr Category Date Time Status Vaccines to be Administered [RC] PER UNIT ROUTINE Care 07/28/17 08:58 Active Consult to De Icer Element Winder [CONS] Routine Cons 07/28/17 08:40 Active Ang Chest [CT] Stat Exams 07/28/17 10:40 Taken Sodium Chloride 0.9% [Normal Saline] 1,000 ml Med 07/28/17 10:30 Active IV ASDIRECTED Sodium Chloride 0.9% [Saline Flush] Med 07/28/17 09:47 Active 10 ml FLUSH ASDIRECTED PRN Peripheral IV Insertion Adult [OM.PC] Routine Oth 07/28/17 08:40 Ordered EKG 12 Lead [EK] Routine Ther 07/28/17 11:23 Ordered Medication Orders Sodium Chloride (Normal Saline) 1,000 mls @ 100 mls/hr IV ASDIRECTED NIA Last Admin: 07/28/17 10:36 Dose: 100 mls/hr Sodium Chloride (Saline Flush) 10 ml FLUSH ASDIRECTED PRN PRN Reason: Keep Vein Open Last Admin: 07/28/17 09:10 Dose: 10 ml Labs: Laboratory Tests 07/28/17 07/28/17 07/28/17 Range/Units 08:55 08:55 08:55 WBC 9.5 (4.5-12.0) X10-3/uL RBC 4.86 (3.23-5.20) x10(6)uL Hgb 13.0 (11.5-15.5) g/dL Hct 40.7 (30.0-51.3) % MCV 83.8 (80-96) fL MCH 26.7 L (27.7-33.6) pg MCHC 31.8 L (32.2-35.4) g/dL RDW 15.9 H (11.5-15.5) % Plt Count 378 H (125-369) X10(3)uL D-Dimer, Quantitative 1930 H (100-400) ng/mL Sodium 138 (135-145) mmol/L Potassium 4.8 (3.5-5.3) mmol/L Chloride 99 L (100-110) mmol/L Carbon Dioxide 30 (21-32) mmol/L BUN 20 H (7-18) mg/dL Creatinine 1.0 (0.55-1.02) mg/dL Est Cr Clr Drug Dosing TNP Estimated GFR (MDRD) 57 L (>60) BUN/Creatinine Ratio 20.0 (9-20) Glucose 105 (80-116) mg/dL Calcium 10.3 H (8.6-10.2) mg/dL Troponin I (<0.017-0.056) ng/mL NT-Pro-B Natriuret Pep (<=125) pg/mL Urine Color (YELLOW) Urine Appearance (CLEAR) Urine pH (5.0-6.5) Ur Specific [place] (1.010-1.025) Urine Protein (NEGATIVE) mg/dL Urine Glucose (UA) (NEGATIVE) mg/dL Urine Ketones (NEGATIVE) mg/dL Urine Occult Blood (NEGATIVE) Urine Nitrite (NEGATIVE) Urine Bilirubin (NEGATIVE) Urine Urobilinogen (NEGATIVE) mg/dL Ur Leukocyte Esterase (NEGATIVE) Urine RBC (0) Urine WBC (0) Ur Squamous Epith Cells (NS,R,O) Urine Bacteria (NS) 07/28/17 07/28/17 07/28/17 Range/Units 08:55 08:55 09:55 WBC (4.5-12.0) X10-3/uL RBC (3.23-5.20) x10(6)uL Hgb (11.5-15.5) g/dL Hct (30.0-51.3) % MCV (80-96) fL MCH (27.7-33.6) pg MCHC (32.2-35.4) g/dL RDW (11.5-15.5) % Plt Count (125-369) X10(3)uL D-Dimer, Quantitative (100-400) ng/mL Sodium (135-145) mmol/L Potassium (3.5-5.3) mmol/L Chloride (100-110) mmol/L Carbon Dioxide (21-32) mmol/L BUN (7-18) mg/dL Creatinine (0.55-1.02) mg/dL Est Cr Clr Drug Dosing Estimated GFR (MDRD) (>60) BUN/Creatinine Ratio (9-20) Glucose (80-116) mg/dL Calcium (8.6-10.2) mg/dL Troponin I 2.048 H* (<0.017-0.056) ng/mL NT-Pro-B Natriuret Pep 1012 H* (<=125) pg/mL Urine Color Yellow (YELLOW) Urine Appearance Slightly cloudy (CLEAR) Urine pH 5.0 (5.0-6.5) Ur Specific [place] 1.030 H (1.010-1.025) Urine Protein Negative (NEGATIVE) mg/dL Urine Glucose (UA) Normal (NEGATIVE) mg/dL Urine Ketones 15 H (NEGATIVE) mg/dL Urine Occult Blood Negative (NEGATIVE) Urine Nitrite Negative (NEGATIVE) Urine Bilirubin Small H (NEGATIVE) Urine Urobilinogen Normal (NEGATIVE) mg/dL Ur Leukocyte Esterase Negative (NEGATIVE) Urine RBC 0-5 (0) Urine WBC 5-10 (0) Ur Squamous Epith Cells Occasional (NS,R,O) Urine Bacteria Moderate H (NS) Meds: Medications Generic Name Dose Route Start Last Admin Trade Name Freq PRN Reason Stop Dose Admin Sodium Chloride 1,000 mls @ 100 mls/hr 07/28/17 10:30 07/28/17 10:36 Normal Saline IV 100 mls/hr ASDIRECTED NIA Administration Sodium Chloride 10 ml 07/28/17 09:47 07/28/17 09:10 Saline Flush FLUSH 10 ml ASDIRECTED PRN Administration Keep Vein Open Discontinued Medications Generic Name Dose Route Start Last Admin Trade Name Freq PRN Reason Stop Dose Admin Acetaminophen 1,000 mg 07/28/17 08:45 07/28/17 09:00 Tylenol Extra Strength PO 07/28/17 08:46 1,000 mg ONETIME ONE Administration Aspirin 324 mg 07/28/17 11:25 07/28/17 11:29 Aspirin PO 07/28/17 11:26 324 mg ONETIME ONE Administration Diphtheria/Tetanus/Acell Pertussis 0.5 ml 07/28/17 08:57 07/28/17 09:22 Adacel IM 07/28/17 08:58 0.5 ml .ONCE ONE Administration Lactated Ringer's 1,000 mls @ 1,000 mls/hr 07/28/17 08:40 07/28/17 09:15 Ringers, Lactated IV 07/28/17 09:39 1,000 mls/hr BOLUS ONE Administration Iopamidol 100 ml 07/28/17 11:10 07/28/17 11:41 Isovue-370 (76%) IV 07/28/17 11:11 80 ml ONETIME ONE Administration - Radiology Interpretation Free Text/Narrative:: CT chest with PE protocol-no PE, some early pneumonitis CT Results Date: 07/28/17 Departure - Departure Time of Disposition: 13:00 Disposition: DC/Tfer to Acute Hospital 02 Condition: Fair Clinical Impression: Pneumonia, Elevated troponin, Elevated d-dimer, Elevated brain natriuretic peptide (BNP) level, Multiple abrasions Cellulitis Qualifiers: Site of cellulitis: extremity Site of cellulitis of extremity: upper extremity Laterality: left Qualified Code(s): L03.114 - Cellulitis of left upper limb - Discharge Information Referrals: Hilda Vanessa, HOSIERY MATER [Primary Care Provider] - Forms: ED Department Discharge - My Orders Last 24 Hours: My Active Orders 07/28/17 08:40 Consult to De Icer Element Winder [CONS] Routine Peripheral IV Insertion Adult [OM.PC] Routine 07/28/17 08:58 Vaccines to be Administered [RC] PER UNIT ROUTINE 07/28/17 09:47 Sodium Chloride 0.9% [Saline Flush] 10 ml FLUSH ASDIRECTED PRN 07/28/17 10:30 Sodium Chloride 0.9% [Normal Saline] 1,000 ml IV ASDIRECTED 07/28/17 10:40 Ang Chest [CT] Stat 07/28/17 11:23 EKG 12 Lead [EK] Routine - Assessment/Plan Last 24 Hours: My Active Orders 07/28/17 08:40 Consult to De Icer Element Winder [CONS] Routine Peripheral IV Insertion Adult [OM.PC] Routine 07/28/17 08:58 Vaccines to be Administered [RC] PER UNIT ROUTINE 07/28/17 09:47 Sodium Chloride 0.9% [Saline Flush] 10 ml FLUSH ASDIRECTED PRN 07/28/17 10:30 Sodium Chloride 0.9% [Normal Saline] 1,000 ml IV ASDIRECTED 07/28/17 10:40 Ang Chest [CT] Stat 07/28/17 11:23 EKG 12 Lead [EK] Routine
[2017-07-28] MEDS ORDERED: Diphtheria,Pertussis(Acell),Tetanus Vaccine 0.5 ML SDV IM ONE (08:57)
[2017-07-28] MEDS ORDERED: Sodium Chloride 0.9% 10 ML Syringe FLUSH PRN (09:47)
[2017-07-28] MEDS ORDERED: Sodium Chloride 0.9% 1,000 ML IV SCH (10:30)
--- NOTE | 2017-07-28 10:37 | CR ---
INDICATION: Hypoxia, fever. CHEST: An AP upright view of the chest was obtained 07/28/2017 and compared with 04/10/2017 and 03/27/2017, again revealing evidence of exogenous obesity. The heart size is difficult to evaluate with a poor inspiration in this positioning. The heart may be slightly enlarged. Pulmonary vasculature appears somewhat prominent in the upper lung young, raising question of CHF. A definite consolidating pneumonia or effusion was not identified. There is an appearance of slightly increased density over the left lung, which may be on the basis of positioning. Thickening of the minor fissure suggests a small right pleural effusion. It is difficult to exclude infiltrate at the left lower lung field, due to the heavy markings in that area and poor penetration. PA and lateral views of the chest may be helpful when clinically possible. IMPRESSION: Findings suggest possibility of mild CHF. PA and lateral views recommended when clinically possible for further evaluation. MTDD
[2017-07-28] MEDS ORDERED: Iopamidol 755 Mg/ML 100 ML Bottle IV ONE (11:10)
[2017-07-28] MEDS ORDERED: Aspirin 81 MG Tab.Chew PO ONE (11:25)
--- NOTE | 2017-07-28 13:45 | CT ---
INDICATION: High D-dimer, hypoxia, question PE. COMPUTERIZED TOMOGRAPHY/ANGIOGRAPHY OF THE CHEST FOR PULMONARY ARTERIES: Spiral 1.25 mm axial sections were obtained through the chest with 80 mL Isovue 370 at 2 mL/second with sagittal and coronal reconstructions 07/28/2017 and were compared with previous examination of 03/28/2017. Total exam DLP = 898.97 mGy-cm. Subpleural fibrotic appearing changes and some pleural fibrotic changes are again noted. Probable fibrotic changes are noted in the middle lobe and right lower lobe. Minimal probable fibrotic changes are noted at the left lower lobe. In these areas of heavy markings, it is difficult to entirely exclude areas of patchy active bronchopneumonia and possibly atelectasis. No gross consolidating pneumonia or significant sized effusion could be identified, although some pleural reaction is suggested in some of the areas of subpleural and parenchymal density. No mediastinal masses were identified. Mediastinal lymphadenopathy is mild with one lymph node increased in size anterior to the trachea just above the angelo on the right and measuring approximately 10 mm. This may be on the basis of inflammatory disease but is nonspecific. The heart did not appear to be grossly enlarged. There is some thickening of the pericardium, which may represent either fluid or fibrosis or possibly pericarditis actively present. This should be correlated clinically. IMPRESSION: 1. No evidence of PE. 2. Possible pericarditis. 3. Mediastinal lymphadenopathy slightly increased, could be on the basis of inflammatory disease. 4. Areas of infiltrate and/or atelectasis scattered about the lungs may represent a process such as aspiration pneumonia or other pneumonia and should be correlated clinically. Report was called to Dr. Maria at 1223 hours on 07/28/2017. [facility]
[2017-07-28 15:59] VITALS: BP 121/69
== END 2017-07-28 15:58 ==
LOC: FB.ED 08:35
DX: J18.9 Pneumonia, unspecified organism (principal); S50.312A Abrasion of left elbow, initial encounter; S50.311A Abrasion of right elbow, initial encounter; S80.212A Abrasion, left knee, initial encounter; S80.211A Abrasion, right knee, initial encounter; R79.89 Other specified abnormal findings of blood chemistry; R79.1 Abnormal coagulation profile; Z23 Encounter for immunization; L03.114 Cellulitis of left upper limb; E78.00 Pure hypercholesterolemia, unspecified; I10 Essential (primary) hypertension; E03.9 Hypothyroidism, unspecified; E11.9 Type 2 diabetes mellitus without complications; J44.9 Chronic obstructive pulmonary disease, unspecified; Z79.84 Long term (current) use of oral hypoglycemic drugs; Z87.891 Personal history of nicotine dependence; Z88.1 Allergy status to other antibiotic agents; Z79.899 Other long term (current) drug therapy; Z88.8 Allergy status to other drugs, medicaments and biological substances; W19.XXXA Unspecified fall, initial encounter; Y92.009 Unspecified place in unspecified non-institutional (private) residence as the place of occurrence of the external cause
CPT/HCPCS: 36415; 71045; 71275; 80048; 81001; 83880; 84484; 85027; 85379; 90471; 90715; 93005; 96360; 96361; 99285; A9270; J7040; J7050; J7120; Q9967; J7030

== ENCOUNTER 2017-08-13 20:56 | Emergency (ER) | payer MEDICAID ==
--- NOTE | 2017-08-13 21:05 | EDM.PDOC ---
ED HPI GENERAL MEDICAL PROBLEM - General Time Seen by Provider: 08/13/17 20:56 Source of Information: Reports: Patient, EMS History Limitations: Reports: No Limitations - History of Present Illness INITIAL COMMENTS - FREE TEXT/NARRATIVE: 62 years old w f came to the ed by EMS due to a rapid heart beat. HR was > 200 as per ems. Pt has a h/o SVT. The EMS gave in route 6 mg of adenosin and the pt converted to NSR as she arrived here in the ED. Pt stated she is in her usual state of health. BP 139/73 RR 22 pulse ox 95% on 2 liters, Pulse 112 Temp 36.8 Onset Date: 08/13/17 Onset Time: 20:00 Duration: Intermittent Location: Reports: Chest (palpitation) - Related Data Allergies Allergy/AdvReac Type Severity Reaction Status Date / Time ciprofloxacin Allergy Cannot Verified 08/13/17 21:35 Remember metronidazole [From Flagyl] Allergy Itching Verified 08/13/17 21:35 Home Meds: Home Meds Sennosides/Docusate Sodium [Senna S Tablet] 1 tab PO DAILY 04/03/14 [History] Zolpidem [Ambien] 10 mg PO BEDTIME 04/03/14 [History] Doxepin [SINEquan] 100 mg PO BEDTIME 10/11/14 [History] Cyclobenzaprine [Flexeril] 10 mg PO TID PRN 01/05/17 [History] Ferrous Sulfate 325 mg PO DAILY 01/05/17 [History] Folic Acid 1 mg PO DAILY 01/05/17 [History] Pregabalin [Lyrica] 50 mg PO TID 01/05/17 [History] QUEtiapine [SEROquel] 100 mg PO BEDTIME 01/05/17 [History] Spironolactone [Aldactone] 25 mg PO DAILY 01/05/17 [History] LORazepam 1 mg PO BID 01/07/17 [History] Fluticasone Propionate [Flonase] 1 spray NASBOTH DAILY 01/08/17 [History] Acetaminophen/Codeine [Tylenol with Codeine No.3 300MG/30MG] 1 tab PO DAILY [History] Excedrin Migraine 1 tab PO DAILY PRN 04/08/17 [History] Loperamide [Imodium AD] 2 mg PO ASDIRECTED PRN 04/08/17 [History] Pantoprazole Sodium [Protonix] 40 mg PO DAILY 04/08/17 [History] Tetrahydrozoline HCl [Visine] 1 drop EYEBOTH DAILY PRN 04/08/17 [History] metFORMIN [Glucophage] 500 mg PO DAILY 04/08/17 [History] Legatrinpm 2 tab PO DAILY 05/21/17 [History] Albuterol Sulfate [Proair Hfa] 2 puff IH Q6H PRN 06/24/17 [History] Asenapine Maleate [Saphris] 10 mg PO BID 06/24/17 [History] Budesonide/Formoterol Fumarate [Symbicort 160-4.5 Mcg Inhaler] 2 puff IH BID [History] Lisdexamfetamine [Vyvanse] 70 mg PO DAILY PRN 06/24/17 [History] atorvaSTATin Calcium [Atorvastatin Calcium] 20 mg PO DAILY 06/24/17 [History] diphenhydrAMINE [Benadryl] 50 mg PO DAILY PRN 06/24/17 [History] Meloxicam 15 mg PO DAILY 06/25/17 [History] Furosemide [Lasix] 40 mg PO BID@08,14 07/28/17 [History] Polyethylene Glycol 3350 [MiraLAX] 17 gm PO DAILY PRN 07/28/17 [History] Amoxicillin/Potassium Clav [Amox-Clav 875-125 mg Tablet] 1 tab PO Q8HR 08/13/17 [History] Metoprolol Succinate [Toprol XL] 75 mg PO DAILY 08/13/17 [History] Warfarin Sodium [Jantoven] 1 mg PO SUTUWETHSA 08/13/17 [History] Warfarin Sodium [Jantoven] 1.5 mg PO MOFR 08/13/17 [History] guaiFENesin [Mucinex] 600 mg PO BID 08/13/17 [History] Past Medical History HEENT History: Reports: Impaired Vision Other HEENT History: wear glasses Cardiovascular History: Reports: Angina, High Cholesterol, Hypertension, [place], SOB on Exertion, Other (See Below) Other Cardiovascular History: cardiovascular disease Respiratory History: Reports: COPD, Pneumonia, Recurrent, Sleep Apnea, Other ( See Below) Other Respiratory History: recently on ventilator --Klebisella pneumoniae Gastrointestinal History: Reports: Diverticulosis Other Gastrointestinal History: IBS proceeded the diverticulosis Other Genitourinary History: cyst on kidney 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: Reports: 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, Other OB/BYN History: miscarriage x2 Musculoskeletal History: Reports: Back Pain, Chronic, Fibromyalgia, RA Other Musculoskeletal History: sciatic nerve problem, generalized weakness, chronic pain Neurological History: Reports: Neuropathy, Diabetic, Neuropathy, Peripheral Other Neuro History: was in a coma for 5 months, fibromyalgia, neuropathy Psychiatric History: Reports: Anxiety, Bipolar, Depression, Hallucinations, Psych Hospitalization(s), PTSD, Suicide Attempt Other Psychiatric History: insomnia Endocrine/Metabolic History: Reports: Diabetes, Type II, Hypothyroidism, Other ( See Below) Other Endocrine/Metabolic History: borderline diabetic Dermatologic History: Reports: Other (See Below) Other Dermatologic History: occasional yeast infections under breast and adria area - Infectious Disease History Infectious Disease History: Reports: Chicken Pox, Mononucleosis - Past Surgical History GI Surgical History: Reports: Colonoscopy Social & Family History - Family History Family Medical History: Noncontributory Oncologic: Reports: Liver - Tobacco Use Smoking Status *Q: Former Smoker Years of Tobacco use: 25 Packs/Tins Daily: 0.5 Used Tobacco, but Quit: Yes Month Tobacco Last Used: unknown Second Hand Smoke Exposure: No - Caffeine Use Caffeine Use: Reports: None Caffeine Use Comment: unable to tolerate caffiene per patient - Alcohol Use Days Per Week of Alcohol Use: 0 - Recreational Drug Use Recreational Drug Use: No Drug Use in Last 12 Months: No Recreational Drug Type: Reports: Amphetamines (Speed), Cocaine, LSD (Acid), Marijuana/Hashish Other Recreational Drug Type: cocaine use in the - Living Situation & Occupation Living situation: Occupation: Unemployed ED ROS GENERAL - Review of Systems Review Of Systems: See Below Constitutional: Reports: No Symptoms HEENT: Reports: No Symptoms Respiratory: Reports: No Symptoms Cardiovascular: Reports: Palpitations Endocrine: Reports: No Symptoms GI/Abdominal: Reports: No Symptoms : Reports: No Symptoms Musculoskeletal: Reports: No Symptoms Skin: Reports: No Symptoms Neurological: Reports: No Symptoms Psychiatric: Reports: No Symptoms Hematologic/Lymphatic: Reports: No Symptoms Immunologic: Reports: No Symptoms ED EXAM, GENERAL - Physical Exam Exam: See Below Exam Limited By: No Limitations General Appearance: Alert, WD/WN, Obese (morbid) Eye Exam: Bilateral Eye: Normal Inspection Ears: Normal External Exam Ear Exam: Bilateral Ear: Auricle Normal Nose: Normal Inspection, Normal Mucosa Throat/Mouth: Normal Inspection, Normal Lips Head: Atraumatic, Normocephalic Neck: Normal Inspection, Supple Respiratory/Chest: No Respiratory Distress, Lungs Clear Cardiovascular: Normal Peripheral Pulses, Regular Rate, Rhythm, No Edema GI/Abdominal: Normal Bowel Sounds, Soft, Non-Tender (Female) Exam: Deferred Rectal (Female) Exam: Deferred Back Exam: Normal Inspection, Full Range of Motion Extremities: Normal Inspection, Normal Range of Motion, Non-Tender, No Pedal Edema Neurological: Alert, Oriented, CN II-XII Intact, Normal Cognition, Normal Gait Psychiatric: Normal Affect, Normal Mood Skin Exam: Warm, Dry, Intact, Normal Color, No Rash Lymphatic: No Adenopathy EKG INTERPRETATION EKG Date: 08/13/17 Time: 21:10 Rhythm: NSR Rate (Beats/Min): 124 Yolyn: Normal P-Wave: Present QRS: Normal ST-T: Normal QT: Normal Comparison: NA - No Prior EKG EKG Interpretation Comments: Repeat EKG at 22.50: NSR with rate of 95 BPM Course - Vital Signs Text/Narrative:: 62 years old w f came to the ed by EMS due to a rapid heart beat. HR was > 200 as per ems. Pt has a h/o SVT. The EMS gave in route 6 mg of adenosin and the pt converted to NSR as she arrived here in the ED. Pt stated she is in her usual state of health. 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, Hypothyroidism, Hypercalcemia (chronic) Tx: Adenosin officer captain Reexam: Improved Plan: D/C with instruction Last Recorded V/S: Last Vital Signs Temp 36.6 C 08/13/17 21:00 Pulse 127 H 08/13/17 21:00 Resp 18 08/13/17 22:50 BP 132/61 08/13/17 22:50 Pulse Ox 98 08/13/17 22:50 - Orders/Labs/Meds Orders: Active Orders 24 hr Category Date Time Status EKG Documentation Completion [RC] ASDIRECTED Care 08/13/17 21:03 Active EKG Documentation Completion [RC] ASDIRECTED Care 08/13/17 22:44 Active Oxygen Therapy, ED [RC] ASDIRECTED Care 08/13/17 20:56 Active EKG 12 Lead [EK] Routine Ther 08/13/17 21:02 Ordered EKG 12 Lead [EK] Routine Ther 08/13/17 22:44 Ordered Labs: Laboratory Tests 08/13/17 08/13/17 08/13/17 Range/Units 21:12 21:12 21:12 WBC 12.4 H (4.5-12.0) X10-3/uL RBC 3.91 (3.23-5.20) x10(6)uL Hgb 10.8 L (11.5-15.5) g/dL Hct 33.0 (30.0-51.3) % MCV 84.4 (80-96) fL MCH 27.7 (27.7-33.6) pg MCHC 32.8 (32.2-35.4) g/dL RDW 18.4 H (11.5-15.5) % Plt Count 498 H (125-369) X10(3)uL MPV 7.7 (7.4-10.4) fL Neut % (Auto) 80.1 (46-82) % Lymph % (Auto) 12.1 L (13-37) % [place] % (Auto) 6.2 (4-12) % Eos % (Auto) 1 (1.0-5.0) % Baso % (Auto) 0 (0-2) % Neut # (Auto) 10.0 H (1.6-8.3) # Lymph # (Auto) 1.5 (0.6-5.0) # [place] # (Auto) 0.8 (0.0-1.3) # Eos # (Auto) 0.1 (0.0-0.8) # Baso # (Auto) 0.0 (0.0-0.2) # Sodium 141 (135-145) mmol/L Potassium 4.2 (3.5-5.3) mmol/L Chloride 104 D (100-110) mmol/L Carbon Dioxide 30 (21-32) mmol/L BUN 12 (7-18) mg/dL Creatinine 0.9 (0.55-1.02) mg/dL Est Cr Clr Drug Dosing TNP Estimated GFR (MDRD) > 60 (>60) BUN/Creatinine Ratio 13.3 (9-20) Glucose 126 H (80-116) mg/dL Calcium 10.7 H (8.6-10.2) mg/dL Troponin I < 0.017 L (<0.017-0.056) ng/mL NT-Pro-B Natriuret Pep (<=125) pg/mL TSH, Ultra Sensitive 6.14 H (0.36-3.74) IU/mL 08/13/17 Range/Units 21:12 WBC (4.5-12.0) X10-3/uL RBC (3.23-5.20) x10(6)uL Hgb (11.5-15.5) g/dL Hct (30.0-51.3) % MCV (80-96) fL MCH (27.7-33.6) pg MCHC (32.2-35.4) g/dL RDW (11.5-15.5) % Plt Count (125-369) X10(3)uL MPV (7.4-10.4) fL Neut % (Auto) (46-82) % Lymph % (Auto) (13-37) % [place] % (Auto) (4-12) % Eos % (Auto) (1.0-5.0) % Baso % (Auto) (0-2) % Neut # (Auto) (1.6-8.3) # Lymph # (Auto) (0.6-5.0) # [place] # (Auto) (0.0-1.3) # Eos # (Auto) (0.0-0.8) # Baso # (Auto) (0.0-0.2) # Sodium (135-145) mmol/L Potassium (3.5-5.3) mmol/L Chloride (100-110) mmol/L Carbon Dioxide (21-32) mmol/L BUN (7-18) mg/dL Creatinine (0.55-1.02) mg/dL Est Cr Clr Drug Dosing Estimated GFR (MDRD) (>60) BUN/Creatinine Ratio (9-20) Glucose (80-116) mg/dL Calcium (8.6-10.2) mg/dL Troponin I (<0.017-0.056) ng/mL NT-Pro-B Natriuret Pep 239 H (<=125) pg/mL TSH, Ultra Sensitive (0.36-3.74) IU/mL Departure - Departure Time of Disposition: 23:04 Disposition: Home, Self-Care 01 Condition: Good Clinical Impression: SVT (supraventricular tachycardia), Hypercalcemia Hypothyroidism Qualifiers: Hypothyroidism type: unspecified Qualified Code(s): E03.9 - Hypothyroidism, unspecified Referrals: Hilda Vanessa TRUCK SAFETY INSPECTOR [Primary Care Provider] - Forms: ED Department Discharge Additional Instructions: Please increase water intake, please f/u with your PMD this Thursday as scheduled , please come back to the ed if your symptoms get worse acutely. - My Orders Last 24 Hours: My Active Orders 08/13/17 20:56 Oxygen Therapy, ED [RC] ASDIRECTED 08/13/17 21:02 EKG 12 Lead [EK] Routine 08/13/17 21:03 EKG Documentation Completion [RC] ASDIRECTED 08/13/17 22:44 EKG Documentation Completion [RC] ASDIRECTED EKG 12 Lead [EK] Routine - Assessment/Plan Last 24 Hours: My Active Orders 08/13/17 20:56 Oxygen Therapy, ED [RC] ASDIRECTED 08/13/17 21:02 EKG 12 Lead [EK] Routine 08/13/17 21:03 EKG Documentation Completion [RC] ASDIRECTED 08/13/17 22:44 EKG Documentation Completion [RC] ASDIRECTED EKG 12 Lead [EK] Routine
[2017-08-14 00:01] VITALS: BP 132/61
== END 2017-08-13 23:10 | disposition home or self-care (01) ==
LOC: FB.ED 20:56
DX: I47.1 Supraventricular tachycardia (principal); E03.9 Hypothyroidism, unspecified; E83.52 Hypercalcemia; I10 Essential (primary) hypertension; E11.42 Type 2 diabetes mellitus with diabetic polyneuropathy; E78.00 Pure hypercholesterolemia, unspecified; I25.2 Old myocardial infarction; J44.9 Chronic obstructive pulmonary disease, unspecified; Z88.1 Allergy status to other antibiotic agents; Z79.84 Long term (current) use of oral hypoglycemic drugs; Z79.01 Long term (current) use of anticoagulants; Z87.891 Personal history of nicotine dependence
CPT/HCPCS: 36415; 80048; 83880; 84443; 84484; 85025; 93005; 99285

== ENCOUNTER 2017-10-12 21:07 | Emergency (ER) | payer MEDICAID ==
--- NOTE | 2017-10-12 22:40 | EDM.PDOC ---
ED HPI GENERAL MEDICAL PROBLEM - General Chief Complaint: Abdominal Pain Stated Complaint: PAIN Time Seen by Provider: 10/12/17 22:20 Source of Information: Reports: Patient, Old Records History Limitations: Reports: No Limitations - History of Present Illness INITIAL COMMENTS - FREE TEXT/NARRATIVE: Linda comes into [facility] ED with a hx of chronic abdominal pain suspected to be colonic diverticulosis, and concerns she is going thru a relapse of acute diverticulitis today. There is no fever, chills, sweats, diarrhea or constipation. She has a consult with a surgeon this week, and is anticipating abdominal surgery in [place], [place] soon. Of interest is a PMH of chronic fibromylagia for which she has received injections at a Pain Clinic.Her specialist has retired, no further refills of Tylenol #3, and she doesn't have a follow up appt soon enough. She is requesting pain management tonight. She has been taking NSAIDs and Tylenol at home by self report. Upper abdminal region Pain Score (Numeric/FACES): 9 - Related Data Allergies Allergy/AdvReac Type Severity Reaction Status Date / Time ciprofloxacin Allergy Cannot Verified 10/12/17 21:39 Remember metronidazole [From Flagyl] Allergy Itching Verified 10/12/17 21:39 Home Meds: Home Meds Sennosides/Docusate Sodium [Senna S Tablet] 1 tab PO DAILY 04/03/14 [History] Zolpidem [Ambien] 10 mg PO BEDTIME 04/03/14 [History] Doxepin [SINEquan] 100 mg PO BEDTIME 10/11/14 [History] Cyclobenzaprine [Flexeril] 10 mg PO TID PRN 01/05/17 [History] Ferrous Sulfate 650 mg PO DAILY 01/05/17 [History] Folic Acid 1 mg PO DAILY 01/05/17 [History] Pregabalin [Lyrica] 50 mg PO TID 01/05/17 [History] QUEtiapine [SEROquel] 100 mg PO BEDTIME 01/05/17 [History] LORazepam 1 mg PO BID 01/07/17 [History] Fluticasone Propionate [Flonase] 1 spray NASBOTH BEDTIME 01/08/17 [History] Excedrin Migraine 1 tab PO DAILY PRN 04/08/17 [History] Loperamide [Imodium AD] 2 mg PO ASDIRECTED PRN 04/08/17 [History] Pantoprazole Sodium [Protonix] 40 mg PO DAILY 04/08/17 [History] Tetrahydrozoline HCl [Visine] 1 drop EYEBOTH DAILY PRN 04/08/17 [History] metFORMIN [Glucophage] 500 mg PO BID 04/08/17 [History] Albuterol Sulfate [Proair Hfa] 2 puff IH Q6H PRN 06/24/17 [History] Asenapine Maleate [Saphris] 10 mg PO BEDTIME 06/24/17 [History] Budesonide/Formoterol Fumarate [Symbicort 160-4.5 Mcg Inhaler] 2 puff IH BID [History] Lisdexamfetamine [Vyvanse] 70 mg PO DAILY PRN 06/24/17 [History] diphenhydrAMINE [Benadryl] 50 mg PO BEDTIME 06/24/17 [History] Meloxicam 15 mg PO DAILY 06/25/17 [History] Furosemide [Lasix] 40 mg PO BID@08,14 07/28/17 [History] Metoprolol Succinate [Toprol XL] 75 mg PO DAILY 08/13/17 [History] traMADol [Ultram] 50 mg PO Q6H PRN #10 tab 10/12/17 [Rx] Past Medical History HEENT History: Reports: Impaired Vision Other HEENT History: wear glasses Cardiovascular History: Reports: Angina, High Cholesterol, Hypertension, [place], SOB on Exertion, Other (See Below) Other Cardiovascular History: cardiovascular disease Respiratory History: Reports: COPD, Pneumonia, Recurrent, Sleep Apnea, Other ( See Below) Other Respiratory History: recently on ventilator --Klebisella pneumoniae Gastrointestinal History: Reports: Diverticulosis Other Gastrointestinal History: IBS proceeded the diverticulosis Other Genitourinary History: cyst on kidney 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: 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, Other OB/BYN History: miscarriage x2 Musculoskeletal History: Reports: Back Pain, Chronic, Fibromyalgia, RA Other Musculoskeletal History: sciatic nerve problem, generalized weakness, chronic pain Neurological History: Reports: Neuropathy, Diabetic, Neuropathy, Peripheral Other Neuro History: was in a coma for 5 months, fibromyalgia, neuropathy Psychiatric History: Reports: Anxiety, Bipolar, Depression, Hallucinations, Psych Hospitalization(s), PTSD, Suicide Attempt Other Psychiatric History: insomnia Endocrine/Metabolic History: Reports: Diabetes, Type II, Hypothyroidism, Other ( See Below) Other Endocrine/Metabolic History: borderline diabetic Dermatologic History: Reports: Other (See Below) Other Dermatologic History: occasional yeast infections under breast and adria area - Infectious Disease History Infectious Disease History: Reports: Chicken Pox, Mononucleosis - Past Surgical History GI Surgical History: Reports: Colonoscopy Social & Family History - Family History Family Medical History: Noncontributory Oncologic: Reports: Liver - Tobacco Use Smoking Status *Q: Former Smoker Years of Tobacco use: 25 Packs/Tins Daily: 0.5 Used Tobacco, but Quit: Yes Month/Year Tobacco Last Used: unknown Second Hand Smoke Exposure: No - Caffeine Use Caffeine Use: Reports: None Caffeine Use Comment: unable to tolerate caffiene per patient - Alcohol Use Days Per Week of Alcohol Use: 0 - Recreational Drug Use Recreational Drug Use: No Drug Use in Last 12 Months: No Recreational Drug Type: Reports: Amphetamines (Speed), Cocaine, LSD (Acid), Marijuana/Hashish Other Recreational Drug Type: cocaine use in the - Living Situation & Occupation Living situation: Occupation: Unemployed ED ROS GENERAL - Review of Systems Review Of Systems: ROS reveals no pertinent complaints other than HPI. ED EXAM, GI/ABD - Physical Exam Exam: See Below Exam Limited By: No Limitations General Appearance: Alert, WD/WN, No Apparent Distress, Anxious Eyes: Bilateral: Normal Appearance, EOMI Ears: Normal External Exam Nose: Normal Inspection Throat/Mouth: Normal Inspection Head: Normocephalic Neck: Normal Inspection, Supple, Non-Tender Respiratory/Chest: Lungs Clear, Normal Breath Sounds, Chest Non-Tender Cardiovascular: Regular Rate, Rhythm, No Murmur GI/Abdominal Exam: Normal Bowel Sounds, Soft, No Organomegaly, No Distention, No Mass, Tender (mild tenderness LLQ without guarding) Back Exam: Normal Inspection Extremities: Normal Inspection Neurological: Alert, Oriented, CN II-XII Intact, Normal Cognition, Normal Gait, No Motor/Sensory Deficits Psychiatric: Normal Affect, Anxious Skin Exam: Warm, Dry, Intact, Normal Color Lymphatic: No Adenopathy Course - Vital Signs Text/Narrative:: Following assessment at the [facility] ED, some screening labs were performed including a CBC, BMP, and UA noting no acute changes. An acute diverticular illness is not suspected at this time. Last Recorded V/S: Last Vital Signs Temp 36.7 C 10/12/17 21:11 Pulse 105 H 10/12/17 21:11 Resp 18 10/12/17 21:11 BP 145/74 H 10/12/17 21:11 Pulse Ox 96 10/12/17 21:11 - Orders/Labs/Meds Orders: Active Orders 24 hr Category Date Time Status URINALYSIS W/MICROSCOPIC [UA W/MICROSCOPIC] [URIN] Stat Lab 10/12/17 22:08 Ordered Labs: Laboratory Tests 10/12/17 10/12/17 Range/Units 22:15 22:15 WBC 10.7 (4.5-12.0) X10-3/uL RBC 4.86 (3.23-5.20) x10(6)uL Hgb 13.1 (11.5-15.5) g/dL Hct 40.7 (30.0-51.3) % MCV 83.8 (80-96) fL MCH 27.0 L (27.7-33.6) pg MCHC 32.2 (32.2-35.4) g/dL RDW 16.9 H (11.5-15.5) % Plt Count 522 H (125-369) X10(3)uL MPV 8.1 (7.4-10.4) fL Neut % (Auto) 66.3 (46-82) % Lymph % (Auto) 23.8 (13-37) % [place] % (Auto) 6.7 (4-12) % Eos % (Auto) 2 (1.0-5.0) % Baso % (Auto) 1 (0-2) % Neut # (Auto) 7.0 (1.6-8.3) # Lymph # (Auto) 2.6 (0.6-5.0) # [place] # (Auto) 0.7 (0.0-1.3) # Eos # (Auto) 0.3 (0.0-0.8) # Baso # (Auto) 0.1 (0.0-0.2) # Sodium 140 (135-145) mmol/L Potassium 4.1 (3.5-5.3) mmol/L Chloride 103 (100-110) mmol/L Carbon Dioxide 28 (21-32) mmol/L BUN 16 (7-18) mg/dL Creatinine 0.9 (0.55-1.02) mg/dL Est Cr Clr Drug Dosing TNP Estimated GFR (MDRD) > 60 (>60) BUN/Creatinine Ratio 17.8 (9-20) Glucose 116 (80-116) mg/dL Calcium 11.3 H (8.6-10.2) mg/dL Departure - Departure Time of Disposition: 23:01 Disposition: Home, Self-Care 01 Condition: Fair Clinical Impression: Abdominal pain Qualifiers: Abdominal location: lower abdomen, unspecified Qualified Code(s): R10.30 - Lower abdominal pain, unspecified - Discharge Information Referrals: Shannan Peng SALES TRAINING COORDINATOR [Primary Care Provider] - Forms: ED Department Discharge - Problem List & Annotations (1) Abdominal pain SNOMED Code(s): 03172959 Code(s): R10.9 - UNSPECIFIED ABDOMINAL PAIN Status: Acute Current Visit: Yes Annotation/Comment:: Chronic abdominal pain, and supervisor home energy consultant scheduled for this week. I dispensed Tramadol 50 mg #10 for pain managment, no refills. Qualifiers: Abdominal location: lower abdomen, unspecified Qualified Code(s): R10.30 - Lower abdominal pain, unspecified - Problem List Review Problem List Initiated/Reviewed/Updated: Yes - My Orders Last 24 Hours: My Active Orders 10/12/17 22:08 URINALYSIS W/MICROSCOPIC [UA W/MICROSCOPIC] [URIN] Stat - Assessment/Plan Last 24 Hours: My Active Orders 10/12/17 22:08 URINALYSIS W/MICROSCOPIC [UA W/MICROSCOPIC] [URIN] Stat Plan: Follow up with supervisor home energy consultant on .
[2017-10-12] MEDS ORDERED: traMADol 50 MG Tab PO ONE (23:02)
[2017-10-12 23:48] VITALS: BP 154/83
== END 2017-10-12 23:50 | disposition home or self-care (01) ==
LOC: FB.ED 21:07
DX: R10.30 Lower abdominal pain, unspecified (principal); E78.00 Pure hypercholesterolemia, unspecified; I10 Essential (primary) hypertension; I25.2 Old myocardial infarction; J44.9 Chronic obstructive pulmonary disease, unspecified; E11.40 Type 2 diabetes mellitus with diabetic neuropathy, unspecified; E03.9 Hypothyroidism, unspecified; Z87.01 Personal history of pneumonia (recurrent); Z88.1 Allergy status to other antibiotic agents; Z88.8 Allergy status to other drugs, medicaments and biological substances; Z79.899 Other long term (current) drug therapy; Z79.84 Long term (current) use of oral hypoglycemic drugs; Z87.891 Personal history of nicotine dependence; Z86.19 Personal history of other infectious and parasitic diseases
CPT/HCPCS: 36415; 80048; 85025; 99283; A9270

== ENCOUNTER 2017-11-23 14:28 | Emergency (ER) | payer MEDICAID ==
[2017-11-23] MEDS ORDERED: Morphine 4 MG/ML Syringe IVPUSH ONE (15:20)
[2017-11-23] MEDS ORDERED: Sodium Chloride 0.9% 1,000 ML IV SCH (15:30)
[2017-11-23] MEDS ORDERED: diphenhydrAMINE 50 MG/ML SDV IVPUSH ONE (15:44)
[2017-11-23] MEDS ORDERED: Metoclopramide 10 MG/2 ML SDV IVPUSH ONE (15:44)
[2017-11-23] MEDS ORDERED: Iopamidol 755 Mg/ML 100 ML Bottle IV ONE (16:23)
[2017-11-23] MEDS ORDERED: Diatrizoate Meglumine/Diatrizoate Sodium 37% 30 ML Bottle PO ONE (16:23)
[2017-11-23] MEDS ORDERED: Amoxicillin/Clavulanate K 875-125 MG Tab PO ONE (18:48)
[2017-11-23 19:28] VITALS: BP 153/73
--- NOTE | 2017-11-24 08:17 | CT ---
INDICATION: Left lower quadrant pain, known history of diverticulosis, colectomy scheduled for 12/02/[address] [place]OM[address] AND CT PELVIS WITH CONTRAST: Spiral 2.5 mm axial sections were obtained through the abdomen and pelvis with oral and IV contrast (100 mL Isovue 370 at 2 mL/second with 100 second delay) with sagittal and coronal reconstructions 11/23/2017 and compared with 06/24/2017. Total exam DLP = 2,262.12 mGy-cm. There appears to be scarring at the middle lobe and right lower lobe seen previously. Only minimal scarring is seen at the left lower lobe and lingula, as previously. A definite active infiltrate or effusion was not identified. The heart is not enlarged. The liver had a normal appearance. No gallstones were demonstrated. The adrenal glands appeared normal. The right kidney showed evidence of a small exophytic cystic structure anterolaterally mid pole area. There is some minimal renal cortical scarring bilaterally. No obstructive uropathy was suggested. Renal fascial thickening is minimal. Off the upper pole of the left kidney, there is also suggestion of a minimal cystic structure, mostly exophytic. This may be slightly increased in size, compared with the previous study, now measuring 15.9 mm, compared with 14.5 mm previously. This most likely represents a benign cystic structure. The spleen and pancreas appeared normal. No retroperitoneal mass was seen. Retroperitoneal lymphadenopathy is mild and nonspecific. The appendix is again noted to be normal in appearance. At the area of the right ovary, there is again noted a simple cystic structure, which now measures 47.3 mm, previously measuring 42.2 mm - a slight increase in size, and again making it difficult to entirely exclude a neoplastic process, likely of benign origin with the slight increase in size. Sigmoid diverticulosis is noted, and now there is evidence of diverticulitis with pericolonic fat stranding in that area. No gross abscess formation could be identified. No significant abdominal ascites was seen. Urinary bladder was unremarkable. Uterus is unremarkable. Degenerative changes and disk disease noted at L3-4 with vacuum disk phenomenon and hypertrophic lipping. Decreased disk space is minimal at L4-5, also suggesting disk disease at that level. IMPRESSION: 1. Sigmoid diverticulosis with probable diverticulitis. No definite perforation seen - no free air is noted in the abdomen - no obstruction of the bowel was seen. 2. Increasing size, although slightly increased, of a simple cystic mass in the area of the right ovary adjacent to the uterus, likely represents a benign neoplastic process of cystic origin. 3. Appendix unremarkable. 4. Fibrotic changes at the lung bases again noted. 5. Minimal cystic changes at the kidneys with minimal renal scarring. 6. Degenerative changes and disk disease noted at L3-4 with vacuum disk phenomenon and hypertrophic lipping. Decreased disk space is minimal at L4-5, also suggesting disk disease at that level. 7. Mild ASD aorta with some calcifications noted. 8. Postsurgical change area of the sigmoid colon. Report was called to Dr. Heard at 1737 hours on 11/23/2017. [facility]
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
== END 2017-11-23 19:29 | disposition home or self-care (01) ==
LOC: FB.ED 14:28
DX: K57.32 Diverticulitis of large intestine without perforation or abscess without bleeding (principal); E66.9 Obesity, unspecified; F60.9 Personality disorder, unspecified; F32.9 Major depressive disorder, single episode, unspecified; E11.41 Type 2 diabetes mellitus with diabetic mononeuropathy; I25.2 Old myocardial infarction; M06.9 Rheumatoid arthritis, unspecified; E03.9 Hypothyroidism, unspecified; I10 Essential (primary) hypertension; K21.9 Gastro-esophageal reflux disease without esophagitis; J44.9 Chronic obstructive pulmonary disease, unspecified; E66.01 Morbid (severe) obesity due to excess calories
CPT/HCPCS: 36415; 74177; 80053; 81001; 83605; 85025; 96361; 96374; 96375; 99284; A9270; J1200; J2765; J7040; Q9963; Q9967

== ENCOUNTER 2017-11-25 14:35 | Emergency (ER) | payer MEDICAID ==
[2017-11-25] MEDS ORDERED: Sodium Chloride 0.9% 1,000 ML IV ONE (14:54)
[2017-11-25] MEDS ORDERED: Lactated Ringers 1,000 ML IV SCH (15:00)
[2017-11-25 15:12] VITALS: BP 156/79
--- NOTE | 2017-11-26 09:18 | ER ---
DATE SEEN: 11/25/2017 TIME SEEN: The patient was seen on arrival at 1430 hours. HISTORY OF PRESENT ILLNESS: Linda is polysymptomatic. I have three pages notes and will not iterate today, ie without creating extensive note, her complaints and history is very similar to yesterday's. She presents today because she thinks her diverticula is worse. Her home health care person did not show up yesterday, so she "did not get anything to eat." She also said "she has no way to get her groceries." She uses Ensure, which otherwise she has gastrointestinal complaints, and she verbalizes how she does not like people where she lives, and "I can't walk" even though she walked to the ambulance today as they came to bring to the hospital, and she states because of her diabetic peripheral neuropathy, she cannot hold on to things and feed herself, but she held onto an Ensure bottle very well without difficulty in the ED, did not have any difficulty with walking which was readily evident as she walked out of the ED with ease.. So,she has a lot of complaints to what to her are important, but can be construed to be exaggeration and be more reflective of polysymptomatology. She has on her problem list 40 problems and this reflects the same. REVIEW OF SYSTEMS: Negative, I am not going to go through this as I did it yesterday and it appears unchanged. PHYSICAL EXAMINATION: VITAL SIGNS: Blood pressure 156/79, heart rate 81, respirations 20, 94% oxygen saturation, temperature is 36.3 degrees centigrade. GENERAL: Alert woman, overweight. She does not move. She lays in the gurney without moving. She was brought in by ambulance, but she was able to get up and walk to the ambulance. She is able to get up and walk in the ED. HEENT: PERRLA intact. Pharynx without abnormality. She has a full face. Moderate swelling but reflects morbid obesity. LUNGS: Clear without rales or rhonchi. HEART: S1, S2. No murmur. ABDOMEN: Incisions are healed. Has a protuberating abdomen. Mild discomfort in the left lower quadrant. She claims extensive discomfort, but she does not reflect that in her physical response to examination. No rebound. PELVIC: Not performed. EXTREMITIES: Lower extremities 1+ pedal edema. MOUTH: Mucosa of mouth is dry. Initially, I was inclined to flush with fluids, but because of edema in lower extremities, I chose not to flush with IV fluids. LABORATORY STUDIES: Her laboratory studies today are similar to what they were yesterday with a slight elevation of thrombocytosis and microcytic hypochromic anemia without leukocytosis. White count is same at 10,600, PMNs the same, not elevated. She has mild hypochloremia from diuretic use and I did do a C- reactive protein, it is 8.2. The lactate is unchanged. ASSESSMENT: History of diverticulitis. She had a CAT scan yesterday which suggests that there was some minimal colon wall thickening and also had probable diverticulitis in the sigmoid colon. No definitive diagnosis of diverticulitis, but there is "mild inflammation." In order to create a more positive attitude, I told her that lab tests were all normal except the C-reactive protein is slightly elevated. She is to continue her current medicine, Augmentin 875 mg b.i.d. Also, I gave her something to which she has been hanging on her hat on most likely that she would be having the surgery (I told her I could not promise that), and her whole negative attitude turns into that of glee and happiness and expressed her gratitude that she was getting better and she would have resolution of lower abdominal discomfort. The patient dismissed. Also, she complains she did not have Ensure. Consequently, we provided Ensure for her and Swati Kern went and got a 8 bottles for her for nutrition. Also Swati stated she would be called by social worker school from the hospital tomorrow to see how she is doing. The patient was dismissed. She was 10 times happier than when she came in. DIAGNOSES: 1. Diverticulitis, resolving. Continue antibiotic. 2. Lower abdominal pain secondary to diverticulitis. 3. Polysymptomatic with 40 different problems. Those will not be listed in this dictation. /[id number] ROSALIA/ALEXA VÁSQUEZ
== END 2017-11-25 16:34 | disposition home or self-care (01) ==
LOC: FB.ED 14:35
DX: K57.92 Diverticulitis of intestine, part unspecified, without perforation or abscess without bleeding (principal)
CPT/HCPCS: 36415; 80053; 83605; 85025; 86140; 99284

== ENCOUNTER 2017-11-27 14:53 | Emergency (ER) | payer MEDICAID ==
--- NOTE | 2017-11-27 15:24 | EDM.PDOC ---
ED HPI GENERAL MEDICAL PROBLEM - General Chief Complaint: General Stated Complaint: dizziness Time Seen by Provider: 11/27/17 15:24 Source of Information: Reports: Patient History Limitations: Reports: No Limitations - History of Present Illness INITIAL COMMENTS - FREE TEXT/NARRATIVE: Patient awoke with dizziness at 7am, described as room spinning with standing, not worsened with head movement. Complains of nausea. Recently treated in ED ( &11/25/17) for diverticulitis, rx'd Augmentin. Scheduled for colectomy in [place] for recurrent diverticulitis. Denies chest pain or shortness of breath. Endorses mild LLQ abdominal pain. Onset: Today Duration: Hour(s): (8) Severity: Moderate Worsens with: Reports: Other (standing) - Related Data Allergies Allergy/AdvReac Type Severity Reaction Status Date / Time ciprofloxacin Allergy Cannot Verified 11/27/17 15:12 Remember metronidazole [From Flagyl] Allergy Itching Verified 11/27/17 15:12 Home Meds: Home Meds Sennosides/Docusate Sodium [Senna-S Tablet] 1 tab PO DAILY 04/03/14 [History] Zolpidem [Ambien] 10 mg PO BEDTIME 04/03/14 [History] Doxepin [SINEquan] 100 mg PO BEDTIME 10/11/14 [History] Cyclobenzaprine [Flexeril] 10 mg PO TID PRN 01/05/17 [History] Ferrous Sulfate 650 mg PO DAILY 01/05/17 [History] Folic Acid 1 mg PO DAILY 01/05/17 [History] Pregabalin [Lyrica] 50 mg PO TID 01/05/17 [History] QUEtiapine [SEROquel] 100 mg PO BEDTIME 01/05/17 [History] LORazepam 1 mg PO BID 01/07/17 [History] Fluticasone Propionate [Flonase] 1 spray NASBOTH BEDTIME 01/08/17 [History] Excedrin Migraine 1 tab PO DAILY PRN 04/08/17 [History] Loperamide [Imodium AD] 2 mg PO ASDIRECTED PRN 04/08/17 [History] Pantoprazole Sodium [Protonix] 40 mg PO DAILY 04/08/17 [History] Tetrahydrozoline HCl [Visine] 1 drop EYEBOTH DAILY PRN 04/08/17 [History] metFORMIN [Glucophage] 500 mg PO BID 04/08/17 [History] Albuterol Sulfate [Proair Hfa] 2 puff IH Q6H PRN 06/24/17 [History] Asenapine Maleate [Saphris] 10 mg PO BEDTIME 06/24/17 [History] Budesonide/Formoterol Fumarate [Symbicort 160-4.5 Mcg Inhaler] 2 puff IH BID [History] Lisdexamfetamine [Vyvanse] 70 mg PO DAILY PRN 06/24/17 [History] diphenhydrAMINE [Benadryl] 50 mg PO BEDTIME 06/24/17 [History] Meloxicam 15 mg PO DAILY 06/25/17 [History] Furosemide [Lasix] 40 mg PO BID@08,14 07/28/17 [History] Metoprolol Succinate [Toprol XL] 75 mg PO DAILY 08/13/17 [History] traMADol [Ultram] 50 mg PO Q6H PRN #10 tab 10/12/17 [Rx] Amoxicillin/Potassium Clav [Augmentin 875-125 Tablet] 1 each PO BID #20 tablet 11/23/17 [Rx] Hydrocodone/Acetaminophen [Lorcet 5-325 mg Tablet] 1 each PO Q4HR PRN #10 tablet 11/23/17 [Rx] Past Medical History HEENT History: Reports: Impaired Vision Other HEENT History: wear glasses Cardiovascular History: Reports: Angina, High Cholesterol, Hypertension, [place], SOB on Exertion, Other (See Below) Other Cardiovascular History: cardiovascular disease Respiratory History: Reports: COPD (02 dep), Pneumonia, Recurrent, Sleep Apnea, Other (See Below) Other Respiratory History: recently on ventilator --Klebisella pneumoniae Gastrointestinal History: Reports: Diverticulosis, Other (See Below) (recurrent diverticulitis) Other Gastrointestinal History: IBS proceeded the diverticulosis Other Genitourinary History: cyst on kidney KITCHEN STEWARD/STEWARDESS History: Reports: 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, Other OB/BYN History: miscarriage x2 Musculoskeletal History: Reports: Back Pain, Chronic, Fibromyalgia, RA Other Musculoskeletal History: sciatic nerve problem, generalized weakness, chronic pain Neurological History: Reports: Neuropathy, Diabetic, Neuropathy, Peripheral Other Neuro History: was in a coma for 5 months, fibromyalgia, neuropathy Psychiatric History: Reports: Anxiety, Bipolar, Depression, Hallucinations, Psych Hospitalization(s), PTSD, Suicide Attempt Other Psychiatric History: insomnia Endocrine/Metabolic History: Reports: Diabetes, Type II, Hypothyroidism, Other ( See Below) Other Endocrine/Metabolic History: borderline diabetic Hematologic History: Reports: None Immunologic History: Reports: None Oncologic (Cancer) History: Reports: None Dermatologic History: Reports: Other (See Below) Other Dermatologic History: occasional yeast infections under breast and adria area - Infectious Disease History Infectious Disease History: Reports: None - Past Surgical History Head Surgeries/Procedures: Reports: None GI Surgical History: Reports: Colonoscopy Social & Family History - Family History Family Medical History: Noncontributory Oncologic: Reports: Liver - Tobacco Use Smoking Status *Q: Former Smoker Tobacco Use Within Last Twelve Months: No - Caffeine Use Caffeine Use: Reports: None Caffeine Use Comment: unable to tolerate caffiene per patient - Alcohol Use Alcohol Use History: No - Living Situation & Occupation Living situation: Occupation: Unemployed ED ROS GENERAL - Review of Systems Review Of Systems: See Below Constitutional: Reports: Weakness (generalized) HEENT: Reports: No Symptoms Respiratory: Reports: Cough Cardiovascular: Reports: No Symptoms Endocrine: Reports: No Symptoms GI/Abdominal: Reports: Abdominal Pain (LLQ) : Reports: No Symptoms Musculoskeletal: Reports: No Symptoms Skin: Reports: No Symptoms Neurological: Reports: Dizziness, Weakness (mild LLE weakness noted since 0700 today, went to sleep at 12 midnoc (last known well)) Psychiatric: Reports: No Symptoms ED EXAM, GENERAL - Physical Exam Exam: See Below Exam Limited By: No Limitations General Appearance: Alert, WD/WN, No Apparent Distress Eye Exam: Bilateral Eye: PERRL Nose: Normal Inspection Throat/Mouth: Other (dry oral mucosa) Head: Atraumatic, Normocephalic Neck: Normal Inspection, Supple Respiratory/Chest: No Respiratory Distress, Lungs Clear, Normal Breath Sounds, No Accessory Muscle Use Cardiovascular: Normal Peripheral Pulses, Regular Rate, Rhythm, No Gallop, No Murmur GI/Abdominal: Normal Bowel Sounds, Soft, No Distention, Tender (mild LLQ) (Female) Exam: Deferred Rectal (Female) Exam: Deferred Extremities: Normal Inspection Neurological: Alert, Oriented, CN II-XII Intact, Normal Cognition, Other (mild LLE weakness. NIHSS score: 1) Psychiatric: Normal Affect, Normal Mood Skin Exam: Warm, Dry, Intact EKG INTERPRETATION EKG Date: 11/27/17 Time: 16:00 Rhythm: NSR Rate (Beats/Min): 83 [place]: Normal P-Wave: Present QRS: Normal ST-T: Normal QT: Normal EKG Interpretation Comments: No acute ischemia or ectopy Course - Vital Signs Last Recorded V/S: Last Vital Signs Temp 36.9 C 11/27/17 14:55 Pulse 90 11/27/17 14:55 Resp 18 11/27/17 14:55 BP 118/69 11/27/17 14:55 Pulse Ox 97 11/27/17 15:26 - Orders/Labs/Meds Orders: Active Orders 24 hr Category Date Time Status EKG Documentation Completion [RC] ASDIRECTED Care 11/27/17 15:36 Active Oxygen Therapy Adult [Oxygen Therapy, ED] [RC] Care 11/27/17 15:26 Active ASDIRECTED CXR [Chest 1V Frontal] [CR] Stat Exams 11/27/17 15:36 Taken Head wo Cont [CT] Stat Exams 11/27/17 15:37 Taken UA W/MICROSCOPIC [URIN] Stat Lab 11/27/17 15:35 Ordered Sodium Chloride 0.9% [Saline Flush] Med 11/27/17 18:55 Active 10 ml FLUSH ASDIRECTED PRN Saline Lock Insert [OM.PC] Routine Oth 11/27/17 18:55 Ordered EKG 12 Lead [EK] Stat Ther 11/27/17 15:36 Ordered Medication Orders Sodium Chloride (Saline Flush) 10 ml FLUSH ASDIRECTED PRN PRN Reason: Keep Vein Open Last Admin: 11/27/17 15:45 Dose: 10 ml Labs: Laboratory Tests 11/27/17 11/27/17 11/27/17 Range/Units 16:12 16:12 16:12 WBC 13.3 H (4.5-12.0) X10-3/uL RBC 4.18 (3.23-5.20) x10(6)uL Hgb 10.9 L (11.5-15.5) g/dL Hct 34.1 (30.0-51.3) % MCV 81.7 (80-96) fL MCH 26.0 L (27.7-33.6) pg MCHC 31.8 L (32.2-35.4) g/dL RDW 16.9 H (11.5-15.5) % Plt Count 416 H (125-369) X10(3)uL MPV 8.0 (7.4-10.4) fL Neut % (Auto) 76.5 (46-82) % Lymph % (Auto) 12.0 L (13-37) % [place] % (Auto) 7.2 (4-12) % Eos % (Auto) 2 (1.0-5.0) % Baso % (Auto) 2 (0-2) % Neut # (Auto) 10.1 H (1.6-8.3) # Lymph # (Auto) 1.6 (0.6-5.0) # [place] # (Auto) 1.0 (0.0-1.3) # Eos # (Auto) 0.3 (0.0-0.8) # Baso # (Auto) 0.3 H (0.0-0.2) # Sodium 139 (135-145) mmol/L Potassium 4.3 (3.5-5.3) mmol/L Chloride 101 (100-110) mmol/L Carbon Dioxide 36 H (21-32) mmol/L BUN 20 H (7-18) mg/dL Creatinine 0.9 (0.55-1.02) mg/dL Est Cr Clr Drug Dosing 69.47 mL/min Estimated GFR (MDRD) > 60 (>60) BUN/Creatinine Ratio 22.2 H (9-20) Glucose 102 (80-116) mg/dL Calcium 9.9 (8.6-10.2) mg/dL Magnesium 2.2 (1.8-2.5) mg/dL Total Bilirubin 0.2 (0.1-1.3) mg/dL AST 11 (5-25) IU/L ALT 13 (12-36) U/L Alkaline Phosphatase 55 L (56-112) IU/L Total Protein 7.1 (6.0-8.0) g/dL Albumin 2.7 L (3.2-4.6) g/dL Globulin 4.4 g/dL Albumin/Globulin Ratio 0.6 Meds: Medications Generic Name Dose Route Start Last Admin Trade Name Freq PRN Reason Stop Dose Admin Sodium Chloride 10 ml 11/27/17 18:55 11/27/17 15:45 Saline Flush FLUSH 10 ml ASDIRECTED PRN Administration Keep Vein Open Discontinued Medications Generic Name Dose Route Start Last Admin Trade Name Bobo PRN Reason Stop Dose Admin Aspirin 324 mg 11/27/17 18:09 11/27/17 18:52 Aspirin PO 11/27/17 18:10 324 mg ONETIME ONE Administration Sodium Chloride 1,000 mls @ 999 mls/hr 11/27/17 15:38 11/27/17 15:45 Normal Saline IV 11/27/17 16:38 999 mls/hr .BOLUS ONE Administration - Radiology Interpretation Free Text/Narrative:: Head CT w/o: lacunar infarcts right internal capsule amd left posterior capsule acute vs chronic, no hemorrhage (per Dr. Wesley, Radiologist). CXR: NAD (ED provider interpretation). - Re-Assessments/Exams Free Text/Narrative Re-Assessment/Exam: 11/27/17 18:30 Symptoms unchanged 11/27/17 18:[address] Mitchell ([facility] neurology), recommends transfer to [facility] ED. Dr. Denise accepts transfer to [facility] ED. Departure - Departure Time of Disposition: 18:58 Disposition: DC/Tfer to Acute Hospital 02 Condition: Fair Clinical Impression: CVA, Cerebrovascular accident, Vertigo, Diverticulitis - Discharge Information Referrals: Shannan Peng, [facility] [Primary Care Provider] - Forms: ED Department Discharge - My Orders Last 24 Hours: My Active Orders 11/27/17 15:26 Oxygen Therapy Adult [Oxygen Therapy, ED] [RC] ASDIRECTED 11/27/17 15:35 UA W/MICROSCOPIC [URIN] Stat 11/27/17 15:36 EKG Documentation Completion [RC] ASDIRECTED CXR [Chest 1V Frontal] [CR] Stat EKG 12 Lead [EK] Stat 11/27/17 15:37 Head wo Cont [CT] Stat 11/27/17 18:55 Sodium Chloride 0.9% [Saline Flush] 10 ml FLUSH ASDIRECTED PRN Saline Lock Insert [OM.PC] Routine - Assessment/Plan Last 24 Hours: My Active Orders 11/27/17 15:26 Oxygen Therapy Adult [Oxygen Therapy, ED] [RC] ASDIRECTED 11/27/17 15:35 UA W/MICROSCOPIC [URIN] Stat 11/27/17 15:36 EKG Documentation Completion [RC] ASDIRECTED CXR [Chest 1V Frontal] [CR] Stat EKG 12 Lead [EK] Stat 11/27/17 15:37 Head wo Cont [CT] Stat 11/27/17 18:55 Sodium Chloride 0.9% [Saline Flush] 10 ml FLUSH ASDIRECTED PRN Saline Lock Insert [OM.PC] Routine
[2017-11-27] MEDS ORDERED: Sodium Chloride 0.9% 1,000 ML IV ONE (15:38)
[2017-11-27] MEDS ORDERED: Aspirin 81 MG Tab.Chew PO ONE (18:09)
[2017-11-27] MEDS ORDERED: Sodium Chloride 0.9% 10 ML Syringe FLUSH PRN (18:55)
[2017-11-27 19:20] VITALS: BP 151/87
--- NOTE | 2017-11-30 11:34 | CR ---
INDICATION: Cough. CHEST: Portable AP upright view of the chest times two was obtained 11/27/2017 and compared with 07/28/2017 and 04/10/2017. Evidence of exogenous obesity is again noted. The heart appears enlarged. Pulmonary vasculature is somewhat prominent, raising question of CHF - correlate clinically. A consolidating pneumonia or definite effusion was not identified. Elevation of the right hemidiaphragm is likely on the basis of normal anatomy and poor inspiration. A subpulmonic effusion is difficult to entirely exclude - correlate clinically - right lateral decubitus view may be helpful for further evaluation - with the right side of the patient down. The aorta is tortuous with calcification in the arch. IMPRESSION: 1. ASHD with cardiomegaly likely. Full inspiration PA and lateral views of the chest may be helpful for further evaluation. 2. Exogenous obesity. 3. Elevated right hemidiaphragm, likely anatomic and due to poor inspiration. 4. Difficult to exclude a mild or early CHF, due to the poor inspiration and appearance of prominence of the upper lung field pulmonary vasculature. MTDD
--- NOTE | 2017-11-30 13:37 | CT ---
INDICATION: Vertigo. CT HEAD WITHOUT CONTRAST: Serial contiguous 2.5 and 5 mm sections were obtained through the brain without contrast. Coronary artery calcifications are noted. No shift of midline structures or ventricular abnormalities were identified. Total exam DLP = 1,814.36 mGy-cm. Examination was partially repeated twice with a complete examination once, apparently due to motion of the patient. There is suggestion of a minimal area of decreased density in the anterior limb of the right internal capsule and the posterior limb of the left internal capsule. These are suspicious for tiny lacunar infarcts but are not a definite abnormality. MRI would be confirmatory as felt to be clinically necessary. No other abnormal areas of density were identified. No bleeding site or hematoma was seen. No cranial abnormality of any significance was identified. Mastoid air cells appear to be fairly well aerated. Paranasal sinuses overall appear to be fairly well aerated with what appears to be a retention cyst and a portion of a right posterior ethmoidal air cell. The orbits appear grossly intact. Findings were compared with 01/27/2014. The appearance of a lacunar infarct in the anterior limb of the right internal capsule was not present on the previous examination of 2013, nor was an appearance of a lacunar infarct in the posterior limb of the left internal capsule. IMPRESSION: 1. No acute intracranial abnormality. 2. Microvascular disease is not suggested in this patient with internal carotid artery calcifications. 3. Cannot exclude very tiny areas of lacunar infarct in the anterior limb of the right internal capsule and posterior limb of the left internal capsule. 4. Probable retention cyst in a right posterior ethmoidal air cell. Report was called to Dr. Khan at 1757 hours on 11/27/2017. [facility] HOSPITALEdelmira
== END 2017-11-27 19:50 ==
LOC: FB.ED 14:53 → SUPCPDRO 14:53 → FB.ED 19:50
DX: I63.9 Cerebral infarction, unspecified (principal); K57.92 Diverticulitis of intestine, part unspecified, without perforation or abscess without bleeding; I10 Essential (primary) hypertension; E78.00 Pure hypercholesterolemia, unspecified; J44.9 Chronic obstructive pulmonary disease, unspecified; E11.9 Type 2 diabetes mellitus without complications; F41.9 Anxiety disorder, unspecified; F31.9 Bipolar disorder, unspecified; E03.9 Hypothyroidism, unspecified; Z88.8 Allergy status to other drugs, medicaments and biological substances; Z88.1 Allergy status to other antibiotic agents; Z79.899 Other long term (current) drug therapy; Z87.891 Personal history of nicotine dependence
CPT/HCPCS: 36415; 70450; 71045; 80053; 81001; 83735; 85025; 93005; 96360; 99285; A9270; J7040; J7050

== ENCOUNTER 2017-11-29 19:53 | Inpatient (IN) | payer MEDICAID ==
[2017-11-29] MEDS ORDERED: Sodium Chloride 0.9% 1,000 ML IV SCH (21:00)
--- NOTE | 2017-11-29 21:13 | EDM.PDOC ---
ED HPI GENERAL MEDICAL PROBLEM - General Chief Complaint: General Stated Complaint: PAIN Time Seen by Provider: 11/29/17 20:10 Source of Information: Reports: Patient History Limitations: Reports: No Limitations - History of Present Illness INITIAL COMMENTS - FREE TEXT/NARRATIVE: c/o abd pain x yrs no apparent change today, no new c/o, has had chronic RLQ pain CT of abd and pelvis 6d ago showed sigmoid diverticulosis with probable diverticulitis, dx diverticulitis in ED 4 and 5d ago, tx with Augmentin, currently taking in ED 2d ago for nausea, spinning. Had CRP 8.2 from 4d ago along with WBC 13.3 ( baseline CRP 0.6 from 17m ago). Dx with possible TIA, sent to [facility] overnight, d /c'ed yesterday currently takes naproxen OTC 2 tabs BID and Tylenol during the day and Tyl PM x 2 at night for pain, also on gabapentin says "nothing works for me" for pain, however there are little to no objective findings and her complaints are colored by her h/o bipolar and her tendency to feel sorry for herself and her dependency needs drank Ensure x 4 today, says she "lives on Ensure", cannot tell me how many Ensures she usually take sin a day is scheduled for colectomy 12/02 at [facility] for recurrent divericulitis, a segment of her sigmoid colon will be removed, she does not know how much preop clearance done 1w ago, scheduled to come to [facility] early in AM on Thu 3d from now h/o bipolar, lives alone, took EMS here generalized pain Pain Score (Numeric/FACES): 10 - Related Data Allergies Allergy/AdvReac Type Severity Reaction Status Date / Time ciprofloxacin Allergy Cannot Verified 11/29/17 20:02 Remember metronidazole [From Flagyl] Allergy Itching Verified 11/29/17 20:02 Home Meds: Home Meds Sennosides/Docusate Sodium [Senna-S Tablet] 1 tab PO DAILY 04/03/14 [History] Zolpidem [Ambien] 10 mg PO BEDTIME 04/03/14 [History] Doxepin [SINEquan] 100 mg PO BEDTIME 10/11/14 [History] Cyclobenzaprine [Flexeril] 10 mg PO TID PRN 01/05/17 [History] Ferrous Sulfate 650 mg PO DAILY 01/05/17 [History] Folic Acid 1 mg PO DAILY 01/05/17 [History] QUEtiapine [SEROquel] 100 mg PO BEDTIME 01/05/17 [History] LORazepam 1 mg PO BID 01/07/17 [History] Fluticasone Propionate [Flonase] 1 spray NASBOTH BEDTIME 01/08/17 [History] Excedrin Migraine 1 tab PO DAILY PRN 04/08/17 [History] Loperamide [Imodium AD] 2 mg PO ASDIRECTED PRN 04/08/17 [History] Pantoprazole Sodium [Protonix] 40 mg PO DAILY 04/08/17 [History] Tetrahydrozoline HCl [Visine] 1 drop EYEBOTH DAILY PRN 04/08/17 [History] metFORMIN [Glucophage] 500 mg PO BID 04/08/17 [History] Albuterol Sulfate [Proair Hfa] 2 puff IH Q6H PRN 06/24/17 [History] Asenapine Maleate [Saphris] 10 mg PO BEDTIME 06/24/17 [History] Budesonide/Formoterol Fumarate [Symbicort 160-4.5 Mcg Inhaler] 2 puff IH BID [History] Lisdexamfetamine [Vyvanse] 70 mg PO DAILY PRN 06/24/17 [History] diphenhydrAMINE [Benadryl] 50 mg PO BEDTIME 06/24/17 [History] Meloxicam 15 mg PO DAILY 06/25/17 [History] Furosemide [Lasix] 40 mg PO BID@08,14 07/28/17 [History] Metoprolol Succinate [Toprol XL] 75 mg PO DAILY 08/13/17 [History] traMADol [Ultram] 50 mg PO Q6H PRN #10 tab 10/12/17 [Rx] Amoxicillin/Potassium Clav [Augmentin 875-125 Tablet] 1 each PO BID #20 tablet 11/23/17 [Rx] Hydrocodone/Acetaminophen [Lorcet 5-325 mg Tablet] 1 each PO Q4HR PRN #10 tablet 11/23/17 [Rx] Amoxicillin/Potassium Clav [Amox-Clav 875-125 mg Tablet] 1 tab PO BID 11/27/17 [ History] atorvaSTATin [Lipitor] 20 mg PO BEDTIME 11/27/17 [History] Gabapentin [Neurontin] 200 mg PO QID 11/29/17 [History] Past Medical History HEENT History: Reports: Impaired Vision Other HEENT History: wear glasses Cardiovascular History: Reports: Angina, High Cholesterol, Hypertension, DE, SOB on Exertion, Other (See Below) Other Cardiovascular History: cardiovascular disease Respiratory History: Reports: COPD, Pneumonia, Recurrent, Sleep Apnea, Other ( See Below) Other Respiratory History: recently on ventilator --Klebisella pneumoniae Gastrointestinal History: Reports: Diverticulosis, Other (See Below) Other Gastrointestinal History: IBS proceeded the diverticulosis Other Genitourinary History: cyst on kidney [employer] History: Reports: 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, Other OB/BYN History: miscarriage x2 Musculoskeletal History: Reports: Back Pain, Chronic, Fibromyalgia, RA Other Musculoskeletal History: sciatic nerve problem, generalized weakness, chronic pain Neurological History: Reports: Neuropathy, Diabetic, Neuropathy, Peripheral Other Neuro History: was in a coma for 5 months, fibromyalgia, neuropathy Psychiatric History: Reports: Anxiety, Bipolar, Depression, Hallucinations, Psych Hospitalization(s), PTSD, Suicide Attempt Other Psychiatric History: insomnia Endocrine/Metabolic History: Reports: Diabetes, Type II, Hypothyroidism, Other ( See Below) Other Endocrine/Metabolic History: borderline diabetic Hematologic History: Reports: None Immunologic History: Reports: None Oncologic (Cancer) History: Reports: None Dermatologic History: Reports: Other (See Below) Other Dermatologic History: occasional yeast infections under breast and adria area - Infectious Disease History Infectious Disease History: Reports: None - Past Surgical History Head Surgeries/Procedures: Reports: None GI Surgical History: Reports: Colonoscopy Social & Family History - Family History Family Medical History: Noncontributory Oncologic: Reports: Liver - Tobacco Use Smoking Status *Q: Never Smoker - Caffeine Use Caffeine Use: Reports: Coffee Caffeine Use Comment: unable to tolerate caffiene per patient - Recreational Drug Use Recreational Drug Use: No - Living Situation & Occupation Living situation: Occupation: Unemployed ED ROS GENERAL - Review of Systems Review Of Systems: See Below Constitutional: Reports: No Symptoms. Denies: Fever, Weakness, Fatigue HEENT: Reports: No Symptoms Respiratory: Reports: No Symptoms Cardiovascular: Reports: No Symptoms Endocrine: Reports: No Symptoms GI/Abdominal: Reports: Abdominal Pain, Other (several BMs today) : Reports: No Symptoms Musculoskeletal: Reports: No Symptoms Skin: Reports: No Symptoms Neurological: Reports: No Symptoms Psychiatric: Reports: No Symptoms Hematologic/Lymphatic: Reports: No Symptoms Immunologic: Reports: No Symptoms ED EXAM, GENERAL - Physical Exam Exam: See Below Exam Limited By: No Limitations General Appearance: Alert, WD/WN, No Apparent Distress Eye Exam: Bilateral Eye: Normal Inspection Ears: Normal External Exam, Hearing Grossly Normal Nose: Normal Inspection, Normal Mucosa, No Blood Throat/Mouth: Normal Inspection Head: Atraumatic, Normocephalic Neck: Normal Inspection, Supple, Non-Tender, Full Range of Motion Respiratory/Chest: No Respiratory Distress, Lungs Clear, Normal Breath Sounds, No Accessory Muscle Use, Chest Non-Tender Cardiovascular: Regular Rate, Rhythm, No Edema, No Gallop, No JVD, No Rub, Other GI/Abdominal: Normal Bowel Sounds, Soft, No Distention, Other (very obese, yet soft, NT in LLQ to mild to moderate palpation, deep palpation not attemped). No: Distended, Guarding, Rigid, Rebound, Abnormal Bowel Sounds, Hepatomegaly, Splenomegaly Back Exam: Normal Inspection, Full Range of Motion, NT Extremities: Normal Inspection, Normal Range of Motion, Non-Tender, Other ( trace edema b/l) Neurological: Alert, Oriented, CN II-XII Intact, Normal Cognition, No Motor/ Sensory Deficits Psychiatric: Normal Affect, Normal Mood Skin Exam: Warm, Dry, Intact, Normal Color, No Rash Lymphatic: No Adenopathy Course - Vital Signs Last Recorded V/S: Last Vital Signs Temp 36.9 C 11/29/17 19:53 Pulse 99 11/29/17 19:53 Resp 20 11/29/17 19:53 BP 153/68 H 11/29/17 19:53 Pulse Ox 93 L 11/29/17 19:53 - Orders/Labs/Meds Orders: Active Orders 24 hr Category Date Time Status Admission Status [Patient Status] [ADT] Routine ADT 11/29/17 21:49 Ordered Sodium Chloride 0.9% [Normal Saline] 1,000 ml Med 11/29/17 21:00 Active IV ASDIRECTED Medication Orders Sodium Chloride (Normal Saline) 1,000 mls @ 999 mls/hr IV ASDIRECTED NIA Last Admin: 11/29/17 21:22 Dose: 999 mls/hr Labs: Laboratory Tests 05/20/18 05/20/18 05/20/18 Range/Units 21:05 21:05 21:05 WBC 15.2 H (4.5-12.0) X10-3/uL RBC 4.56 (3.23-5.20) x10(6)uL Hgb 11.9 (11.5-15.5) g/dL Hct 36.6 (30.0-51.3) % MCV 80.3 (80-96) fL MCH 26.1 L (27.7-33.6) pg MCHC 32.5 (32.2-35.4) g/dL RDW 17.2 H (11.5-15.5) % Plt Count 497 H (125-369) X10(3)uL MPV 8.0 (7.4-10.4) fL Add Manual Diff Yes Neutrophils % (Manual) 75 (46-82) % Band Neutrophils % 2 (0-6) % Lymphocytes % (Manual) 13 (13-37) % Monocytes % (Manual) 9 (4-12) % Eosinophils % (Manual) 1 (0-5) % Anisocytosis Few Sodium 138 (135-145) mmol/L Potassium 4.1 (3.5-5.3) mmol/L Chloride 99 L (100-110) mmol/L Carbon Dioxide 32 (21-32) mmol/L BUN 18 (7-18) mg/dL Creatinine 1.0 (0.55-1.02) mg/dL Est Cr Clr Drug Dosing 62.52 mL/min Estimated GFR (MDRD) 57 L (>60) BUN/Creatinine Ratio 18.0 (9-20) Glucose 108 (80-116) mg/dL Calcium 10.6 H (8.6-10.2) mg/dL Total Bilirubin 0.5 (0.1-1.3) mg/dL AST 12 (5-25) IU/L ALT 17 D (12-36) U/L Alkaline Phosphatase 68 (56-112) IU/L C-Reactive Protein 9.1 H* (0.5-0.9) mg/dL Total Protein 8.3 H (6.0-8.0) g/dL Albumin 3.4 (3.2-4.6) g/dL Globulin 4.9 g/dL Albumin/Globulin Ratio 0.7 Meds: Medications Generic Name Dose Route Start Last Admin Trade Name Freq PRN Reason Stop Dose Admin Sodium Chloride 1,000 mls @ 999 mls/hr 11/29/17 21:00 11/29/17 21:22 Normal Saline IV 999 mls/hr ASDIRECTED [facility] Administration - Re-Assessments/Exams Free Text/Narrative Re-Assessment/Exam: 11/29/17 21:55 in past 2d pt with increase WBC 13.3 to 15.2, CRP 8.2 to 9.1 and plt 416 to 497 despite PO Augmentin. Pt continues with acute on chronic diverticulitis that has failed PO Augmentin. Pt needs IVF and IV antbxs prior to her sigmoid surgery in (hopefully) 3d. She could potentially be given IV Zosyn x 2d here and then transferred to [facility]. On the other hand, pt may potentially need IVF for a longer period of time prior to her surgery. Repeat CT of abd and pelvis deferred as she just had a CT 2d ago and she has a nonacute abdomen. However, she may need a CT to look for a localized abscess if WBC and CRP continue to trend upward despite IV Zosyn. Pt prefers to get IV antbx here rather than in [place]. Since her bipolar dx and her tendency to exaggerate, it is probably better to have the local nurses here who know here well be involved initially in her medical management. Departure - Departure Time of Disposition: 22:02 Disposition: Admitted As Inpatient 68 Condition: Good Clinical Impression: Acute diverticulitis, Leukocytosis, Elevated C-reactive protein (CRP) Abdominal pain Qualifiers: Abdominal location: lower abdomen, unspecified Qualified Code(s): R10.30 - Lower abdominal pain, unspecified - Discharge Information Referrals: PCP,Unknown [Ordering Only Provider] - Forms: ED Department Discharge - My Orders Last 24 Hours: My Active Orders 11/29/17 21:00 Sodium Chloride 0.9% [Normal Saline] 1,000 ml IV ASDIRECTED 11/29/17 21:49 Admission Status [Patient Status] [ADT] Routine - Assessment/Plan Last 24 Hours: My Active Orders 11/29/17 21:00 Sodium Chloride 0.9% [Normal Saline] 1,000 ml IV ASDIRECTED 11/29/17 21:49 Admission Status [Patient Status] [ADT] Routine
[2017-11-29] MEDS ORDERED: Ondansetron 4 MG/2 ML SDV IV PRN (22:06)
[2017-11-29] MEDS ORDERED: TETRAHYDROZOLINE EYEBOTH PRN (22:11)
[2017-11-29] MEDS ORDERED: LISDEXAMFETAMINE 70 MG PO PRN (22:11)
[2017-11-29] MEDS ORDERED: Albuterol 8 GM Inhaler INH PRN (22:11)
[2017-11-29] MEDS ORDERED: ZINC SULFATE EYEBOTH PRN (22:11)
[2017-11-29] MEDS ORDERED: Morphine 2 MG/ML Syringe IVPUSH PRN (22:16)
[2017-11-29] MEDS: Enoxaparin 40 MG/0.4 ML Syringe SUBCUT SCH (22:28)
[2017-11-29] MEDS: Piperacillin/Tazobactam 3.375 GM in Sodium Chloride 0.9% 50 ML IV SCH (22:28)
[2017-11-29] MEDS: Acetaminophen 500 MG Tab PO SCH (22:41)
[2017-11-29] MEDS: Sodium Chloride 0.9% 1,000 ML IV SCH (23:07)
[2017-11-29] MEDS ORDERED: Doxepin 25 MG Cap ONE ×2 (23:15)
[2017-11-29] MEDS ORDERED: Fluticasone Propionate Nasal Spray 16 GM Bottle NASBOTH SCH (23:45)
[2017-11-29] MEDS ORDERED: ASENAPINE MALEATE 10 MG PO SCH (23:45)
[2017-11-30] MEDS: Gabapentin 100 MG Cap PO SCH ×2 (00:03→15:40)
[2017-11-30] MEDS: QUEtiapine 100 MG Tab PO SCH ×2 (00:04→20:35)
[2017-11-30] MEDS: diphenhydrAMINE 25 MG Cap PO SCH ×2 (00:04→20:34)
[2017-11-30] MEDS: Doxepin 25 MG Cap PO SCH ×2 (00:05→20:35)
[2017-11-30] MEDS: LORazepam 1 MG Tab PO SCH ×3 (00:05→20:42)
[2017-11-30] MEDS: Zolpidem 10 MG Tab PO SCH ×2 (00:06→20:42)
[2017-11-30] MEDS: Formoterol/Mometasone 200-5 MCG 8.8 GM Inhaler IH SCH ×3 (00:08→20:34)
[2017-11-30] MEDS: Acetaminophen 500 MG Tab PO SCH ×4 (04:05→22:14)
[2017-11-30] MEDS: Piperacillin/Tazobactam 3.375 GM in Sodium Chloride 0.9% 50 ML IV SCH ×4 (04:06→22:13)
[2017-11-30] MEDS ORDERED: Morphine 10 MG/ML Syringe IVPUSH PRN (07:23)
[2017-11-30] MEDS ORDERED: Formoterol/Mometasone 200-5 MCG 8.8 GM Inhaler IH SCH (09:00)
[2017-11-30] MEDS ORDERED: LORazepam 1 MG Tab PO SCH (09:00)
[2017-11-30] MEDS ORDERED: Gabapentin 100 MG Cap PO SCH (09:00)
[2017-11-30] MEDS ORDERED: Ferrous Sulfate 325 MG Tab PO SCH (09:00)
[2017-11-30] MEDS: Furosemide 40 MG Tab PO SCH ×2 (09:28→13:48)
[2017-11-30] MEDS: metFORMIN 500 MG Tab PO SCH ×2 (09:28→17:38)
[2017-11-30] MEDS: Folic Acid 1 MG Tab PO SCH (09:29)
[2017-11-30] MEDS: Pantoprazole 40 MG Tab.CR PO SCH (09:32)
[2017-11-30] MEDS: Metoprolol Succinate 25 MG Tab.ER PO SCH (09:33)
[2017-11-30] MEDS: Sodium Chloride 0.9% 1,000 ML IV SCH ×2 (09:43→20:47)
[2017-11-30] MEDS: atorvaSTATin 20 MG Tab PO SCH (10:15)
[2017-11-30] MEDS: Ferrous Sulfate 325 MG Tab PO SCH (10:16)
[2017-11-30] MEDS: Gabapentin 600 MG Tab PO SCH ×2 (10:16→20:30)
[2017-11-30] MEDS: Fluticasone Propionate Nasal Spray 16 GM Bottle NASBOTH SCH (10:26)
[2017-11-30] MEDS: Ketorolac 30 MG/ML SDV IVPUSH PRN ×2 (11:22→19:28)
--- NOTE | 2017-11-30 17:04 | HP ---
ADMISSION DATE: 11/29/2017 REASON FOR VISIT: Complicated abdominal pain. HISTORY OF PRESENT ILLNESS: Linda Cat is a 62-year-old, female, who was seen at [facility] 11/29/2017, late in the evening. Presented with increasing abdominal pain. Stools have been reluctant, pain has been a bit problematic in nature. CT scan of the abdomen a week ago revealed diverticulosis, suspect diverticulitis, had appropriate treatment, and was discharged. The day prior to admission, problematic headache, was transferred to [facility]. Diagnostic studies revealed no evidence of CVA. Discomfort, pain, and intervention. She is scheduled for a partial colectomy on 12/02/2017 under the care of Dr. Erich Garcia [facility]. She is admitted for observation and treatment. HOME MEDICATIONS: Reviewed, timely and appropriate. ALLERGIES: Allergic to ciprofloxacin, unknown origin; metronidazole, itching. PAST MEDICAL HISTORY: Significant for a laparoscopy for endometriosis only. No other operative procedures, hospitalizations, unusual childhood diseases, major injuries, or fractures. Chronic medical problems include recurrent diverticulitis, chronic pain syndrome, degenerative arthritis, chronic diarrhea, reactive airway disease, hyperlipidemia, and sleep impairment. She has been on Vyvanse for adult ADHD. SOCIAL HISTORY: , disabled. 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 Never smoked. No alcohol consumption. No illicit drug use. FAMILY HISTORY: Dad 86, doing pretty well. Mom of host of medical problems including myocardial infarction. Three brothers and two sisters, one sister of brain cancer. FAMILY HISTORY: Negative for early heart disease, diabetes mellitus, or inheritable cancers. REVIEW OF SYSTEMS: CONSTITUTIONAL: Better this morning. Oriented to time, place, and person. HEENT: Funduscopic benign. Bright TMs. Clear nasal discharge. Mouth and oropharynx clear. NECK: Benign. Thyroid small. CHEST: Clear in all lung young. No adventitious sounds. HEART: Regular rate without ectopy or murmur. Breasts are pendulous without masses. ABDOMEN: Little tender left-sided, left lower abdominal pain. No acute findings. No rebound. Good bowel sounds. PELVIC AND RECTAL: Deferred. EXTREMITIES: Well perfused. LABORATORY STUDIES: White count 15,200, repeat 39,300; hemoglobin 11, 9, and 10.1 respectively. Microcytic indices, mild neutrophilia. Electrolytes were satisfactory. CRP 9.1, 8.3, calcium 10.6. Radiographs, none indicated. IMPRESSION: Suspected exacerbation of diverticulitis. PLAN: Meds on board, treatment as appropriate, present piperacillin-tazobactam, complementary care and well being. Appears better this morning. We will consult Dr. Dykes provider of record prior to upcoming surgery implants. /[id number] CRYSTAL/ALEXA
[2017-11-30] MEDS ORDERED: Bisacodyl 5 MG Tab *PTOM PO ONE (18:00)
[2017-11-30] MEDS ORDERED: ASENAPINE MALEATE 10 MG PO SCH (21:00)
[2017-11-30] MEDS ORDERED: diphenhydrAMINE 25 MG Cap PO SCH (21:00)
[2017-11-30] MEDS ORDERED: QUEtiapine 100 MG Tab PO SCH (21:00)
[2017-11-30] MEDS ORDERED: Zolpidem 10 MG Tab PO SCH (21:00)
[2017-11-30] MEDS ORDERED: Fluticasone Propionate Nasal Spray 16 GM Bottle NASBOTH SCH (21:00)
[2017-11-30] MEDS ORDERED: ASENAPINE MALEATE PO SCH (21:00)
[2017-11-30] MEDS: Enoxaparin 40 MG/0.4 ML Syringe SUBCUT SCH (22:14)
[2017-12-01] MEDS: Ketorolac 30 MG/ML SDV IVPUSH PRN (06:56)
[2017-12-01] MEDS: Sodium Chloride 0.9% 1,000 ML IV SCH (08:02)
[2017-12-01] MEDS: metFORMIN 500 MG Tab PO SCH (08:11)
[2017-12-01] MEDS: Furosemide 40 MG Tab PO SCH (08:12)
[2017-12-01] MEDS: Formoterol/Mometasone 200-5 MCG 8.8 GM Inhaler IH SCH (08:12)
[2017-12-01] MEDS: LORazepam 1 MG Tab PO SCH (08:12)
[2017-12-01] MEDS: Fluticasone Propionate Nasal Spray 16 GM Bottle NASBOTH SCH (08:13)
[2017-12-01] MEDS: Folic Acid 1 MG Tab PO SCH (08:13)
[2017-12-01] MEDS: Ferrous Sulfate 325 MG Tab PO SCH (08:13)
[2017-12-01] MEDS: atorvaSTATin 20 MG Tab PO SCH (08:13)
[2017-12-01] MEDS: Gabapentin 600 MG Tab PO SCH (08:14)
[2017-12-01] MEDS: Pantoprazole 40 MG Tab.CR PO SCH (08:14)
[2017-12-01] MEDS: Metoprolol Succinate 25 MG Tab.ER PO SCH (08:14)
[2017-12-01] MEDS: Acetaminophen 500 MG Tab PO SCH ×2 (10:51→12:00)
[2017-12-01] MEDS: Piperacillin/Tazobactam 3.375 GM in Sodium Chloride 0.9% 50 ML IV SCH ×2 (10:55→11:24)
[2017-12-01 11:03] VITALS: BP 120/78
--- NOTE | 2017-12-01 11:33 | DISCH ---
DISCHARGE DATE: 12/01/2017 SUBJECTIVE: Linda Cat is a 62-year-old female seen here previously. There is improvement, pain resolved, fevers have defervesced, appetite is improved. She has major surgery planned for 12/02/2017 in [place], clear liquids, and prep on board. Trip home available, going to [place] this evening. OBJECTIVE: VITAL SIGNS: 36.9, 120/76, O2 91%, respirations 20. GENERAL: Much better. CHEST: Clear. HEART: Regular. ABDOMEN: Benign. No localized tenderness. Lower abdominal pain resolved. PLAN: Prep for colon surgery, upcoming plan, scheduled 12/02/2017. Half-hour discharge plan, recommendations, care and intervention upon discharge. /[id number] CRYSTAL/ALEXA
[2017-12-01] MEDS ORDERED: Magnesium Citrate Solution 296 ML Bottle PO ONE (17:00)
[2017-12-01] MEDS ORDERED: NEOMYCIN 500 MG PO ONE ×3 (18:00→22:00)
[2017-12-01] MEDS ORDERED: ERYTHROMYCIN 500 MG PO SCH (19:00)
== END 2017-12-01 13:18 | disposition home or self-care (01) | DRG 392 ==
LOC: FB.ED 19:53 → FB.MS 21:49
PROVIDERS: ADMIT Emergency Medicine; ATTEND Family Medicine
DX: K57.32 Diverticulitis of large intestine without perforation or abscess without bleeding (principal); G89.4 Chronic pain syndrome; M54.9 Dorsalgia, unspecified; E11.42 Type 2 diabetes mellitus with diabetic polyneuropathy; I10 Essential (primary) hypertension; E78.5 Hyperlipidemia, unspecified; J44.9 Chronic obstructive pulmonary disease, unspecified; M19.90 Unspecified osteoarthritis, unspecified site; E03.9 Hypothyroidism, unspecified; G47.30 Sleep apnea, unspecified; M79.7 Fibromyalgia; F90.9 Attention-deficit hyperactivity disorder, unspecified type; I25.2 Old myocardial infarction; Z88.1 Allergy status to other antibiotic agents; Z79.899 Other long term (current) drug therapy; Z79.84 Long term (current) use of oral hypoglycemic drugs; Z87.01 Personal history of pneumonia (recurrent)
CPT/HCPCS: 36415; 80053; 82962; 85025; 86140; 96360; 99284; A9270-GY; J1650; J1885; J2543; J7040; J7050

== ENCOUNTER 2017-12-16 20:27 | Emergency (ER) | payer MEDICAID ==
[2017-12-16] MEDS ORDERED: Sulfamethoxazole/Trimethoprim 800-160 MG Tab PO ONE (21:29)
[2017-12-16 22:39] VITALS: BP 144/76
--- NOTE | 2017-12-17 00:46 | ER ---
DATE SEEN: 12/16/2017 CHIEF COMPLAINT: Wound infection. HISTORY OF PRESENT ILLNESS: This is a 62-year-old female, who had a colon resection on the and had juancarlos in the laparotomy scar. She comes in because she notes drainage and redness around the area and has some minimal pain, but no fever or systemic symptoms. REVIEW OF SYSTEMS: No nausea or vomiting. No urinary symptoms. No chest pain. No cough. ALLERGIES: Ciprofloxacin, metronidazole. PAST MEDICAL HISTORY: She has an impressive list of medical problems that include, but not limited to, anxiety, CVA, urinary tract infection, diverticulitis, abdominal pain, polypharmacy. PHYSICAL EXAMINATION: GENERAL: She is not in distress. VITAL SIGNS: Her blood pressure is 149/70, her pulse is 100, temperature 98.2, oxygenation 94% on room air. ABDOMEN: Mildly distended. The surgical scar in the midline has juancarlos. There is an open area in the caudal aspect. Open, some mild purulence is noted. It is tender to palpation and there is some redness around the surgical scar, but the abdomen is soft with no tenderness or masses and bowel sounds are present. LABORATORY STUDIES: White cell count was 9.6, hemoglobin 10.2. CRP is 1.7. IMPRESSION: Surgical wound infection, superficial. PLAN: I asked Dr. Nelson, he looked at it, he did not feel it was wound dehiscence. A culture was obtained, and I will place the patient on Bactrim DS 1 tablet b.i.d. along with followup in the office in [address] Nelson. Return to the ED with any worsening symptoms. /[id number] ALBIN/ALEXA
== END 2017-12-16 22:15 | disposition home or self-care (01) ==
LOC: FB.ED 20:27
DX: T81.4XXA Infection following a procedure, initial encounter (principal); Z88.1 Allergy status to other antibiotic agents; Z88.8 Allergy status to other drugs, medicaments and biological substances
CPT/HCPCS: 36415; 80053; 83605; 85025; 86140; 87070; 87077; 87186; 87205; 99283; A9270

== ENCOUNTER 2017-12-21 20:22 | Emergency (ER) | payer MEDICAID ==
[2017-12-21 20:57] VITALS: BP 169/83
--- NOTE | 2017-12-21 21:45 | EDM.PDOC ---
ED HPI GENERAL MEDICAL PROBLEM - General Chief Complaint: Wound Recheck Stated Complaint: STOMACH PAIN Time Seen by Provider: 12/21/17 20:35 Source of Information: Reports: Patient, Family, Old Records History Limitations: Reports: No Limitations - History of Present Illness INITIAL COMMENTS - FREE TEXT/NARRATIVE: Linda returns to [facility] ED with an open draining abdominal surgical wound, ED notes from December 16, 2017 reviewed. Inspection reveals a 6.5 wound dehisence with serosanquinous drainage. There is no odor or erythema, and old mild tenderness to palpation. - Related Data Allergies Allergy/AdvReac Type Severity Reaction Status Date / Time ciprofloxacin Allergy Cannot Verified 12/16/17 20:45 Remember metronidazole [From Flagyl] Allergy Itching Verified 12/16/17 20:45 Home Meds: Home Meds Sennosides/Docusate Sodium [Senna-S Tablet] 2 tab PO DAILY 04/03/14 [History] Zolpidem [Ambien] 10 mg PO BEDTIME 04/03/14 [History] Doxepin [SINEquan] 100 mg PO BEDTIME 10/11/14 [History] Cyclobenzaprine [Flexeril] 10 mg PO TID PRN 01/05/17 [History] Folic Acid 1 mg PO DAILY 01/05/17 [History] QUEtiapine [SEROquel] 100 mg PO BEDTIME 01/05/17 [History] LORazepam 1 mg PO BID 01/07/17 [History] Fluticasone Propionate [Flonase] 2 spray NASBOTH DAILY 01/08/17 [History] Excedrin Migraine 1 tab PO BID PRN 04/08/17 [History] Pantoprazole Sodium [Protonix] 40 mg PO DAILY PRN 04/08/17 [History] metFORMIN [Glucophage] 500 mg PO BID 04/08/17 [History] Albuterol Sulfate [Proair Hfa] 2 puff IH Q6H PRN 06/24/17 [History] Asenapine Maleate [Saphris] 10 mg PO BEDTIME 06/24/17 [History] Budesonide/Formoterol Fumarate [Symbicort 160-4.5 Mcg Inhaler] 2 puff IH BID PRN 06/24/17 [History] Lisdexamfetamine [Vyvanse] 70 mg PO DAILY PRN 06/24/17 [History] diphenhydrAMINE [Benadryl] 50 mg PO BEDTIME 06/24/17 [History] Meloxicam 15 mg PO DAILY 06/25/17 [History] Furosemide [Lasix] 40 mg PO BID@08,14 07/28/17 [History] Metoprolol Succinate [Toprol XL] 75 mg PO DAILY 08/13/17 [History] traMADol [Ultram] 50 mg PO Q6H PRN #10 tab 10/12/17 [Rx] Amoxicillin/Potassium Clav [Augmentin 875-125 Tablet] 1 each PO BID #20 tablet 11/23/17 [Rx] Hydrocodone/Acetaminophen [Lorcet 5-325 mg Tablet] 1 each PO Q4HR PRN #10 tablet 11/23/17 [Rx] atorvaSTATin [Lipitor] 20 mg PO BEDTIME 11/27/17 [History] Gabapentin [Neurontin] 600 mg PO BID 11/30/17 [History] Ondansetron HCl [Ondansetron] 8 mg PO BID PRN 11/30/17 [History] rOPINIRole HCl [Requip] 1 mg PO TID 11/30/17 [History] Acetaminophen [Tylenol Extra Strength] 1,000 mg PO Q6H tablet 12/01/17 [Rx] Ferrous Sulfate 325 mg PO DAILY tablet 12/01/17 [Rx] Past Medical History HEENT History: Reports: Impaired Vision Other HEENT History: wear glasses Cardiovascular History: Reports: Angina, High Cholesterol, Hypertension, [place], SOB on Exertion, Other (See Below) Other Cardiovascular History: cardiovascular disease Respiratory History: Reports: COPD, Pneumonia, Recurrent, Sleep Apnea, Other ( See Below) Other Respiratory History: recently on ventilator --Klebisella pneumoniae Gastrointestinal History: Reports: Diverticulosis, Other (See Below) Other Gastrointestinal History: IBS proceeded the diverticulosis Other Genitourinary History: cyst on kidney [employer]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: 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, Other OB/BYN History: miscarriage x2 Musculoskeletal History: Reports: Back Pain, Chronic, Fibromyalgia, RA Other Musculoskeletal History: sciatic nerve problem, generalized weakness, chronic pain Neurological History: Reports: Neuropathy, Diabetic, Neuropathy, Peripheral Other Neuro History: was in a coma for 5 months, fibromyalgia, neuropathy Psychiatric History: Reports: Anxiety, Bipolar, Depression, Hallucinations, Psych Hospitalization(s), PTSD, Suicide Attempt Other Psychiatric History: insomnia Endocrine/Metabolic History: Reports: Diabetes, Type II, Hypothyroidism, Other ( See Below) Other Endocrine/Metabolic History: borderline diabetic Hematologic History: Reports: None Immunologic History: Reports: None Oncologic (Cancer) History: Reports: None Dermatologic History: Reports: Other (See Below) Other Dermatologic History: occasional yeast infections under breast and adria area - Infectious Disease History Infectious Disease History: Reports: None - Past Surgical History Head Surgeries/Procedures: Reports: None GI Surgical History: Reports: Colonoscopy Other GI Surgeries/Procedures: stomach surgery Social & Family History - Family History Family Medical History: Noncontributory Oncologic: Reports: Liver - Caffeine Use Caffeine Use: Reports: Soda Caffeine Use Comment: unable to tolerate caffiene per patient - Living Situation & Occupation Living situation: Occupation: Unemployed ED ROS GENERAL - Review of Systems Review Of Systems: ROS reveals no pertinent complaints other than HPI. ED EXAM, SKIN/RASH Exam: See Below Exam Limited By: No Limitations General Appearance: Alert, WD/WN, No Apparent Distress, Anxious Head: Normocephalic Neck: Normal Inspection, Supple, Non-Tender Respiratory/Chest: Lungs Clear, Normal Breath Sounds, Chest Non-Tender Cardiovascular: Regular Rate, Rhythm, No Murmur GI/Abdominal: Normal Bowel Sounds, Soft, No Organomegaly, No Distention, No Mass , Other (healing wound with dehisence measuring 6.5 cm near caudal length with fibrinous exudate present, and minimal serosanquinous drainage. ) (Female) Exam: Deferred Rectal (Female) Exam: Deferred Back Exam: Normal Inspection Extremities: Normal Inspection Neurological: Alert, Oriented, CN II-XII Intact Psychiatric: Normal Affect, Anxious Skin: Warm, Dry Course - Vital Signs Last Recorded V/S: Last Vital Signs Temp 37.0 C 12/21/17 20:54 Pulse 84 12/21/17 20:54 Resp BP 169/83 H 12/21/17 20:54 Pulse Ox 97 12/21/17 20:54 Departure - Departure Time of Disposition: 21:10 Disposition: Home, Self-Care 01 Clinical Impression: Abdominal wound dehiscence Qualifiers: Encounter type: subsequent encounter Qualified Code(s): T81.30XD - Disruption of wound, unspecified, subsequent encounter - Discharge Information Instructions: Wound Dehiscence, [id number] Referrals: PCP,Unknown [Primary Care Provider] - Forms: ED Department Discharge Additional Instructions: keep the dressing clean and dry please see your surgeon tomorrow - Problem List & Annotations (1) Abdominal wound dehiscence SNOMED Code(s): 558164559, [id number] Code(s): T81.30XA - DISRUPTION OF WOUND, UNSPECIFIED, INITIAL ENCOUNTER Status: Acute Current Visit: Yes Annotation/Comment:: I suggested keeping wound clean and dry, and follow up with general surgery tomorrow. Qualifiers: Encounter type: subsequent encounter Qualified Code(s): T81.30XD - Disruption of wound, unspecified, subsequent encounter - Problem List Review Problem List Initiated/Reviewed/Updated: Yes - Assessment/Plan Plan: Follow up with general surgery tomorrow.
== END 2017-12-21 21:00 | disposition home or self-care (01) ==
LOC: FB.ED 20:22
DX: T81.30XD Disruption of wound, unspecified, subsequent encounter (principal); I10 Essential (primary) hypertension; I25.2 Old myocardial infarction; J44.9 Chronic obstructive pulmonary disease, unspecified; Z88.8 Allergy status to other drugs, medicaments and biological substances; Z79.899 Other long term (current) drug therapy; E78.00 Pure hypercholesterolemia, unspecified; E11.42 Type 2 diabetes mellitus with diabetic polyneuropathy; Z87.01 Personal history of pneumonia (recurrent); Z98.890 Other specified postprocedural states
CPT/HCPCS: 16020; 99282

== ENCOUNTER 2017-12-24 22:42 | Observation (INO) | payer MEDICAID ==
[2017-12-24] MEDS ORDERED: Adenosine 6 MG/2 ML SDV IVPUSH ONE (23:05)
--- NOTE | 2017-12-24 23:25 | EDM.PDOC ---
ED HPI GENERAL MEDICAL PROBLEM - General Chief Complaint: Cardiovascular Problem Stated Complaint: TACHYCARDIA Time Seen by Provider: 12/24/17 23:00 Source of Information: Reports: Patient, EMS, EMS Notes Reviewed, Old Records History Limitations: Reports: No Limitations - History of Present Illness INITIAL COMMENTS - FREE TEXT/NARRATIVE: Linda comes into [facility] ED by EMS following development of rapid heart rate, palpitations, precordial chest pain, and lt headiness at 10:15 pm this evening. She summoned EMS who determined SVT by ekg, and transported to [facility] ED shortly afterwards. Upon arrival, patient was determined to be in PSVT, VR 190's, without ectopy. BP 153/95, T 98.5 deg F, RR 22 and apprehensive. Following efforts to establish a peripheral IV, Adenocard 6 mg IV push was given,with cardioversion achieved to a NSR within 1 minute. She has been stable since, with remission of sxs. She will be admitted to Observation and monitored bed tonight. - Related Data Allergies Allergy/AdvReac Type Severity Reaction Status Date / Time ciprofloxacin Allergy Cannot Verified 12/16/17 20:45 Remember metronidazole [From Flagyl] Allergy Itching Verified 12/16/17 20:45 Home Meds: Home Meds Sennosides/Docusate Sodium [Senna-S Tablet] 2 tab PO DAILY 04/03/14 [History] Zolpidem [Ambien] 10 mg PO BEDTIME 04/03/14 [History] Doxepin [SINEquan] 100 mg PO BEDTIME 10/11/14 [History] Cyclobenzaprine [Flexeril] 10 mg PO TID PRN 01/05/17 [History] Folic Acid 1 mg PO DAILY 01/05/17 [History] QUEtiapine [SEROquel] 100 mg PO BEDTIME 01/05/17 [History] LORazepam 1 mg PO BID 01/07/17 [History] Fluticasone Propionate [Flonase] 2 spray NASBOTH DAILY 01/08/17 [History] Excedrin Migraine 1 tab PO BID PRN 04/08/17 [History] Pantoprazole Sodium [Protonix] 40 mg PO DAILY PRN 04/08/17 [History] metFORMIN [Glucophage] 500 mg PO BID 04/08/17 [History] Albuterol Sulfate [Proair Hfa] 2 puff IH Q6H PRN 06/24/17 [History] Asenapine Maleate [Saphris] 10 mg PO BEDTIME 06/24/17 [History] Budesonide/Formoterol Fumarate [Symbicort 160-4.5 Mcg Inhaler] 2 puff IH BID PRN 06/24/17 [History] Lisdexamfetamine [Vyvanse] 70 mg PO DAILY PRN 06/24/17 [History] diphenhydrAMINE [Benadryl] 50 mg PO BEDTIME 06/24/17 [History] Meloxicam 15 mg PO DAILY 06/25/17 [History] Furosemide [Lasix] 40 mg PO BID@,14 07/28/17 [History] Metoprolol Succinate [Toprol XL] 75 mg PO DAILY 08/13/17 [History] traMADol [Ultram] 50 mg PO Q6H PRN #10 tab 10/12/17 [Rx] Amoxicillin/Potassium Clav [Augmentin 875-125 Tablet] 1 each PO BID #20 tablet 11/23/17 [Rx] Hydrocodone/Acetaminophen [Lorcet 5-325 mg Tablet] 1 each PO Q4HR PRN #10 tablet 11/23/17 [Rx] atorvaSTATin [Lipitor] 20 mg PO BEDTIME 11/27/17 [History] Gabapentin [Neurontin] 600 mg PO BID 11/30/17 [History] Ondansetron HCl [Ondansetron] 8 mg PO BID PRN 11/30/17 [History] rOPINIRole HCl [Requip] 1 mg PO TID 11/30/17 [History] Acetaminophen [Tylenol Extra Strength] 1,000 mg PO Q6H tablet 12/01/17 [Rx] Ferrous Sulfate 325 mg PO DAILY tablet 12/01/17 [Rx] Past Medical History HEENT History: Reports: Impaired Vision Other HEENT History: wear glasses Cardiovascular History: Reports: Angina, High Cholesterol, Hypertension, [place], SOB on Exertion, Other (See Below) Other Cardiovascular History: cardiovascular disease Respiratory History: Reports: COPD, Pneumonia, Recurrent, Sleep Apnea, Other ( See Below) Other Respiratory History: recently on ventilator --Klebisella pneumoniae Gastrointestinal History: Reports: Diverticulosis, Other (See Below) Other Gastrointestinal History: IBS proceeded the diverticulosis Other Genitourinary History: cyst on kidney 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: 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, Other OB/BYN History: miscarriage x2 Musculoskeletal History: Reports: Back Pain, Chronic, Fibromyalgia, RA Other Musculoskeletal History: sciatic nerve problem, generalized weakness, chronic pain Neurological History: Reports: Neuropathy, Diabetic, Neuropathy, Peripheral Other Neuro History: was in a coma for 5 months, fibromyalgia, neuropathy Psychiatric History: Reports: Anxiety, Bipolar, Depression, Hallucinations, Psych Hospitalization(s), PTSD, Suicide Attempt Other Psychiatric History: insomnia Endocrine/Metabolic History: Reports: Diabetes, Type II, Hypothyroidism, Other ( See Below) Other Endocrine/Metabolic History: borderline diabetic Hematologic History: Reports: None Immunologic History: Reports: None Oncologic (Cancer) History: Reports: None Dermatologic History: Reports: Other (See Below) Other Dermatologic History: occasional yeast infections under breast and adria area - Infectious Disease History Infectious Disease History: Reports: None - Past Surgical History Head Surgeries/Procedures: Reports: None GI Surgical History: Reports: Colonoscopy Other GI Surgeries/Procedures: stomach surgery Social & Family History - Family History Family Medical History: Noncontributory Oncologic: Reports: Liver - Caffeine Use Caffeine Use: Reports: Soda Caffeine Use Comment: unable to tolerate caffiene per patient - Living Situation & Occupation Living situation: Occupation: Unemployed ED ROS GENERAL - Review of Systems Review Of Systems: See Below Constitutional: Reports: Malaise HEENT: Reports: No Symptoms Respiratory: Reports: No Symptoms Cardiovascular: Reports: Chest Pain, Lightheadedness, Palpitations Endocrine: Reports: No Symptoms GI/Abdominal: Reports: Other (wound dehisence ventral abdomen) : Reports: No Symptoms Musculoskeletal: Reports: No Symptoms Skin: Reports: Other (wound dehisence ventral abdomen) Neurological: Reports: No Symptoms Psychiatric: Reports: Anxiety Hematologic/Lymphatic: Reports: No Symptoms Immunologic: Reports: No Symptoms ED EXAM, GENERAL - Physical Exam Exam: See Below Exam Limited By: No Limitations General Appearance: Alert, WD/WN, Anxious, Mild Distress, Obese Eye Exam: Bilateral Eye: EOMI, Normal Inspection, PERRL Ears: Normal External Exam Nose: Normal Inspection Throat/Mouth: Normal Inspection, Normal Oropharynx Head: Normocephalic Neck: Normal Inspection, Supple Respiratory/Chest: No Respiratory Distress, Lungs Clear, Normal Breath Sounds, No Accessory Muscle Use Cardiovascular: Regular Rate, Rhythm, No Gallop, No JVD, No Murmur GI/Abdominal: Normal Bowel Sounds, Soft, No Organomegaly, No Distention, No Mass , Other (ventral surgical wound with distal dehisence, some old blood and packing present, no exudate, no erythema) (Female) Exam: Deferred Rectal (Female) Exam: Deferred Back Exam: Normal Inspection Extremities: Normal Inspection, Normal Range of Motion Neurological: Alert, Oriented, CN II-XII Intact, No Motor/Sensory Deficits Psychiatric: Normal Affect, Anxious Skin Exam: Warm, Dry, Normal Color, No Rash, Wound/Incision (ventral surgical wound with distal wound dehisence as annotated above) Lymphatic: No Adenopathy Course - Vital Signs Text/Narrative:: Linda remained stable following cardioversion with Adenocard, and was admitted to Observation with monitored bed. - Orders/Labs/Meds Orders: Active Orders 24 hr Category Date Time Status Patient Status Manage Transfer [TRANSFER] Routine ADT 12/24/17 23:10 Active Resuscitation Status Routine Resus Stat 12/24/17 23:15 Ordered Departure - Departure Time of Disposition: 23:29 Disposition: Refer to Observation Condition: Fair Clinical Impression: SVT (supraventricular tachycardia) Referrals: PCP,None [Primary Care Provider] - Forms: ED Department Discharge - Problem List & Annotations (1) SVT (supraventricular tachycardia) SNOMED Code(s): 6678545 Code(s): I47.1 - SUPRAVENTRICULAR TACHYCARDIA Status: Acute Priority: High Current Visit: Yes Annotation/Comment:: Admit to Observation, monitored bed (2) Abdominal wound dehiscence SNOMED Code(s): 741760475, [id number] Code(s): T81.30XA - DISRUPTION OF WOUND, UNSPECIFIED, INITIAL ENCOUNTER Status: Acute Current Visit: No Annotation/Comment:: I suggested keeping wound clean and dry, and follow up with general surgery tomorrow. Qualifiers: Encounter type: subsequent encounter Qualified Code(s): T81.30XD - Disruption of wound, unspecified, subsequent encounter - Problem List Review Problem List Initiated/Reviewed/Updated: Yes - My Orders Last 24 Hours: My Active Orders 12/24/17 23:10 Patient Status Manage Transfer [TRANSFER] Routine 12/24/17 23:15 Resuscitation Status Routine - Assessment/Plan Last 24 Hours: My Active Orders 12/24/17 23:10 Patient Status Manage Transfer [TRANSFER] Routine 12/24/17 23:15 Resuscitation Status Routine Plan: Hospitalist will see in the am.
[2017-12-25] MEDS ORDERED: Sodium Chloride 0.9% 10 ML Syringe FLUSH PRN (00:12)
[2017-12-25] MEDS ORDERED: Dextrose 5%-Lactated Ringers 1,000 ML IV SCH (00:12)
[2017-12-25] MEDS: Metoprolol Succinate 100 MG Tab.ER PO SCH ×3 (01:42→11:00)
[2017-12-25] MEDS ORDERED: traMADol 50 MG Tab PO PRN (02:15)
[2017-12-25] MEDS ORDERED: Zolpidem 10 MG Tab PO SCH ×2 (02:30→21:00)
--- NOTE | 2017-12-25 09:28 | PCM.HP ---
H&P History of Present Illness - General Date of Service: 12/25/17 Admit Problem/Dx: Admission Diagnosis/Problem Admission Diagnosis/Problem Supraventricular tachycardia Source of Information: Patient, EMS Notes Reviewed, Old Records History Limitations: Reports: No Limitations - History of Present Illness Initial Comments - Free Text/Narative: 62-year-old female was brought in last night because of chest pain and SVT. She reported severe chest wall pain radiating to the right and associated with palpitations. Upon arrival of the EMS she was determined to have supraventricular tachycardia. She does have a previous history of PAF. In the ER she was given adenosine 6 mg IV, and the symptoms resolved heart was normalized and she had no more chest pain,but was admitted for observation. This morning she the asymptomatic. She said that she had forgot to take metoprolol, hence the exacerbation of tachycardia. She does have a history of hypertension, stable and present cardiac workup including coronary angiography earlier this year that was found to be negative. Apparently she has previously declined anticoagulation and just takes aspirin. - Related Data Allergies/Adverse Reactions: Allergies Allergy/AdvReac Type Severity Reaction Status Date / Time ciprofloxacin Allergy Cannot Verified 12/25/17 01:32 Remember metronidazole [From Flagyl] Allergy Itching Verified 12/25/17 01:32 Home Medications: Home Meds Sennosides/Docusate Sodium [Senna-S Tablet] 2 tab PO DAILY 04/03/14 [History] Zolpidem [Ambien] 10 mg PO BEDTIME 04/03/14 [History] Doxepin [SINEquan] 100 mg PO BEDTIME 10/11/14 [History] Cyclobenzaprine [Flexeril] 10 mg PO TID PRN 01/05/17 [History] Folic Acid 1 mg PO DAILY 01/05/17 [History] QUEtiapine [SEROquel] 100 mg PO BEDTIME 01/05/17 [History] LORazepam 1 mg PO BID 01/07/17 [History] Fluticasone Propionate [Flonase] 2 spray NASBOTH DAILY 01/08/17 [History] Excedrin Migraine 1 tab PO BID PRN 04/08/17 [History] Pantoprazole Sodium [Protonix] 40 mg PO DAILY PRN 04/08/17 [History] metFORMIN [Glucophage] 500 mg PO BID 04/08/17 [History] Albuterol Sulfate [Proair Hfa] 2 puff IH Q6H PRN 06/24/17 [History] Asenapine Maleate [Saphris] 10 mg PO BEDTIME 06/24/17 [History] Budesonide/Formoterol Fumarate [Symbicort 160-4.5 Mcg Inhaler] 2 puff IH BID PRN 06/24/17 [History] Lisdexamfetamine [Vyvanse] 70 mg PO DAILY PRN 06/24/17 [History] diphenhydrAMINE [Benadryl] 50 mg PO BEDTIME 06/24/17 [History] Meloxicam 15 mg PO DAILY 06/25/17 [History] Furosemide [Lasix] 40 mg PO BID@,14 07/28/17 [History] Metoprolol Succinate [Toprol XL] 75 mg PO DAILY 08/13/17 [History] traMADol [Ultram] 50 mg PO Q6H PRN #10 tab 10/12/17 [Rx] Amoxicillin/Potassium Clav [Augmentin 875-125 Tablet] 1 each PO BID #20 tablet 11/23/17 [Rx] Hydrocodone/Acetaminophen [Lorcet 5-325 mg Tablet] 1 each PO Q4HR PRN #10 tablet 11/23/17 [Rx] atorvaSTATin [Lipitor] 20 mg PO BEDTIME 11/27/17 [History] Gabapentin [Neurontin] 600 mg PO BID 11/30/17 [History] Ondansetron HCl [Ondansetron] 8 mg PO BID PRN 11/30/17 [History] rOPINIRole HCl [Requip] 1 mg PO TID 11/30/17 [History] Acetaminophen [Tylenol Extra Strength] 1,000 mg PO Q6H tablet 12/01/17 [Rx] Ferrous Sulfate 325 mg PO DAILY tablet 12/01/17 [Rx] Past Medical History HEENT History: Reports: Impaired Vision Other HEENT History: wear glasses Cardiovascular History: Reports: Angina, High Cholesterol, Hypertension, [place], SOB on Exertion, Other (See Below) Other Cardiovascular History: cardiovascular disease Respiratory History: Reports: COPD, Pneumonia, Recurrent, Sleep Apnea, Other ( See Below) Other Respiratory History: recently on ventilator --Klebisella pneumoniae Gastrointestinal History: Reports: Diverticulosis, Other (See Below) Other Gastrointestinal History: IBS proceeded the diverticulosis Other Genitourinary History: cyst on kidney PET AMBASSADOR History: Reports: 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, Other OB/BYN History: miscarriage x2 Musculoskeletal History: Reports: Back Pain, Chronic, Fibromyalgia, RA Other Musculoskeletal History: sciatic nerve problem, generalized weakness, chronic pain Neurological History: Reports: Neuropathy, Diabetic, Neuropathy, Peripheral Other Neuro History: was in a coma for 5 months, fibromyalgia, neuropathy Psychiatric History: Reports: Anxiety, Bipolar, Depression, Hallucinations, Psych Hospitalization(s), PTSD, Suicide Attempt Other Psychiatric History: insomnia Endocrine/Metabolic History: Reports: Diabetes, Type II, Hypothyroidism, Other ( See Below) Other Endocrine/Metabolic History: borderline diabetic Hematologic History: Reports: None Immunologic History: Reports: None Oncologic (Cancer) History: Reports: None Dermatologic History: Reports: Other (See Below) Other Dermatologic History: occasional yeast infections under breast and adria area - Infectious Disease History Infectious Disease History: Reports: Chicken Pox - Past Surgical History Head Surgeries/Procedures: Reports: None GI Surgical History: Reports: Colonoscopy Other GI Surgeries/Procedures: stomach surgery Female Surgical History: Reports: Hysterectomy, Salpingo-Oophorectomy, Other (See Below) Other Female Surgeries/Procedures: partial hysterectomy, some kind of breast surgery Social & Family History - Family History Family Medical History: Noncontributory Oncologic: Reports: Liver - Tobacco Use Smoking Status *Q: Former Smoker Years of Tobacco use: 30 Used Tobacco, but Quit: Yes Month/Year Tobacco Last Used: unknown Second Hand Smoke Exposure: No - Caffeine Use Caffeine Use: Reports: None Caffeine Use Comment: unable to tolerate caffiene per patient - Recreational Drug Use Recreational Drug Use: No - Living Situation & Occupation Living situation: Occupation: Unemployed H&P Review of Systems - Review of Systems: Review Of Systems: ROS reveals no pertinent complaints other than HPI. Exam - Exam Exam: See Below - Vital Signs Vital Signs: Last Vital Signs Temp 98.2 F 12/25/17 09:00 Pulse 82 12/25/17 04:00 Resp 20 12/25/17 09:00 BP 140/60 12/25/17 09:00 Pulse Ox 93 L 12/25/17 09:00 Weight: 124.556 kg - Exam General: Alert, Oriented, 4 HEENT: PERRLA, Hearing Intact, Mucosa Moist & [place], Nares Patent, Normal Nasal Septum, Posterior Pharynx Clear, Conjunctiva Clear, EOMI, EACs Clear, TMs Clear Neck: Supple, Trachea Midline, 2 Lungs: Clear to Auscultation, Normal Respiratory Effort Cardiovascular: Regular Rate, Regular Rhythm GI/Abdominal Exam: Normal Bowel Sounds, Soft, Non-Tender, No Organomegaly, No Distention, No Abnormal Bruit, No Mass, Pelvis Stable, Distended, Other (wound healing) (Female) Exam: Deferred Rectal (Female) Exam: Deferred Back Exam: Normal Inspection, Full Range of Motion, NT Extremities: Normal Inspection, Normal Range of Motion, Non-Tender, No Pedal Edema, Normal Capillary Refill Skin: Warm, Dry, Intact Neurological: Cranial Nerves Intact, Reflexes Equal Bilateral Neuro Extensive - Mental Status: Alert, Oriented x3, Normal Mood/Affect, Normal Cognition Neuro Extensive - Motor, Sensory, Reflexes: CN II-XII Intact, Normal Gait, Normal Reflexes Psychiatric: Alert, Normal Affect, Normal Mood - Patient Data Lab Results Last 24 hrs: Laboratory Results - last 24 hr 12/25/17 12/25/17 12/25/17 Range/Units 00:33 00:33 00:33 WBC 8.5 (4.5-12.0) X10-3/uL RBC 4.26 (3.23-5.20) x10(6)uL Hgb 11.1 L (11.5-15.5) g/dL Hct 34.6 (30.0-51.3) % MCV 81.2 (80-96) fL MCH 26.1 L (27.7-33.6) pg MCHC 32.1 L (32.2-35.4) g/dL RDW 18.4 H (11.5-15.5) % Plt Count 387 H (125-369) X10(3)uL MPV 8.6 (7.4-10.4) fL Neut % (Auto) 65.9 (46-82) % Lymph % (Auto) 24.4 (13-37) % [place] % (Auto) 6.0 (4-12) % Eos % (Auto) 3 (1.0-5.0) % Baso % (Auto) 1 (0-2) % Neut # (Auto) 5.4 (1.6-8.3) # Lymph # (Auto) 2.1 (0.6-5.0) # [place] # (Auto) 0.5 (0.0-1.3) # Eos # (Auto) 0.3 (0.0-0.8) # Baso # (Auto) 0.1 (0.0-0.2) # Sodium 140 (135-145) mmol/L Potassium 4.5 (3.5-5.3) mmol/L Chloride 103 (100-110) mmol/L Carbon Dioxide 30 (21-32) mmol/L BUN 18 (7-18) mg/dL Creatinine 1.0 (0.55-1.02) mg/dL Est Cr Clr Drug Dosing 62.52 mL/min Estimated GFR (MDRD) 57 L (>60) BUN/Creatinine Ratio 18.0 (9-20) Glucose 106 (80-116) mg/dL Calcium 10.3 H (8.6-10.2) mg/dL Total Bilirubin 0.2 (0.1-1.3) mg/dL AST 12 (5-25) IU/L ALT 16 (12-36) U/L Alkaline Phosphatase 72 (56-112) IU/L Troponin I < 0.017 L (<0.017-0.056) ng/mL Total Protein 7.2 (6.0-8.0) g/dL Albumin 3.2 (3.2-4.6) g/dL Globulin 4.0 g/dL Albumin/Globulin Ratio 0.8 Result Diagrams: 12/25/17 00:33 12/25/17 00:33 EKG INTERPRETATION Rhythm: A-Fib - Problem List (1) Afib SNOMED Code(s): 80022632 ICD Code: I48.91 - UNSPECIFIED ATRIAL FIBRILLATION Status: Acute Current Visit: Yes Qualifiers: Atrial fibrillation type: paroxysmal Qualified Code(s): I48.0 - Paroxysmal atrial fibrillation (2) SVT (supraventricular tachycardia) SNOMED Code(s): 5299585 ICD Code: I47.1 - SUPRAVENTRICULAR TACHYCARDIA Status: Acute Priority: High Current Visit: Yes Problem Details: Admit to Observation, monitored bed (3) HTN (hypertension) SNOMED Code(s): 19027591 ICD Code: I10 - ESSENTIAL (PRIMARY) HYPERTENSION Status: Chronic Current Visit: No Qualifiers: Hypertension type: essential hypertension Qualified Code(s): I10 - Essential (primary) hypertension Problem List Initiated/Reviewed/Updated: Yes Orders Last 24hrs: Active Orders 24 hr Category Date Time Status Patient Status [ADT] Routine ADT 12/25/17 00:12 Active Ambulate [RC] 09,13,17,21 Care 12/25/17 00:12 Active Ambulate [RC] PER UNIT ROUTINE Care 12/25/17 00:12 Active Antiembolic Devices [RC] .Routine Care 12/25/17 00:12 Active Cardiac Monitoring [RC] .As Directed Care 12/25/17 00:01 Active Pulse Oximetry [RC] PRN Care 12/25/17 00:12 Active VTE/DVT Education [RC] Click to Edit Care 12/25/17 00:12 Active Vital Signs [RC] Q4H Care 12/25/17 00:12 Active Consistent Carbohydrate Diet [DIET] Diet 12/25/17 Breakfast Active Heart Healthy Diet [DIET] Diet 12/25/17 Breakfast Active Dextrose 5%-Lactated Ringers 1,000 ml Med 12/25/17 00:12 Active IV ASDIRECTED Metoprolol Succinate [Toprol XL] Med 12/25/17 01:45 Active 75 mg PO DAILY QUEtiapine [SEROquel] Med 12/25/17 21:00 Active 100 mg PO BEDTIME Sodium Chloride 0.9% [Saline Flush] Med 12/25/17 00:12 Active 10 ml FLUSH ASDIRECTED PRN Zolpidem [Ambien] Med 12/25/17 02:30 Active 10 mg PO BEDTIME traMADol [Ultram] Med 12/25/17 02:15 Active 50 mg PO Q6H PRN DVT/VTE Prophylaxis Reflex [OM.PC] Per Unit Routine Oth 12/25/17 00:12 Ordered Peripheral IV Insertion Adult [OM.PC] Routine Oth 12/25/17 00:12 Ordered Resuscitation Status Routine Resus Stat 12/24/17 23:15 Ordered EKG 12 Lead [EK] Routine Ther 12/25/17 00:12 Ordered Medication Orders Dextrose/Lactated Ringer's (Dextrose 5%-Lactated Ringers) 1,000 mls @ 150 mls/ hr IV ASDIRECTED NIA Last Admin: 12/25/17 01:13 Dose: 150 mls/hr Metoprolol Succinate (Toprol Xl) 75 mg PO DAILY NIA Last Admin: 12/25/17 01:42 Dose: 75 mg Quetiapine Fumarate (Seroquel) 100 mg PO BEDTIME [facility] Sodium Chloride (Saline Flush) 10 ml FLUSH ASDIRECTED PRN PRN Reason: Keep Vein Open Last Admin: 12/24/17 23:05 Dose: 10 ml Tramadol HCl (Ultram) 50 mg PO Q6H PRN PRN Reason: Pain (moderate 4-6) Last Admin: 12/25/17 02:28 Dose: 50 mg Zolpidem Tartrate (Ambien) 10 mg PO BEDTIME [facility] Last Admin: 12/25/17 03:10 Dose: 10 mg Assessment/Plan Comment:: Patient heart rate vital signs are normal this morning and she remains asymptomatic. I will discharge her home, to resume metoprolol (AV kody andre ) and follow-up with cardiology as needed,but see a physician next week on Thursday. She does have home health to check on her and the wound 3 times a day
[2017-12-25] MEDS ORDERED: Metoprolol Succinate 25 MG Tab.ER PO SCH (10:00)
[2017-12-25 10:45] VITALS: BP 124/74
[2017-12-25] MEDS ORDERED: QUEtiapine 100 MG Tab PO SCH (21:00)
== END 2017-12-25 13:50 | disposition home health service (06) ==
LOC: FB.ED 22:42 → FB.MS 23:30
PROVIDERS: ADMIT Family Medicine; ATTEND Family Medicine
DX: I47.1 Supraventricular tachycardia (principal); I20.9 Angina pectoris, unspecified; I10 Essential (primary) hypertension; E11.9 Type 2 diabetes mellitus without complications; E03.9 Hypothyroidism, unspecified; E78.00 Pure hypercholesterolemia, unspecified; E11.42 Type 2 diabetes mellitus with diabetic polyneuropathy; J44.9 Chronic obstructive pulmonary disease, unspecified; J15.0 Pneumonia due to Klebsiella pneumoniae; G47.30 Sleep apnea, unspecified; K58.9 Irritable bowel syndrome, unspecified; F41.9 Anxiety disorder, unspecified; F31.9 Bipolar disorder, unspecified; Z88.1 Allergy status to other antibiotic agents; Z87.891 Personal history of nicotine dependence
CPT/HCPCS: 36415; 80053; 84484; 85025; 93005; 96361; 96374; 99285; A9270; G0378; J0153; J7042; J7050

== ENCOUNTER 2018-09-14 20:35 | Emergency (ER) | payer MEDICAID ==
[2018-09-14] MEDS ORDERED: Ketorolac 60 MG/2 ML SDV IM ONE (20:59)
--- NOTE | 2018-09-14 21:01 | EDM.PDOC ---
ED HPI GENERAL MEDICAL PROBLEM - General Chief Complaint: Abdominal Pain Stated Complaint: ABD PAIN Time Seen by Provider: 09/14/18 20:35 Source of Information: Reports: Patient, EMS History Limitations: Reports: Physical Impairment - History of Present Illness INITIAL COMMENTS - FREE TEXT/NARRATIVE: 63 y.o.w.f with multiple medical issues, includind IDDM, S/P partial bowel resection due to diverticulitis, came to the ED by EMS due to lower back pain after a fall 2 days ago. Pt applied ice to the affected area. It did not help her pain. Pt is ambulatory with mild discomfort mid lower back. No N/V/D, no dizziness or any other acute medical issues. BP 139/82 RR 17 Pulse ox 95% on 2 liters O2 by NC. Temp 37.4 Pulse 85 Onset Date: 09/12/18 Onset Time: 08:00 Duration: Day(s):, Intermittent Location: Reports: Back Quality: Reports: Ache, Dull Severity: Moderate Improves with: Reports: Rest Worsens with: Reports: Movement Context: Reports: Trauma (fall on back a few days ago.) Associated Symptoms: Reports: Other (obesity) Left Lower Abdomen Pain Score (Numeric/FACES): 10 - Related Data Allergies Allergy/AdvReac Type Severity Reaction Status Date / Time ciprofloxacin Allergy Cannot Verified 09/14/18 20:53 Remember metronidazole [From Flagyl] Allergy Itching Verified 09/14/18 20:53 Home Meds: Home Meds Sennosides/Docusate Sodium [Senna-S Tablet] 2 tab PO DAILY 04/03/14 [History] Zolpidem [Ambien] 10 mg PO BEDTIME 04/03/14 [History] Doxepin [SINEquan] 100 mg PO BEDTIME 10/11/14 [History] Cyclobenzaprine [Flexeril] 10 mg PO TID PRN 01/05/17 [History] Folic Acid 1 mg PO DAILY 01/05/17 [History] QUEtiapine [SEROquel] 100 mg PO BEDTIME 01/05/17 [History] LORazepam 1 mg PO BID 01/07/17 [History] Fluticasone Propionate [Flonase] 2 spray NASBOTH DAILY 01/08/17 [History] Excedrin Migraine 1 tab PO BID PRN 04/08/17 [History] Pantoprazole Sodium [Protonix] 40 mg PO DAILY 04/08/17 [History] metFORMIN [Glucophage] 500 mg PO BID 04/08/17 [History] Albuterol Sulfate [Proair Hfa] 2 puff IH Q6H PRN 06/24/17 [History] Asenapine Maleate [Saphris] 10 mg PO BEDTIME 06/24/17 [History] Budesonide/Formoterol Fumarate [Symbicort 160-4.5 Mcg Inhaler] 2 puff IH BID PRN 06/24/17 [History] Lisdexamfetamine [Vyvanse] 70 mg PO DAILY PRN 06/24/17 [History] diphenhydrAMINE [Benadryl] 50 mg PO BEDTIME 06/24/17 [History] Meloxicam 15 mg PO DAILY 06/25/17 [History] Furosemide [Lasix] 40 mg PO BID@08,14 07/28/17 [History] Metoprolol Succinate [Toprol XL] 75 mg PO DAILY 08/13/17 [History] atorvaSTATin [Lipitor] 20 mg PO BEDTIME 11/27/17 [History] Ondansetron HCl [Ondansetron] 8 mg PO Q8H PRN 11/30/17 [History] rOPINIRole HCl [Requip] 1 mg PO TID 11/30/17 [History] Acetaminophen [Tylenol Extra Strength] 1,000 mg PO Q6H tablet 12/01/17 [Rx] Ferrous Sulfate 325 mg PO DAILY tablet 12/01/17 [Rx] DULoxetine HCl [Duloxetine HCl] 60 mg PO BEDTIME 05/24/18 [History] Pregabalin [Lyrica] 50 mg PO TID 05/24/18 [History] amLODIPine Besylate [Amlodipine Besylate] 5 mg PO DAILY 05/24/18 [History] Past Medical History HEENT History: Reports: Impaired Vision Other HEENT History: wear glasses Cardiovascular History: Reports: Afib, Angina, High Cholesterol, Hypertension, [place], SOB on Exertion, Other (See Below) Other Cardiovascular History: cardiovascular disease Respiratory History: Reports: Asthma, COPD, Pneumonia, Recurrent, Sleep Apnea, Other (See Below) Other Respiratory History: recently on ventilator --Klebisella pneumoniae Gastrointestinal History: Reports: Diverticulosis, Other (See Below) Other Gastrointestinal History: IBS proceeded the diverticulosis Other Genitourinary History: cyst on kidney HEEL PADDER History: Reports: 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, Other HEEL PADDER History: miscarriage x2 Musculoskeletal History: Reports: Back Pain, Chronic, Fibromyalgia, RA Other Musculoskeletal History: sciatic nerve problem, generalized weakness, chronic pain Neurological History: Reports: Neuropathy, Diabetic, Neuropathy, Peripheral Other Neuro History: was in a coma for 5 months, fibromyalgia, neuropathy Psychiatric History: Reports: Anxiety, Bipolar, Depression, Hallucinations, Psych Hospitalization(s), PTSD, Suicide Attempt Other Psychiatric History: insomnia Endocrine/Metabolic History: Reports: Diabetes, Type II, Hypothyroidism, Other ( See Below) Other Endocrine/Metabolic History: borderline diabetic Hematologic History: Reports: None Immunologic History: Reports: None Oncologic (Cancer) History: Reports: None Dermatologic History: Reports: Other (See Below) Other Dermatologic History: occasional yeast infections under breast and adria area - Infectious Disease History Infectious Disease History: Reports: Chicken Pox - Past Surgical History Head Surgeries/Procedures: Reports: None GI Surgical History: Reports: Colonoscopy Other GI Surgeries/Procedures: stomach surgery Female Surgical History: Reports: Hysterectomy, Salpingo-Oophorectomy, Other (See Below) Other Female Surgeries/Procedures: partial hysterectomy, some kind of breast surgery Social & Family History - Family History Family Medical History: Noncontributory Oncologic: Reports: Liver - Caffeine Use Caffeine Use: Reports: Soda Caffeine Use Comment: unable to tolerate caffiene per patient - Living Situation & Occupation Living situation: Occupation: Unemployed ED ROS GENERAL - Review of Systems Review Of Systems: See Below Constitutional: Reports: No Symptoms HEENT: Reports: No Symptoms Respiratory: Reports: No Symptoms Cardiovascular: Reports: No Symptoms Endocrine: Reports: No Symptoms GI/Abdominal: Reports: Abdominal Pain (chronic) : Reports: No Symptoms Musculoskeletal: Reports: Back Pain Skin: Reports: No Symptoms Neurological: Reports: No Symptoms Psychiatric: Reports: No Symptoms Hematologic/Lymphatic: Reports: No Symptoms Immunologic: Reports: No Symptoms ED EXAM,LOWER BACK PAIN/INJURY - Physical Exam Exam: See Below Exam Limited By: Physical Impairment General Appearance: Alert, Mild Distress, Obese (Morbid) Eye Exam: Bilateral Eye: Normal Inspection Ears: Normal External Exam Nose: Normal Inspection Throat/Mouth: Normal Inspection, Normal Voice, No Airway Compromise Head: Atraumatic, Normocephalic Neck: Normal Inspection, Supple, Non-Tender, Full Range of Motion Respiratory/Chest: No Respiratory Distress, Lungs Clear, Normal Breath Sounds Cardiovascular: Normal Peripheral Pulses, Regular Rate, Rhythm GI/Abdominal: Normal Bowel Sounds, Soft, Non-Tender, No Organomegaly, Pelvis Stable (Female) Exam: Deferred Rectal (Female) Exam: Deferred Back Exam: Normal Inspection, Full Range of Motion Extremities: Normal Inspection, Normal Range of Motion, Non-Tender, No Pedal Edema Neurological: Alert, Normal Mood/Affect, Normal Dorsiflexion, CN II-XII Intact, Normal Gait (walked to the bathroom well, was transferring well in the X Ray department), Oriented x 3 Psychiatric: Normal Affect, Normal Mood Skin Exam: Warm, Dry, Intact (old surgical scars) Lymphatic: No Adenopathy Course - Vital Signs Text/Narrative:: 63 y.o.w.f with multiple medical issues, includind IDDM, S/P partial bowel resection due to diverticulitis, came to the ED by EMS due to lower back pain after a fall 2 days ago. Pt applied ice to the affected area. It did not help her pain. Pt is ambulatory with mild discomfort mid lower back. No N/V/D, no dizziness or any other acute medical issues. BP 139/82 RR 17 Pulse ox 95% on 2 liters O2 by NC. Temp 37.4 Pulse 85 PE: Morbid obese 63 y.o.w.f with multiple medical issues came to the ed because of back kaz X 2 days after a fall Labs: Accu check: Glc 105 Imaging: L Spine: Mild spondylolisthesis L3 on L4: Official report is pending. Impression: Chronic Low back pain with exacerbation after a fall. Spondylolisthesis L3/L4 Tx: Toradol, ICE to lower back Reexam: Improved, pt was ambulating well. Plan: D/C with instructions by Ericka Last Recorded V/S: Last Vital Signs Temp 37.4 C 09/14/18 22:08 Pulse 90 09/14/18 22:08 Resp 17 09/14/18 22:08 BP 146/80 H 09/14/18 22:08 Pulse Ox 95 09/14/18 22:08 - Orders/Labs/Meds Orders: Active Orders 24 hr Category Date Time Status Accu Check [Blood Glucose Check, Bedside] [RC] ONETIME Care 09/14/18 21:46 Active Lumbar Spine 2 or 3V [CR] Stat Exams 09/14/18 20:59 Taken Labs: Laboratory Tests 09/14/18 Range/Units 21:50 POC Glucose 102 (80-116) mg/dL Meds: Medications Discontinued Medications Generic Name Dose Route Start Last Admin Trade Name Bobo PRN Reason Stop Dose Admin Ketorolac Tromethamine 60 mg 09/14/18 20:59 09/14/18 21:15 Toradol IM 09/14/18 21:00 60 mg ONETIME ONE Administration Departure - Departure Time of Disposition: 21:53 Disposition: Home, Self-Care 01 Condition: Good Clinical Impression: Back pain at L4-L5 level - Discharge Information Referrals: Shannan Peng [facility] [Primary Care Provider] - Forms: ED Department Discharge Additional Instructions: Please cont your current meds, please f/u with your PMD, please come back if your symptoms get wore acutely - My Orders Last 24 Hours: My Active Orders 09/14/18 20:59 Lumbar Spine 2 or 3V [CR] Stat 09/14/18 21:46 Accu Check [Blood Glucose Check, Bedside] [RC] ONETIME - Assessment/Plan Last 24 Hours: My Active Orders 09/14/18 20:59 Lumbar Spine 2 or 3V [CR] Stat 09/14/18 21:46 Accu Check [Blood Glucose Check, Bedside] [RC] ONETIME
[2018-09-14 22:09] VITALS: BP 146/80
--- NOTE | 2018-09-15 13:38 | CR ---
INDICATION: Low back pain, left-sided, fell two days ago, moves well for the examination. LUMBOSACRAL SPINE: Three views of the lumbosacral spine were obtained, - no comparisons. A moderate dextroconvex rotoscoliosis of the lower middle lumbar spine is noted. Degenerative disk disease is noted at the L3-4 level with a grade 1 anterolisthesis at that level and vacuum disk phenomenon also seen. Degenerative disk disease is also suggested at L4-5. The sacroiliac joints appear to be intact. Bone density appeared to be normal. Minimal calcification is noted in the aorta. IMPRESSION: Degenerative changes, disk disease, scoliosis. No definite acute fracture or dislocation seen. MTDD
== END 2018-09-14 22:18 | disposition home or self-care (01) ==
LOC: FB.ED 20:35
DX: M43.16 Spondylolisthesis, lumbar region (principal); J45.909 Unspecified asthma, uncomplicated; E03.9 Hypothyroidism, unspecified; E11.40 Type 2 diabetes mellitus with diabetic neuropathy, unspecified; I10 Essential (primary) hypertension; I25.2 Old myocardial infarction; Z87.01 Personal history of pneumonia (recurrent); Z90.710 Acquired absence of both cervix and uterus; Z79.899 Other long term (current) drug therapy; Z88.1 Allergy status to other antibiotic agents; Z88.8 Allergy status to other drugs, medicaments and biological substances
CPT/HCPCS: 72100; 82962; 96372; 99284-25; J1885